=== PATIENT | female | born 1945 | race Caucasian/White ===

== ENCOUNTER 2016-08-29 13:02 | Inpatient (IN) | payer OTHER ==
[~2016-08-29] VITALS: Ht 162.6 cm; Wt 78.9 kg
[~2016-08-29 13:02] MED LIST: ALPRAZOLAM0.5 M3 PO; AMARYL4 MG PO; AMOXIL 875 MG875 MG PO; ASPIRIN CHILDRE81 MG PO; ATORVASTATIN CA10 MG PO; BACTRIM DS 8001 TAB PO; CALCIUM + D 6001 TAB PO; CYCLOBENZAPRINE10 M3 PO; FISH OIL CONC1000 MG PO; LISINOPRIL40 MG PO; METFORMIN1000 MG PO; MULTIVITAMIN1 TA1 PO; OMEPRAZOLE20 MG PO; PERCOCET 325 MG1 TA2 PO; PROAIR HFA0.09 MG/Ac INH; TYLENOL #31 TAB PO; VALIUM2 MG PO
--- NOTE | 2016-08-29 13:07 | ED DYSPNEA/ASTHMA COMPLAINT ---
History of Present Illness General Chief Complaint: Dyspnea (COPD, CHF, Other) Stated Complaint: BIBA SOB Source: patient, old records, EMS Exam Limitations: clinical condition Vital Signs & Intake/Output Vital Signs & Intake/Output Vital Signs Date Time Temp Pulse Resp B/P Pulse O2 O2 Flow FiO2 Ox Delivery Rate 08/29 1359 93 Nasal 3.0L Cannula 08/29 1308 99.9 123 26 157/67 96 Aerosol Mask Allergies Coded Allergies: NO KNOWN ALLERGIES (01/13/14) Reconcile Medications Acetaminophen With Codeine (Acetaminophen-Cod #4 Tablet) 300 MG-60 MG TABLET 1 TAB PO TID PRN PAIN SCALE 7-10 (SEVERE) (Reported) Albuterol Sulfate (Proair Hfa) 0.09 MG/Actuation OUSMANE 2 PUF INH BID PRN ASTHMA (Reported) Amoxicillin/Potassium Clav (Augmentin 875-125 Tablet) 875 MG-125 MG TABLET 1 TAB PO BID Pneumonia Aspirin (Children's Aspirin) 81 MG TAB.CHEW 1 TAB PO DAILY HEART HEALTH ( Reported) Atorvastatin Calcium (Lipitor) 10 MG TABLET 1 TAB PO DAILY CHOLESTEROL ( Reported) Calcium/Vitamin D (Calcium + D) 600 MG/200 IU TAB 1 TAB PO BID SUPPLEMENT ( Reported) CYCLOBENZAPRINE HCL (Cyclobenzaprine Hydrochloride) 10 MG TABLET 1 TAB PO DAILY PRN SPASMS (Reported) Fish Oil (Fish Oil Concentrate) 1,000 MG SGL 1 TAB PO DAILY SUPPLEMENT ( Reported) Glimepiride (Amaryl) 4 MG TAB 1 TAB PO DAILY BLOOD SUGAR (Reported) Hydrochlorothiazide 25 MG TABLET 1 TAB PO DAILY WATER PILL (Reported) Lisinopril 40 MG TABLET 1 TAB PO DAILY BLOOD PRESSURE (Reported) Loperamide HCl (Loperamide) 2 MG TABLET 1 TAB PO Q4 PRN Diarrhea METFORMIN HCL (Metformin) 1,000 MG TABLET 1 TAB PO BID DIABETES (Reported) Multivitamin2 (Multivitamin) 1 EACH TAB 1 TAB PO DAILY SUPPLEMENT (Reported) Prednisone 10 MG TABLET 0 PO SI COPD 09/03/15-09/04/15 take 4 tabs daily 09/05/15-09/07/14 take 3 tabs daily 09/08/15-09/10/15 take 2 tabs daily 09/11/15-09/13/15 take 1 tab daily then stop. Saxagliptin (Onglyza) 5 MG TABLET 1 TAB PO DAILY DIABETES (Reported) Valsartan 160 MG TABLET 1 TAB PO DAILY HEART (Reported) Triage Nurses Notes Reviewed? yes Onset: Gradual Duration: week(s): (1) Timing: recent history Severity: severe Activities at Onset: none Associated Symptoms: cough, DYSPNEA HPI: This is a 71-year-old female presents to the ER from home by EMS for chief complaint of severe shortness of breath this morning. According to the patient she has been having about one week's duration of cough and cold. She admits to some yellow sputum today. She is a former smoker but quit more than 15 years ago. Her daughter smokes in the house. No fever or chills. Today they found her in moderate to severe respiratory distress with a saturation in the low 80s. She had an inhaler at home that she was unable to use. She is not on any chronic 02. Denies any sick contacts or travel. Past History Travel History Traveled to [place] past 21 day No Medical History Any Pertinent Medical History? see below for history Neurological: NONE EENT: NONE Cardiovascular: hypertension, hyperlipidemia Respiratory: pneumonia Gastrointestinal: BOWEL OBSTRUCTION Hepatic: NONE Renal: NONE Musculoskeletal: osteoarthritis Psychiatric: NONE Endocrine: diabetes Blood Disorders: NONE Cancer(s): NONE BRAND MANAGER/Reproductive: NONE History of MRSA: No History of VRE: No History of CDIFF: No Surgical History Surgical History: BLADDER LIFT BOWEL SURGERY Psychosocial History Who do you live with Daughter Services at Home None What is your primary language Armenian Tobacco Use: Quit >30 days ago ETOH Use: denies use Illicit Drug Use: denies illicit drug use Family History Hx Contributory? No Review of Systems Review of Systems Constitutional: Denies: chills, fever. EENTM: Reports: no symptoms. Respiratory: Reports: cough, short of breath, sputum production. Cardiovascular: Denies: chest pain, palpitations. GI: Denies: abdominal pain. Genitourinary: Denies: discharge, dysuria. Musculoskeletal: Reports: no symptoms. Skin: Reports: no symptoms. Neurological/Psychological: Denies: confusion. Hematologic/Endocrine: Denies: bruising, bleeding, polyuria, polydipsia. Immunologic/Allergic: Denies: splenectomy. All Other Systems: Reviewed and Negative Physical Exam Physical Exam General Appearance: well developed/nourished, alert, awake Head: atraumatic, normal appearance Eyes: Bilateral: normal appearance, PERRL, EOMI. Ears, Nose, Throat: normal pharynx, normal ENT inspection, hearing grossly normal Neck: normal inspection, supple, JVD Respiratory: decreased breath sounds, accessory muscle use, rhonchi, wheezing Cardiovascular: regular rate/rhythm Peripheral Pulses: 2+ radial (R), 2+ radial (L) Gastrointestinal: normal bowel sounds, soft, non-tender Extremities: normal inspection, normal capillary refill, normal range of motion, no edema Neurologic/Psych: no motor/sensory deficits, awake, alert, oriented x 3 Skin: intact, normal color, warm/dry Core Measures ACS in differential dx? No Severe Sepsis Present: No Septic Shock Present: No Progress Differential Diagnosis: asthma, bronchitis, CHF, COPD, pulmonary embolism, pneumonia, INFLUENZA Plan of Care: Orders Procedure Date/time Status Heart Healthy Diet 08/29 D Active LACTIC ACID 08/29 1607 Active Admit to inpatient 08/29 1422 Active Vital Signs 08/29 1422 Active Code Status 08/29 1422 Active TROPONIN LEVEL 08/29 1330 Complete RAPID VIRAL INFLUENZA A 08/29 1328 Active BLOOD CULTURE 08/29 1328 Active PARTIAL THROMBOPLASTIN TIME 08/29 1307 Complete PROTHROMBIN TIME 08/29 1307 Complete LACTIC ACID 08/29 1307 Complete RT ED ORDERS 08/29 1306 Active Telemetry/Winch Derrick Operator 08/29 1306 Active LOWER RESPIRATORY CULTURE 08/29 1306 Active BLOOD CULTURE 08/29 1306 Active COMPREHENSIVE METABOLIC PANEL 08/29 1306 Complete CBC WITHOUT DIFFERENTIAL 08/29 1306 Active EKG 08/29 1302 Active Current Medications Sig/Harish Start time Last Medication Dose Stop Time Status Admin Albuterol Sulfate 3 ML ONCE ONE 08/29 1430 UNVr (Proventil) 08/29 1431 Sodium Chloride 1,000 ML BOLUS ONE 08/29 1430 UNVr (Normal Saline 0.9%) 08/29 1529 Acetaminophen 1,000 MG ONCE ONE 08/29 1415 AC (Ofirmev) 08/29 1429 N/A 1 UNIT (No Carrier) Azithromycin 500 MG ONCE ONE 08/29 1345 AC (Zithromax) 08/29 1444 Dextrose/Water 250 ML (D5W) Laboratory Tests 08/29/16 1340: Lactic Acid 3.6 H 08/29/16 1330: Anion Gap 15, Estimated GFR 40 L, BUN/Creatinine Ratio 20.0, Glucose 284 H, Calcium 9.5, Total Bilirubin 0.9, AST 18, ALT 36, Alkaline Phosphatase 136 H, Troponin I < 0.01, Total Protein 7.2, Albumin 4.1, Globulin 3.1, Albumin/ Globulin Ratio 1.3, PT 12.4, INR 1.18, APTT 30, CBC w Diff MAN DIFF ORDERED, RBC 4.13 L, MCV 94.0, MCH 31.3 H, RDW 13.7, MPV 7.8, Gran % 84.8 H, Lymphocytes % 9.1 L, Monocytes % 5.7, Eosinophils % 0.1, Basophils % 0.3, Absolute Granulocytes 14.8 H, Segmented Neutrophils Pending, Absolute Lymphocytes 1.6, Absolute Monocytes 1.0 H, Absolute Eosinophils 0, Absolute Basophils 0.1, PUBS MCHC 33.3 Microbiology 08/29 1348 BLOOD: Blood Culture - RECD 08/29 1330 BLOOD: Blood Culture - RECD 08/29 1306 LOWER RESP: Respiratory Culture - ORD 08/29 1306 LOWER RESP: Gram Stain - ORD Diagnostic Imaging: Viewed by Me: Radiology Read. Discussed w/RAD: Radiology Read. Initial ED EKG: SINUS TACHYCARDIA AT 120, st DEPRESSIONS v4 THROUGH v6 Rhythm Strip: sinus tachycardia Comments: PATIENT: VINCENT CLAYTON PRESENT AGE: 71 PATIENT ACCOUNT NO: [id number] : 44 LOCATION: [facility] ORDERING PHYSICIAN: HERMANN JACOB MD SERVICE DATE: 08/29/161306 EXAM TYPE: RAD - XRY-PORTABLE CHEST XRAY EXAMINATION: XR PORTABLE CHEST CLINICAL INFORMATION: Cough and shortness of breath. COMPARISON: CXR from 01/12/[address] from 12/30/2014. TECHNIQUE: Portable view of the chest was obtained. FINDINGS: There are a few horizontal linear lines of artifact projecting over the lower chest. Lungs are slightly hypoinflated. Compared to 01/12/2014, there is new, hazy opacity in the retrocardiac region of the lower lobe. This could represent atelectasis or pneumonia if in the right clinical context. This area of the lung is suboptimally evaluated on this single view. No evidence of pleural effusion. The cardiac silhouette is normal in size. The hilar contours are normal. The upper lobes are relatively lucent from patient's known emphysematous disease. There is at least moderate osteoarthritis of both glenohumeral joints. IMPRESSION: 1. Pulmonary emphysema. 2. There is hazy opacity in the retrocardiac left lower lobe, possibly pneumonia. DICTATED BY: HILLARY VASQUEZ MD DATE/TIME DICTATED:08/29/161334 MORTGAGE ADVISOR:TOÑO DATE/TIME TRANSCRIBED:08/29/161334 CONFIDENTIAL, DO NOT COPY WITHOUT APPROPRIATE AUTHORIZATION. <Electronically signed in Other Vendor System> SIGNED BY: HILLARY VASQUEZ MD 08/29/16 1344 Departure Departure Time of Disposition: 1421 Disposition: STILL A PATIENT Condition: Stable Clinical Impression Primary Impression: Pneumonia Secondary Impressions: Hypoxia, Lactic acid acidosis, Respiratory distress Referrals: BALJIT GRADY,MILE Newton (PCP/Family) Departure Forms: Customer Survey General Discharge Information Prescriptions: Current Visit Scripts Amoxicillin/Potassium Clav (Augmentin 875-125 Tablet) 1 TAB PO BID #20 TAB Prednisone 0 PO SI #26 09/03/15-09/04/15 take 4 tabs daily 09/05/15-09/07/14 take 3 tabs daily 09/08/15-09/10/15 take 2 tabs daily 09/11/15-09/13/15 take 1 tab daily then stop. Loperamide HCl (Loperamide) 1 TAB PO Q4 PRN Diarrhea #10 TAB Admission Note Spoke With: PALAK BOYD MD Documentation of Exam: Documentation of any treatments & extenuating circumstances including Concerns Regarding Discharge (functional status, medication knowledge or non-compliance, living conditions, etc.) that warrant an admission rather than observation: [IV fluids, IV antibiotics, TRC/nebs, pulmonary consultation, repeat lactic acid after IV hydration and follow-up blood and sputum cultures] ED Sepsis Exam Date of Focused Sepsis Exam: 08/29/16 Time of Focused Sepsis Exam: 1331 Sepsis Cardiac Exam: Tachycardia Sepsis Resp Exam: Ronchi Sepsis Cap Refill Exam: <2 Sec Sepsis Peripheral Pulse Exam: Normal Sepsis Peripheral Pulse Location: Radial Sepsis Skin Color Exam: Normal for Ethnicity Skin Temp/Moisture Exam: Warm/Dry Critical Care Note Critical Care Note Critical Care Time: 30-74 min
--- NOTE | 2016-08-29 13:10 | NUR ---
PT BIBA FROM HOME FOR C/O SOB X 6 DAYS. LAST MONDAY PT HAD A SYNCOPAL EPISODE AND REFUSED TRANSPORTATION TO ER. PT ARRIVES TODAY, SOB. ARRIVES ON DUONEB, SATS 96%. PT TAKEN OFF DUONEB AND PLACED ON 2LNC, SATS 92-95%. DENIES C/P. C/O PRODUCTIVE COUGH.
--- NOTE | 2016-08-29 13:18 | NUR ---
PORT CXR DONE.
--- NOTE | 2016-08-29 13:44 | RADIOLOGY REPORT ---
EXAMINATION: XR PORTABLE CHEST CLINICAL INFORMATION: Cough and shortness of breath. COMPARISON: CXR from 01/12/[address] from 12/30/2014. TECHNIQUE: Portable view of the chest was obtained. FINDINGS: There are a few horizontal linear lines of artifact projecting over the lower chest. Lungs are slightly hypoinflated. Compared to 01/12/2014, there is new, hazy opacity in the retrocardiac region of the lower lobe. This could represent atelectasis or pneumonia if in the right clinical context. This area of the lung is suboptimally evaluated on this single view. No evidence of pleural effusion. The cardiac silhouette is normal in size. The hilar contours are normal. The upper lobes are relatively lucent from patient's known emphysematous disease. There is at least moderate osteoarthritis of both glenohumeral joints. IMPRESSION: 1. Pulmonary emphysema. 2. There is hazy opacity in the retrocardiac left lower lobe, possibly pneumonia.
--- NOTE | 2016-08-29 13:54 | NUR ---
BLD CX X2 AND LABS (SST/LAV/BLUE/JACKSON) AND FLU SWAB SENT, PT HAS SPUTUM CUP TO COLLECT SPUTUM SAMPLE. PT FEELING MORE COMFORTABLE,, 02 SATS 93-94 ON NC.
[2016-08-29 13:59] LABS: ABSOLUTE BASOPHIL COUNT 0.1 /CUMM (0.0-0.2); ABSOLUTE EOSINOPHIL COUNT 0 /CUMM (0.0-0.7); ABSOLUTE GRANULOCYTE CT 14.8 /CUMM (1.4-6.5); ABSOLUTE LYMPH COUNT 1.6 /CUMM (1.2-3.4); BASOPHIL % 0.3 % (0.0-2.0); EOSINOPHIL % 0.1 % (0-5); GRANULOCYTE % 84.8 % (42.2-75.2); HEMATOCRIT 38.8 % (37-47); MEAN CORPUSCULAR HGB 31.3 PG (27.0-31.0); MEAN CORPUSCULAR HGB CONC 33.3 G/DL (33.0-37.0); MEAN PLATELET VOLUME 7.8 FL (7.4-10.4); PLATELET COUNT 315 /CUMM (130-400); RBC DISTRIBUTION WIDTH 13.7 % (11.5-14.5); RED BLOOD CELL CT 4.13 /CUMM (4.20-5.40); WHITE BLOOD CELL COUNT 17.5 /CUMM (4.8-10.8)
[2016-08-29 14:05] LABS: PT 12.4 SEC (9.4-12.5); PTT 30 SEC (25-37)
[2016-08-29] MEDS ORDERED: VALSARTAN160 M1 PO (14:26)
[2016-08-29] MEDS ORDERED: HYDROCHLOROTHIA25 M1 PO (14:27)
[2016-08-29] MEDS ORDERED: ONGLYZA5 M1 PO (14:27)
[2016-08-29 14:30] VITALS: BP 130/70
--- NOTE | 2016-08-29 14:32 | History & Physical ---
REBECCA GRADY,[facility] 08/29/16 1432: General Information and HPI MD Statement: I have seen and personally examined VINCENT CLAYTON and documented this H&P. The patient is a 71 year old F who presented with a patient stated chief complaint of is of breath Source of Information: patient Exam Limitations: no limitations History of Present Illness: This is a 71-year-old female with past medical history of hypertension, hyperlipidemia, diabetes mellitus, osteoarthritis who presents with chief complaint of shortness of breath. As per patient for the past couple of days she has been getting progressively short of breath(not on any home oxygen), she also had had cough productive of light greenish sputum, denied any hemoptysis, she did feel feverish but denies any fever. She has been using her inhaler at home but without any relief. Today her shortness of breath progressed to the point that her daughter called the ambulance and that's when she was brought to the ER for further evaluation. She denies any nausea, vomiting, fever, abdominal pain, urine symptoms, changes in bowel movements, any recent travels. Her daughter with whom she lives with has recently been sick with upper respiratory symptoms recently treated with Zithromax. She has received her flu vaccine but denies receiving pneumonia vaccine. She lives with her daughter, is able to do her daily chores without any difficulty, fully functional , is ex-smoker quit 15 years ago(but is exposed to secondhand smoke), drinks alcohol occasionally, denies any drug abuse. She follows Dr. London Smiley as her primary care physician and Dr. Zackery Butcher as her manugrapher (whom she saw after she had the syncopal episode, an echo was done and stress test which as per patient was normal, will request records if needed.) Allergies/Medications Allergies: Coded Allergies: NO KNOWN ALLERGIES (01/13/14) Home Med list Albuterol Sulfate (Proair Hfa) 0.09 MG/Actuation OUSMANE 2 PUF INH BID PRN ASTHMA (Reported) Aspirin (Children's Aspirin) 81 MG TAB.CHEW 1 TAB PO DAILY HEART HEALTH ( Reported) Atorvastatin Calcium (Lipitor) 10 MG TABLET 1 TAB PO DAILY CHOLESTEROL ( Reported) Calcium/Vitamin D (Calcium + D) 600 MG/200 IU TAB 1 TAB PO BID SUPPLEMENT ( Reported) CYCLOBENZAPRINE HCL (Cyclobenzaprine Hydrochloride) 10 MG TABLET 1 TAB PO DAILY PRN SPASMS (Reported) Fish Oil (Fish Oil Concentrate) 1,000 MG SGL 1 TAB PO DAILY SUPPLEMENT ( Reported) Glimepiride (Amaryl) 4 MG TAB 1 TAB PO DAILY BLOOD SUGAR (Reported) Hydrochlorothiazide 25 MG TABLET 1 TAB PO DAILY WATER PILL (Reported) Lisinopril 40 MG TABLET 1 TAB PO DAILY BLOOD PRESSURE (Reported) METFORMIN HCL (Metformin) 1,000 MG TABLET 1 TAB PO BID DIABETES (Reported) Multivitamin2 (Multivitamin) 1 EACH TAB 1 TAB PO DAILY SUPPLEMENT (Reported) Saxagliptin (Onglyza) 5 MG TABLET 1 TAB PO DAILY DIABETES (Reported) Valsartan 160 MG TABLET 1 TAB PO DAILY HEART (Reported) Compliance With Home Meds: GOOD Past History Travel History Traveled to [place] past 21 day No Medical History Neurological: NONE EENT: NONE Cardiovascular: hypertension, hyperlipidemia Respiratory: pneumonia Gastrointestinal: BOWEL OBSTRUCTION Hepatic: NONE Renal: NONE Musculoskeletal: osteoarthritis Psychiatric: NONE Endocrine: diabetes Blood Disorders: NONE Cancer(s): NONE LICENSED NURSE PRACTITIONER/Reproductive: NONE History of MRSA: No History of VRE: No History of CDIFF: No Surgical History Surgical History: BLADDER LIFT BOWEL SURGERY Past Family/Social History Family History Relations & Conditions if any FATHER FH: cancer FH: heart disease Psychosocial History Where do you live? Home Who Do You Live With? child Services at Home: None Smoking Status: Former Smoker ETOH Use: denies use Illicit Drug Use: denies illicit drug use Functional Ability ADLs Independent: dressing, eating, toileting, bathing. Ambulation: independent IADLs Independent: shopping, housework, finances, food prep, telephone, transportation , medication admin. Review of Systems Review of Systems Constitutional: Reports: see HPI, chills. Denies: fever. Cardiovascular: Denies: chest pain, palpitations. Respiratory: Reports: cough, orthopnea, short of breath, sputum production. Denies: hemoptysis, wheezing. GI: Denies: abdominal pain, nausea, vomiting. Genitourinary: Denies: dysuria, frequency. Musculoskeletal: Reports: no symptoms. Exam & Diagnostic Data Last 24 Hrs of Vital Signs/I&O Vital Signs Date Time Temp Pulse Resp B/P Pulse O2 O2 Flow FiO2 Ox Delivery Rate 08/29 1526 99.6 08/29 1515 99.6 116 20 135/57 92 Room Air Room Air 08/29 1504 93 Nasal 3.0L Cannula 08/29 1359 93 Nasal 3.0L Cannula 08/29 1308 99.9 123 26 157/67 96 Aerosol Mask Intake & Output 08/29 1600 08/29 0800 08/29 0000 Intake Total 60 Output Total Balance 60 Intake, Oral 60 Patient 78.925 kg Weight Physical Exam General Appearance Alert, Oriented X3, Cooperative, No Acute Distress Cardiovascular Regular Rate, Normal S1, Normal S2, No Murmurs Lungs b/l wheeze, ronchi in left lower lobe Abdomen Normal Bowel Sounds, Soft, No Tenderness Extremities No Clubbing, No Cyanosis, No Edema Diagnostic Data EKG Results sinus tachycardia, heart rate 120, no ST changes CXR Results 1. Pulmonary emphysema. 2. There is hazy opacity in the retrocardiac left lower lobe, possibly pneumonia. Assessment/Plan Assessment: This is a 71-year-old female with past medical history of hypertension, hyperlipidemia, diabetes mellitus, osteoarthritis who presents with chief complaint of shortness of breath. Vitals upon presentation temperature 99.9, pulse 123, respiratory rate 26, blood pressure 157/67, satting in the late 80s which improved to 96% on aerosol mask. Followed by 93% on nasal cannula oxygen 3 L. Pertinent labs WBC 17.5, H&H 12.9 and 38.8, sodium 135, protein 1.3 and 26 Chest x-ray showed has a opiate opacity in the retrocardiac left lower lobe suspicious of pneumonia . The patient admitted to [facility] floor and we will monitor for the following conditions. Sepsis secondary to community-acquired pneumonia: As evidence by tachycardia, tachypnea, high white count in setting of pneumonia. Oxygen supplementation as needed to keep saturation above 90%. Patient started on ceftriaxone thousand milligrams IV daily and azithromycin 250 mg IV daily to cover for community-acquired pneumonia. Will await sputum culture and sensitivities, blood cultures. We'll follow-up urine Legionella and pneumococcal antigen. Solu-Medrol IV 40 mg every 8 as patient was wheezing. Pulmonology consult in a.m. History of hypertension: We'll continue home dose of lisinopril 40 mg tablet daily with frequent blood pressure monitoring. History of hyperlipidemia: We'll continue home dose of Lipitor 10 mg daily. History of diabetes mellitus: Insulin sliding scale with fingerstick glucose Diabetic diet DVT prophylaxis: Heparin subcutaneous Patient is full code. As Ranked By This Provider Problem List: 1. Pneumonia 2. Hypertension 3. Dyslipidemia Core Measures/Miscellaneous Acute Coronary Syndrome ACS Diagnosis: No Cerebrovascular Accident CVA/TIA Diagnosis: No Congestive Heart Failure CHF Diagnosis: No Venous Thromboembolism VTE Risk Factors: Acute medical illness, Age > 40 VTE Prophylaxis Ordered Inpt: Pharm- Heparin No Mech VTE prophylaxis d/t: No contraindications No VTE Pharm Prophylaxis d/t: No contraindications VTE Diagnosis: No VTE Type: NONE VTE Confirmed by (Test): NONE Severe Sepsis Severe Sepsis Present: No Septic Shock Septic Shock Present: No Miscellaneous Documentation Attending Case Discussed With: PALAK BOYD MD Primary Care Physician: LONDON SMILEY MD Patient sees these Specialists . Level of Patient Care: General Medicine PIOTR AGUILAR MD 08/29/161811: Resident Review Statement Resident Statement: examined this patient, discussed with senior insight manager international, agreed with senior insight manager international Other Findings: 71-year-old female with a past medical history of type 2 diabetes, not on insulin, undiagnosed COPD, hypertension, hyperlipidemia who presents with one- week duration of worsening shortness of breath associated with productive cough with yellowish sputum. Reports some chills and nausea but denies fever, chest pain, PND, vomiting, or leg swelling. She lives with her daughter and reports a positive history of sick contact [her daughter was recently treated with for upper respiratory tract infection]. She is a former smoker, quit about 15 years ago but her daughter is a current smoker and so she is exposed to 2nd hand smoke. She used her albuterol inhaler without relief. She does not see a information technology audit manager and was not aware she had COPD. No pain complaint at this time. O/E-AAOx3, expiratory wheezing, rhoncii on Left lung base, RRR, non-tender abdomen, + BS, no pedal edema WBC 17.5, 6 bands. lactic acid 3.6, Na 135, K 4.3, Creat 1.3, BUN 26 Vitals 99.9, [place] 123, RR 26, BP 157/67, O2 sat 84% then 96% on 3L aerosol mask CXR-pulmonary emphysema and hazy opacity in the retrocardiac left lower lobe Assessment 1. Sepsis (Tachcypnea, tachyardia, PNA on CXR, elevated WBC + bands) 2. Acute hypoxic resp failure 2/2 Community Acquired pneumonia 3. COPD exacerbation 4. STEFANIE 5. Type 2 DM 6. HTN 7. Hyperlipidemia Plan Admit to general medicine floor Obtain blood cultures 2 Obtain sputum culture Repeat 3hr lactic acid Rapid flu, strep pneumo and Legionella IV ceftriaxone, IV azithromycin IV Solu-Medrol 40 mg every 8-taper as needed Mucinex twice a day IV Zofran for nausea IV fluid normal saline 1 bag Hold ARB, ACEIs, other nephrotoxic drugs for now NovoLog sliding scale Low-dose Levemir twice a day Fingersticks 3 times a day before meals and at bedtime TRC nebs O2 supplementation as needed Pulmonary consult in the a.m.-follow-up as outpatient for PFTs Labs in a.m. Tylenol for pain/fever On the toe vitals closely-watch for fevers Subcutaneous heparin for DVT prophylaxis Diabetic diet Full Code Please confirm medication list from daughter and resume important home medications For attending recommendations PALAK BOYD MD 08/29/16 2228: Attending MD Review Statement Attending Statement Attending MD Statement: examined this patient, discuss w/resident/PA/BUSINESS ADMINISTRATION PROGRAM CHAIR, agreed w/resident/PA/BUSINESS ADMINISTRATION PROGRAM CHAIR, discussed with family, reviewed EMR data (avail), discussed with nursing, reviewed images, amended to note Attending Assessment/Plan: The patient is a 71 yo female with/o HTN, DM2, HL, OA who presented on the day of admission in the [facility] ED with c/o dyspnea (pulse ox 84% on presentation), cough and fever. She was noted to have LLL infiltrate on CXR, diffuse wheeze on exam and fever with elevated WBC 17.5. She was tachycardic and tachypneic. She had progressive symptoms over 1 week period. Physical Exam: VS: T 99.2, P 120, R 20, BP 157/67, PO 84, 92-96% (on oxygen) HEENT: eyes- PERRLA, EOMI carlos enrique- moist mucosa w/o lesions Neck: no JVD or adenopathy/bruits Chest: moderate diffuse expiratory wheeze with scattered rhonchi and diminished BS left base Cor: RRR, borderline tachycardic at time of my exam, nl S1, S2 w/o murm Abd: BS+, soft, NT Ext: no edema, pulses 1+ Neuro: non-focal Labs/Tests- as above Impression/Plan: #Community Acquired Pneumonia- 1 week of symptoms with purulent sputum. Plan: Admit to medical floor. Prieto culture, blood cultures, sputum culture IV Ceftriaxone/Zithromax. Follow clinical course. #Acute Hypoxic Respiratory Failure- as above pulse ox 84% on presentation on RA and increased to 93% on oxygen. Secondary to pneumonia and COPD exacerbation. Plan: Close respiratory monitoring and nasal oxygen support. #Sepsis- secondary to pneumonia. With fever, tachypnea, tachycardia, and leukocytosis. Plan: Will culture and treat with IV antibiotics as above. #COPD Exacerbation- diffuse wheeze noted. Plan: Agree with aerosol and IV Medrol. Will follow. #DM2- on meds as above. Plan: Check glucoscans and sliding scale insulin coverage. #HTN- BP good. Plan: Continue current meds- Valsartan, etc. #Hyperlipidemia- on Atorvastatin. Plan: Continue Atorvastatin.
--- NOTE | 2016-08-29 14:38 | NUR ---
PT HAS BED ASSIGNMENT 219-2, ROOM NOT READY.
--- NOTE | 2016-08-29 14:58 | NUR ---
PT C/O SOME NAUSEA. MEDICATED WITH IV ZOFRAN PER EMAR. PT ASKING FOR CARTER MARILEE, AWARE TO LET NAUSEA SUBSIDE BEFORE ATTEMPTING PO. FAMILY AT BEDSIDE.
--- NOTE | 2016-08-29 15:01 | NUR ---
DINNER TRAY ORDERED.
--- NOTE | 2016-08-29 15:11 | NUR ---
CALL TO FLOOR FOR REPORT, NURSE TO CALL BACK.
--- NOTE | 2016-08-29 15:37 | NUR ---
REPORT CALLED TO [facility] ON 2N, TRANSPORT BOOKED.
[2016-08-29 20:08] VITALS: BP 126/72
--- NOTE | 2016-08-29 21:25 | NUR ---
PT FINGERSTICK 442. SPOKE WITH SWEATBAND PERFORATOR #[id number] WHO ADVISED TO ADMINISTER LEVEMIR AT THIS TIME ORDERED FOR 2199.
--- NOTE | 2016-08-29 22:28 | Admission Certification ---
Admission Certification Certification Statement - As attending physician, I certify that at the time of - admission, based on clinical presentation, severity of - symptoms, need for further diagnostic testing and - therapeutic interventions, and risk of adverse outcomes - without in-hospital treatment, in my clinical assessment, - this patient requires an acute hospital stay for a minimum - of two nights or longer. I have also considered psychsocial - factors such as support system, advanced age, financial - issues, cognitive issues, and failed out-patient treatments, - past re-admission history, safety of patient, and lack of - compliance as applicable. Specific rationale supporting this admission is: The patient presents with community acquired LLL pneumonia with significant dyspnea and tachypne. Needs admission for oxygen support and close monitoring. IV antibiotics- Ceftriaxone/Zitrhomax. Also with significant wheeze c/w bronchospasm and will need aerosol/IV Medrol.
[2016-08-29 23:47] VITALS: BP 130/62
--- NOTE | 2016-08-30 01:41 | NUR ---
FINGERSTICK 417. SENT TEXT PAGE TO FARM CREW MEMBER #[id number] TO ADVISE.
--- NOTE | 2016-08-30 01:43 | NUR ---
SPOKE WITH PENAL OFFICER #[id number] AND ADVISED TO RECHECK FINGERSTICK IN ONE HOUR.
--- NOTE | 2016-08-30 03:21 | NUR ---
LATE ENTRY SHANTELL NOTE: PER DEMURRAGE CLERK RECHECK BP IN TWO HOURS NOT ONE. FINGERSTICK DUE [id number]
--- NOTE | 2016-08-30 03:50 | NUR ---
SHREYA 354, LUBRICATION TECHNICIAN #[id number] ADVISED.
--- NOTE | 2016-08-30 07:04 | PN- Housestaff ---
See Addendum Subjective Follow-up For: CAP with acute hypoxic respiratory failure Sepsis COPD exacerbation DM2 HTN HLD Subjective: Patient seen and examined at bedside this AM. She offers no complaints other than mild dyspnea with cough/sputum production. Patient denies choking sensation , however she does endorse cough whenever she eats rice. Patient also endorses recent sick contact being her daughter who was given antibiotics for respiratory symptoms. Review of Systems Constitutional: Denies: chills, diaphoresis, fever. EENTM: Denies: blurred vision, visual changes. Cardiovascular: Denies: chest pain, palpitations. Respiratory: Reports: cough, orthopnea, short of breath, sputum production. Denies: hemoptysis, wheezing. Gastrointestinal: Denies: abdominal pain, nausea, vomiting. Genitourinary: Denies: dysuria, frequency, hematuria. Musculoskeletal: Denies: back pain. Skin: Denies: change in skin color, change in hair/nails. Neurological/Psychological: Denies: confusion, headache. Hematologic/Endocrine: Denies: bleeding. Objective Last 24 Hrs of Vital Signs/I&O Vital Signs Date Time Temp Pulse Resp B/P Pulse O2 O2 Flow FiO2 Ox Delivery Rate 08/30 0856 105 118/60 08/30 0850 98.2 105 20 118/60 93 Room Air 08/30 0841 97 Nasal 2.0L Cannula 08/30 0800 Nasal 3.0L Cannula 08/30 0000 93 Nasal 3.0L Cannula 08/29 2347 98.4 110 20 130/62 93 08/29 2008 98.0 96 20 126/72 94 Room Air 08/29 1859 Nasal 3.0L Cannula 08/29 1723 Nasal 3.0L Cannula 08/29 1526 99.6 Intake & Output 08/30 1600 08/30 0800 08/30 0000 Intake Total 400 Output Total 500 Balance -100 Intake, Oral 400 Output, Urine 500 Patient 174 lb Weight Physical Exam General Appearance: Alert, Oriented X3, Cooperative, No Acute Distress Skin: No Significant Lesion HEENT: Atraumatic, Mucous Membr. moist/pink Neck: Supple, No LAD Lymphatic: Cervical nl Cardiovascular: Regular Rate, Normal S1, Normal S2, No Murmurs Lungs: Normal Air Movement, Decreased breath sounds left base. Occasional wheeze. Abdomen: Normal Bowel Sounds, Soft, No Tenderness Neurological: Normal Speech, Normal Tone Extremities: No Clubbing, No Cyanosis, No Edema Vascular: Pulses Symmetrical Current Medications: Current Medications Sig/Harish Start time Last Medication Dose Route Stop Time Status Admin Acetaminophen 650 MG Q6P PRN 08/29 1530 AC PO Albuterol Sulfate 3 ML BID 08/29 2200 AC 08/30 INH 0839 Atorvastatin Calcium 10 MG DAILY 08/30 1000 AC 08/30 PO 0854 Azithromycin 500 MG DAILY 08/30 1000 DC 08/30 Dextrose/Water 250 ML IV 0854 Ceftriaxone Sodium 1,000 MG DAILY 08/30 1000 AC 08/30 IV 0854 Guaifenesin 600 MG Q12 08/29 2200 AC 08/30 PO 0854 Heparin Sodium 5,000 UNIT Q8 08/29 2200 (Porcine) SC Insulin Aspart 0 TIDAC 08/30 0800 08/30 SC 1314 Insulin Aspart 8 UNITS ONCE ONE 08/29 2330 DC 08/30 SC 08/29 2331 0009 Insulin Aspart 10 UNITS ONCE ONE 08/29 2014 DC VA 08/29 2016 Insulin Aspart 0 TIDAC 08/29 1700 DC 08/29 SC 2000 Insulin Detemir 15 UNITS BID 08/30 1000 08/30 SC 0854 Insulin Detemir 10 UNITS BID 08/29 2200 WI 08/29 SC 2132 Losartan Potassium 50 MG DAILY 08/30 1000 AC 08/30 PO 0856 Methylprednisolone 40 MG Q8 08/29 2200 08/30 IV 0640 Ondansetron HCl 4 MG Q6P PRN 08/29 1530 AC IV Sodium Chloride 1,000 ML Q10H 08/30 0630 DC 08/30 IV 08/30 1429 0640 Sodium Chloride 1,000 ML Q10H 08/29 1630 DC 08/29 IV 08/30 0229 1800 Sodium Chloride 1,000 ML BOLUS ONE 08/29 1430 DC 08/29 IV 08/29 1529 1526 Vancomycin HCl 1,250 MG DAILY 08/31 1000 AC Dextrose/Water 250 ML IV Vancomycin HCl 1,000 MG Q48 08/30 1415 DC Dextrose/Water 250 ML IV Last 24 Hrs of Lab/Ricci Results Last 24 Hrs of Labs/Mics: Laboratory Tests 08/30/16 1435: Urine Color Pending, Urine Clarity Pending, Urine pH Pending, Ur Specific [place] Pending, Urine Protein Pending, Urine Ketones Pending, Urine Nitrite Pending, Urine Bilirubin Pending, Urine Urobilinogen Pending, Ur Leukocyte Esterase Pending, Ur Microscopic Pending, Urine Hemoglobin Pending, Urine Glucose Pending 08/30/16 0721: Lactic Acid 1.5 08/30/16 0721: Anion Gap 13, Estimated GFR 37 L, BUN/Creatinine Ratio 22.1, Total Bilirubin 0.5, Direct Bilirubin 0.3, AST 15, ALT 34, Alkaline Phosphatase 112, Total Protein 6.4, Albumin 3.5, CBC w Diff NO MAN DIFF REQ, RBC 3.68 L, MCV 93.7, MCH 31.5 H, RDW 13.3, MPV 7.9, Gran % 92.6 H, Lymphocytes % 5.2 L, Monocytes % 2.1, Eosinophils % 0, Basophils % 0.1, Absolute Granulocytes 17.7 H, Absolute Lymphocytes 1.0 L, Absolute Monocytes 0.4, Absolute Eosinophils 0, Absolute Basophils 0, PUBS MCHC 33.6 08/30/16 0600: Hemoglobin A1c Cancelled 08/29/16 1623: Lactic Acid 6.3 H Microbiology 08/29 2244 URINE ROUT: Legionella Antigen - COMP 08/29 2244 URINE ROUT: Streptococcus pneumoniae Antigen (M - COMP Orders EKG Findings: Initial EKG: ST at 120 bpm, ST depressions V4-V6 Radiology Findings: EXAMINATION: XR PORTABLE CHEST CLINICAL INFORMATION: Cough and shortness of breath. COMPARISON: CXR from 01/12/[address] from 12/30/2014. TECHNIQUE: Portable view of the chest was obtained. FINDINGS: There are a few horizontal linear lines of artifact projecting over the lower chest. Lungs are slightly hypoinflated. Compared to 01/12/2014, there is new, hazy opacity in the retrocardiac region of the lower lobe. This could represent atelectasis or pneumonia if in the right clinical context. This area of the lung is suboptimally evaluated on this single view. No evidence of pleural effusion. The cardiac silhouette is normal in size. The hilar contours are normal. The upper lobes are relatively lucent from patient's known emphysematous disease. There is at least moderate osteoarthritis of both glenohumeral joints. IMPRESSION: 1. Pulmonary emphysema. 2. There is hazy opacity in the retrocardiac left lower lobe, possibly pneumonia. Assessment/Plan Assessment: Ms. Holguin is a pleasant 71 year old female with PMH HTN, HLD, COPD, prior smoker, DM2 and OA who presented with chief complaint of shortness of breath. This dypsnea was progressive over the last couple of days and was productive of light green sputum. She endorsed no relief with home inhalers as well as a positive sick contact being her daughter. Patient admits to receiving her annual flu shot but not a pneumovax injection. In the ED: Vital signs showed T 99.9. HR 123, RR 26, BP 157/67 and O2 sat 92% RA. Labs showed WBC 17.5, H&H 12.9/38.8, Plt 315, Na 134, BUN /cre 31/1.4 and lactic acid 3.6. Troponin negative x 1. Coags WNL. CXR shjowed pulmonary emphysema and hazy opacity in retrocariac left lower lobe. Patient was admitted to the general medicine floor and the following was the management: 1. Acute hypoxic respiratory failure with COPD exacerbation * Patient noted to have pulse ox of 84% on RA at presentation that increased to 93% on supplemental O2 * Consult with Dr. Underwood placed and appreciated * IV solumedrol 40 mg IV Q8h * TRC nebs and supplemental O2 as needed * Mucinex 2. Sepsis secondary to CAP * Noted leukocytosis, bandemia, fever, tachycardia and elevated lactic acid, peaking at 6.3 * Lactic acid has since returned to WNL at 1.5 after IV hydration * F/U BC, LRC, UC * Sputum cultures show staph aureus, will switch IV azithromycin to IV vancomycin to cover for MRSA until cultures return. Continue IV ceftriaxone for now. 3. Renal dysfunction * Cre 1.3 on admission with increase to 1.4 today * Continue IV hydration, check BEP tomorrow 4. Diabetes mellitus type 2 * Continue accuchecks * NSS 15 U BID SC levemir, NSS TID AC 5. HTN, HLD * Continue losartan 50 mg PO daily * Monitor vital signs Q shift * Lipitor 10 mg PO daily FULL CODE DVTP: Heparin SC Mild Pain pathways Heart Healthy Diet Problem List: 1. Hypertension 2. Dyslipidemia 3. Lactic acid acidosis 4. Pneumonia 5. COPD (chronic obstructive pulmonary disease) Pain Ratin Pain Location: n/a Pain Goal: Remain pain free Pain Plan: Tylenol for mild pain Tomorrow's Labs & Rationales: BEP (monitor renal function), CBC (monitor WBC in setting of sepsis/CAP)
[2016-08-30 07:55] LABS: ABSOLUTE BASOPHIL COUNT 0 /CUMM (0.0-0.2); ABSOLUTE EOSINOPHIL COUNT 0 /CUMM (0.0-0.7); ABSOLUTE GRANULOCYTE CT 17.7 /CUMM (1.4-6.5); ABSOLUTE MONOCYTE COUNT 0.4 /CUMM (0.10-0.60); BASOPHIL % 0.1 % (0.0-2.0); EOSINOPHIL % 0 % (0-5); GRANULOCYTE % 92.6 % (42.2-75.2); HEMATOCRIT 34.5 % (37-47); MEAN CORPUSCULAR HGB 31.5 PG (27.0-31.0); MEAN CORPUSCULAR HGB CONC 33.6 G/DL (33.0-37.0); MEAN CORPUSCULAR VOLUME 93.7 FL (81.0-99.0); MEAN PLATELET VOLUME 7.9 FL (7.4-10.4); PLATELET COUNT 350 /CUMM (130-400); RBC DISTRIBUTION WIDTH 13.3 % (11.5-14.5); RED BLOOD CELL CT 3.68 /CUMM (4.20-5.40)
[2016-08-30 08:50] VITALS: BP 118/60
--- NOTE | 2016-08-30 09:04 | Cons- Pulmonary ---
General Information and HPI Consulting Request Date of Consult: 08/30/16 Requested By: dora Reason for Consult: Sepsis left lower lobe pneumonia hypoxic respiratory failure History of Present Illness: Patient is 71-year-old with history of distant smoking having quit 15 years ago COPD admitted with hypoxic respiratory failure and sepsis secondary to left lower lobe community acquired pneumonia. Patient had URI symptoms cough productive of yellow sputum and progressive shortness of breath. She presented the emergency room where his saturations were in the 80s she is placed on supplemental oxygen. Chest x-ray suggested left lower lobe infiltrate associated with leukocytosis and left shift. She had lactic acidosis which resolved. There is evidence of acute kidney injury. Sputum cultures are growing moderate staph aureus. Allergies/Medications Allergies: Coded Allergies: NO KNOWN ALLERGIES (01/13/14) Home Med List: Albuterol Sulfate (Proair Hfa) 0.09 MG/Actuation OUSMANE 2 PUF INH BID PRN ASTHMA (Reported) Aspirin (Children's Aspirin) 81 MG TAB.CHEW 1 TAB PO DAILY HEART HEALTH ( Reported) Atorvastatin Calcium (Lipitor) 10 MG TABLET 1 TAB PO DAILY CHOLESTEROL ( Reported) Calcium/Vitamin D (Calcium + D) 600 MG/200 IU TAB 1 TAB PO BID SUPPLEMENT ( Reported) CYCLOBENZAPRINE HCL (Cyclobenzaprine Hydrochloride) 10 MG TABLET 1 TAB PO DAILY PRN SPASMS (Reported) Fish Oil (Fish Oil Concentrate) 1,000 MG SGL 1 TAB PO DAILY SUPPLEMENT ( Reported) Glimepiride (Amaryl) 4 MG TAB 1 TAB PO DAILY BLOOD SUGAR (Reported) Hydrochlorothiazide 25 MG TABLET 1 TAB PO DAILY WATER PILL (Reported) Lisinopril 40 MG TABLET 1 TAB PO DAILY BLOOD PRESSURE (Reported) METFORMIN HCL (Metformin) 1,000 MG TABLET 1 TAB PO BID DIABETES (Reported) Multivitamin2 (Multivitamin) 1 EACH TAB 1 TAB PO DAILY SUPPLEMENT (Reported) Saxagliptin (Onglyza) 5 MG TABLET 1 TAB PO DAILY DIABETES (Reported) Valsartan 160 MG TABLET 1 TAB PO DAILY HEART (Reported) Review of Systems Review of Systems Constitutional: Denies: chills, fever. Cardiovascular: Denies: chest pain, edema. Respiratory: Reports: cough, short of breath, sputum production. Denies: hemoptysis. GI: Denies: abdominal pain, diarrhea, melena. Genitourinary: Denies: dysuria. Past History Travel History Traveled to [place] past 21 day No Medical History Blood Transfusion Hx: No Neurological: NONE EENT: NONE Cardiovascular: hypertension, hyperlipidemia Respiratory: pneumonia Gastrointestinal: BOWEL OBSTRUCTION Hepatic: NONE Renal: NONE Musculoskeletal: osteoarthritis Psychiatric: NONE Endocrine: diabetes Blood Disorders: NONE Cancer(s): NONE NIGHT WORKER/Reproductive: NONE Surgical History Surgical History: BLADDER LIFT BOWEL SURGERY Family History Relations & Conditions If Any: FATHER FH: cancer FH: heart disease Psychosocial History Where Do You Live? Home Who Do You Live With? child Services at Home: None Smoking Status: Former Smoker ETOH Use: denies use Illicit Drug Use: denies illicit drug use Functional Ability ADLs Independent: dressing, eating, toileting, bathing. Ambulation: independent IADLs Independent: shopping, housework, finances, food prep, telephone, transportation , medication admin. Exam & Diagnostic Data Last 24 Hrs of Vital Signs/I&O Vital Signs Date Time Temp Pulse Resp B/P Pulse O2 O2 Flow FiO2 Ox Delivery Rate 08/30 0856 105 118/60 08/30 0850 98.2 105 20 118/60 93 Room Air 08/30 0841 97 Nasal 2.0L Cannula 08/30 0000 93 Nasal 3.0L Cannula 08/29 2347 98.4 110 20 130/62 93 08/29 2008 98.0 96 20 126/72 94 Room Air 08/29 1859 Nasal 3.0L Cannula 08/29 1723 Nasal 3.0L Cannula 08/29 1526 99.6 08/29 1515 99.6 116 20 135/57 92 Room Air Room Air 08/29 1504 93 Nasal 3.0L Cannula 08/29 1430 97.8 90 20 130/70 95 Room Air 08/29 1359 93 Nasal 3.0L Cannula 08/29 1308 99.9 123 26 157/67 96 Aerosol Mask Intake & Output 08/30 1600 08/30 0800 08/30 0000 Intake Total 400 Output Total 500 Balance -100 Intake, Oral 400 Output, Urine 500 Patient 174 lb Weight Patient is low-grade fever room air oxygen saturation is 93% HEENT exam shows no adenopathy exam for chest shows crackles at the left base there are no wheezes cardiac exam shows normal S1 and S2 without murmurs abdominal exam is soft nontender her extremities without edema or clubbing Last 48 Hrs of Labs/Ricci: Laboratory Tests 08/30/16 0721: Lactic Acid 1.5 08/30/16 0721: Anion Gap 13, Estimated GFR 37 L, BUN/Creatinine Ratio 22.1, Total Bilirubin 0.5, Direct Bilirubin 0.3, AST 15, ALT 34, Alkaline Phosphatase 112, Total Protein 6.4, Albumin 3.5, CBC w Diff Pending, WBC Pending, RBC Pending, Hgb Pending, Hct Pending, MCV Pending, MCH Pending, RDW Pending, Plt Count Pending, MPV Pending, Gran % Pending, Lymphocytes % Pending, Monocytes % Pending, Eosinophils % Pending, Basophils % Pending, Absolute Granulocytes Pending, Absolute Lymphocytes Pending, Absolute Monocytes Pending, Absolute Eosinophils Pending, Absolute Basophils Pending, PUBS MCHC Pending 08/29/16 1623: Lactic Acid 6.3 H 08/29/16 1340: Lactic Acid 3.6 H 08/29/16 1330: Anion Gap 15, Estimated GFR 40 L, BUN/Creatinine Ratio 20.0, Glucose 284 H, Calcium 9.5, Total Bilirubin 0.9, AST 18, ALT 36, Alkaline Phosphatase 136 H, Troponin I < 0.01, Total Protein 7.2, Albumin 4.1, Globulin 3.1, Albumin/ Globulin Ratio 1.3, PT 12.4, INR 1.18, APTT 30, CBC w Diff MAN DIFF ORDERED, RBC 4.13 L, MCV 94.0, MCH 31.3 H, RDW 13.7, MPV 7.8, Gran % 84.8 H, Lymphocytes % 9.1 L, Monocytes % 5.7, Eosinophils % 0.1, Basophils % 0.3, Absolute Granulocytes 14.8 H, Segmented Neutrophils 78 H, Band Neutrophils 6 H, Absolute Lymphocytes 1.6, Lymphocytes 12 L, Monocytes 4, Absolute Monocytes 1.0 H, Absolute Eosinophils 0, Absolute Basophils 0.1, Platelet Estimate ADEQUATE, Normocytic RBCs VERIFIED, Normochromic RBCs VERIFIED, PUBS MCHC 33.3 Microbiology 08/29 2244 URINE ROUT: Legionella Antigen - COMP 08/29 2244 URINE ROUT: Streptococcus pneumoniae Antigen (M - COMP Assessment/Plan Impression/Plan: 71-year-old woman presents with community acquired pneumonia associated with acute kidney injury a transient resolved hypoxic respiratory failure low-grade fever leukocytosis and bandemia. She had evidence of sepsis with elevated lactic acid. She appears clinically improved with resolution of her lactic acidosis and hypoxia. Sputum are growing moderate to heavy staph aureus Recommendations: Repeat PA and lateral chest x-ray in the department. Adjust antibiotics accordingly with cultures showing staph aureus until MRSA is excluded. Aggressive pulmonary toilet. Monitor kidney function. IV hydration. DVT prophylaxis Consult Acknowledgment - Thank you for your consult request.
[2016-08-30 09:30] LABS: WHITE BLOOD CELL COUNT 19.1 /CUMM (4.8-10.8)
--- NOTE | 2016-08-30 15:17 | RADIOLOGY REPORT ---
EXAMINATION: XR CHEST CLINICAL INFORMATION: Respiratory symptoms. Suspected pneumonia. COMPARISON: Chest done on 08/29/2016. TECHNIQUE: PA and lateral views of the chest were obtained. FINDINGS: As was suspected on the prior study dated 08/29/2016, there is indeed focal dense airspace opacity identified at left lower lobe of the lung in the retrocardiac region, consistent with left lower lobar pneumonia. The remainder of the lungs appear clear. There is underlying mild hyperinflation present. The cardiomediastinal silhouette is within normal limits. There is no pleural effusion present. Mild multilevel degenerative changes are noted in the spine. No new abnormalities. No other significant change. IMPRESSION: Persistent left lower lobar airspace disease consistent with pneumonia. Follow-up radiograph to document complete resolution is recommended.
[2016-08-30] MEDS ORDERED: ACETAMINOPHEN-1 EAC2 PO (16:09)
[2016-08-30 16:17] VITALS: BP 116/64
--- NOTE | 2016-08-30 20:49 | NUR ---
FINGERSTICK 366. SPOKE WITH MEDICAL DIRECTOR/HEAD TEAM PHYSICIAN PRESS MACHINE FEEDER WHO ADVISED TO GIVE NIGHTTIME LEVEMIR ORDERED AT THIS TIME AND RECHECK FINGERSTICK IN TWO HOURS.
[2016-08-31 00:17] VITALS: BP 120/60
--- NOTE | 2016-08-31 06:51 | PN- Housestaff ---
NEHEMIAS GRADY,CIRA 08/31/16 0651: Subjective Follow-up For: CAP with acute hypoxic respiratory failure Sepsis COPD exacerbation DM2 HTN HLD Subjective: Patient seen and examined at bedside this AM. She reports she is more lethargic today and has also had 4 episodes of diarrhea. She reports the stool is not watery but not solid and this is not associated with abdominal pain or nausea/ vomiting. She denies fever, chills, chest pain. Review of Systems Constitutional: Reports: malaise. Denies: chills, fever. EENTM: Denies: blurred vision, visual changes, hearing changes, nasal congestion. Cardiovascular: Denies: chest pain, peripheral edema. Respiratory: Reports: cough, short of breath, sputum production, wheezing. Gastrointestinal: Reports: diarrhea. Denies: abdominal pain, bloating, constipation. Genitourinary: Denies: dysuria. Musculoskeletal: Denies: back pain. Skin: Denies: change in skin color, change in hair/nails. Neurological/Psychological: Denies: confusion. Hematologic/Endocrine: Denies: bruising, bleeding. Immunologic/Allergic: Denies: splenectomy. Objective Last 24 Hrs of Vital Signs/I&O Vital Signs Date Time Temp Pulse Resp B/P Pulse O2 O2 Flow FiO2 Ox Delivery Rate 08/31 1058 97 Nasal 2.0L Cannula 08/31 0845 98.0 86 20 112/80 93 Nasal 2.0L Cannula 08/31 0836 130/82 08/31 0800 95 Nasal 2.0L Cannula 08/31 0017 98.4 96 20 120/60 94 Nasal 2.0L Cannula 08/31 0000 Nasal 2.0L Cannula 08/30 1947 95 Nasal 2.0L Cannula 08/30 1617 98.2 102 19 116/64 95 Nasal 2.0L Cannula 08/30 1600 Nasal 2.0L Cannula Intake & Output 08/31 1600 08/31 0800 08/31 0000 Intake Total 700 950 Output Total Balance 700 950 Intake, IV 400 550 Intake, Oral 300 400 Physical Exam General Appearance: Alert, Oriented X3, Cooperative, No Acute Distress Skin: No Significant Lesion HEENT: Atraumatic, Mucous Membr. moist/pink Neck: Supple Lymphatic: Cervical nl Cardiovascular: Normal S1, Normal S2 Lungs: Normal Air Movement Abdomen: Normal Bowel Sounds, Soft Neurological: Normal Speech, Normal Tone Extremities: No Clubbing Vascular: Pulses Symmetrical Current Medications: Current Medications Sig/Harish Start time Last Medication Dose Route Stop Time Status Admin Acetaminophen 650 MG Q6P PRN 08/29 1530 AC PO Albuterol Sulfate 3 ML BID 08/29 2200 AC 08/31 INH 1058 Aspirin 81 MG DAILY 08/30 1615 AC 08/31 PO 0835 Atorvastatin Calcium 10 MG DAILY 08/30 1000 AC 08/31 PO 0835 Ceftriaxone Sodium 1,000 MG DAILY 08/30 1000 DC 08/31 IV 0907 Guaifenesin 600 MG Q12 08/29 2200 AC 08/31 PO 0835 Heparin Sodium 5,000 UNIT Q8 08/29 2200 AC 08/30 (Porcine) SC 2052 Insulin Aspart 3 UNITS ONCE ONE 08/30 2315 DC 08/30 SC 08/30 2316 2330 Insulin Aspart 0 TIDAC 08/30 0800 AC 08/31 SC 1335 Insulin Detemir 15 UNITS BID 08/30 1000 AC 08/31 SC 0832 Losartan Potassium 50 MG DAILY 08/30 1000 AC 08/31 PO 0836 Methylprednisolone 40 MG Q12 08/30 2200 AC 08/31 IV 0907 Methylprednisolone 40 MG Q8 08/29 2200 DC 08/30 IV 1527 Ondansetron HCl 4 MG Q6P PRN 08/29 1530 DC IV Oxacillin Sodium 2,000 MG Q4 09/01 0200 UNVr Sodium Chloride 100 ML IV Patient Medication 1 ED .STK-MED ONE 08/31 1402 DC Teaching ED 08/31 1403 Sodium Chloride 1,000 ML Q20H 08/30 1600 DC 08/31 IV 1439 Vancomycin HCl 1,250 MG DAILY 08/31 1000 DC 08/31 Dextrose/Water 250 ML IV 0951 Last 24 Hrs of Lab/Ricci Results Last 24 Hrs of Labs/Mics: Laboratory Tests 08/31/16 0744: Anion Gap 12, Estimated GFR 44 L, BUN/Creatinine Ratio 24.2, CBC w Diff NO MAN DIFF REQ, RBC 3.70 L, MCV 92.4, MCH 31.6 H, RDW 13.4, MPV 7.8, Gran % 90.4 H, Lymphocytes % 6.0 L, Monocytes % 3.5, Eosinophils % 0, Basophils % 0.1, Absolute Granulocytes 18.8 H, Absolute Lymphocytes 1.2, Absolute Monocytes 0.7 H, Absolute Eosinophils 0, Absolute Basophils 0, PUBS MCHC 34.2 Microbiology 08/31 0850 STOOL: Clostridium difficile Toxin A & B - RES 08/31 949 STOOL: Stool Culture - RES Orders Radiology Findings: EXAMINATION: XR CHEST CLINICAL INFORMATION: Respiratory symptoms. Suspected pneumonia. COMPARISON: Chest done on 08/29/2016. TECHNIQUE: PA and lateral views of the chest were obtained. FINDINGS: As was suspected on the prior study dated 08/29/2016, there is indeed focal dense airspace opacity identified at left lower lobe of the lung in the retrocardiac region, consistent with left lower lobar pneumonia. The remainder of the lungs appear clear. There is underlying mild hyperinflation present. The cardiomediastinal silhouette is within normal limits. There is no pleural effusion present. Mild multilevel degenerative changes are noted in the spine. No new abnormalities. No other significant change. IMPRESSION: Persistent left lower lobar airspace disease consistent with pneumonia. Follow-up radiograph to document complete resolution is recommended. Assessment/Plan Assessment: Ms. Hogluin is a pleasant 71 year old female with PMH HTN, HLD, COPD, prior smoker, DM2 and OA who presented with chief complaint of shortness of breath. This dypsnea was progressive over the last couple of days and was productive of light green sputum. She endorsed no relief with home inhalers as well as a positive sick contact being her daughter. Patient admits to receiving her annual flu shot but not a pneumovax injection. In the ED: Vital signs showed T 99.9. HR 123, RR 26, BP 157/67 and O2 sat 92% RA. Labs showed WBC 17.5, H&H 12.9/38.8, Plt 315, Na 134, BUN /cre 31/1.4 and lactic acid 3.6. Troponin negative x 1. Coags WNL. CXR shjowed pulmonary emphysema and hazy opacity in retrocariac left lower lobe. Patient was admitted to the general medicine floor and the following was the management: 1. Acute hypoxic respiratory failure with COPD exacerbation * Patient noted to have pulse ox of 84% on RA at presentation that increased to 93% on supplemental O2 * Consult with Dr. Underwood placed and appreciated * IV solumedrol 40 mg IV Q12h and switch to PO prednisone tomorrow * TRC nebs and supplemental O2 as needed * Mucinex 2. Sepsis secondary to CAP * Noted leukocytosis, bandemia, fever, tachycardia and elevated lactic acid, peaking at 6.3 * Lactic acid has since returned to WNL at 1.5 after IV hydration * LRC show staph aureus sensitive to oxacillin, will start this will ultimate transition to PO abx in the next few days 3. Renal dysfunction * Cre 1.3 on admission, trending down today * Discontinue IV hydration, check BEP tomorrow 4. Diabetes mellitus type 2 * Continue accuchecks * NSS 15 U BID SC levemir, NSS TID AC * Patient will be required to follow up with her PCP upon discharge for further management of her diabetic regimen for tighter glycemic control 5. HTN, HLD * Continue losartan 50 mg PO daily * Monitor vital signs Q shift * Lipitor 10 mg PO daily FULL CODE DVTP: Heparin SC Mild Pain pathways Heart Healthy Diet Problem List: 1. Hypertension 2. Dyslipidemia 3. Lactic acid acidosis 4. Pneumonia 5. Hypoxia 6. Diabetes mellitus Pain Ratin Pain Location: n/a Pain Goal: Remain pain free Pain Plan: Tylenol as needed for mild pain. Tomorrow's Labs & Rationales: CBC to monitor increasing WBC, BEP to monitor renal dysfunction. LISY YIP MD 08/31/16 1436: Attending MD Review Statement Attending Statement Attending MD Statement: examined this patient, discuss w/resident/PA/WEATHER ANCHOR, agreed w/resident/PA/WEATHER ANCHOR, reviewed EMR data (avail), discussed with nursing, discussed with case mgmt, amended to note Attending Assessment/Plan: Patient seen and examined. Resting comfortably not in any acute distress. She remains afebrile and hemodynamically stable. On examination she has adequate entry bilaterally with no significant added sounds. She reports feeling a little better compared to admission. She however has been reporting loose stools today. She denies nausea vomiting. Denies abdominal pain. Denies any bloody stools. Laboratory data reveals persistent leukocytosis however she is on systemic steroid therapy. Sputum cultures currently growing oxacillin sensitive staph aureus. Her blood glucose levels are ranging in the 200-300 range. Problems: 1. Community-acquired pneumonia 2. COPD exacerbation 3. Sepsis 4. Uncontrolled [id number]-sohxicfjh diabetes mellitus 5. Diarrhea Plan: -Discontinue vancomycin and rocephin ad switch patient to oxacillin. -Continue systemic steroid therapy. Transition patient to oral prednisone starting tomorrow. -Follow-up stool for bacteria and C. difficile. -Discontinue IV Zofran. -We anticipate her blood glucose levels and improve with taper off steroid therapy. Her hemoglobin A1c however was 8.1 in June. She will need to follow with her primary care provider for repeat testing and further adjustment of her oral regimen as needed. -Anticipate discharge in the next 48 hours if she continues to improve clinically.
--- NOTE | 2016-08-31 07:40 | PN- Pulmonary ---
Subjective HPI/Critical Care Issues: Patient feels somewhat improved she denies shortness breath or chest pain. Repeat chest x-ray confirms left lower lobe consolidation without pleural effusion. Sputum shows staph aureus sensitivities pending Objective Current Medications: Current Medications Sig/Harish Start time Last Medication Dose Route Stop Time Status Admin Acetaminophen 650 MG Q6P PRN 08/29 1530 AC PO Albuterol Sulfate 3 ML BID 08/29 2200 AC 08/30 INH 1944 Aspirin 81 MG DAILY 08/30 1615 AC 08/30 PO 1837 Atorvastatin Calcium 10 MG DAILY 08/30 1000 AC 08/30 PO 0854 Azithromycin 500 MG DAILY 08/30 1000 DC 08/30 Dextrose/Water 250 ML IV 0854 Ceftriaxone Sodium 1,000 MG DAILY 08/30 1000 AC 08/30 IV 0854 Guaifenesin 600 MG Q12 08/29 2200 AC 08/30 PO 205 Heparin Sodium 5,000 UNIT Q8 08/29 2200 AC 08/30 (Porcine) SC 205 Insulin Aspart 3 UNITS ONCE ONE 08/30 2315 DC 08/30 SC 08/30 2316 2330 Insulin Aspart 0 TIDAC 08/30 0800 08/30 SC 1715 Insulin Detemir 15 UNITS BID 08/30 1000 08/30 SC 205 Insulin Detemir 10 UNITS BID 08/29 2200 AZ 08/29 SC 2132 Losartan Potassium 50 MG DAILY 08/30 1000 AC 08/30 PO 0856 Methylprednisolone 40 MG Q12 08/30 2200 AC 08/30 IV 2052 Methylprednisolone 40 MG Q8 08/29 2200 AZ 08/30 IV 1527 Ondansetron HCl 4 MG Q6P PRN 08/29 1530 AC IV Sodium Chloride 1,000 ML Q20H 08/30 1600 AC 08/30 IV 2015 Sodium Chloride 1,000 ML Q10H 08/30 0630 AZ 08/30 IV 08/30 1429 0640 Vancomycin HCl 1,250 MG DAILY 08/31 1000 AC Dextrose/Water 250 ML IV Vancomycin HCl 1,000 MG Q48 08/30 1415 DC Dextrose/Water 250 ML IV Vital Signs & I&O Last 24 Hrs of Vitals and I&O: Vital Signs Date Time Temp Pulse Resp B/P Pulse O2 O2 Flow FiO2 Ox Delivery Rate 08/31 0017 98.4 96 20 120/60 94 Nasal 2.0L Cannula 08/31 0000 Nasal 2.0L Cannula 08/30 1947 95 Nasal 2.0L Cannula 08/30 1617 98.2 102 19 116/64 95 Nasal 2.0L Cannula 08/30 1600 Nasal 2.0L Cannula 08/30 0856 105 118/60 08/30 0850 98.2 105 20 118/60 93 Room Air 08/30 0841 97 Nasal 2.0L Cannula 08/30 0800 Nasal 3.0L Cannula Intake & Output 08/31 0800 08/31 0000 08/30 1600 Intake Total 599 753 9553 Output Total 650 Balance 625 734 2760 Intake, IV 032 262 5475 Intake, Oral 791 899 3789 Number 0 Bowel Movements Output, Urine 650 Oxygen saturation on 2 L 94% exam for chest shows left basilar crackles there are no wheezes cardiac exam shows regular S1 and S2 without murmurs Impression/Plan Impression/Plan Impression/Plan: 71-year-old woman presents with community acquired pneumonia associated with acute kidney injury a transient resolved hypoxic respiratory failure low-grade fever leukocytosis and bandemia. She had evidence of sepsis with elevated lactic acid. She appears clinically improved with resolution of her lactic acidosis and hypoxia. Sputum are growing moderate to heavy staph aureus. Follow-ups staph sensitivity and adjust antibiotics accordingly. Repeat CBCs and chemistries. Recommendations: Follow-up staph sensitivities just antibiotics accordingly. Aggressive pulmonary toilet. Taper FiO2 his saturations allow. Repeat CBCs and chemistries
[2016-08-31 08:16] LABS: ABSOLUTE BASOPHIL COUNT 0 /CUMM (0.0-0.2); ABSOLUTE EOSINOPHIL COUNT 0 /CUMM (0.0-0.7); ABSOLUTE GRANULOCYTE CT 18.8 /CUMM (1.4-6.5); ABSOLUTE LYMPH COUNT 1.2 /CUMM (1.2-3.4); ABSOLUTE MONOCYTE COUNT 0.7 /CUMM (0.10-0.60); BASOPHIL % 0.1 % (0.0-2.0); EOSINOPHIL % 0 % (0-5); HEMATOCRIT 34.2 % (37-47); MEAN CORPUSCULAR HGB 31.6 PG (27.0-31.0); MEAN CORPUSCULAR HGB CONC 34.2 G/DL (33.0-37.0); MEAN CORPUSCULAR VOLUME 92.4 FL (81.0-99.0); MEAN PLATELET VOLUME 7.8 FL (7.4-10.4); PLATELET COUNT 400 /CUMM (130-400); RBC DISTRIBUTION WIDTH 13.4 % (11.5-14.5); WHITE BLOOD CELL COUNT 20.8 /CUMM (4.8-10.8)
[2016-08-31 08:45] VITALS: BP 112/80
[2016-08-31 09:04] LABS: GRANULOCYTE % 90.4 % (42.2-75.2)
--- NOTE | 2016-08-31 09:07 | NUR ---
PHYSICAL THERAPY: RECEIVED PT AWAKE SITTING UP IN BED. ASKED PT. IF SHE WOULD GO FOR A LITTLE WALK. PT. REFUSED. SHE STATED "I JUST DONT FEEL VERY GOOD TODAY, I DIDNT SLEEP WELL AND DONT WANT TO GO FOR A WALK TODAY." FOLLOW UP TOMORROW AND CONT PER POC.
--- NOTE | 2016-08-31 14:11 | NUR ---
PHYSICAL THERAPY: 2nd Attempt to work w/ patient. Patient con't to refuse stating "not today, I do not feel good." With encouragement and education on the mobility, patient con't to politely refuse. P.T. will f/u tomorrow and trial stairs prior to d/c home.
[2016-08-31 16:14] VITALS: BP 132/76
[2016-08-31 23:40] VITALS: BP 132/84
--- NOTE | 2016-09-01 06:50 | PN- Housestaff ---
NEHEMIAS GRADY,CIRA 09/01/16 0649: Subjective Follow-up For: CAP with acute hypoxic respiratory failure Sepsis COPD exacerbation DM2 HTN HLD Subjective: Patient seen and examined at bedside this AM. She continues to endorse diarrhea, having 2 episodes last night and 2 this morning. She is requesting discharge soon and is amenable to waiting until tomorrow for discharge. Review of Systems Constitutional: Denies: chills, fever. EENTM: Denies: blurred vision, visual changes, nasal congestion, epistaxis. Cardiovascular: Denies: chest pain, palpitations. Respiratory: Reports: cough, short of breath, sputum production. Gastrointestinal: Reports: diarrhea. Denies: abdominal pain, constipation. Genitourinary: Denies: dysuria, frequency. Musculoskeletal: Denies: back pain. Skin: Denies: change in skin color, change in hair/nails. Neurological/Psychological: Denies: anxiety, headache, numbness. Hematologic/Endocrine: Denies: bruising, bleeding. Objective Last 24 Hrs of Vital Signs/I&O Vital Signs Date Time Temp Pulse Resp B/P Pulse O2 O2 Flow FiO2 Ox Delivery Rate 09/01 1139 103 92 Room Air 09/01 0852 93 Nasal 2.0L Cannula 09/01 0819 97.6 100 20 132/70 95 Nasal 2.0L Cannula 09/01 0800 Nasal 2.0L Cannula 09/01 0000 Nasal 2.0L Cannula 08/31 2340 97.8 97 20 132/84 93 Nasal 2.0L Cannula 08/31 1925 96 Nasal 2.0L Cannula 08/31 1614 98.4 96 20 132/76 94 Nasal 3.0L Cannula 08/31 1600 Nasal 2.0L Cannula Intake & Output 09/01 1600 09/01 0800 09/01 0000 Intake Total 800 200 600 Output Total 300 Balance 800 200 300 Intake, IV 200 Intake, Oral 800 600 Number 1 Bowel Movements Output, Urine 300 Patient 174 lb Weight Physical Exam General Appearance: Alert, Oriented X3, Cooperative, No Acute Distress Skin: No Significant Lesion HEENT: Atraumatic, Mucous Membr. moist/pink Neck: Supple Lymphatic: Cervical nl Cardiovascular: Normal S1, Normal S2 Lungs: Normal Air Movement, No wheezing appreciated Abdomen: Normal Bowel Sounds, Soft Neurological: Normal Gait, Normal Speech, Normal Tone Extremities: No Clubbing, No Cyanosis, No Edema Vascular: Pulses Symmetrical Current Medications: Current Medications Sig/Harish Start time Last Medication Dose Route Stop Time Status Admin Acetaminophen 650 MG Q6P PRN 08/29 1530 AC PO Albuterol Sulfate 3 ML BID 08/29 2200 AC 09/01 INH 0850 Amoxicillin/ 875 MG Q12 09/02 1000 AC Clavulanate Potassium PO Aspirin 81 MG DAILY 08/30 1615 AC 09/01 PO 0907 Atorvastatin Calcium 10 MG DAILY 08/30 1000 AC 09/01 PO 0906 Ceftriaxone Sodium 1,000 MG DAILY 08/30 1000 DC 08/31 IV 0907 Guaifenesin 600 MG Q12 08/29 2200 AC 09/01 PO 0907 Heparin Sodium 5,000 UNIT Q8 08/29 2200 AC 08/30 (Porcine) SC 205 Insulin Aspart 0 TIDAC 08/30 0800 AC 09/01 SC 1221 Insulin Detemir 15 UNITS BID 08/30 1000 AC 09/01 SC 0905 Loperamide HCl 2 MG Q6P PRN 09/01 1030 AC 09/01 PO 1221 Losartan Potassium 50 MG DAILY 08/30 1000 AC 09/01 PO 0906 Methylprednisolone 40 MG Q12 08/30 2200 DC 08/31 IV 2207 Ondansetron HCl 4 MG Q6P PRN 08/29 1530 DC IV Oxacillin Sodium 2,000 MG Q4 09/01 0200 AC 09/01 Sodium Chloride 100 ML IV 09/02 0100 1431 Prednisone 40 MG DAILY 09/02 1000 AC PO Prednisone 60 MG ONCE ONE 09/01 0845 DC 09/01 PO 09/01 0846 1221 Sodium Chloride 1,000 ML Q20H 08/30 1600 DC 08/31 IV 1439 Vancomycin HCl 1,250 MG DAILY 08/31 1000 DC 08/31 Dextrose/Water 250 ML IV 0951 Last 24 Hrs of Lab/Ricci Results Last 24 Hrs of Labs/Mics: Laboratory Tests 09/01/16 0805: CBC w Diff MAN DIFF ORDERED, RBC 3.77 L, MCV 93.0, MCH 31.6 H, RDW 13.9, MPV 7.9, Gran % 89.6 H, Lymphocytes % 6.8 L, Monocytes % 3.6, Eosinophils % 0, Basophils % 0 L, Absolute Granulocytes 15.3 H, Segmented Neutrophils 89 H, Band Neutrophils 2, Absolute Lymphocytes 1.2, Lymphocytes 5 L, Monocytes 1 L, Absolute Monocytes 0.6, Absolute Eosinophils 0, Absolute Basophils 0, Metamyelocytes 3 H, Platelet Estimate VERIFIED BY SMEAR, Anisocytosis 1+, PUBS MCHC 34.0 09/01/16 0705: Anion Gap 12, Estimated GFR 44 L, BUN/Creatinine Ratio 21.7 Microbiology 09/01 0800 STOOL: Clostridium difficile Toxin A & B - COMP Orders Radiology Findings: CXR: IMPRESSION: Persistent left lower lobar airspace disease consistent with pneumonia. Follow-up radiograph to document complete resolution is recommended. Assessment/Plan Assessment: Ms. Holguin is a pleasant 71 year old female with PMH HTN, HLD, COPD, prior smoker, DM2 and OA who presented with chief complaint of shortness of breath. This dypsnea was progressive over the last couple of days and was productive of light green sputum. She endorsed no relief with home inhalers as well as a positive sick contact being her daughter. Patient admits to receiving her annual flu shot but not a pneumovax injection. In the ED: Vital signs showed T 99.9. HR 123, RR 26, BP 157/67 and O2 sat 92% RA. Labs showed WBC 17.5, H&H 12.9/38.8, Plt 315, Na 134, BUN /cre 31/1.4 and lactic acid 3.6. Troponin negative x 1. Coags WNL. CXR shjowed pulmonary emphysema and hazy opacity in retrocariac left lower lobe. Patient was admitted to the general medicine floor and the following was the management: 1. Acute hypoxic respiratory failure with COPD exacerbation * Patient noted to have pulse ox of 84% on RA at presentation that increased to 93% on supplemental O2 * Consult with Dr. Underwood placed and appreciated * IV solumedrol has been switched to a 1 x dose of 60 mg PO prednisone today, will continue with 40 mg PO prednisone x 3 days starting tomorrow and taper by 20 mg after that * TRC nebs and supplemental O2 as needed * Mucinex * Patient continues to require supplemental O2 and was noted to drop her O2 saturation to 88% on RA while ambulating today. 2. Sepsis secondary to CAP * Noted leukocytosis, bandemia, fever, tachycardia and elevated lactic acid, peaking at 6.3 * Lactic acid has since returned to WNL at 1.5 after IV hydration * LRC show staph aureus sensitive to oxacillin, this will be continued with ultimate transition to PO augmentin tomorrow for a 10 day course of antibiotic treatment 3. Renal dysfunction * Cre 1.3 on admission, trending down today * Discontinue IV hydration, check BEP tomorrow 4. Diabetes mellitus type 2 * Continue accuchecks * NSS 15 U BID SC levemir, NSS TID AC * Will switch patient to outpatient oral diabetic regimen on discharge * Patient will be required to follow up with her PCP upon discharge for further management of her diabetic regimen for tighter glycemic control 5. HTN, HLD * Continue losartan 50 mg PO daily * Monitor vital signs Q shift * Lipitor 10 mg PO daily 6. Diarrhea * Diarrhea persists, first and second CDiff toxin A negative * Loperamide 2 mg PO Q6P PRN FULL CODE DVTP: Heparin SC Mild Pain pathways Heart Healthy Diet Problem List: 1. Hypertension 2. Dyslipidemia 3. COPD (chronic obstructive pulmonary disease) 4. GERD (gastroesophageal reflux disease) 5. Diabetes mellitus 6. Lactic acid acidosis 7. Pneumonia 8. Respiratory distress Pain Ratin Pain Location: n/a Pain Goal: Remain pain free Pain Plan: Tylenol for mild pain. Tomorrow's Labs & Rationales: CBC to monitor leukocytosis. LISY YIP MD 09/01/16 1256: Attending MD Review Statement Attending Statement Attending MD Statement: examined this patient, discuss w/resident/PA/MORTGAGE PROCESSING CLERK, agreed w/resident/PA/MORTGAGE PROCESSING CLERK, discussed with family, reviewed EMR data (avail), discussed with nursing, discussed with case mgmt, amended to note Attending Assessment/Plan: Patient seen and examined. Resting comfortably a motility acute distress. No issues overnight. She reports feeling much better today. She remains afebrile and hemodynamically stable. She saturating 93 to ensure percent on room air. She however does desaturate into the 80s on room air while ambulating. She also continues report was bowel movements. She denies abdominal pain. Denies nausea vomiting. On examination her lungs are clear to auscultation bilaterally. Her glucose levels remain elevated most likely secondary to her steroid therapy. Recommendations: -Transition patient to Augmentin tomorrow and complete 10 days of antibiotic therapy. -Continue to wean patient off oxygen supplementation as tolerated. Ambulate patient regularly. -Patient has been started on oral steroid therapy. Continue on prednisone 40 mg orally daily starting tomorrow, decrease by 20 mg every third day until discontinued. -Continue insulin coverage during the hospital stay. Resume her oral diabetic regimen upon discharge. -Anticipate discharge tomorrow hopefully off oxygen supplementation. -Her C. difficile testing is currently negative. Begin patient on Imodium.
--- NOTE | 2016-09-01 08:14 | PN- Pulmonary ---
Subjective HPI/Critical Care Issues: She feels well without complaints of chest pain or shortness of breath. Sputum is MSSA and antibiotics have been adjusted accordingly Objective Current Medications: Current Medications Sig/Harish Start time Last Medication Dose Route Stop Time Status Admin Acetaminophen 650 MG Q6P PRN 08/29 1530 AC PO Albuterol Sulfate 3 ML BID 08/29 2200 AC 08/31 INH 1925 Aspirin 81 MG DAILY 08/30 1615 AC 08/31 PO 0835 Atorvastatin Calcium 10 MG DAILY 08/30 1000 AC 08/31 PO 0835 Ceftriaxone Sodium 1,000 MG DAILY 08/30 1000 DC 08/31 IV 0907 Guaifenesin 600 MG Q12 08/29 2200 AC 08/31 PO 2207 Heparin Sodium 5,000 UNIT Q8 08/29 2199 AC 08/30 (Porcine) SC 205 Insulin Aspart 0 TIDAC 08/30 0800 AC 08/31 SC 1813 Insulin Detemir 15 UNITS BID 08/30 1000 AC 08/31 SC 2207 Losartan Potassium 50 MG DAILY 08/30 1000 AC 08/31 PO 0836 Methylprednisolone 40 MG Q12 08/30 2200 AC 08/31 IV 2207 Ondansetron HCl 4 MG Q6P PRN 08/29 1530 DC IV Oxacillin Sodium 2,000 MG Q4 09/01 0200 AC 09/01 Sodium Chloride 100 ML IV 0539 Patient Medication 1 ED .STK-MED ONE 08/31 1402 DC Teaching ED 08/31 1403 Sodium Chloride 1,000 ML Q20H 08/30 1600 DC 08/31 IV 1439 Vancomycin HCl 1,250 MG DAILY 08/31 1000 DC 08/31 Dextrose/Water 250 ML IV 0951 Vital Signs & I&O Last 24 Hrs of Vitals and I&O: Vital Signs Date Time Temp Pulse Resp B/P Pulse O2 O2 Flow FiO2 Ox Delivery Rate 09/01 0000 Nasal 2.0L Cannula 08/31 2340 97.8 97 20 132/84 93 Nasal 2.0L Cannula 08/31 1925 96 Nasal 2.0L Cannula 08/31 1614 98.4 96 20 132/76 94 Nasal 3.0L Cannula 08/31 1600 Nasal 2.0L Cannula 08/31 1058 97 Nasal 2.0L Cannula 08/31 0845 98.0 86 20 112/80 93 Nasal 2.0L Cannula 01/18 0836 130/82 Intake & Output 01/19 1600 09/01 0800 09/01 0000 Intake Total 200 600 Output Total 300 Balance 200 300 Intake, IV 200 Intake, Oral 600 Number 1 Bowel Movements Output, Urine 300 Oxygen saturation on 2 L is 93% exam for chest shows left basilar crackles there are no wheezes cardiac exam shows normal Impression/Plan Impression/Plan Impression/Plan: 71-year-old woman presents with community acquired pneumonia associated with acute kidney injury a transient resolved hypoxic respiratory failure low-grade fever leukocytosis and bandemia. She had evidence of sepsis with elevated lactic acid. She appears clinically improved. Persistent leukocytosis may be related to steroid dosage Recommendations: Complete course of antibiotics Taper FiO2 his saturations allow. DC Solu-Medrol and rapidly taper prednisone.
[2016-09-01 08:19] VITALS: BP 132/70
[2016-09-01 08:55] LABS: ABSOLUTE BASOPHIL COUNT 0 /CUMM (0.0-0.2); ABSOLUTE EOSINOPHIL COUNT 0 /CUMM (0.0-0.7); ABSOLUTE GRANULOCYTE CT 15.3 /CUMM (1.4-6.5); ABSOLUTE LYMPH COUNT 1.2 /CUMM (1.2-3.4); ABSOLUTE MONOCYTE COUNT 0.6 /CUMM (0.10-0.60); BASOPHIL % 0 % (0.0-2.0); EOSINOPHIL % 0 % (0-5); GRANULOCYTE % 89.6 % (42.2-75.2); HEMATOCRIT 35.1 % (37-47); MEAN CORPUSCULAR HGB 31.6 PG (27.0-31.0); MEAN PLATELET VOLUME 7.9 FL (7.4-10.4); PLATELET COUNT 418 /CUMM (130-400); RBC DISTRIBUTION WIDTH 13.9 % (11.5-14.5); RED BLOOD CELL CT 3.77 /CUMM (4.20-5.40)
--- NOTE | 2016-09-01 09:31 | NUR ---
PHYSICAL THERAPY: RECEIVED PT SITTING UP IN BED. PT STATED "I DONT WANT TO WALK RIGHT NOW BECAUSE I'VE BEEN HAVING DIARRHEA AND WANT TO BE CLOSE TO THE BATHROOM". ASKED HER IF SHE JUST WANTED TO TAKE A LITTLE WALK AROUND THE CORNER AND STATED "I REALLY DONT WANT TO LEAVE BED RIGHT NOW". TOLD PT I WOULD FOLLOW UP THIS PM TO SEE IF SHE'S UP FOR THERAPY.
[2016-09-01 16:13] VITALS: BP 138/68
[2016-09-01] MEDS ORDERED: AUGMENTIN 875-1 EACH PO (16:34)
[2016-09-01] MEDS ORDERED: PREDNISONE10 M2 PO (16:34)
[2016-09-01] MEDS ORDERED: LOPERAMIDE2 M1 PO (16:34)
--- NOTE | 2016-09-01 19:00 | NUR ---
PATIENT AT 94% AT REST ON 1L NASAL CANNULA.
--- NOTE | 2016-09-01 19:50 | NUR ---
DURING BEDSIDE REPORT OFF GOING RN ADVISED THIS RN THAT PT IV WAS LEAKING & PT IS REFUSING A NEW IV. PT IS CURRENTLY ON IV ABX AND IS SCHEDULED TO BE DISCHARGED 09/02/16. SENT TEXT PAGE TO ELEMENTARY EDUCATOR CLINICAL RESEARCH SPECIALIST TO ADVISE AND WAITING ON A RESPONSE.
[2016-09-01 23:40] VITALS: BP 153/71
--- NOTE | 2016-09-02 06:58 | PN- Housestaff ---
See Addendum Subjective Follow-up For: CAP COPD exacerbation Subjective: Patient seen and examined at bedside this AM. She reports her diarrhea is improving as well as her respiratory status. Patient also reports that she did an ambulatory pulse oximetry and her oxygen saturation did not drop below 95% on room air. Review of Systems Constitutional: Denies: chills, fever, malaise. EENTM: Denies: blurred vision, visual changes, hearing changes, nasal congestion. Cardiovascular: Denies: chest pain, palpitations. Respiratory: Reports: cough, sputum production. Gastrointestinal: Reports: diarrhea. Denies: abdominal pain, bloating, constipation. Genitourinary: Denies: dysuria, hematuria. Musculoskeletal: Denies: back pain. Skin: Denies: change in skin color, change in hair/nails. Neurological/Psychological: Denies: confusion, headache, numbness. Hematologic/Endocrine: Denies: bruising, bleeding. Immunologic/Allergic: Denies: splenectomy. Objective Last 24 Hrs of Vital Signs/I&O Vital Signs Date Time Temp Pulse Resp B/P Pulse O2 O2 Flow FiO2 Ox Delivery Rate 09/02 0823 98.6 99 20 129/79 95 Room Air 09/02 0257 93 Room Air 09/02 0000 93 Room Air 09/01 2340 98.3 84 20 153/71 92 Room Air 09/01 2041 93 Room Air Room Air 09/01 1613 98.0 86 19 138/68 95 Nasal 1.5L Cannula 09/01 1600 95 Nasal 1.5L Cannula 09/01 1139 103 92 Room Air 09/01 0852 93 Nasal 2.0L Cannula Intake & Output 09/02 1600 09/02 0800 09/02 0000 Intake Total 250 Output Total 500 Balance 250 -500 Intake, Oral 250 Output, Urine 500 Physical Exam General Appearance: Alert, Oriented X3, Cooperative, No Acute Distress Skin: No Significant Lesion HEENT: Atraumatic, Mucous Membr. moist/pink Neck: Supple, No LAD Lymphatic: Cervical nl Cardiovascular: Normal S1, Normal S2 Lungs: Normal Air Movement, Occasional wheeze appreciated, left basilar crackles , cough continues to be productive of sputum Abdomen: Normal Bowel Sounds, Soft Neurological: Normal Gait, Normal Speech, Normal Tone Extremities: No Clubbing, No Cyanosis, No Edema Vascular: Pulses Symmetrical Current Medications: Current Medications Sig/Harish Start time Last Medication Dose Route Stop Time Status Admin Acetaminophen 650 MG Q6P PRN 08/29 1530 AC PO Albuterol Sulfate 3 ML BID 08/29 2200 AC 09/01 INH 2040 Amoxicillin/ 875 MG Q12 09/02 1000 AC Clavulanate Potassium PO Amoxicillin/ 875 MG ONCE ONE 09/01 2100 DC 09/01 Clavulanate Potassium PO 09/01 2101 2110 Aspirin 81 MG DAILY 08/30 1615 AC 09/01 PO 0907 Atorvastatin Calcium 10 MG DAILY 08/30 1000 AC 09/01 PO 0906 Guaifenesin 600 MG Q12 08/29 2200 AC 09/01 PO 2110 Heparin Sodium 5,000 UNIT Q8 08/29 2200 AC 08/30 (Porcine) SC 205 Insulin Aspart 0 TIDAC 08/30 0800 AC 09/01 SC 1745 Insulin Detemir 15 UNITS BID 08/30 1000 AC 09/01 SC 2110 Loperamide HCl 2 MG Q6P PRN 09/01 1030 AC 09/01 PO 1832 Losartan Potassium 50 MG DAILY 08/30 1000 AC 09/01 PO 0906 Methylprednisolone 40 MG Q12 08/30 2200 DC 08/31 IV 2207 Oxacillin Sodium 2,000 MG Q4 09/01 0200 DC 09/01 Sodium Chloride 100 ML IV 09/02 0100 1745 Prednisone 40 MG DAILY 09/02 1000 AC PO Prednisone 60 MG ONCE ONE 09/01 0845 DC 09/01 PO 09/01 0846 1221 Orders Radiology Findings: EXAMINATION: XR CHEST CLINICAL INFORMATION: Respiratory symptoms. Suspected pneumonia. COMPARISON: Chest done on 08/29/2016. TECHNIQUE: PA and lateral views of the chest were obtained. FINDINGS: As was suspected on the prior study dated 08/29/2016, there is indeed focal dense airspace opacity identified at left lower lobe of the lung in the retrocardiac region, consistent with left lower lobar pneumonia. The remainder of the lungs appear clear. There is underlying mild hyperinflation present. The cardiomediastinal silhouette is within normal limits. There is no pleural effusion present. Mild multilevel degenerative changes are noted in the spine. No new abnormalities. No other significant change. IMPRESSION: Persistent left lower lobar airspace disease consistent with pneumonia. Follow-up radiograph to document complete resolution is recommended. Assessment/Plan Assessment: Ms. Holguin is a pleasant 71 year old female with PMH HTN, HLD, COPD, prior smoker, DM2 and OA who presented with chief complaint of shortness of breath. This dypsnea was progressive over the last couple of days and was productive of light green sputum. She endorsed no relief with home inhalers as well as a positive sick contact being her daughter. Patient admits to receiving her annual flu shot but not a pneumovax injection. In the ED: Vital signs showed T 99.9. HR 123, RR 26, BP 157/67 and O2 sat 92% RA. Labs showed WBC 17.5, H&H 12.9/38.8, Plt 315, Na 134, BUN /cre 31/1.4 and lactic acid 3.6. Troponin negative x 1. Coags WNL. CXR shjowed pulmonary emphysema and hazy opacity in retrocariac left lower lobe. Patient was admitted to the general medicine floor and the following was the management: 1. Acute hypoxic respiratory failure with COPD exacerbation * Patient noted to have pulse ox of 84% on RA at presentation that increased to 93% on supplemental O2 * Consult with Dr. Underwood placed and appreciated * Will continue with 40 mg PO prednisone x 3 days starting today and taper by 20 mg after that * TRC nebs and supplemental O2 as needed * Mucinex * Patient ambulated this morning with ambulatory pulse oximetry on room air and O2 saturation did not drop below 95%, will not need home O2 2. Sepsis secondary to CAP * Noted leukocytosis, bandemia, fever, tachycardia and elevated lactic acid, peaking at 6.3 * Lactic acid has since returned to WNL at 1.5 after IV hydration * LRC show staph aureus sensitive to oxacillin, this will be continued with ultimate transition to PO antibiotics today for a 10 day course of antibiotic treatment. Will consider narrowing antibiotics. 3. Renal dysfunction * Cre 1.3 on admission, 1.2 appears to be patient's baseline * No need to trend BEP 4. Diabetes mellitus type 2 * Continue accuchecks * NSS 15 U BID SC levemir, NSS TID AC * Will switch patient to outpatient oral diabetic regimen on discharge * Patient will be required to follow up with her PCP upon discharge for further management of her diabetic regimen for tighter glycemic control 5. HTN, HLD * Continue losartan 50 mg PO daily * Monitor vital signs Q shift * Lipitor 10 mg PO daily 6. Diarrhea * Diarrhea improving, first and second CDiff toxin A negative * Loperamide 2 mg PO Q6P PRN FULL CODE DVTP: Heparin SC Mild Pain pathways Heart Healthy Diet Problem List: 1. Hypertension 2. Dyslipidemia 3. Lactic acid acidosis 4. Pneumonia 5. Respiratory distress 6. History of hysterectomy 7. Hypoxia Pain Ratin Pain Location: n/a Pain Goal: Remain pain free Pain Plan: Mild pain pathway. Tomorrow's Labs & Rationales: Discharge today.
--- NOTE | 2016-09-02 07:57 | PN- Pulmonary ---
Subjective HPI/Critical Care Issues: Patient is comfortable on room air and overall feels improved Objective Current Medications: Current Medications Sig/Harish Start time Last Medication Dose Route Stop Time Status Admin Acetaminophen 650 MG Q6P PRN 08/29 1530 AC PO Albuterol Sulfate 3 ML BID 08/29 2200 AC 09/01 INH 2040 Amoxicillin/ 875 MG Q12 09/02 1000 AC Clavulanate Potassium PO Amoxicillin/ 875 MG ONCE ONE 09/01 2100 DC 09/01 Clavulanate Potassium PO 09/01 2101 2110 Aspirin 81 MG DAILY 08/30 1615 AC 09/01 PO 0907 Atorvastatin Calcium 10 MG DAILY 08/30 1000 AC 09/01 PO 0906 Guaifenesin 600 MG Q12 08/29 2200 AC 09/01 PO 2110 Heparin Sodium 5,000 UNIT Q8 08/29 2200 AC 08/30 (Porcine) SC 205 Insulin Aspart 0 TIDAC 08/30 0800 AC 09/01 SC 1745 Insulin Detemir 15 UNITS BID 08/30 1000 AC 09/01 SC 2110 Loperamide HCl 2 MG Q6P PRN 09/01 1030 AC 09/01 PO 1832 Losartan Potassium 50 MG DAILY 08/30 1000 AC 09/01 PO 0906 Methylprednisolone 40 MG Q12 08/30 2200 DC 08/31 IV 2207 Oxacillin Sodium 2,000 MG Q4 09/01 0200 DC 09/01 Sodium Chloride 100 ML IV 09/02 0100 1745 Prednisone 40 MG DAILY 09/02 1000 AC PO Prednisone 60 MG ONCE ONE 09/01 0845 DC 09/01 PO 09/01 0846 1221 Vital Signs & I&O Last 24 Hrs of Vitals and I&O: Vital Signs Date Time Temp Pulse Resp B/P Pulse O2 O2 Flow FiO2 Ox Delivery Rate 09/02 0257 93 Room Air 09/02 0000 93 Room Air 09/01 2340 98.3 84 20 153/71 92 Room Air 09/01 2041 93 Room Air Room Air 09/01 1613 98.0 86 19 138/68 95 Nasal 1.5L Cannula 09/01 1600 95 Nasal 1.5L Cannula 09/01 1139 103 92 Room Air 09/01 0852 93 Nasal 2.0L Cannula 09/01 08 97.6 100 20 132/70 95 Nasal 2.0L Cannula 09/01 0800 Nasal 2.0L Cannula Intake & Output 09/02 0800 09/02 0000 09/01 1600 Intake Total 250 800 Output Total 500 Balance 250 -500 800 Intake, Oral 250 800 Output, Urine 500 Patient 174 lb Weight Oxygen saturation on room air is 93%. Temperature chest shows minimal left basilar crackles are no wheezes cardiac exam shows regular S1 and S2 without murmur Impression/Plan Impression/Plan Impression/Plan: 31-year-old woman is improved after episode of staph pneumonia now on room air. Recommendations: Complete course of antibiotics. Would consider narrowing oral antibiotics. Rapidly taper steroids she appears stable for discharge
[2016-09-02 08:23] VITALS: BP 129/79
[2016-09-02] MEDS ORDERED: LOPERAMIDE2 M1 PO (09:27)
--- NOTE | 2016-09-02 10:04 | Patient Discharge Instructions ---
Discharge Instructions General Discharge Information You were seen/treated for: COPD exacerbation with pneumonia. Special Instructions: Please follow up with your PCP within 1 week. We have provided you with a referral to Dr. Pop if you do want to switch PCPs. Please take all medications as directed. Please follow up with Dr. Underwood in 1-2 weeks. Diet Recommended Diet: Heart Healthy Activity Activity Self Limited: Yes Acute Coronary Syndrome Inclusion Criteria At DC or during hospital stay patient has or had the following: ACS DIAGNOSIS No Discharge Core Measures Meds if any: Prescribed or Continued at Discharge Meds if any: NOT Prescribed or Continued at Discharge Congestive Heart Failure Inclusion Criteria At DC or during hospital stay patient has or had the following: CHF DIAGNOSIS No Discharge Core Measures Meds if any: Prescribed or Continued at Discharge Meds if any: NOT Prescribed or Continued at Discharge Cerebrovascular accident Inclusion Criteria At DC or during hospital stay patient has or had the following: CVA/TIA Diagnosis No Discharge Core Measures Meds if any: Prescribed or Continued at Discharge Meds if any: NOT Prescribed or Continued at Discharge Venous thromboembolism Inclusion Criteria VTE Diagnosis No VTE Type NONE VTE Confirmed by (Test) NONE Discharge Core Measures - Per Current guidelines, there needs to be overlap - treatment for the first 5 days of Warfarin therapy. - If discharged on Warfarin prior to 5 days of - overlap therapy, the patient will need to be - assessed for post discharge needs including - *Post discharge parental anticoagulation - *Warfarin and/or parental anticoagulation education - *Follow up date to check INR post discharge At least 5 days overlap therapy as Inpatient No Meds if any: Prescribed or Continued at Discharge Note: Overlap Therapy is Warfarin and Anticoagulant Meds if any: NOT Prescribed or Continued at Discharge
--- NOTE | 2016-09-02 10:04 | Discharge Summary ---
Visit Information Visit Dates Admission Date: 08/29/16 Discharge Date: 09/02/16 Hospital Course Course Attending Physician: LISY YIP M.D Primary Care Physician: BALJIT GRADY,MILE Newton Consulting Request: Consulting Specialty: Pulmonary Disease Consulting Physician: Dr. Underwood Reason for Consult: COPD exacerbation Hospital Course: Ms. Holguin is a pleasant 71 year old female with PMH HTN, HLD, COPD, prior smoker, DM2 and OA who presented with chief complaint of shortness of breath. This dypsnea was progressive over the few days leading up to admission and was associated with cough productive of light green sputum. She endorsed no relief with home inhalers as well as a positive sick contact being her daughter. Patient admited to receiving her annual flu shot but not a pneumovax injection. In the ED: Vital signs showed T 99.9. HR 123, RR 26, BP 157/67 and O2 sat 92% RA. Labs showed WBC 17.5, H&H 12.9/38.8, Plt 315, Na 134, BUN /cre 31/1.4 and lactic acid 3.6. Troponin negative x 1. Coags WNL. CXR shjowed pulmonary emphysema and hazy opacity in retrocardiac left lower lobe. Patient was admitted to the general medicine floor and the following was the management: 1. Acute hypoxic respiratory failure with COPD exacerbation: Patient noted to have pulse ox of 84% on RA at presentation that increased to 93% on supplemental O2. She remained hemodynamically stable, however. We placed patient on IV solumedrol 40 mg Q8h along with mucinex and TRC nebs as needed. She was also continued on home COPD medications/inhalers. She was also placed on oxygen which was titrated down during her stay, with goal oxygen saturations greater than 92% . Her COPD exacerbation was managed closely in concert with the academic computing director Dr. Underwood. Solumedrol was slowly tapered down and switched to oral prednisone as her wheezing improved. She was discharged on a prednisone taper starting at 40 mg and the taper decreased by 10 mg every third day. Patient was provided a referral to see the academic computing director Dr. Underwood about 1 week after discharge for continued care. 2. Sepsis secondary to CAP: Patient had noted leukocytosis, bandemia, fever, tachycardia and elevated lactic acid, peaking at 6.3 on admission. She was admitted to the general medicine floor on IV antibiotics (IV vancomycin to cover for possible MRSA and IV ceftriaxone) after blood cultures, lower respiratory cultures, urinary cultures and urine for legionella/strep were collected. She was also given aggressive IV fluids for sepsis. Urine for legionella/strep along with urine cultures were negative. Lower respiratory culture grew staph aureus sensitive for oxacillin so antibiotics were tailored down to this for a few days. She was subsequently discharged on amoxicillin to complete a 10 day course of antiobiotics. 3. Renal dysfunction: Patient presented with a creatinine of 1.3 on admission. Her baseline from prior laboratory studies appears to be cre 1.2. We will have patient follow up with her primary care physician for continued monitoring of her renal function. 4. Diabetes mellitus type 2: Patient had her glucose levels monitored with meals and at bedtime. Her oral hypoglycemic regimen was on hold starting at admission and we placed her on a low dose novolog sliding scale with 15 U SC levemir twice a day. Her glucose levels remained mildly elevated during her stay, which may be secondary to steroid usage. However, we highly suggested patient follow up closely with her PCP for tighter glycemic control. We resumed her outpatient diabetic regimen on discharge. 5. HTN, HLD: We monitored patient's vital signs every shift and she remained hemodynamically stable during her whole stay. We continued patient's losartan 50 mg PO daily and lipitor 10 mg PO daily. She was discharged home on these medications and should follow up with her PCP for continued care of these issues. 6. Diarrhea: Patient did report several non-bloody episodes of loose stool the morning following her admission. She had two stool collections for clostridium dificile and these were both negative for toxin A. We started loperamide 2 mg PO Q6 as needed for diarrhea and she was discharged with a prescription for this. 7. PCP: Patient requested a possible transfer of her care from her current PCP to Dr. Pop. I have provided her with a referral to Dr. Pop's office. Complications: None. Allergies: Coded Allergies: NO KNOWN ALLERGIES (01/13/14) Significant Procedures: EXAMINATION: XR CHEST CLINICAL INFORMATION: Respiratory symptoms. Suspected pneumonia. COMPARISON: Chest done on 08/29/2016. TECHNIQUE: PA and lateral views of the chest were obtained. FINDINGS: As was suspected on the prior study dated 08/29/2016, there is indeed focal dense airspace opacity identified at left lower lobe of the lung in the retrocardiac region, consistent with left lower lobar pneumonia. The remainder of the lungs appear clear. There is underlying mild hyperinflation present. The cardiomediastinal silhouette is within normal limits. There is no pleural effusion present. Mild multilevel degenerative changes are noted in the spine. No new abnormalities. No other significant change. IMPRESSION: Persistent left lower lobar airspace disease consistent with pneumonia. Follow-up radiograph to document complete resolution is recommended. Disposition Summary Disposition Principal Diagnosis: 1. Acute hypoxic respiratory failure with COPD exacerbation 2. Sepsis secondary to community acquired pneumonia Additional Diagnosis: Baseline renal dysfunction Diabetes mellitus type 2 HTN HLD Diarrhea Discharge Disposition: home or self care Discharge Instructions General Discharge Information Code Status: Full Code Patient's Diet: Consistent Carbohydrate 2. Patient's Activity: Self-limited, as tolerated. Follow-Up Instructions/Appts: Please follow up with your PCP within 1 week. We have provided you with a referral to Dr. Pop if you do want to switch PCPs. Please take all medications as directed. Please follow up with Dr. Underwood in 1-2 weeks. Medications at Discharge Discharge Medications: Continue taking these medications: Lisinopril (Lisinopril) 40 MG TABLET 1 Tablet ORAL DAILY Qty = 90 Comments: GIVEN 01/20 10:30AM CYCLOBENZAPRINE HCL (Cyclobenzaprine Hydrochloride) 10 MG TABLET 1 Tablet ORAL DAILY as needed for SPASMS Qty = 30 Comments: NOT GIVEN Atorvastatin Calcium (Lipitor) 10 MG TABLET 1 Tablet ORAL DAILY Comments: GIVEN 01/19 5PM METFORMIN HCL (Metformin) 1,000 MG TABLET 1 Tablet ORAL TWICE DAILY Comments: NOT GIVEN Glimepiride (Amaryl) 4 MG TAB 1 Tablet ORAL DAILY Comments: GIVEN 01/20 5:30AM Albuterol Sulfate (Proair Hfa) 0.09 MG/Actuation OUSMANE 2 Puff Inhale through mouth TWICE DAILY as needed for ASTHMA Comments: GIVEN 01/20 3:00AM Fish Oil (Fish Oil Concentrate) 1,000 MG SGL 1 Tablet ORAL DAILY Comments: NOT GIVEN Calcium/Vitamin D (Calcium + D) 600 MG/200 IU TAB 1 Tablet ORAL TWICE DAILY Comments: NOT GIVEN Multivitamin2 (Multivitamin) 1 EACH TAB 1 Tablet ORAL DAILY Comments: NOT GIVEN Aspirin (Children's Aspirin) 81 MG TAB.CHEW 1 Tablet ORAL DAILY Comments: NOT GIVEN Valsartan (Valsartan) 160 MG TABLET 1 Tablet ORAL DAILY Days = 30 Saxagliptin (Onglyza) 5 MG TABLET 1 Tablet ORAL DAILY Qty = 90 Hydrochlorothiazide (Hydrochlorothiazide) 25 MG TABLET 1 Tablet ORAL DAILY Qty = 90 Acetaminophen With Codeine (Acetaminophen-Cod #4 Tablet) 300 MG-60 MG TABLET 1 Tablet ORAL THREE TIMES DAILY as needed for PAIN SCALE 7-10 (SEVERE) Qty = 30 Comments: NOT GIVEN IN HOSPITAL Start taking the following new medications: Loperamide HCl (Loperamide) 2 MG TABLET 1 Tablet ORAL Every 4 hours as needed for Diarrhea Qty = 10 No Refills Comments: LAST GIVEN 09/01/16 AT 5:30 PM Amoxicillin/Potassium Clav (Augmentin 875-125 Tablet) 875 MG-125 MG TABLET 1 Tablet ORAL TWICE DAILY Qty = 20 No Refills Comments: LAST GIVEN 09/02/16 AT 10:00 AM Prednisone (Prednisone) 10 MG TABLET 0 ORAL See Instructions Qty = 26 No Refills Instructions: 09/03/15-09/04/15 take 4 tabs daily 09/05/15-09/07/14 take 3 tabs daily 09/08/15-09/10/15 take 2 tabs daily 09/11/15-09/13/15 take 1 tab daily then stop. Comments: 40 MG LAST GIVEN 09/02/16 AT 9:00 AM Copies To: BALJIT GRADY,MILE Newton; EMILY GRADY,OLIVER Granda MD Review Statement Documenting Attending: LISY YIP M.D Other Findings: I have reviewed the discharge summary
[2016-09-02 10:40] LABS: ABSOLUTE BASOPHIL COUNT 0 /CUMM (0.0-0.2); ABSOLUTE EOSINOPHIL COUNT 0 /CUMM (0.0-0.7); ABSOLUTE GRANULOCYTE CT 12.8 /CUMM (1.4-6.5); ABSOLUTE LYMPH COUNT 2.3 /CUMM (1.2-3.4); ABSOLUTE MONOCYTE COUNT 0.9 /CUMM (0.10-0.60); BASOPHIL % 0.1 % (0.0-2.0); EOSINOPHIL % 0.2 % (0-5); GRANULOCYTE % 79.5 % (42.2-75.2); HEMATOCRIT 38.1 % (37-47); MEAN CORPUSCULAR HGB 31.3 PG (27.0-31.0); MEAN CORPUSCULAR HGB CONC 33.5 G/DL (33.0-37.0); MEAN CORPUSCULAR VOLUME 93.3 FL (81.0-99.0); MEAN PLATELET VOLUME 7.5 FL (7.4-10.4); PLATELET COUNT 457 /CUMM (130-400); RBC DISTRIBUTION WIDTH 13.7 % (11.5-14.5); RED BLOOD CELL CT 4.08 /CUMM (4.20-5.40); WHITE BLOOD CELL COUNT 16.1 /CUMM (4.8-10.8)
== END 2016-09-02 11:15 | DRG 871 ==
LOC: ENRESERVDT → ENRESERVTM → ERH 13:02 → ERHI 14:22 → 2NB 14:22 → ENPENDDIS 14:22 → DELPENDDIS 14:22 → 2NB 16:15
PROVIDERS: Emergency Medicine; Student in an Organized Health Care Education/Training Program; ADMIT Internal Medicine
DX: A41.9 Sepsis, unspecified organism (principal); J18.9 Pneumonia, unspecified organism; J96.01 Acute respiratory failure with hypoxia; N17.9 Acute kidney failure, unspecified; J44.1 Chronic obstructive pulmonary disease with (acute) exacerbation; R65.20 Severe sepsis without septic shock; Z87.891 Personal history of nicotine dependence; Z77.22 Contact with and (suspected) exposure to environmental tobacco smoke (acute) (chronic); I10 Essential (primary) hypertension; E78.5 Hyperlipidemia, unspecified; E11.9 Type 2 diabetes mellitus without complications; Z79.4 Long term (current) use of insulin
CPT/HCPCS: 2NSBP; 87184; 36415; 81001; 82436; 87040; 87045; 87070; 87147; 87449; 87450; 87804; 87804-59; 93005; 93010; 96374; 96375; 97116-GO; 97161-GP; 97530-GO; J0131; J0456; J0696; J1644; J2405; J2920; J2930; J3370; J3490; J7060

== ENCOUNTER 2017-11-01 01:08 | Inpatient (IN) | payer OTHER ==
[~2017-11-01] VITALS: Ht 162.6 cm; Wt 72.6 kg
[~2017-11-01 01:08] MED LIST changes: +ACETAMINOPHEN-1 EAC2 PO; +ATORVASTATIN CA10 M1 PO; +AUGMENTIN 875-1 EACH PO; +BACLOFEN10 M1 PO; +CYCLOBENZAPRINE10 M1 PO; +HYDROCHLOROTHIA25 M1 PO; +IBUPROFEN600 M1 PO; +LOPERAMIDE2 M1 PO; +METFORMIN HCL1000 M1 PO; +OMEPRAZOLE20 M3 PO; +ONGLYZA5 M1 PO; +PREDNISONE10 M2 PO; +SPIRIVA18 MCG INH; +ST. JOSEPH ASPI81 M1 PO; +ULTRAM50 M1 PO; +VALSARTAN160 M1 PO
--- NOTE | 2017-11-01 11:48 | Operative Report ---
Operative/Inv Procedure Report Surgery Date: 11/01/17 Name of Procedure: Left total knee arthroplasty Pre-Operative Diagnosis: Primary osteoarthritis left knee Post-Operative Diagnosis: Same Estimated Blood Loss: less than 50ml Surgeon/Theatrical Rigger: Sherrill GRADY,Michael MARSHALL Anesthesia: block IV Fluids: See anesthesia record Implants: Striker triathlon knee size 4 femur, size 4 tibia, 27 patella and a 9 mm polyethylene insert Drains: None Specimens: Bone to pathology Tourniquet: 44 minutes Complications: None Condition: Stable Operative Indication: Patient's a 72-year-old female was failed conservative treatment for her severe degenerative arthritis of the left knee. She was indicated for total knee arthroplasty. The risks and benefits of the procedure were discussed with the patient detail in the office and she wished to proceed. A skilled set hands was necessary provided by physician academic assistant Hadley Rodriguez who aided with retraction limb positioning and retraction and component assembly throughout the case. Operative/Procedure Note Note: Once informed consent was obtained and the correct limb was identified patient brought to operative room placed on table supine position. After initiation of spinal anesthesia thigh tourniquet and Coyle catheter was placed and the patient was placed supine on the table. The left lower 70 is prepped and draped usual sterile fashion. To begin the procedure standard midline incision made for total knee arthroscopy. Sharp dissection was carried out through the skin and subcutaneous tissue. A medial parapatellar arthrotomy was performed and the patella was everted. The fat pad is removed from the patellar tendon. Patella thickness measured be 22 mm and 9 mm of bone was resected off the patella. The patella was sized to be size 27 symmetric patella in the jig for the lug holes was placed in the drill holes were made. Patella was placed laterally and protected. The knee was placed in flexion the intramedullary canal femoral canal was entered with a step drill. The distal femoral cutting guide was placed in the intramedullary canal and a distal femoral resection of 10 mm with the 6 valgus cut was made. The femur was then sized the sizing block and found to be a size 4 femur. A size 4 4-in-1 cutting block was placed in the distal femur and anterior, posterior, chamfer cuts were made without complication. The box cut guide was then placed on the distal femur and the box cut was made for posterior stabilized knee. At this point the components removed and the tibia was translated anteriorly and the cruciate ligaments were resected. The lateral and medial meniscus were returned moved as well sharply with a #10 blade. A step drill was used to enter the intramedullary canal the tibia and the tibial cutting guide was placed. 4 mm resection off of the medial side of the knee was planned and performed without complication. At this point the tibia was sized to be a size 4 tibial tray. At reduction was done with a 4 femur for tibial tray and a 9 mm polyethylene insert. The knee had full extension and flexion of 130. He was stable to varus and valgus stress at 0 and 60. There is no mid flexion instability. The patella tracked nicely and there were rotation of the tibial component was marked. The components removed and the tibial component was pinned in place. The Register keel cut was made. All components removed and the knee was pulse lavaged. Cement was mixed on the back table and the total knee components were cemented in place with the tibia cemented first followed by the femur and the patellar button. Excess cement was removed with curettes. The knee was placed in extension while cement hardened. Knee was again taken through range of motion found be stable and a 9 mm polyethylene insert was opened and locked into the tibial tray. The knee was pulse lavaged and the tourniquet was released. Bleeding was stopped with electrocautery. The arthrotomy is closed #1 Vicryl interrupted sutures and subcutaneous tissues closed with 2-0 Vicryl interrupted sutures. The skin was closed gucci and sterile dressing was applied. The patient awakened taken recovery in stable condition.
--- NOTE | 2017-11-01 14:07 | Surgical Discharge Summary ---
Visit Information Visit Dates Admission Date: 11/01/17 Discharge Date: 11/03/17 History of Present Illness Chief Complaint: Left knee pain related to osteoarthritis Medical History Cardiovascular: hypertension, hyperlipidemia Musculoskeletal: chronic back pain, osteoarthritis Endocrine: diabetes History of MRSA: No History of VRE: No History of CDIFF: No Isolation History: Standard Surgical History Pertinent Surgical History: knee replacement Family History Relations & Conditions If Any: FATHER FH: cancer FH: heart disease Psychosocial History Who Do You Live With? Daughter Services at Home: None What is Your Primary Language? Armenian Review of Systems: See H&P Hospital Course Course Attending Physician: Michael Mccartney MD Primary Care Physician: Kevin Kearney MD Hospital Course: Patient was admitted to the hospital for an elective left total knee replacement. Procedure was tolerated well and patient was transferred to a general surgical floor. Patient was found to be unresponsive the evening of surgery, and was transferred to the ICU. Subsequently found to have undergone CVA with multiple infarcts. Please refer to ICU notes and ICU discharge summary for further details. Complications: Acute CVA, postoperatively. Allergies: Coded Allergies: No Known Allergies (10/18/17) Significant Procedures: Surgery Date: 11/01/17 Name of Procedure: Left total knee arthroplasty Pre-Operative Diagnosis: Primary osteoarthritis left knee Disposition Summary Disposition Principal Diagnosis: Primary osteoarthritis left knee Additional Diagnosis: Same, status post left total knee replacement Acute CVA Discharge Disposition: other general hospital Discharge Instructions General Discharge Information Code Status: Full Code Patient's Diet: NPO Patient's Activity: Ambulation: WBAT LLE AT Rest: passive ROM Left knee q1hr Follow-Up Instructions/Appts: Follow up with Dr. Mccartney in 2 weeks for postop visit Medications at Discharge Discharge Medications: Stop taking the following medications: Acetaminophen With Codeine (Acetaminophen-Cod #4 Tablet) 300 MG-60 MG TABLET ORAL THREE TIMES DAILY as needed for PAIN SCALE 7-10 (SEVERE) Qty = 30 Atorvastatin Calcium (Atorvastatin Calcium) 10 MG TABLET ORAL Every night Cyclobenzaprine HCl (Cyclobenzaprine HCl) 10 MG TABLET ORAL THREE TIMES DAILY as needed for BACK SPASM Continue taking these medications: Valsartan (Valsartan) 160 MG TABLET 1 Tablet ORAL DAILY Days = 30 Comments: Last Taken: NOT GIVEN Time: Tiotropium Temple (Spiriva) 18 MCG CAP.W.DEV 1 Capsule Inhale through mouth AFTERNOON Comments: Last Taken: NOT GIVEN Time: Hydrochlorothiazide (Hydrochlorothiazide) 25 MG TABLET 1 Tablet ORAL Every night Comments: Last Taken: NOT GIVEN Time: Metformin HCl (Metformin HCl) 1,000 MG TABLET 1 Tablet ORAL TWICE DAILY Comments: Last Taken: NOT GIVEN Time: Omeprazole (Omeprazole) 20 MG TABLET.DR 1 Tablet ORAL Every night Comments: Last Taken: NOT GIVEN Time: Saxagliptin (Onglyza) 5 MG TABLET 1 Tablet ORAL TWICE DAILY Instructions: LUNCH AND DINNER Comments: Last Taken: NOT GIVEN Time: Aspirin ([place] Aspirin) 81 MG TABLET.DR 1 Tablet ORAL DAILY Comments: Last Taken:11/03 Time: 0848 Start taking the following new medications: Atorvastatin Calcium (Atorvastatin Calcium) 80 MG TABLET 80 Milligram ORAL Every night Qty = 30 No Refills Comments: Last Taken: 11/02/17 Time: 2200 Methylprednisolone Sod Succ/Pf (Solu-Medrol 40 MG Vial) 40 MG/ML VIAL 40 Milligram INTRAVEN Q12H Qty = 6 No Refills Comments: Last Taken: Time: DECADRON GIVEN 11/04 1999 Pantoprazole Sodium (Pantoprazole Sodium) 40 MG VIAL 40 Milligram INTRAVEN DAILY Qty = 4 No Refills Comments: Last Taken: 11/03 Time: 0847 Ampicillin Sodium/Sulbactam Na (Unasyn 3 Gm Vial) 3 GRAM VIAL 3 G INTRAVEN Q6H Qty = 12 No Refills Comments: Last Taken: 11/03 Time: 1900
--- NOTE | 2017-11-01 14:22 | Patient Discharge Instructions ---
Discharge Instructions General Discharge Information You were seen/treated for: -Pain related to Primary osteoarthritis of the left knee -postoperative CVA You had these procedures: Left total knee replacement Watch for these problems: Left knee: Increasing pain despite the use of pain medication Increasing redness, warmth or swelling Drainage of any type from incision Inability to bear weight on operative leg Persistent nausea and vomiting Other wound care: Left knee: -Keep wound clean and dry. -No ointments/lotions of any type on or near incision. -Dressing changed by your nurse on the second day after your surgery. Daily dry dressing changes are recommended each day thereafter. -You may shower 48hr after surgery. Do not soak your wound- no tub baths or swimming. Special Instructions: Postop Acute CVA: Transfer to [facility], neuro ICU Please refer to ICU resident's discharge summary for further details Activity Activity Limited to: Bedrest Other activity limits: When ambulating- WBAT LLE. When in bed- passive ROM of left knee q1hr. Acute Coronary Syndrome Inclusion Criteria At DC or during hospital stay patient has or had the following: ACS DIAGNOSIS No Discharge Core Measures Meds if any: Prescribed or Continued at Discharge Meds if any: NOT Prescribed or Continued at Discharge Congestive Heart Failure Inclusion Criteria At DC or during hospital stay patient has or had the following: CHF DIAGNOSIS No Discharge Core Measures Meds if any: Prescribed or Continued at Discharge Meds if any: NOT Prescribed or Continued at Discharge Cerebrovascular accident Inclusion Criteria At DC or during hospital stay patient has or had the following: CVA/TIA Diagnosis Yes Discharge Core Measures Meds if any: Prescribed or Continued at Discharge Antithrombotic No Statin (required if LDL =>70) Yes Anticoagulant No Meds if any: NOT Prescribed or Continued at Discharge No Antithrombotic d/t Surgical Contraindication No Anticoagulant d/t Medical Contraindication Venous thromboembolism Inclusion Criteria VTE Diagnosis No VTE Type NONE VTE Confirmed by (Test) NONE Discharge Core Measures - Per Current guidelines, there needs to be overlap - treatment for the first 5 days of Warfarin therapy. - If discharged on Warfarin prior to 5 days of - overlap therapy, the patient will need to be - assessed for post discharge needs including - *Post discharge parental anticoagulation - *Warfarin and/or parental anticoagulation education - *Follow up date to check INR post discharge At least 5 days overlap therapy as Inpatient No Meds if any: Prescribed or Continued at Discharge Note: Overlap Therapy is Warfarin and Anticoagulant Meds if any: NOT Prescribed or Continued at Discharge
[2017-11-01] MEDS ORDERED: PERCOCET 5-3251 EACH PO (14:27)
[2017-11-01] MEDS ORDERED: DOCUSATE SODIU100 M3 PO (14:27)
[2017-11-01] MEDS ORDERED: ELIQUIS2.5 M1 PO (14:27)
[2017-11-01 14:30] VITALS: BP 102/70
--- NOTE | 2017-11-01 15:31 | PN- Orthopedic ---
Subjective Subjective: postop check feeling nauseous, some vomiting. getting zofran now. denies pain. no oob yet. +uo via boyd Objective Vital Signs and I&Os Vital Signs Date Time Temp Pulse Resp B/P B/P Pulse O2 O2 Flow FiO2 Mean Ox Delivery Rate 11/01 1430 97.9 102 20 102/70 95 Room Air Intake & Output 11/01 1600 11/01 0800 11/01 0000 10/31 1600 10/31 0800 10/31 0000 Intake Total Output Total Balance Patient 160 lb Weight Weight Reported by Patient Measurement Method Physical Exam: gen- nad card-s1s2 rrr pulm- ctab ext-l knee dressed, ice in place, onq in place, foot warm, gross sensate intact, +dorsi/plantar flexion, calves soft nt Assessment/Plan Assessment/Plan A- POD0 sp L TKR, with postop n/v otherwise stable P- ada diet as tolerated i&os eliquis, alps pt, oob, wbat prn pain meds, prn antiemetics home meds dc planning Core Measures Venous Thromboembolism VTE Risk Factors Surgery No Mechanical VTE Prophylaxis d/t N/A MechProphylax Ordered No VTE Pharm Prophylaxis d/t NA PharmProphylax ordered
[2017-11-01 17:20] VITALS: BP 94/60
[2017-11-01 21:14] VITALS: BP 140/52
--- NOTE | 2017-11-01 21:41 | Event Note ---
Event Note Event Note: S: Rapid response was called at 9:10pm as nursing staff as patient was found unresponsive. B: 72-year-old female past medical history of hypertension, hyperlipidemia, diabetes, chronic back pain and osteoarthritis. He was admitted to hospital for elective left total knee replacement. Procedure was done today and patient was transferred to general medicine floor. A/P: We went to see the patient, she was unresponsive, hemodynamically stable with blood pressure 141/50, pulse 118, temperature 98.8, and her saturation dropped to 50s. Her pupils were nonreactive. Initially patient was given Narcan 0.4 mg but patient remained unresponsive. She was given high flow mask oxygen and her saturation came back to 98%. ABG was checked that was showing PCO2 90. Her blood sugar level was more than 500. Considering patient's respiratory acidosis, her breathing became labored and heart rate was going down. It was decided to intubate the patient and she was intubated on bedside. During intubation patient vomited and suction was done. It was decided to transfer the patient to ICU for further management and close monitoring. Surgical PA infromed the family about patient condition. Stat EKG, head CT scan, stat ICU bundle, troponin level, urine ketones and CTA to rule out PE were ordered. Dr. Gilliam was informed and patient was transferred to ICU.
--- NOTE | 2017-11-01 22:08 | RADIOLOGY REPORT ---
EXAMINATION: XR PORTABLE CHEST CLINICAL INFORMATION: Intubation unresponsive COMPARISON: 10/17/2016 TECHNIQUE: Portable frontal view of the chest was obtained. FINDINGS: ET tube is in good position. 2.4 cm above dominick. Mild basilar atelectasis. Mediastinal contours within normal limits. IMPRESSION: ET tube in good position 2.4 cm above dominick. Mild basilar atelectasis
--- NOTE | 2017-11-01 22:35 | CT SCAN REPORT ---
EXAMINATION: CT HEAD WITHOUT CONTRAST CT ANGIOGRAM OF THE CHEST WITH AND WITHOUT CONTRAST (CT PULMONARY ANGIOGRAM FOR PE) CLINICAL INFORMATION: 72-year-old female patient who is unresponsive. Hypoxia. Presumptive diagnosis: Pulmonary embolism. COMPARISON: CT the chest on 12/30/2014. Emphysema. CT the brain on 10/24/2012. No traumatic injury. TECHNIQUE: Contiguous axial imaging was performed from the skull base to vertex without intravenous administration of contrast. Prior to contrast administration, noncontrast localization images were obtained. Subsequently, multidetector volumetric imaging was performed from the thoracic inlet to below the diaphragms following the administration of 80 mL Omnipaque 350 intravenous contrast. No contrast reaction reported Sagittal, coronal, and MIP oblique sagittal reformatted images were obtained on the CT workstation, uploaded to PACS, and reviewed. Total exam dose-length product 621 mGy-cm for brain. Total exam dose-length product 464 mGy-cm for CTA of Chest. FINDINGS: BRAIN: There is hyperostosis interna frontalis. The patient is intubated. There is no evidence of acute intracranial hemorrhage or territorial infarction. No abnormal mass effect or midline shift is seen. Cardoso to white matter differentiation is well preserved. No extra-axial fluid collections are identified. The ventricles are normal in size. There is a small lacunar infarct in the anterior limb of the left internal capsule. The osseous structures and soft tissues are normal. Mastoid air cells are well aerated. Some fluid is seen in the left maxillary sinus and there is evidence of mild bilateral ethmoid sinusitis. CTA OF THE CHEST: CONSTRUCTION STONEMASON: The tip of the endotracheal tube is just above the dominick tending towards right mainstem bronchus. It would be advantageous to withdraw the tube slightly. Also, there is significant gaseous distention the stomach which may have been introduced during intubation. QUALITY OF STUDY/CONTRAST BOLUS: Satisfactory. PULMONARY ARTERIES: No central or segmental pulmonary emboli. THORACIC AORTA: No aneurysm or dissection. Calcific plaques are seen throughout the thoracic aorta as well as at the origins of the arch vessels LUNG: The patient has centrilobular emphysema. PLEURA: There are trace bilateral pleural effusions. MEDIASTINUM: The heart is prominent in size. No pericardial effusion. Small lymph nodes are seen in the subcarinal region and in both hilar regions. In view of the emphysema, these could be reactive nodes. No evidence of septal bowing or right heart strain. Coronary arteries are calcified. Mediastinal lipomatosis. CHEST WALL/AXILLA: No axillary or internal mammary lymphadenopathy. OSSEOUS STRUCTURES: Multilevel disc disease in the thoracic spine. UPPER ABDOMEN: Unremarkable. No reflux of contrast into the hepatic veins to suggest elevated right heart pressures. IMPRESSION: 1. No evidence of pulmonary embolism. 2. Tip of endotracheal tube just above the dominick. 3. Centrilobular emphysema and bilateral lower lobe dependent atelectasis. Trace effusions. Reactive hilar or mediastinal adenopathy. 4. No acute intracranial pathology. VTE: Negative.
--- NOTE | 2017-11-01 23:17 | Cons- CRCU ---
Too Crum MD 11/01/17 2316: General Information and HPI Consulting Request Date of Consult: 11/01/17 Requested By: Surgical Team History of Present Illness: 72-year-old woman with past medical history of hypertension, hyperlipidemia, osteoarthritis, and chronic back pain admitted for elective left total knee arthroplasty. Patient underwent the procedure this afternoon uneventfully with miminal blood loss and after recovery she was taken back to her room on the general medicine floor. Post operatively she was seen by the surgical team for post op check whom reported that patient was nauseated with some vomiting for which she was given Zofran. Rapid response was call around 8:45 PM after patient was found unresponsive. She reportedly has agonal breathing with pinpoint pupils for which narcan was given without effect. Patient was intubated for respiratory support and airway protection given her profound acidemia/hypercarbia. Subjective complaints and review of systems are unobtainable. Allergies/Medications Allergies: Coded Allergies: No Known Allergies (10/18/17) Home Med List: Acetaminophen With Codeine (Acetaminophen-Cod #4 Tablet) 300 MG-60 MG TABLET 1 TAB PO TID PRN PAIN SCALE 7-10 (SEVERE) (Reported) Apixaban (Eliquis) 2.5 MG TABLET 2.5 MG PO BID anticoagulant Aspirin (Shevlin Aspirin) 81 MG TABLET.DR 1 TAB PO DAILY HEARTHEALTH ( Reported) Atorvastatin Calcium 10 MG TABLET 1 TAB PO QPM CHOLESTEROL (Reported) Cyclobenzaprine HCl 10 MG TABLET 1 TAB PO TID PRN BACK SPASM (Reported) Docusate Sodium 100 MG CAPSULE 100 MG PO BID PRN CONTIPATION Hydrochlorothiazide 25 MG TABLET 1 TAB PO QPM BP (Reported) Metformin HCl 1,000 MG TABLET 1 TAB PO BID DIABETES (Reported) Omeprazole 20 MG TABLET.DR 1 TAB PO QPM REFLUX (Reported) Oxycodone HCl/Acetaminophen (Percocet 5-325 MG Tablet) 5 MG-325 MG TABLET 1-2 TAB PO Q4-6 PRN PRN POSTOP PAIN Saxagliptin (Onglyza) 5 MG TABLET 1 TAB PO BID DIABETES (Reported) LUNCH AND DINNER Tiotropium [place] (Spiriva) 18 MCG CAP.W.DEV 1 CAP INH AFTERNOON COPD ( Reported) Valsartan 160 MG TABLET 1 TAB PO DAILY HEART (Reported) Review of Systems Review of Systems Constitutional: Reports: see HPI. Past History Medical History Blood Transfusion Hx: No Neurological: MOTION SICKNESS EENT: NONE Cardiovascular: hypertension, hyperlipidemia Respiratory: COPD Gastrointestinal: NONE Hepatic: NONE Renal: NONE Musculoskeletal: chronic back pain, osteoarthritis Psychiatric: NONE Endocrine: diabetes Blood Disorders: NONE Cancer(s): NONE ACCOUNTS RECEIVABLE SPECIALIST/Reproductive: 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 Home Who Do You Live With? child Services at Home: None Smoking Status: Former Smoker Functional Ability ADLs Independent: dressing, eating, toileting, bathing. Ambulation: independent IADLs Independent: shopping, housework, finances, food prep, telephone, transportation , medication admin. Exam & Diagnostic Data Last 24 Hrs of Vital Signs/I&O Vital Signs Date Time Temp Pulse Resp B/P B/P Pulse O2 O2 Flow FiO2 Mean Ox Delivery Rate 11/01 2224 60 11/01 2114 110 140/52 11/01 1858 98.0 95 18 96 Room Air 11/01 1720 94/60 11/01 1430 97.9 102 20 102/70 95 Room Air Intake & Output 11/01 1600 11/01 0800 11/01 0000 Intake Total Output Total Balance Patient 72.575 kg Weight Weight Reported by Patient Measurement Method Physical Exam General Appearance: no apparent distress, intubated Head: normal appearance Eyes: Bilateral: other (Pupils 2mm nonreactive). Ears, Nose, Throat: normal pharynx, normal ENT inspection Neck: normal inspection, supple Respiratory: normal breath sounds, chest non-tender, quiet respiration, lungs clear Cardiovascular: regular rate/rhythm Gastrointestinal: normal bowel sounds, soft, non-tender, no organomegaly Extremities: normal inspection, normal capillary refill, normal range of motion, no edema, LEFT KNEE WRAPPED IN STERILE VERNON WRAP WITHOUT ANY OBVIOUS DRAINAGE, EXTREMITY SOFT, PULSES INTACT Neurologic/Psych: Patient unresponsive to verbal/tactile/noxious stimuli, pupils fixed and nonreactive Skin: intact, normal color, warm/dry Last 48 Hrs of Labs/Ricci: Laboratory Tests 11/01/17 2300: Urine Color Pending, Urine Clarity Pending, Urine pH Pending, Ur Specific [place] Pending, Urine Protein Pending, Urine Ketones Pending, Urine Nitrite Pending, Urine Bilirubin Pending, Urine Urobilinogen Pending, Ur Leukocyte Esterase Pending, Ur Microscopic Pending, Urine Hemoglobin Pending, Urine Glucose Pending 11/01/17 2255: Acetone Level Pending 11/01/17 2250: pH 7.50 H, pCO2 22 L, pO2 64 L, HCO3 17 L, ABG O2 Sat (Measured) 95.0 L, P- 50 (Temp Corrected) Y, Carboxyhemoglobin 0.2 L, O2 Concentration % 50%, Temperature 97.0, Respiration Rate 22, O2 Delivery Method VENT, Vent Mode AC/VC, Expiratory Pressure 5, Tidal Volume 500, Phlebotomy Draw Site LEFT BRACHIAL 11/01/17 2240: Sodium Pending, Potassium Pending, Chloride Pending, Carbon Dioxide Pending, Anion Gap Pending, BUN Pending, Creatinine Pending, BUN/Creatinine Ratio Pending , Lactic Acid Pending, Phosphorus Pending, Magnesium Pending, Troponin I Pending 11/01/170: Lactic Acid Pending, Total Bilirubin Pending, Direct Bilirubin Pending, AST Pending, ALT Pending, Alkaline Phosphatase Pending, Total Protein Pending, Albumin Pending, PT Pending, INR Pending, CBC w Diff Pending, WBC Pending, RBC Pending, Hgb Pending, Hct Pending, MCV Pending, MCH Pending, MCHC Pending, RDW Pending, Plt Count Pending, MPV Pending 11/01/170: pH 6.97 *L, pCO2 90 *H, pO2 171 H, HCO3 20 L, ABG O2 Sat (Measured) 98.0, Carboxyhemoglobin 0.3 L, O2 Concentration % 100%, O2 Delivery Method NRB, Phlebotomy Draw Site LEFT RADIAL 11/01/17 1000: Acetone Level Cancelled 11/01/17 0953: Anion Gap 14, Estimated GFR 44 L, BUN/Creatinine Ratio 20.8, Glucose 176 H, Calcium 10.1, Total Bilirubin 0.7, AST 15, ALT 25, Alkaline Phosphatase 91, Total Protein 6.4, Albumin 4.1, Globulin 2.3, Albumin/Globulin Ratio 1.8, Acetone Level NEGATIVE Assessment/Plan CRCU Impression/Plan: 72 year old woman with multiple medical problems admitted for elective left total knee arthoplasty subsequently developed acute hypoxic/hypercarbic respiratory failure. Patient was seen and assessed after rapid response by the night general medicine team. Stat labs were ordered which revelaed profound acidemia/hypoxia. For patients agonal breathing and respiratory failure she was intubated. Clinically patients hyperglycemia and history of COPD may have caused the patient to be somnolent and confused with progressive worsening respiration caused a profound hypercarbia and acidemia. Patient was last seen awake and alert by her daughter around 7:15, implying that patient was down for anywhere up to an hour. Patients appears to have acute hypoxic/hypercarbic respiratory failure with hyperglycemia of unclear etiology. Patient did not receive any opiates, steroids, and only reportedly ate 4 crackers and a can of gingerale. Chest x-ray, CT Head, CTA chest were unremarkable. Labs demonstrated leukocytosis with negative acetone. Urinalysis demonstrated glucosuria. EKG demonstrated 1st degree AVB and QTc prolongation suggestive of underlying conduction system disease but was otherwise unremarkable. Serum chemistry was unremarkable. Sql Report Developer Dr Smith, Sports Analyst Dr. Gilliam, and orthopedist Dr. Mccartney were made aware of these events. Problem List -Acute hypoxic / hypercarbic respiratory failure s/p intubation -Altered mental status with pinpoint pupils -S/P Elective left TKA, POD #0 -Hyperglycemia -Jwi-tofglcb-ykytqnlas diabetes mellitus -Hypertension -Hyperlipidemia -Osteoarthritis -Chronic back pain Plan -Admit to ICU -Telemetry monitoring -Intubated on Vent: -OGT -Coyle catheter -Ins & Outs -Accuchecks Q1H with Novolin SSI Q6H -Upper extremity soft restraints -Zofran PRN for nausea -Avoid opaites, sedatives, anticholinergics -NS @ 75mL/hr -Protonix 40 mg IV Daily -Levemir 9 units SC BID -Ativan PRN for sedation -Unasyn 3g IV Q6H for possible aspiration pneumonia -Solumedrol 125 mg IV ONCE -Restart Eliquis when able per ortho -Continue meds: atorvastatin -Hold meds: losartan, HCTZ for hypotension, restart as needed -Ortho following for post-operative management for left TKA -Neurology consult for altered mental status -Critical care consult with Dr. Gilliam in morning -Consider cardiology consult if elevated troponins -Follow up cultures & sensitivites -Recheck ABG in one hour -Follow up stat labs (CBC,Lactic, mag,phos,BMP,troponin,acetone) -Follow up CXR, CT Head and CTA Chest -Daily CBC, ICU, CXR, ABG -Obtain echocardiogram -Pain control PRN -Bowel regimen: Senna, Colace, Miralax -NPO -DVT PPx with ALPS -FULL CODE Consult Acknowledgment - Thank you for your consult request. Luis GRADY, [facility] 11/02/17 0057: Assessment/Plan CRCU Consult Acknowledgment - Thank you for your consult request. Attending MD Review Statement Attending Statement Attending MD Statement: examined this patient, discuss w/resident/PA/NURSE INFORMATICS EDUCATOR, agreed w/resident/PA/NURSE INFORMATICS EDUCATOR, discussed with family, reviewed images, amended to note Attending Assessment/Plan: 72 yo F with h/o HTN, COPD, T2DM, osteoarthritis, HLD, CKD stage 3, underwent elective left total knee arthroplasty this afternoon by Dr. Mccartney. She was doing well post-operatively but for nausea. She could not tolerate her dinner and vomited once. She received phenergan at 7 pm, daughter was present at bedside. Nurse noted that patient was sleeping, snoring in no distress. Around 9 pm, [facility] went in to get an accucheck was 426 but she was unable to arouse patient. Nurse came in and found patient unresponsive, called rapid response. She was hypoxic to 60's, placed on NRB. Breathing was labored. Pupils were small but not reactive. Narcan was given without any effect. ABG showed severe respiratory acidosis, patient was immediately intubated. She was then transferred to ICU for further care. I met with patient's daughter Regina and discussed plan of care. She is very upset with the whole situation and expressed this to be investigated. She last saw her mother at 7.15 pm, and states she did not feel good. Regina left for home as mother wanted to rest. Regina feels that no one checked on her mother up until 9 pm. Regina also reports that [facility] noted BP of 80's but nothing was done about it. When I spoke with RN, she reportedly rechecked BP was 94/60 and patient was asymptomatic. Patient had not received any opiates post-operatively. Vitals: afebrile, HR 60-90's, BP 140/52 during RR, patient's BP dropped transiently but improved with IV fluids, sats improved after intubation. Exam: unresponsive, intubated, pupils 2-3 mm fixed nonreactive, mucous membranes dry, neck supple, Chest b/l rhonchi+ anteriorly, Chest S1 S2 regular, ?systolic murmur, Abd soft, BS+, Left knee dressing C/D/I, no obvious edema or erythema. Peripheral pulses well felt. Labs: WBC 13.6, H/H 10.1/29.9, Plt 221, INR 1.05, Na 130, bicarb 18, BUN 26, creat 1.3 (baseline 1.1 1.2), lactic acid 3.1, Mag 1.5, trop 0.05. UA glucosuria++. Acetone negative. AB.97/90/171/20 on 100% NRB. Head CT: no acute intracranial hemorrhage or infarction, small lacunar infarct in left internal capsule. CTA chest: no PE, centrilobular emphysema and bilateral lower lobe dependent atelectasis, trace effusions, reactive hilar or mediastinal lymphadenopathy. CXR: ETT in good position, mild basilar atelectasis. EKG: sinus rhythm, first degree AV block, nonspecific T-wave changes, Qtc 503. Assessment and plan: 1. Respiratory arrest now intubated 2. Acute hypercarbic and hypoxemic respiratory failure 3. Unresponsiveness due to CO2 narcosis, cannot rule out stroke 4. Possible aspiration pneumonitis/ pneumonia 5. Possible COPD exacerbation 6. Type 2 diabetes with hyperglycemia, no evidence of DKA 7. Lactic acidosis 8. Hyponatremia and Hypomagnesemia 9. Status post Left total knee arthroplasty 10. Old lacunar infarct 11. CKD stable - Monitor patient in ICU - Continue mechanical ventilation, repeat ABG in 1 hour and adjust settings - Coyle in place, monitor I/O's - Panculture - IV Unasyn empirically for aspiration - IV solumedrol 125 mg once now - IV fluids maintenance to keep MAP > 65 - Trend lactic acid - Check cortisol levels, TSH, free T4 - Check urine lytes, serum and urine osmolality - Serial EKG and troponin - Obtain Echo and Cardio consult - Repeat ABG and CXR in AM - Dr. Gilliam informed - IV ativan as needed for sedation - Maintain on insulin NPO SS and levemir 5 units BID - Check HbA1c. Consider Endo consult in AM - Replete electrolytes - Hold valsartan, HCTZ, metformin and onglyza - Neuro consult in AM GI ppx IV protonix DVT ppx Alps/ heparin subcut, then transition to eliquis when able. Full code. TTS > 55 mins AM troponin elevated to 0.14 likely demand ischemia. Aspirin given, echo, Cardio consult. Patient now following a few commands, but according to resident she is not moving her left side, she may have had a stroke. Neuro consult in AM.
[2017-11-01 23:36] LABS: ABSOLUTE BASOPHIL COUNT 0 /CUMM (0.0-0.2); ABSOLUTE EOSINOPHIL COUNT 0 /CUMM (0.0-0.7); ABSOLUTE GRANULOCYTE CT 12.8 /CUMM (1.4-6.5); ABSOLUTE LYMPH COUNT 0.5 /CUMM (1.2-3.4); ABSOLUTE MONOCYTE COUNT 0.3 /CUMM (0.10-0.60); BASOPHIL % 0 % (0.0-2.0); EOSINOPHIL % 0 % (0-5); GRANULOCYTE % 94.2 % (42.2-75.2); HEMATOCRIT 29.9 % (37-47); MEAN CORPUSCULAR HGB 31.2 PG (27.0-31.0); MEAN CORPUSCULAR HGB CONC 33.7 G/DL (33.0-37.0); MEAN CORPUSCULAR VOLUME 92.6 FL (81.0-99.0); MEAN PLATELET VOLUME 8.2 FL (7.4-10.4); PLATELET COUNT 221 /CUMM (130-400); RBC DISTRIBUTION WIDTH 13.4 % (11.5-14.5); RED BLOOD CELL CT 3.23 /CUMM (4.20-5.40); WHITE BLOOD CELL COUNT 13.6 /CUMM (4.8-10.8)
[2017-11-01 23:38] LABS: PT 11.4 SEC (9.4-12.5)
[2017-11-02] VITALS: BP 88/50
[2017-11-02 04:00] VITALS: BP 105/60
[2017-11-02 05:20] LABS: ABSOLUTE BASOPHIL COUNT 0 /CUMM (0.0-0.2); ABSOLUTE EOSINOPHIL COUNT 0 /CUMM (0.0-0.7); ABSOLUTE GRANULOCYTE CT 9.2 /CUMM (1.4-6.5); ABSOLUTE LYMPH COUNT 0.8 /CUMM (1.2-3.4); ABSOLUTE MONOCYTE COUNT 0.2 /CUMM (0.10-0.60); BASOPHIL % 0.2 % (0.0-2.0); EOSINOPHIL % 0 % (0-5); GRANULOCYTE % 90.1 % (42.2-75.2); HEMATOCRIT 31.6 % (37-47); MEAN CORPUSCULAR HGB 31.5 PG (27.0-31.0); MEAN CORPUSCULAR VOLUME 92.8 FL (81.0-99.0); MEAN PLATELET VOLUME 7.9 FL (7.4-10.4); PLATELET COUNT 233 /CUMM (130-400); RBC DISTRIBUTION WIDTH 13.9 % (11.5-14.5); RED BLOOD CELL CT 3.41 /CUMM (4.20-5.40); WHITE BLOOD CELL COUNT 10.3 /CUMM (4.8-10.8)
--- NOTE | 2017-11-02 06:24 | Event Note ---
Event Note Event Note: S- patient is not moving her left side of the body. Pt is agitated and when i went to examine her, she is moving only right side of her body. No movements noticed on left arm/left leg. On exam she is following commands only on right side like squeezing fingers. B- 72 yo F with h/o HTN, COPD, T2DM, osteoarthritis, HLD, CKD stage 3, underwent elective left total knee arthroplasty this afternoon by Dr. Mccartney. She was doing well post-operatively but for nausea. She could not tolerate her dinner and vomited once. She received phenergan at 7 pm, daughter was present at bedside. Nurse noted that patient was sleeping, snoring in no distress. Around 9 pm, [facility] went in to get an accucheck was 426 but she was unable to arouse patient. Nurse came in and found patient unresponsive, called rapid response. She was hypoxic to 60's, placed on NRB. Breathing was labored. Pupils were small but not reactive. Narcan was given without any effect. ABG showed severe respiratory acidosis, patient was immediately intubated. She was then transferred to ICU for further care. ASSESSMNET/PLAN 72 year old woman with multiple medical problems admitted for elective left total knee arthoplasty subsequently developed acute hypoxic/hypercarbic respiratory failure S/P intubation. CT HEAD - There is a small lacunar infarct in the anterior limb of the left internal capsule.There is possibility of stroke and aspiration leading to acute hypoxic/hypercarbic respiratory failure. * Neuro consulted * MRI head in am to look for stroke. * aspirin 325 once. * troponin trending up 0.14 from 0.05 mostly type2 MT from acute hypoxic/ hypercarbic respiratory failure with No ekg changes. * cardiology consulted * Will trend troponins * Discussed with attending.
--- NOTE | 2017-11-02 06:42 | RADIOLOGY REPORT ---
EXAMINATION: XR PORTABLE CHEST CLINICAL INFORMATION: Hypoxia. Shortness of breath. COMPARISON: Chest x-ray November 01, 2017 TECHNIQUE: Portable frontal view of the chest was obtained. 5:59 AM FINDINGS: Endotracheal tube catheter about 2 cm above dominick. Nasogastric tube in stomach. There is low lung volume. This is causing crowding of the bronchovascular markings. Density in the retrocardiac area probably due to basilar atelectasis and/or infiltrate. IMPRESSION: 1. Endotracheal tube 2 cm above dominick. 2. Nasogastric tube in stomach. 3. Low lung volume with prominence of the central hilar vessels. 4. Left basilar density of atelectasis and/or infiltrate.
--- NOTE | 2017-11-02 07:07 | PN- Orthopedic ---
Subjective Subjective: pod#1 s/p left tka rapid response last evening intubated for unresponsive hypoxic event chst cta negative for pe, head ct without bleed currently responds to name agitated with right sided movement only blood gases have improved from last evninig hypoxic event Objective Vital Signs and I&Os Vital Signs Date Time Temp Pulse Resp B/P B/P Pulse O2 O2 Flow FiO2 Mean Ox Delivery Rate 11/02 0542 50 11/02 0320 50 11/02 0105 50 11/02 0000 100 Ventilator 80% 11/02 0000 97.0 65 22 88/50 100 Ventilator 80% 11/01 2224 60 11/01 2114 110 140/52 11/01 1858 98.0 95 18 96 Room Air 11/01 1720 94/60 11/01 1430 97.9 102 20 102/70 95 Room Air Intake & Output 11/02 0800 11/02 0000 11/01 1600 11/01 0800 11/01 0000 10/31 1600 Intake Total Output Total Balance Patient 160 lb Weight Weight Reported by Patient Measurement Method Physical Exam: cv: rrr lungs; good air movement abd: soft, +bs ext: bilat le cool with doppler pulses left le drsg dry, no evidence hematoma onq in place not moving left leg or arm when asked Assessment/Plan Assessment/Plan s/p left tka hypoxic evnet last evening requiring rr and intubation plan mri pending this am to evaluate for stroke cont per crtical care team dr duong aware ortho protocol held pending w/u Core Measures Venous Thromboembolism VTE Risk Factors Surgery No Mechanical VTE Prophylaxis d/t N/A MechProphylax Ordered No VTE Pharm Prophylaxis d/t NA PharmProphylax ordered
--- NOTE | 2017-11-02 07:34 | PN- Resident CRCU ---
Kiara GRADY,Clarence 11/02/17 0734: Subjective HPI/CRCU Issues: Patient is in the ICU after rapid response last night, with an episode of unresponsiveness. I followed up and examined the patient today. She is intubated, but has a spontaneous activity, was trying to chew on her ET tube while I was in her room, moving her right upper and lower limbs but not her left side. I checked the event notes from last night, and ordered aspirin/statin, and waited for neurologist's recommendation regarding further imaging/management. 24 Hour Events: See event notes. Objective Vital Signs & I&O Last 8 Hrs of Vitals and I&O: Vital Signs Date Time Temp Pulse Resp B/P B/P Pulse O2 O2 Flow FiO2 Mean Ox Delivery Rate 11/02 1058 40 11/02 1037 Ventilator 50% 11/02 0801 50 11/02 0542 50 11/02 0400 95 Ventilator 50% 11/02 0400 96.6 56 16 105/60 95 Ventilator 50% 11/02 0320 50 11/02 0105 50 11/02 0000 100 Ventilator 80% 11/02 0000 97.0 65 22 88/50 100 Ventilator 80% 11/01 2224 60 11/01 2114 110 140/52 11/01 1858 98.0 95 18 96 Room Air 11/01 1720 94/60 11/01 1430 97.9 102 20 102/70 95 Room Air Exam General Appearance: alert, anxious, intubated, overweight Head: atraumatic, normal appearance Ears, Nose, Throat: moist mucus membranes, intubated, thus throat exam limited Neck: normal inspection, supple Respiratory: b/l breath sound equal, no wheeze, or crackles Cardiovascular: regular rate/rhythm, norml femoral pulses equa Gastrointestinal: normal bowel sounds, soft Extremities: rt side moving spontaneously (RUE, RLE), left side not moving spontaneously (LUE, LUE), left knee surgery site, dressed Cranial Nerves: abnormal eye position (facing right side) Skin: intact, normal color Skin Temp/Moisture Exam: Warm/Dry Sepsis Skin Exam (color): Normal for Ethnicity Sepsis Cap Refill Exam: <2 Sec Coyle Site: urethral IV Drips IV Drips: IVF NS@100ml/hr Current Medications: Current Medications Sig/Harish Start time Last Medication Dose Route Stop Time Status Admin Acetaminophen 650 MG ONCE 03/21 0000 DC PO 11/01 2359 Al Hydroxide/Mg 30 ML Q6P PRN 11/01 1415 AC Hydroxide PO Albuterol Sulfate 3 ML Q4H PRN 11/02 1030 AC INH Ampicillin Sodium/ 1,500 MG Q6 11/01 2359 AC 11/02 Sulbactam Sodium IV 1121 Sodium Chloride 100 ML Apixaban 2.5 MG BID 11/02 1000 AC PO Aspirin 81 MG DAILY 11/03 1000 AC PO Aspirin 300 MG DAILY 11/02 1045 DC NC Aspirin 325 MG ONCE ONE 11/02 0615 DC 11/02 PO 11/02 0616 1121 Atorvastatin Calcium 80 MG QPM 11/02 2200 AC PO Atorvastatin Calcium 10 MG QPM 11/01 2200 DC PO Cefazolin Sodium 1,000 MG ONCE 11/01 0000 DC IV 11/01 2359 Celecoxib 400 MG DAILY 11/02 1000 CAN PO Celecoxib 400 MG ONCE 11/01 0000 DC PO 11/01 2359 Dexamethasone 10 MG ONCE 11/01 0000 DC IV 11/01 2359 Docusate Sodium 100 MG DAILY NEEDED PRN 11/01 1415 AC PO Gabapentin 300 MG ONCE 11/01 0000 DC PO 11/01 2359 Heparin Sodium 5,000 UNIT Q8 11/02 0600 AC (Porcine) SC Hydrochlorothiazide 25 MG QPM 11/01 2200 DC PO Insulin Detemir 1 UNITS .STK-MED ONE 11/02 0034 DC SC 11/02 0035 Insulin Detemir 5 UNITS BID 11/01 2357 AC 11/02 SC 1011 Insulin Human Regular 0 Q6 11/01 2359 AC 11/02 SC 0628 Insulin Human Regular 10 UNITS ONCE ONE 11/01 2330 DC 11/01 SC 11/01 2331 2320 Insulin Human Regular 0 TIDAC/HS 11/01 1700 DC SC Ipratropium [place] 2.5 ML BID 11/02 1020 AC 11/02 INH 1036 Lorazepam 2 MG ONE ONE 11/02 0245 CAN IV 11/02 0246 Lorazepam 1 MG Q4P PRN 11/01 2315 AC 11/02 IV 0247 Losartan Potassium 50 MG DAILY 11/02 1000 CAN PO Magnesium Sulfate 1 GM Q2H 11/02 0045 DC 11/02 Dextrose/Water 100 ML IV 11/02 0444 0217 Metformin HCl 1,000 MG BID 11/01 2200 DC PO Methylprednisolone 125 MG ONCE ONE 11/02 0045 DC 11/02 IV 11/02 0046 0122 Morphine Sulfate 2 MG Q3P PRN 11/01 1415 DC IV Morphine Sulfate 4 MG Q3P PRN 11/01 1415 DC IV Naloxone HCl 0.4 MG ONCE ONE 11/01 2115 DC 11/01 IV 11/01 2116 2110 Ondansetron HCl 4 MG Q6P PRN 11/01 1415 AC 11/01 IV 1537 Oxycodone HCl 10 MG ONCE 11/01 0000 DC PO 11/01 2359 Oxycodone/ 1 TAB Q4P PRN 11/01 1415 DC Acetaminophen PO Oxycodone/ 2 TAB Q4P PRN 11/01 1415 DC Acetaminophen PO Pantoprazole Sodium 40 MG DAILY 11/02 1000 AC 11/02 IV 1000 Polyethylene Glycol 17 GM DAILY NEEDED PRN 11/01 1415 AC PO Promethazine HCl 25 MG ONCE ONE 11/01 1900 DC 11/01 IV 11/01 1901 1858 Ropivacaine 500 ML ONCE ONE 11/01 1000 DC ON-Q Ball 1 BAG INJ 11/03 1159 Scopolamine HBr 1 PAT ONCE 11/01 0000 DC TOP 11/01 2359 Senna/Docusate Sodium 2 TAB AT BEDTIME NEED.. 11/01 1415 AC PO Sodium Chloride 1,000 ML Q13H 11/01 2230 AC 11/01 IV 11/03 0829 2336 Sodium Chloride 500 ML BOLUS ONE 11/01 2215 DC 11/01 IV 11/01 2314 2215 Sodium Chloride 1,000 ML .[id number] 11/01 1415 DC 11/01 IV 1443 Tiotropium [place] 1 PUF 1700 11/01 1700 DC 11/01 INH 1722 Vancomycin HCl 1,000 MG ONCE ONE 11/01 2100 DC 11/02 Dextrose/Water 250 ML IV 11/01 2159 0123 Vancomycin HCl 1,000 MG ONCE 11/01 0000 DC Dextrose/Water 250 ML IV 11/[address] Scan Findings: IMPRESSION: 1. No evidence of pulmonary embolism. 2. Tip of endotracheal tube just above the dominick. 3. Centrilobular emphysema and bilateral lower lobe dependent atelectasis. Trace effusions. Reactive hilar or mediastinal adenopathy. 4. No acute intracranial pathology. VTE: Negative. DICTATED BY: Stefan Osuna MD DATE/TIME DICTATED:11/01/172208 DIE SIZER:TOÑO DATE/TIME TRANSCRIBED:11/01/172208 Impression/Plan Impression/Problem List Impression: 72-year-old female with history of hypertension, hyperlipidemia, COPD, prior smoker, type 2 diabetes, GERD, osteoarthritis, left knee surgery yesterday and is currently in the ICU, after an episode of unresponsiveness with acute hypercarbic respiratory failure requiring intubation and mechanical ventilation, and left-sided weakness with initial head CAT scan negative. She is currently being managed in the ICU for the following issues: # Acute hypercarbic respiratory failure, with aspiration pneumonia Patient had an episode of acute hypercarbic respiratory failure yesterday in the general medical floor after the postoperative period, and rapid response was called. ABG done at that time showed pH of 6.97 with CO2 90, requiring intubation immediately after which her ABG has improved to pH 7.45 with PCO2 26, PO2 80, HCO3 18, SPO2 96% while intubated. * Would continue care in the ICU with regular monitoring * Continue intubation and mechanical ventilation * Continue IV Unasyn for aspiration pneumonia, as the patient was noted vomiting during intubation * IV methylprednisolone 40 mg every 12 hours * Continue nebs with albuterol q4h/ipratropium BID * Continue PPI IV as GI prophylaxis * Continue IV fluids at 125 ml/hr as the lactic acid is still high #Left-sided hemiparesis Patient was also noted to have left-sided hemiparesis with right-sided gaze deviation, and although the initial Head CT was negative for acute bleed or any left-sided ischemic zone, she has features of dense right-hemispheric stroke. She had relative contraindication to tPA when this happened, as she had undergone Surgery the same day. Aspirin and statin was given. neurology consulted overnight as well. * Following neurologist's recommendation for further management. Appreciated. * Will continue aspirin via OG tube daily * We will continue statin via OG tube daily * Repeating a CAT scan of the head to better localize the extent of the stroke * Echocardiogram pending * Carotid ultrasound ordered * When the patient is extubated, would go for swallow evaluation * We'll plan for early PT/OT * DVT prophylaxis with subcutaneous heparin, and was discontinued Eliquis for the risk of hemorrhagic transformation of stroke. * Family updated by various attendings #UPDATE: Repeat CT scan shows multiple evolving acute infracts in Right MCA territory and Right PICA territory of right cerebellum. This makes embolic stroke likely, leaving the cause of emboli still unknown. She is getting an echocardiogram to rule out intracardiac thrombus, Doppler ultrasound of carotid and vertebral arteries, and getting a cardiology consultation. All this information was also conveyed to the neurologist, who agreed with the plan and even if she has a thrombus currently, it would not change current course of management, but later would. #Diabetes mellitus Her last HbA1c was 7. Patient is currently NPO. * Continue sliding scale insulin, per NPO protocol. #H/o HTN Will watch her BP closely and manage accordingly. We do will allow permissive HTN given that she recently had a stroke. #Diet: NPO due to intubation #DVT ppx: SQ Heparin #Code status: Full code Update: I had spoken to patient's family member Milagro Holguin ([facility] ) [ [phone]], who is the patient's [id number], and updated her about the situation earlier today. Will be constantly updating the family with time. Problem List: 1. Acute hypercapnic respiratory failure 2. Acute CVA (cerebrovascular accident) 3. Diabetes mellitus 4. History of hypertension 5. GERD (gastroesophageal reflux disease) Pain Ratin (cannot assess) Tomorrow's Labs & Rationales: CBC, ICU bundle Plan DVT/Prophylaxis: pharmacological (SQ Heparin) Code Status: Full Code Sathya Patterson MD 11/02/17 1336: Attending MD Review Statement Attending Sign Off Attending Cosign Statement: I have: examined this patient, reviewed aval EMR data, personally reviewd images, discussd w/resident/PA/REHABILITATION MANAGER, discussed mgmt plan w/henry, discussed mgmt plan w/CM, discussed mgmt plan w/pt, agreed w/resident/PA/REHABILITATION MANAGER, amended to note. Other Findings: ISathya M.D. have examined this patient, reviewed available EMR data, personally reviewed images, discussed with resident/PA/REHABILITATION MANAGER, discussed management plan with housestaff and nursing staff, discussed managment plan all of healthcare providers, discussed management plan with patient and/or family, agreed with resident/PA/REHABILITATION MANAGER. The past history and parts of the chart have been autopopulated. Impression 72 year old woman * acute hypercarbic, hypoxemic respiratory failure * clinically and neurologically likely right hemispheric ischemic infarct Plan Respiratory -cont current vent settings -tv 500/16/50%/5 -trc/nebs -solumedrol 40mg iv q12h ID -unasyn for possible aspiration -cxr in am -will tailor abx if no wbc or fevers -sputum cx CVS -cardiology consulted -ECHO -carotid dopplers Heme -Eliquis discontinued -prophylactic dvt prophylaxis heparin subcutaneous for now Metabolic -ins/outs -monitor creatinine Alimentary -NPO Neuro -f/u imaging -ct head repeated -f/u echo, carotid dopplers -neurology consultation is appreciated and we will follow recommendations Discussed with family, all questions answered adequately. TTS 40 min
[2017-11-02 08:00] VITALS: BP 114/70
--- NOTE | 2017-11-02 09:50 | PN- Orthopedic ---
Surgical Brief Attending Note Brief Attending Note: I was notified of a rapid response for this patient last night around 9:30 PM. I saw the patient last night in the intensive care unit and spoke with the patient's family. The patient was intubated and nonresponsive last night. Her vitals were stable when I was there. A CT scan of the brain was reviewed which showed no acute hemorrhage or infarct on the CT scan. Chest x-ray and CT scan of the chest were also reviewed. Abnormal labs were noted specifically an abnormal blood gas and elevated glucose. As of last night unknown etiology for patient's nonresponsiveness. According to the physician housing assistant who was on- call the patient was found unresponsive by the nursing staff. At this point we' ll continue care with the critical care team. I will follow orthopedically for her left total knee replacement.
[2017-11-02 12:00] VITALS: BP 118/72
--- NOTE | 2017-11-02 13:04 | Cons- Neurology ---
General Information and HPI Consulting Request Date of Consult: 11/02/17 Requested By: Michael Mccartney MD History of Present Illness: 72-year-old female with history of hypertension, dyslipidemia and diabetes underwent an elective total knee replacement yesterday. Later in the day she was found unresponsive with pinpoint pupils. She did not respond to Narcan. She was transferred to the intensive care unit where she is currently intubated. When initially found she was noted to be acidotic and hypercarbic. She has no prior history of stroke. Initial CT scan of the head merely showed a small left lacune of indeterminate age. Allergies/Medications Allergies: Coded Allergies: No Known Allergies (10/18/17) Home Med List: Acetaminophen With Codeine (Acetaminophen-Cod #4 Tablet) 300 MG-60 MG TABLET 1 TAB PO TID PRN PAIN SCALE 7-10 (SEVERE) (Reported) Apixaban (Eliquis) 2.5 MG TABLET 2.5 MG PO BID anticoagulant Aspirin ([place] Aspirin) 81 MG TABLET.DR 1 TAB PO DAILY HEARTHEALTH ( Reported) Atorvastatin Calcium 10 MG TABLET 1 TAB PO QPM CHOLESTEROL (Reported) Cyclobenzaprine HCl 10 MG TABLET 1 TAB PO TID PRN BACK SPASM (Reported) Docusate Sodium 100 MG CAPSULE 100 MG PO BID PRN CONTIPATION Hydrochlorothiazide 25 MG TABLET 1 TAB PO QPM BP (Reported) Metformin HCl 1,000 MG TABLET 1 TAB PO BID DIABETES (Reported) Omeprazole 20 MG TABLET.DR 1 TAB PO QPM REFLUX (Reported) Oxycodone HCl/Acetaminophen (Percocet 5-325 MG Tablet) 5 MG-325 MG TABLET 1-2 TAB PO Q4-6 PRN PRN POSTOP PAIN Saxagliptin (Onglyza) 5 MG TABLET 1 TAB PO BID DIABETES (Reported) LUNCH AND DINNER Tiotropium [place] (Spiriva) 18 MCG CAP.W.DEV 1 CAP INH AFTERNOON COPD ( Reported) Valsartan 160 MG TABLET 1 TAB PO DAILY HEART (Reported) Review of Systems Review of Systems: Unobtainable Past History Medical History Blood Transfusion Hx: No Neurological: MOTION SICKNESS EENT: NONE Cardiovascular: hypertension, hyperlipidemia Respiratory: COPD Gastrointestinal: NONE Hepatic: NONE Renal: NONE Musculoskeletal: chronic back pain, osteoarthritis Psychiatric: NONE Endocrine: diabetes Blood Disorders: NONE Cancer(s): NONE 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 Home Who Do You Live With? child Services at Home: None Smoking Status: Former Smoker Functional Ability ADLs Independent: dressing, eating, toileting, bathing. Ambulation: independent IADLs Independent: shopping, housework, finances, food prep, telephone, transportation , medication admin. Exam & Diagnostic Data Vital Signs and I&O Vital Signs Date Time Temp Pulse Resp B/P B/P Pulse O2 O2 Flow FiO2 Mean Ox Delivery Rate 11/02 1058 40 11/02 1037 Ventilator 50% 11/02 0801 50 11/02 0542 50 11/02 0400 95 Ventilator 50% 11/02 0400 96.6 56 16 105/60 95 Ventilator 50% 11/02 0320 50 11/02 0105 50 11/02 0000 100 Ventilator 80% 11/02 0000 97.0 65 22 88/50 100 Ventilator 80% 11/01 2224 60 11/01 2114 110 140/52 11/01 1858 98.0 95 18 96 Room Air 11/01 1720 94/60 11/01 1430 97.9 102 20 102/70 95 Room Air Intake & Output 11/02 1600 11/02 0800 11/02 0000 Intake Total 1928 Output Total 815 Balance 1113 Intake, IV 1928 Number 0 Bowel Movements Output, 40 Gastric Drainage Output, Urine 775 Middle-aged female, intubated in the intensive care unit. She was somewhat lethargic however responsive to verbal command. She protruded her tongue upon our request. The head was normocephalic. Pupils were equal. Corneal reflexes present There was a right gaze preference. She had a flaccid left hemiparesis. Babinski sign was present on the left. The plantar response was flexor on the right. Assessment/Plan Assessment: On clinical grounds, the patient has suffered a right hemispheric ischemic infarct manifest by right gaze preference and a flaccid left hemiparesis. Unclear as to whether this is of thrombotic or embolic origin. Recommendations: We would recommend the following: #[address] of the head later today. #2 early physical and occupational therapy #3 Venodyne boots for DVT prophylaxis. If deemed necessary by orthopedics, one could use low dose subcutaneous heparin for further DVT prophylaxis. I would not employ Eliquis for fear of hemorrhagic conversion of the stroke #4 carotid ultrasound #5 echocardiogram #6 lipid panel #7 a statin when she is able to swallow #8 aspirin 81 mg by mouth or per rectum #9 formal swallow evaluation prior to oral intake Neurology will follow with the ICU team. I've discussed my preliminary findings with the family. Please feel free to call with any further questions. Consult Acknowledgment - Thank you for your consult request. - Thank you for your consult request.
--- NOTE | 2017-11-02 14:27 | CT SCAN REPORT ---
CT HEAD WITHOUT CONTRAST CLINICAL INFORMATION: Possible right-sided brain ischemia. Dense left-sided hemiparesis. COMPARISON: Head CT 11/01/2017. TECHNIQUE: Contiguous axial imaging was performed from the skull base to vertex without intravenous administration of contrast. FINDINGS: Interval development of acute right MCA territory infarct involving the right uncus, the right temporal operculum and anterior right temporal lobe, the right insular lobe, and the right caudate and putamen as well as portions of the anterior right frontal lobe and the right perirolandic region at the high convexity. Cytotoxic edema within the right caudate results in slight effacement of the right frontal horn. No definite acute hemorrhage intracranially. There is also an acute infarct involving the PICA territory of the right cerebellum. Cerebellar tonsils may be very slightly low-lying. No definite significant fourth ventricular effacement of this time. There is no intracranial hemorrhage, hydrocephalus, extra-axial surface collection, nor midline shift. The basilar cisterns are preserved. No significant soft tissue abnormality. No acute osseous abnormality. There is mild dependent mucosal thickening within the left maxillary sinus. Nasopharynx is opacified. Mastoid air cells are clear. IMPRESSION: Multiple evolving acute infarcts throughout the right MCA territory as described. There is also an evolving acute infarct within the PICA territory of the right cerebellum. There is mild local mass effect in these areas without midline shift. Cerebellar tonsils may be slightly low-lying. No definite hemorrhagic transformation accounting for artifact. The covering provider has been paged with these results at 2:22 PM on 11/02/2017.
--- NOTE | 2017-11-02 15:23 | ECHOCARDIOGRAM REPORT ---
VINCENT CLAYTON Age: 72 : 1945 Gender: F Exam Date: 11/02/2017 11:28 Exam Location: [facility] Ht (in): 64 Wt (lb): 160 BSA: 1.83 BP: 105 / 60 Ordering Physician: Too Crum MD Referring Physician: Too Crum MD Technologist: Lalit Delgado [facility] Room Number: 107-1 Indications: RESPIRATORY FAILURE Rhythm: Sinus Technical Quality: Fair, Technically difficult study FINDINGS Left Ventricle Normal size left ventricle. No obvious regional wall motion abnormalities. Normal left ventricular ejection fraction estimated at 55-60%. Right Ventricle Right ventricle not well visualized, grossly normal. Right Atrium Normal right atrial size. Left Atrium Left atrial size at the upper limits of normal. Mitral Valve Mitral valve thickened. Trace mitral regurgitation. Aortic Valve Trileaflet aortic valve. Diffuse thickening (sclerosis) of the aortic valve cusps without reduced excursion. No aortic stenosis. No aortic regurgitation. Tricuspid Valve Tricuspid valve not well visualized, grossly normal. Mild-to- moderate tricuspid regurgitation. Right ventricular systolic pressure estimated at 32 mmHg. Pulmonic Valve Pulmonic valve not well visualized, grossly normal. Pericardium Small pericardial effusion. Great Vessels Aortic root and proximal ascending aorta not well visualized, grossly normal. CONCLUSIONS 1. This was a technically difficult study due to the patient's body habitus. 2. Aortic sclerosis is present with no valvular stenosis or insufficiency. 3. Mitral leaflet thickening is present with minimal mitral insufficiency. 4. A very small posterior pericardial effusion is present which is hemodynamically insignificant. 5. The left ventricular chamber size and systolic function appear normal. There are no obvious resting wall motion abnormalities. 6. Mild to moderate tricuspid insufficiency is present. There is no evidence of significant pulmonary hypertension. Mike Guzman M.D. (Electronically Signed) Final Date: 02 November 2017 15:22 MEASUREMENTS (Male / Female) Normal Values 2D ECHO LV Diastolic Diameter PLAX 3.6 cm 4.2 - 5.9 / 3.9 - 5.3 cm LV Systolic Diameter PLAX 2.1 cm 2.1 - 4.0 cm LV Fractional Shortening PLAX 41.7 % 25 - 46 % LV Ejection Fraction 2D Teich 73.5 % IVS Diastolic Thickness 1.1 cm LVPW Diastolic Thickness 1.1 cm LV Relative Wall Thickness 0.6 RV Internal Dim ED PLAX 3.2 cm 1.9 - 3.8 cm LVOT Diameter 1.9 cm Aortic Root Diameter 2.3 cm LA Systolic Diameter LX 3.2 cm 3.0 - 4.0 / 2.7 - 3.8 cm LA Volume 29.0 cm 18 - 58 / 22 - 52 cm Ascending Aorta Diameter 2.8 cm DOPPLER AV Peak Velocity 136.0 cm/s AV Peak Gradient 7.4 mmHg AV Mean Velocity 91.1 cm/s AV Mean Gradient 4.0 mmHg AV Velocity Time Integral 32.3 cm LVOT Peak Velocity 72.9 cm/s LVOT Peak Gradient 2.1 mmHg LVOT Mean Velocity 43.8 cm/s LVOT Mean Gradient 1.0 mmHg LVOT Velocity Time Integral 17.5 cm LVOT Stroke Volume 49.6 cm AV Area Cont Eq vti 1.5 cm AV Area Cont Eq pk 1.5 cm MV Peak Velocity 84.1 cm/s MV Peak Gradient 2.8 mmHg MV Mean Velocity 55.2 cm/s MV Mean Gradient 1.0 mmHg Mitral E Point Velocity 77.0 cm/s Mitral A Point Velocity 75.5 cm/s Mitral E to A Ratio 1.0 MV PHT Velocity 93.7 cm/s MV Deceleration Alcorn 365.0 cm/s MV Pressure Half Time 77.0 ms MV Area PHT 2.9 cm MV Deceleration Time 130.0 ms TR Peak Velocity 255.0 cm/s TR Peak Gradient 26.0 mmHg Right Atrial Pressure 10.0 mmHg Pulmonary Artery Systolic Pressu 36.0 mmHg Right Ventricular Systolic Press 36.0 mmHg PV Peak Velocity 96.5 cm/s PV Peak Gradient 3.7 mmHg PV Mean Velocity 64.0 cm/s PV Mean Gradient 2.0 mmHg PV Velocity Time Integral 21.9 cm
--- NOTE | 2017-11-02 15:27 | ULTRASOUND REPORT ---
EXAMINATION: DUPLEX BILATERAL CAROTID ULTRASOUND CLINICAL INFORMATION: Carotid stenosis COMPARISON: None. TECHNIQUE: Duplex bilateral carotid US was performed using real-time ultrasound and Doppler techniques (integrating B-mode 2D vascular images, Doppler spectral analysis and color flow Doppler imaging). These techniques were utilized to interrogate the extracranial carotid and vertebral arteries bilaterally. The degree of stenosis is based off criteria similar to NASCET. FINDINGS: 1. On the right: Plaque is present at the carotid bifurcation extending into the right ICA. However, velocities are normal and do not suggest a stenosis of greater than 50% diameter reduction in the right ICA. The vertebral artery is patent demonstrating antegrade flow. The right external carotid artery shows no significant stenosis. . 2. On the left: There is a hemodynamically significant stenosis correlating to 50-79% diameter reduction of the proximal internal carotid artery. A moderate amount of hyperechoic plaque is noted within the proximal internal and external carotid arteries. The peak systolic and diastolic velocities as measured within the proximal internal carotid artery equals 162 and 27 cm/s respectively. The vertebral artery is patent demonstrating antegrade flow. The left ECA demonstrates a moderate stenosis with peak systolic velocity of 266 cm/s. IMPRESSION: Hemodynamically significant stenoses consistent with a 50-79% diameter reduction of the proximal left internal carotid artery. A hemodynamically significant stenosis of greater than 50% is not present on the right.
[2017-11-02 16:00] VITALS: BP 124/66
[2017-11-02 20:00] VITALS: BP 122/70
--- NOTE | 2017-11-02 20:00 | Cons- Cardiology ---
General Information and HPI Consulting Request Date of Consult: 11/02/17 Requested By: Michael Mccartney MD Reason for Consult: CVA, borderline troponin Source of Information: patient, family, old records Exam Limitations: unable to give history History of Present Illness: 72 year old female with h/o HTN, HLP, DM, COPD underwent left total knee replacement yesterday morning. She received Phenergan for nausea and vomiting in the evening. 1 hour later she was found by nurse to be unresponsive with FBS on 400's, hypoxic and CO2 elevation. She was intubated and transferred to ICU. Head CT showed no acute stroke, CTA showed no PE. Subsequently was noticed to have left hemiparesis. f/u CT scan showed multiple right hemispheric evolving infarcts in the right MCA territory. She is currently awake, intubated. Can follow simple verbal commands. Allergies/Medications Allergies: Coded Allergies: No Known Allergies (10/18/17) Home Med List: Acetaminophen With Codeine (Acetaminophen-Cod #4 Tablet) 300 MG-60 MG TABLET 1 TAB PO TID PRN PAIN SCALE 7-10 (SEVERE) (Reported) Apixaban (Eliquis) 2.5 MG TABLET 2.5 MG PO BID anticoagulant Aspirin ([place] Aspirin) 81 MG TABLET.DR 1 TAB PO DAILY HEARTHEALTH ( Reported) Atorvastatin Calcium 10 MG TABLET 1 TAB PO QPM CHOLESTEROL (Reported) Cyclobenzaprine HCl 10 MG TABLET 1 TAB PO TID PRN BACK SPASM (Reported) Docusate Sodium 100 MG CAPSULE 100 MG PO BID PRN CONTIPATION Hydrochlorothiazide 25 MG TABLET 1 TAB PO QPM BP (Reported) Metformin HCl 1,000 MG TABLET 1 TAB PO BID DIABETES (Reported) Omeprazole 20 MG TABLET.DR 1 TAB PO QPM REFLUX (Reported) Oxycodone HCl/Acetaminophen (Percocet 5-325 MG Tablet) 5 MG-325 MG TABLET 1-2 TAB PO Q4-6 PRN PRN POSTOP PAIN Saxagliptin (Onglyza) 5 MG TABLET 1 TAB PO BID DIABETES (Reported) LUNCH AND DINNER Tiotropium Caroline (Spiriva) 18 MCG CAP.W.DEV 1 CAP INH AFTERNOON COPD ( Reported) Valsartan 160 MG TABLET 1 TAB PO DAILY HEART (Reported) Review of Systems Review of Systems: 12 point ROS not obtainable due to patient being intubated Past History Medical History Blood Transfusion Hx: No Neurological: MOTION SICKNESS EENT: NONE Cardiovascular: hypertension, hyperlipidemia Respiratory: COPD Gastrointestinal: NONE Hepatic: NONE Renal: NONE Musculoskeletal: chronic back pain, osteoarthritis Psychiatric: NONE Endocrine: diabetes Blood Disorders: NONE Cancer(s): NONE 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 Home Who Do You Live With? child Services at Home: None Smoking Status: Former Smoker Functional Ability ADLs Independent: dressing, eating, toileting, bathing. Ambulation: independent IADLs Independent: shopping, housework, finances, food prep, telephone, transportation , medication admin. Exam & Diagnostic Data Vital Signs and I&O Vital Signs Date Time Temp Pulse Resp B/P B/P Pulse O2 O2 Flow FiO2 Mean Ox Delivery Rate 11/02 1931 40 11/02 1639 40 11/02 1600 98.6 78 24 124/66 96 Ventilator 40% 11/02 1600 96 Ventilator 40% 11/02 1424 40 11/02 1200 96 Ventilator 40% 11/02 1200 98.5 74 16 118/72 96 Ventilator 40% 11/02 1200 96 Ventilator 40% 11/02 1058 40 11/02 1037 Ventilator 50% 11/02 0801 50 11/02 0800 94 Ventilator 50% 11/02 0800 96.7 64 16 114/70 94 Ventilator 50% 11/02 0542 50 11/02 0400 95 Ventilator 50% 11/02 0400 96.6 56 16 105/60 95 Ventilator 50% 11/02 0320 50 11/02 0105 50 11/02 0000 100 Ventilator 80% 11/02 0000 97.0 65 22 88/50 100 Ventilator 80% 11/01 2224 60 11/01 2114 110 140/52 Intake & Output 11/02 1600 11/02 0800 11/02 0000 11/01 1600 11/01 0800 11/01 0000 Intake Total 942 1928 Output Total 400 815 Balance 542 1113 Intake, IV 802 1928 Intake, Tube 140 Irrigant Number 0 0 Bowel Movements Output, 100 40 Gastric Drainage Output, Urine 300 775 Patient 160 lb Weight Weight Reported by Patient Measurement Method Physical Exam: Intubated, right gaze preference HEENT-PERRLA Neck-JVP normal, no carotid bruit Lungs-clear bilaterally Heart-S1S2 regular, no murmur, rub or gallop Abdomen-soft, not tender, BS+, no organomegaly, no masses Extr-no edema, 2+ pulses Skin-no rash VAscular-no carotid bruits Neuro-left hemiparesis, able to move left fool a little. Labs/Ricci Results: Laboratory Tests 11/02 11/02 11/02 11/02 11/02 1820 1455 1228 1127 0830 Chemistry Lactic Acid (0.7 - 2.1 mmol/L) 1.2 2.7 H Cancelled 3.1 H 2.7 H Troponin I (< 0.11 ng/ml) 0.11 *H Triglycerides (<150 mg/dL) 113 Cholesterol (<200 MG/DL) 111 LDL Cholesterol, Calc (65 - 129 mg/dL) 37 L HDL Cholesterol (40 - 60 mg/dL) 52 Cholesterol/HDL Ratio (0.00 - 4.23 %) 2 11/02 11/02 0550 0450 Blood Gas pH (7.35 - 7.45 PH) 7.45 pCO2 (35 - 45 TORR) 26 L pO2 (80 - 100 TORR) 80 HCO3 (21 - 28 MEQ/L) 18 L ABG O2 Sat (Measured) (>96.0 %) 96.0 P-50 (Temp Corrected) N Carboxyhemoglobin (1.5 - 5.0 %) 0.3 L O2 Concentration % .50 Respiration Rate (BPM) 16 O2 Delivery Method VENT Vent Mode A/C Expiratory Pressure (CMH2O/P) 5 Tidal Volume (CC) 500 Miscellaneous Phlebotomy Draw Site LEFT BRACHIAL Urines Urine Osmolality (300 - 1000 MOSM/KG) 601 Ur Random Creatinine (mg/dL) 53.1 Ur Random Sodium (30 - 90 mmol/L) 88 Ur Random Potassium (mmol/L) 52.3 Fraction Sodium Excret (<1% %) 1.7 H 11/02 11/02 11/02 0445 0155 0050 Chemistry Sodium (137 - 145 mmol/L) 134 L Potassium (3.5 - 5.1 mmol/L) 3.6 Chloride (98 - 107 mmol/L) 102 Carbon Dioxide (22 - 30 mmol/L) 20 L Anion Gap (5 - 16) 12 BUN (7 - 17 mg/dL) 23 H Creatinine (0.5 - 1.0 mg/dL) 1.1 H Estimated GFR (>60 ml/min) 49 L Glucose (65 - 99 mg/dL) 231 H Lactic Acid (0.7 - 2.1 mmol/L) 2.8 H 3.2 H Cancelled Calcium (8.4 - 10.2 mg/dL) 8.6 Phosphorus (2.5 - 4.5 mg/dL) 2.9 Magnesium (1.6 - 2.3 mg/dL) 2.4 H Total Bilirubin (0.2 - 1.3 mg/dL) 0.5 AST (14 - 36 U/L) 21 ALT (9 - 52 U/L) 33 Troponin I (< 0.11 ng/ml) 0.14 *H Albumin (3.5 - 5.0 g/dL) 2.9 L Hematology CBC w Diff MAN DIFF ORDERED WBC (4.8 - 10.8 /CUMM) 10.3 RBC (4.20 - 5.40 /CUMM) 3.41 L Hgb (12.0 - 16.0 G/DL) 10.8 L Hct (37 - 47 %) 31.6 L MCV (81.0 - 99.0 FL) 92.8 MCH (27.0 - 31.0 PG) 31.5 H MCHC (33.0 - 37.0 G/DL) 34.0 RDW (11.5 - 14.5 %) 13.9 Plt Count (130 - 400 /CUMM) 233 MPV (7.4 - 10.4 FL) 7.9 Gran % (42.2 - 75.2 %) 90.1 H Lymphocytes % (20.5 - 51.1 %) 7.7 L Monocytes % (1.7 - 9.3 %) 2.0 Eosinophils % (0 - 5 %) 0 Basophils % (0.0 - 2.0 %) 0.2 Absolute Granulocytes (1.4 - 6.5 /CUMM) 9.2 H Segmented Neutrophils (42.2 - 75.2 %) 89 H Absolute Lymphocytes (1.2 - 3.4 /CUMM) 0.8 L Lymphocytes (20.5 - 51.1 %) 8 L Monocytes (1.7 - 9.3 %) 2 Absolute Monocytes (0.10 - 0.60 /CUMM) 0.2 Absolute Eosinophils (0.0 - 0.7 /CUMM) 0 Basophils (0.0 - 2.0 %) 1 Absolute Basophils (0.0 - 0.2 /CUMM) 0 Platelet Estimate (ADEQUATE) ADEQUATE Polychromasia 1+ Poikilocytosis 2+ Ovalocytes 1+ [place] Cells 1+ Other Body Source [place] Total RBCs Counted (%) 100 11/01 11/01 2300 2255 Toxicology Acetone Level (NEGATIVE) NEGATIVE Urines Urine Color (YEL,AMB,STR) YEL Urine Clarity (CLEAR) CLEAR Urine pH (5.0 - 8.0) 6.5 Ur Specific [place] (1.001 - 1.035) 1.010 Urine Protein (NEG,<30 MG/DL) 30 H Urine Ketones (NEG) NEG Urine Nitrite (NEG) NEG Urine Bilirubin (NEG) NEG Urine Urobilinogen (0.1 - 1.0 EU/dl) 0.2 Ur Leukocyte Esterase (NEG) NEG Ur Microscopic SEDIMENT EXAMINED Urine RBC (0 - 5 /HPF) FEW H Urine WBC (0 - 2 /HPF) RARE Ur Epithelial Cells (NONE,FEW) RARE Urine Bacteria (NEG/NONE) RARE H Urine Mucus (FEW,NONE) RARE Urine Hemoglobin (NEG) TRACE-INTACT Urine Glucose (N MG/DL) >=1000 H 11/01 11/01 2250 2240 Blood Gas pH (7.35 - 7.45 PH) 7.50 H pCO2 (35 - 45 TORR) 22 L pO2 (80 - 100 TORR) 64 L HCO3 (21 - 28 MEQ/L) 17 L ABG O2 Sat (Measured) (>96.0 %) 95.0 L P-50 (Temp Corrected) Y Carboxyhemoglobin (1.5 - 5.0 %) 0.2 L O2 Concentration % 50% Temperature (97.0 - 100.0 FARH) 97.0 Respiration Rate (BPM) 22 O2 Delivery Method VENT Vent Mode AC/VC Expiratory Pressure (CMH2O/P) 5 Tidal Volume (CC) 500 Chemistry Sodium (137 - 145 mmol/L) 130 L Potassium (3.5 - 5.1 mmol/L) 4.7 Chloride (98 - 107 mmol/L) 99 Carbon Dioxide (22 - 30 mmol/L) 18 L Anion Gap (5 - 16) 12 BUN (7 - 17 mg/dL) 26 H Creatinine (0.5 - 1.0 mg/dL) 1.3 H Estimated GFR (>60 ml/min) 40 L BUN/Creatinine Ratio (7 - 25 %) 20.0 Hemoglobin A1c (4.2 - 5.8 %) 7.0 H Serum Osmolality (285 - 295 MOSM/KG) 301 H Lactic Acid (0.7 - 2.1 mmol/L) 3.1 H Phosphorus (2.5 - 4.5 mg/dL) 5.0 H Magnesium (1.6 - 2.3 mg/dL) 1.5 L Troponin I (< 0.11 ng/ml) 0.05 TSH (0.270 - 4.200 uIU/mL) 1.060 Free T4 (0.78 - 2.44 ng/dL) 1.31 Cortisol PM Sample (1.7 - 14.1) 41.0 H Miscellaneous Phlebotomy Draw Site LEFT BRACHIAL 11/01 11/01 2240 2110 Blood Gas pH (7.35 - 7.45 PH) 6.97 *L pCO2 (35 - 45 TORR) 90 *H pO2 (80 - 100 TORR) 171 H HCO3 (21 - 28 MEQ/L) 20 L ABG O2 Sat (Measured) (>96.0 %) 98.0 Carboxyhemoglobin (1.5 - 5.0 %) 0.3 L O2 Concentration % 100% O2 Delivery Method NRB Chemistry Total Bilirubin (0.2 - 1.3 mg/dL) 0.5 Direct Bilirubin (< 0.4 mg/dL) 0.5 H AST (14 - 36 U/L) 20 ALT (9 - 52 U/L) 35 Alkaline Phosphatase (<127 U/L) 59 Total Protein (6.3 - 8.2 g/dL) 4.8 L Albumin (3.5 - 5.0 g/dL) 2.8 L Coagulation PT (9.4 - 12.5 SEC) 11.4 INR (0.90 - 1.19) 1.05 Hematology CBC w Diff MAN DIFF ORDERED WBC (4.8 - 10.8 /CUMM) 13.6 H RBC (4.20 - 5.40 /CUMM) 3.23 L Hgb (12.0 - 16.0 G/DL) 10.1 L Hct (37 - 47 %) 29.9 L MCV (81.0 - 99.0 FL) 92.6 MCH (27.0 - 31.0 PG) 31.2 H MCHC (33.0 - 37.0 G/DL) 33.7 RDW (11.5 - 14.5 %) 13.4 Plt Count (130 - 400 /CUMM) 221 MPV (7.4 - 10.4 FL) 8.2 Gran % (42.2 - 75.2 %) 94.2 H Lymphocytes % (20.5 - 51.1 %) 3.7 L Monocytes % (1.7 - 9.3 %) 2.1 Eosinophils % (0 - 5 %) 0 Basophils % (0.0 - 2.0 %) 0 Absolute Granulocytes (1.4 - 6.5 /CUMM) 12.8 H Segmented Neutrophils (42.2 - 75.2 %) 94 H Absolute Lymphocytes (1.2 - 3.4 /CUMM) 0.5 L Lymphocytes (20.5 - 51.1 %) 4 L Monocytes (1.7 - 9.3 %) 2 Absolute Monocytes (0.10 - 0.60 /CUMM) 0.3 Absolute Eosinophils (0.0 - 0.7 /CUMM) 0 Absolute Basophils (0.0 - 0.2 /CUMM) 0 Platelet Estimate (ADEQUATE) ADEQUATE Polychromasia 1+ Ovalocytes FEW [place] Cells FEW Miscellaneous Phlebotomy Draw Site LEFT RADIAL Other Body Source Fld Total RBCs Counted (%) 100 11/01 11/01 UNK 0953 Chemistry Sodium (137 - 145 mmol/L) 138 Potassium (3.5 - 5.1 mmol/L) 4.6 Chloride (98 - 107 mmol/L) 99 Carbon Dioxide (22 - 30 mmol/L) 25 Anion Gap (5 - 16) 14 BUN (7 - 17 mg/dL) 25 H Creatinine (0.5 - 1.0 mg/dL) 1.2 H Estimated GFR (>60 ml/min) 44 L BUN/Creatinine Ratio (7 - 25 %) 20.8 Glucose (65 - 99 mg/dL) 176 H Calcium (8.4 - 10.2 mg/dL) 10.1 Total Bilirubin (0.2 - 1.3 mg/dL) 0.7 AST (14 - 36 U/L) 15 ALT (9 - 52 U/L) 25 Alkaline Phosphatase (<127 U/L) 91 Total Protein (6.3 - 8.2 g/dL) 6.4 Albumin (3.5 - 5.0 g/dL) 4.1 Globulin (1.9 - 4.2 gm/dL) 2.3 Albumin/Globulin Ratio (1.1 - 2.2 %) 1.8 Toxicology Acetone Level (NEGATIVE) Cancelled NEGATIVE Diagnostic Data EKG Results SR, 1st dg AVB, PRWP CXR Results CXR-NAD CT scans results noted carotid US-50-70 left ICA stenosis less than 50% right ICA stenosis Assessment/Plan Assessment/Plan 72 year old female with h/o mild COPD, HTN, HLP, DM developed right MCA stroke after left knee replacement. Troponin mildly elevated secondary to demand ischemia. The etiology of hypoxic/hypercarbic respiratory failure is unclear. ?Phenergan side effects, ?aspiration leading to subsequent events. Etiology of stroke unclear as well. CT scan showed multiple evolving strokes in the right MCA territory suspicious for "shower embolization". She has not history of atrial fibrillation and her LVEF on current echo is normal. Carotid US showed moderate left internal carotid stenosis but no significant right ICA stenosis. She is not hypertensive. Plan: supportive care iv fluids consider atb for ?aspiration ASA 81 mg qd high intensity statin no anticoagulation for now-risk of hemorrhagic transformation repeat head CT tomorrow BUZZ, possibly when still intubated to evaluate RIOS, PFO, atherosclerotic aortic disease Discussed in lenght with family, housestaff and nurse. Consult Acknowledgment - Thank you for your consult request.
[2017-11-03] VITALS: BP 130/60
[2017-11-03 04:00] VITALS: BP 150/62
[2017-11-03 04:44] LABS: ABSOLUTE BASOPHIL COUNT 0 /CUMM (0.0-0.2); ABSOLUTE EOSINOPHIL COUNT 0 /CUMM (0.0-0.7); ABSOLUTE GRANULOCYTE CT 12.6 /CUMM (1.4-6.5); ABSOLUTE LYMPH COUNT 1.2 /CUMM (1.2-3.4); ABSOLUTE MONOCYTE COUNT 0.6 /CUMM (0.10-0.60); BASOPHIL % 0 % (0.0-2.0); EOSINOPHIL % 0 % (0-5); HEMATOCRIT 30.9 % (37-47); MEAN CORPUSCULAR HGB 31.4 PG (27.0-31.0); MEAN CORPUSCULAR HGB CONC 33.8 G/DL (33.0-37.0); MEAN CORPUSCULAR VOLUME 92.8 FL (81.0-99.0); MEAN PLATELET VOLUME 8.4 FL (7.4-10.4); RBC DISTRIBUTION WIDTH 14.1 % (11.5-14.5); RED BLOOD CELL CT 3.33 /CUMM (4.20-5.40); WHITE BLOOD CELL COUNT 14.5 /CUMM (4.8-10.8)
[2017-11-03 05:25] LABS: GRANULOCYTE % 87.4 % (42.2-75.2); PLATELET COUNT 240 /CUMM (130-400)
--- NOTE | 2017-11-03 06:36 | PN- Orthopedic ---
Subjective Subjective: Intubated and sedated in ICU, unresponsive to verbal stimuli. Per nursing, patient was agitated ovenight and recieved Ativan. Nursing reports movement in her left toes yesterday. Objective Vital Signs and I&Os Vital Signs Date Time Temp Pulse Resp B/P B/P Pulse O2 O2 Flow FiO2 Mean Ox Delivery Rate 11/03 0542 40 11/03 0401 40 11/03 0400 96 Ventilator 40% 11/03 0400 98.1 90 16 150/62 96 Ventilator 40% 11/03 0045 40 11/03 0000 95 Ventilator 40% 11/03 0000 98.5 76 17 130/60 95 Ventilator 40% 11/02 2230 40 11/02 2000 95 Ventilator 40% 11/02 2000 98.5 80 16 122/70 95 Ventilator 40% 11/02 1931 40 11/02 1639 40 11/02 1600 98.6 78 24 124/66 96 Ventilator 40% 11/02 1600 96 Ventilator 40% 11/02 1424 40 11/02 1200 96 Ventilator 40% 11/02 1200 98.5 74 16 118/72 96 Ventilator 40% 11/02 1200 96 Ventilator 40% 11/02 1058 40 11/02 1037 Ventilator 50% 11/02 0801 50 11/02 0800 94 Ventilator 50% 11/02 0800 96.7 64 16 114/70 94 Ventilator 50% Intake & Output 11/03 0800 11/03 0000 11/02 1600 11/02 0800 11/02 0000 11/01 1600 Intake Total 1103 0690 653 8552 Output Total 300 350 400 815 Balance 803 685 020 5370 Intake, IV 1103 987 944 5151 Intake, Oral 0 Intake, Other 200 Intake, Tube 140 Irrigant Number 0 0 0 0 Bowel Movements Output, 100 40 Gastric Drainage Output, Urine 300 350 300 775 Patient 160 lb Weight Weight Reported by Patient Measurement Method Physical Exam: Gen - intubated and unresponive to verbal stimuli Cardiac - S1S2 noted Lungs - anterior bs CTAB Abd - soft, obese, grimaces to palpation on right upper/lower quadrants, no rebound or guarding noted - boyd in place with yellow urine Ext - OnQ in place, LLE jorge/dressing c/d/i, moves right-sided UE/LE, unable to move left-sided LE/UE, knee incision closed with gucci healing well with mild swelling, no signs of infection, redressed with gauze/tape, alps in place, no edema or calf tenderness Current Medications: Current Medications Sig/Harish Start time Last Medication Dose Route Stop Time Status Admin Al Hydroxide/Mg 30 ML Q6P PRN 11/01 1415 AC Hydroxide PO Albuterol Sulfate 3 ML Q4H PRN 11/02 1030 AC INH Ampicillin Sodium/ 1,500 MG Q6 11/01 2359 AC 11/03 Sulbactam Sodium IV 0539 Sodium Chloride 100 ML Apixaban 2.5 MG BID 11/02 1000 DC PO Aspirin 81 MG DAILY 11/03 1000 AC PO Aspirin 300 MG DAILY 11/02 1045 DC [place] Atorvastatin Calcium 80 MG QPM 11/02 2200 AC 11/02 PO 2158 Atorvastatin Calcium 10 MG QPM 11/01 2200 DC PO Dextrose/Sodium 1,000 ML Q8H 11/02 1845 AC 11/03 Chloride IV 11/03 1044 0303 Docusate Sodium 100 MG DAILY NEEDED PRN 11/01 141 AC PO Heparin Sodium 5,000 UNIT Q8 11/02 0600 AC 11/03 (Porcine) SC 0540 Insulin Detemir 5 UNITS BID 11/01 2357 AC 11/02 SC 2158 Insulin Human Regular 2 UNITS .STK-MED ONE 11/02 1805 DC IV 11/02 1806 Insulin Human Regular 6 UNITS .STK-MED ONE 11/02 1308 DC IV 11/02 1309 Insulin Human Regular 0 Q6 11/01 2359 AC 11/03 SC 0548 Ipratropium [place] 2.5 ML BID 11/02 1020 AC 11/02 INH 2050 Lorazepam 1 MG Q4P PRN 11/01 2315 AC 11/03 IV 0321 Methylprednisolone 40 MG Q12H 11/02 1400 AC 11/03 IV 0303 Ondansetron HCl 4 MG Q6P PRN 11/01 1415 AC 11/01 IV 1537 Pantoprazole Sodium 40 MG DAILY 11/02 1000 AC 11/02 IV 1000 Polyethylene Glycol 17 GM DAILY NEEDED PRN 11/01 1415 AC PO Potassium Chloride 40 MEQ ONCE ONE 11/02 1845 DC 11/02 PO 11/02 1846 1907 Senna/Docusate Sodium 2 TAB AT BEDTIME NEED.. 11/01 1415 AC PO Sodium Chloride 1,000 ML Q13H 11/01 2230 DC 11/02 IV 11/03 0829 1344 Tiotropium [place] 1 PUF 1700 11/01 1700 DC 11/01 INH 1722 Results Last 48 Hours of Labs: Laboratory Tests 11/03 11/02 11/02 0340 2100 1820 Chemistry Sodium (137 - 145 mmol/L) 141 Potassium (3.5 - 5.1 mmol/L) 4.1 Chloride (98 - 107 mmol/L) 109 H Carbon Dioxide (22 - 30 mmol/L) 18 L Anion Gap (5 - 16) 13 BUN (7 - 17 mg/dL) 19 H Creatinine (0.5 - 1.0 mg/dL) 1.0 Estimated GFR (>60 ml/min) 54 L Glucose (65 - 99 mg/dL) 154 H Lactic Acid (0.7 - 2.1 mmol/L) Cancelled 1.2 Calcium (8.4 - 10.2 mg/dL) 8.0 L Phosphorus (2.5 - 4.5 mg/dL) 3.3 Magnesium (1.6 - 2.3 mg/dL) 1.9 Total Bilirubin (0.2 - 1.3 mg/dL) 0.4 AST (14 - 36 U/L) 26 ALT (9 - 52 U/L) 31 Albumin (3.5 - 5.0 g/dL) 2.8 L Hematology CBC w Diff NO MAN DIFF REQ WBC (4.8 - 10.8 /CUMM) 14.5 H RBC (4.20 - 5.40 /CUMM) 3.33 L Hgb (12.0 - 16.0 G/DL) 10.4 L Hct (37 - 47 %) 30.9 L MCV (81.0 - 99.0 FL) 92.8 MCH (27.0 - 31.0 PG) 31.4 H MCHC (33.0 - 37.0 G/DL) 33.8 RDW (11.5 - 14.5 %) 14.1 Plt Count (130 - 400 /CUMM) 240 MPV (7.4 - 10.4 FL) 8.4 Gran % (42.2 - 75.2 %) 87.4 H Lymphocytes % (20.5 - 51.1 %) 8.3 L Monocytes % (1.7 - 9.3 %) 4.3 Eosinophils % (0 - 5 %) 0 Basophils % (0.0 - 2.0 %) 0 Absolute Granulocytes (1.4 - 6.5 /CUMM) 12.6 H Absolute Lymphocytes (1.2 - 3.4 /CUMM) 1.2 Absolute Monocytes (0.10 - 0.60 /CUMM) 0.6 Absolute Eosinophils (0.0 - 0.7 /CUMM) 0 Absolute Basophils (0.0 - 0.2 /CUMM) 0 11/02 11/02 11/02 11/02 1455 1228 1127 0830 Chemistry Lactic Acid (0.7 - 2.1 mmol/L) 2.7 H Cancelled 3.1 H 2.7 H Troponin I (< 0.11 ng/ml) 0.11 *H Triglycerides (<150 mg/dL) 113 Cholesterol (<200 MG/DL) 111 LDL Cholesterol, Calc (65 - 129 mg/dL) 37 L HDL Cholesterol (40 - 60 mg/dL) 52 Cholesterol/HDL Ratio (0.00 - 4.23 %) 2 11/02 11/02 0550 0450 Blood Gas pH (7.35 - 7.45 PH) 7.45 pCO2 (35 - 45 TORR) 26 L pO2 (80 - 100 TORR) 80 HCO3 (21 - 28 MEQ/L) 18 L ABG O2 Sat (Measured) (>96.0 %) 96.0 P-50 (Temp Corrected) N Carboxyhemoglobin (1.5 - 5.0 %) 0.3 L O2 Concentration % .50 Respiration Rate (BPM) 16 O2 Delivery Method VENT Vent Mode A/C Expiratory Pressure (CMH2O/P) 5 Tidal Volume (CC) 500 Miscellaneous Phlebotomy Draw Site LEFT BRACHIAL Urines Urine Osmolality (300 - 1000 MOSM/KG) 601 Ur Random Creatinine (mg/dL) 53.1 Ur Random Sodium (30 - 90 mmol/L) 88 Ur Random Potassium (mmol/L) 52.3 Fraction Sodium Excret (<1% %) 1.7 H 11/02 11/02 11/02 0445 0155 0050 Chemistry Sodium (137 - 145 mmol/L) 134 L Potassium (3.5 - 5.1 mmol/L) 3.6 Chloride (98 - 107 mmol/L) 102 Carbon Dioxide (22 - 30 mmol/L) 20 L Anion Gap (5 - 16) 12 BUN (7 - 17 mg/dL) 23 H Creatinine (0.5 - 1.0 mg/dL) 1.1 H Estimated GFR (>60 ml/min) 49 L Glucose (65 - 99 mg/dL) 231 H Lactic Acid (0.7 - 2.1 mmol/L) 2.8 H 3.2 H Cancelled Calcium (8.4 - 10.2 mg/dL) 8.6 Phosphorus (2.5 - 4.5 mg/dL) 2.9 Magnesium (1.6 - 2.3 mg/dL) 2.4 H Total Bilirubin (0.2 - 1.3 mg/dL) 0.5 AST (14 - 36 U/L) 21 ALT (9 - 52 U/L) 33 Troponin I (< 0.11 ng/ml) 0.14 *H Albumin (3.5 - 5.0 g/dL) 2.9 L Hematology CBC w Diff MAN DIFF ORDERED WBC (4.8 - 10.8 /CUMM) 10.3 RBC (4.20 - 5.40 /CUMM) 3.41 L Hgb (12.0 - 16.0 G/DL) 10.8 L Hct (37 - 47 %) 31.6 L MCV (81.0 - 99.0 FL) 92.8 MCH (27.0 - 31.0 PG) 31.5 H MCHC (33.0 - 37.0 G/DL) 34.0 RDW (11.5 - 14.5 %) 13.9 Plt Count (130 - 400 /CUMM) 233 MPV (7.4 - 10.4 FL) 7.9 Gran % (42.2 - 75.2 %) 90.1 H Lymphocytes % (20.5 - 51.1 %) 7.7 L Monocytes % (1.7 - 9.3 %) 2.0 Eosinophils % (0 - 5 %) 0 Basophils % (0.0 - 2.0 %) 0.2 Absolute Granulocytes (1.4 - 6.5 /CUMM) 9.2 H Segmented Neutrophils (42.2 - 75.2 %) 89 H Absolute Lymphocytes (1.2 - 3.4 /CUMM) 0.8 L Lymphocytes (20.5 - 51.1 %) 8 L Monocytes (1.7 - 9.3 %) 2 Absolute Monocytes (0.10 - 0.60 /CUMM) 0.2 Absolute Eosinophils (0.0 - 0.7 /CUMM) 0 Basophils (0.0 - 2.0 %) 1 Absolute Basophils (0.0 - 0.2 /CUMM) 0 Platelet Estimate (ADEQUATE) ADEQUATE Polychromasia 1+ Poikilocytosis 2+ Ovalocytes 1+ [place] Cells 1+ Other Body Source F[place] Total RBCs Counted (%) 100 11/01 11/01 2300 2255 Toxicology Acetone Level (NEGATIVE) NEGATIVE Urines Urine Color (YEL,AMB,STR) YEL Urine Clarity (CLEAR) CLEAR Urine pH (5.0 - 8.0) 6.5 Ur Specific [place] (1.001 - 1.035) 1.010 Urine Protein (NEG,<30 MG/DL) 30 H Urine Ketones (NEG) NEG Urine Nitrite (NEG) NEG Urine Bilirubin (NEG) NEG Urine Urobilinogen (0.1 - 1.0 EU/dl) 0.2 Ur Leukocyte Esterase (NEG) NEG Ur Microscopic SEDIMENT EXAMINED Urine RBC (0 - 5 /HPF) FEW H Urine WBC (0 - 2 /HPF) RARE Ur Epithelial Cells (NONE,FEW) RARE Urine Bacteria (NEG/NONE) RARE H Urine Mucus (FEW,NONE) RARE Urine Hemoglobin (NEG) TRACE-INTACT Urine Glucose (N MG/DL) >=1000 H 11/01 11/01 2250 2240 Blood Gas pH (7.35 - 7.45 PH) 7.50 H pCO2 (35 - 45 TORR) 22 L pO2 (80 - 100 TORR) 64 L HCO3 (21 - 28 MEQ/L) 17 L ABG O2 Sat (Measured) (>96.0 %) 95.0 L P-50 (Temp Corrected) Y Carboxyhemoglobin (1.5 - 5.0 %) 0.2 L O2 Concentration % 50% Temperature (97.0 - 100.0 FARH) 97.0 Respiration Rate (BPM) 22 O2 Delivery Method VENT Vent Mode AC/VC Expiratory Pressure (CMH2O/P) 5 Tidal Volume (CC) 500 Chemistry Sodium (137 - 145 mmol/L) 130 L Potassium (3.5 - 5.1 mmol/L) 4.7 Chloride (98 - 107 mmol/L) 99 Carbon Dioxide (22 - 30 mmol/L) 18 L Anion Gap (5 - 16) 12 BUN (7 - 17 mg/dL) 26 H Creatinine (0.5 - 1.0 mg/dL) 1.3 H Estimated GFR (>60 ml/min) 40 L BUN/Creatinine Ratio (7 - 25 %) 20.0 Hemoglobin A1c (4.2 - 5.8 %) 7.0 H Serum Osmolality (285 - 295 MOSM/KG) 301 H Lactic Acid (0.7 - 2.1 mmol/L) 3.1 H Phosphorus (2.5 - 4.5 mg/dL) 5.0 H Magnesium (1.6 - 2.3 mg/dL) 1.5 L Troponin I (< 0.11 ng/ml) 0.05 TSH (0.270 - 4.200 uIU/mL) 1.060 Free T4 (0.78 - 2.44 ng/dL) 1.31 Cortisol PM Sample (1.7 - 14.1) 41.0 H Miscellaneous Phlebotomy Draw Site LEFT BRACHIAL 11/01 11/01 2240 2110 Blood Gas pH (7.35 - 7.45 PH) 6.97 *L pCO2 (35 - 45 TORR) 90 *H pO2 (80 - 100 TORR) 171 H HCO3 (21 - 28 MEQ/L) 20 L ABG O2 Sat (Measured) (>96.0 %) 98.0 Carboxyhemoglobin (1.5 - 5.0 %) 0.3 L O2 Concentration % 100% O2 Delivery Method NRB Chemistry Total Bilirubin (0.2 - 1.3 mg/dL) 0.5 Direct Bilirubin (< 0.4 mg/dL) 0.5 H AST (14 - 36 U/L) 20 ALT (9 - 52 U/L) 35 Alkaline Phosphatase (<127 U/L) 59 Total Protein (6.3 - 8.2 g/dL) 4.8 L Albumin (3.5 - 5.0 g/dL) 2.8 L Coagulation PT (9.4 - 12.5 SEC) 11.4 INR (0.90 - 1.19) 1.05 Hematology CBC w Diff MAN DIFF ORDERED WBC (4.8 - 10.8 /CUMM) 13.6 H RBC (4.20 - 5.40 /CUMM) 3.23 L Hgb (12.0 - 16.0 G/DL) 10.1 L Hct (37 - 47 %) 29.9 L MCV (81.0 - 99.0 FL) 92.6 MCH (27.0 - 31.0 PG) 31.2 H MCHC (33.0 - 37.0 G/DL) 33.7 RDW (11.5 - 14.5 %) 13.4 Plt Count (130 - 400 /CUMM) 221 MPV (7.4 - 10.4 FL) 8.2 Gran % (42.2 - 75.2 %) 94.2 H Lymphocytes % (20.5 - 51.1 %) 3.7 L Monocytes % (1.7 - 9.3 %) 2.1 Eosinophils % (0 - 5 %) 0 Basophils % (0.0 - 2.0 %) 0 Absolute Granulocytes (1.4 - 6.5 /CUMM) 12.8 H Segmented Neutrophils (42.2 - 75.2 %) 94 H Absolute Lymphocytes (1.2 - 3.4 /CUMM) 0.5 L Lymphocytes (20.5 - 51.1 %) 4 L Monocytes (1.7 - 9.3 %) 2 Absolute Monocytes (0.10 - 0.60 /CUMM) 0.3 Absolute Eosinophils (0.0 - 0.7 /CUMM) 0 Absolute Basophils (0.0 - 0.2 /CUMM) 0 Platelet Estimate (ADEQUATE) ADEQUATE Polychromasia 1+ Ovalocytes FEW [place] Cells FEW Miscellaneous Phlebotomy Draw Site LEFT RADIAL Other Body Source [place] Total RBCs Counted (%) 100 11/01 11/01 UNK [id number] Chemistry Sodium (137 - 145 mmol/L) 138 Potassium (3.5 - 5.1 mmol/L) 4.6 Chloride (98 - 107 mmol/L) 99 Carbon Dioxide (22 - 30 mmol/L) 25 Anion Gap (5 - 16) 14 BUN (7 - 17 mg/dL) 25 H Creatinine (0.5 - 1.0 mg/dL) 1.2 H Estimated GFR (>60 ml/min) 44 L BUN/Creatinine Ratio (7 - 25 %) 20.8 Glucose (65 - 99 mg/dL) 176 H Calcium (8.4 - 10.2 mg/dL) 10.1 Total Bilirubin (0.2 - 1.3 mg/dL) 0.7 AST (14 - 36 U/L) 15 ALT (9 - 52 U/L) 25 Alkaline Phosphatase (<127 U/L) 91 Total Protein (6.3 - 8.2 g/dL) 6.4 Albumin (3.5 - 5.0 g/dL) 4.1 Globulin (1.9 - 4.2 gm/dL) 2.3 Albumin/Globulin Ratio (1.1 - 2.2 %) 1.8 Toxicology Acetone Level (NEGATIVE) Cancelled NEGATIVE Assessment/Plan Assessment/Plan 72 F POD 2 s/p L TKR, hospital course complicated by right CVA and possible aspiration pneumonia who remains intubated Cont critical care managment NPO, IVF Pain regimen prn, d/c onQ IV unasyn - aspiration pna Cont dry daily dressing changes Repeat head CT per cardio BUZZ to evaluate RIOS, PFO, atherosclerotic aortic disease per cardio Anticoagulation per critical care/neuro Will d/w Dr. Mccartney Core Measures Venous Thromboembolism VTE Risk Factors Surgery No Mechanical VTE Prophylaxis d/t N/A MechProphylax Ordered No VTE Pharm Prophylaxis d/t NA PharmProphylax ordered
--- NOTE | 2017-11-03 07:29 | PN- Resident CRCU ---
Kiara GRADY,Clarence 11/03/17 0728: Subjective HPI/CRCU Issues: Patient is in the ICU due to episode of unresponsiveness due to acute hypercarbic respiratory failure requiring intubation, and stroke. I followed up and examined the patient today. She is intubated, but has a spontaneous activity on the right side. She is moving her right upper and lower limbs but not her left side. Objective Vital Signs & I&O Last 8 Hrs of Vitals and I&O: Vital Signs Date Time Temp Pulse Resp B/P B/P Pulse O2 O2 Flow FiO2 Mean Ox Delivery Rate 11/03 1425 30 11/03 0854 30 11/03 0800 97.6 86 18 140/80 97 Ventilator 30% 11/03 0542 40 11/03 0401 40 11/03 0400 96 Ventilator 40% 11/03 0400 98.1 90 16 150/62 96 Ventilator 40% 11/03 0045 40 11/03 0000 95 Ventilator 40% 11/03 0000 98.5 76 17 130/60 95 Ventilator 40% 11/02 2230 40 11/02 2000 95 Ventilator 40% 11/02 2000 98.5 80 16 122/70 95 Ventilator 40% 11/02 1931 40 11/02 1639 40 11/02 1600 98.6 78 24 124/66 96 Ventilator 40% 11/02 1600 96 Ventilator 40% Exam General Appearance: alert, anxious, intubated Other Physical Findings: Head: atraumatic, normal appearance Ears, Nose, Throat: moist mucus membranes, intubated, thus throat exam limited Neck: normal inspection, supple Respiratory: b/l breath sound equal, no wheeze, or crackles Cardiovascular: regular rate/rhythm, norml femoral pulses equal Gastrointestinal: normal bowel sounds, soft Extremities: rt side moving spontaneously (RUE, RLE), left side not moving spontaneously (LUE, LUE), left knee surgery site, dressed Cranial Nerves: abnormal eye position (facing right side) Skin: intact, normal color Skin Temp/Moisture Exam: Warm/Dry Sepsis Skin Exam (color): Normal for Ethnicity Sepsis Cap Refill Exam: <2 Sec Coyle Site: urethral Weaning Parameters NIF: 17 Minute Volume: 10.2 Resp rate: 16 Vt: 485 Heart Rate: 69 Weaning Schedule Start Time: 1314 Minute Volume: 6.6 Resp Rate: 17 Vt: 400 Heart Rate: 73 End Time: 1345 Minute Volume: 6.6 Resp Rate: 18 Vt: 420 Heart Rate: 75 Current Medications: Current Medications Sig/Harish Start time Last Medication Dose Route Stop Time Status Admin Al Hydroxide/Mg 30 ML Q6P PRN 11/01 1415 AC Hydroxide PO Albuterol Sulfate 3 ML Q4H PRN 11/02 1030 AC INH Ampicillin Sodium/ 1,500 MG Q6 11/01 2359 AC 11/03 Sulbactam Sodium IV 1156 Sodium Chloride 100 ML Aspirin 81 MG DAILY 11/03 1000 AC 11/03 PO 0848 Atorvastatin Calcium 80 MG QPM 11/02 2200 AC 11/02 PO 2158 Dextrose/Sodium 1,000 ML Q8H 11/02 1845 DC 11/03 Chloride IV 11/03 1044 0303 Docusate Sodium 100 MG DAILY NEEDED PRN 11/01 1415 AC PO Heparin Sodium 5,000 UNIT Q8 11/02 0600 AC 11/03 (Porcine) SC 1440 Insulin Detemir 5 UNITS BID 11/01 2357 AC 11/03 SC 0848 Insulin Human Regular 4 UNITS .STK-MED ONE 11/03 0548 DC IV 11/03 0549 Insulin Human Regular 4 UNITS .STK-MED ONE 11/03 0021 DC IV 11/03 0022 Insulin Human Regular 2 UNITS .STK-MED ONE 11/02 1805 DC IV 11/02 1806 Insulin Human Regular 0 Q6 11/01 2359 AC 11/03 SC 1156 Ipratropium [place] 2.5 ML BID 11/02 1020 AC 11/03 INH 0814 Lorazepam 1 MG Q4P PRN 11/01 2315 AC 11/03 IV 1440 Methylprednisolone 40 MG Q12H 11/02 1400 AC 11/03 IV 1439 Ondansetron HCl 4 MG Q6P PRN 11/01 1415 AC 11/01 IV 1537 Pantoprazole Sodium 40 MG DAILY 11/02 1000 AC 11/03 IV 0847 Polyethylene Glycol 17 GM DAILY NEEDED PRN 11/01 1415 AC PO Potassium Chloride 40 MEQ ONCE ONE 11/02 1845 DC 11/02 PO 11/02 1846 1907 Senna/Docusate Sodium 2 TAB AT BEDTIME NEED.. 11/01 1415 AC PO Sodium Chloride 1,000 ML Q13H 11/01 2230 DC 11/02 IV 11/03 0829 1344 Impression/Plan Impression/Problem List Impression: 72-year-old female with history of hypertension, hyperlipidemia, COPD, prior smoker, type 2 diabetes, GERD, osteoarthritis, left knee surgery yesterday and is currently in the ICU, after an episode of unresponsiveness with acute hypercarbic respiratory failure requiring intubation and mechanical ventilation, and right-sided cerebral and cerebellar stroke. She is currently being managed in the ICU for the following issues: # Acute hypercarbic respiratory failure, with aspiration pneumonia Patient had an episode of acute hypercarbic respiratory failure on 11/01/17 evening (see event note) in the general medical floor after the postoperative period, and rapid response was called. ABG done at that time showed pH of 6.97 with CO2 90, requiring intubation immediately after which her ABG has improved to pH 7.45 with PCO2 26, PO2 80, HCO3 18, SPO2 96% while intubated. * Would continue care in the ICU with regular monitoring * Continue intubation and mechanical ventilation * Continue IV Unasyn for aspiration pneumonia, as the patient was noted vomiting during intubation * IV methylprednisolone 40 mg every 12 hours * Continue nebs with albuterol q4h/ipratropium BID * Continue PPI IV as GI prophylaxis * Decrease IV fluids to 75 ml/hr as the lactic acid is better now, and that her blood sugar #Left-sided hemiparesis Patient was also noted to have left-sided hemiparesis with right-sided gaze deviation, and although the initial Head CT was negative for acute bleed or any left-sided ischemic zone, she had features of dense right-hemispheric stroke. She had relative contraindication to tPA when this happened, as she had undergone Surgery the same day. Aspirin and statin was given. Neurology on board. * Following neurologist's recommendation for further management. Appreciated. * Will continue aspirin via OG tube daily * We will continue statin via OG tube daily * Repeating a CAT scan of the head to better localize the extent of the stroke * Echocardiogram showed no clots or grossly concerning issues, but was limited in study so a BUZZ is being planned for today. Awaiting results. * Carotid ultrasound Doppler showed Lt ICA has 50-79% stenosis and non- significant stenosis on the Right. * When the patient is extubated, would go for swallow evaluation * We'll plan for early PT/OT, getting PT for knee as well * DVT prophylaxis with subcutaneous heparin, and was discontinued Eliquis for the risk of hemorrhagic transformation of stroke. * Family updated by various attendings #Diabetes mellitus Her last HbA1c was 7. Patient is currently NPO. * Continue sliding scale insulin, per NPO protocol. #H/o HTN Will watch her BP closely and manage accordingly. We do will allow permissive HTN given that she recently had a stroke. #Diet: NPO due to intubation #DVT ppx: SQ Heparin #Code status: Full code Update: I spoke to patient's family member (daughter) Regina, and gave her the update earlier today, and also obtained consent for the BUZZ today. All queries answered. Agrees with the plan. Problem List: 1. Acute hypercapnic respiratory failure 2. Acute CVA (cerebrovascular accident) Pain Ratin Tomorrow's Labs & Rationales: - Plan DVT/Prophylaxis: pharmacological (SQ Heparin) Code Status: Full Code Sathya Patterson MD 11/03/17 1118: Attending MD Review Statement Attending Sign Off Attending Cosign Statement: I have: examined this patient, reviewed avalbl EMR data, personally reviewd images, discussd w/resident/PA/E LEARNING DEVELOPER, discussed mgmt plan w/henry, discussed mgmt plan w/CM, discussed mgmt plan w/pt, agreed w/resident/PA/E LEARNING DEVELOPER, amended to note. Other Findings: ISathya M.D. have examined this patient, reviewed available EMR data, personally reviewed images, discussed with resident/PA/E LEARNING DEVELOPER, discussed management plan with housestaff and nursing staff, discussed managment plan all of healthcare providers, discussed management plan with patient and/or family, agreed with resident/PA/E LEARNING DEVELOPER. The past history and parts of the chart have been autopopulated. Impression 72 year old woman * acute hypercarbic, hypoxemic respiratory failure * clinically and neurologically likely right hemispheric ischemic infarct Plan Respiratory -cont current vent settings -tv 500/16/50%/5 -trc/nebs -solumedrol 40mg iv q12h ID -unasyn for possible aspiration -cxr in am -will tailor abx if no wbc or fevers -sputum cx CVS -cardiology consulted -ECHO -carotid dopplers -For BUZZ Heme -Eliquis discontinued -prophylactic dvt prophylaxis heparin subcutaneous for now Metabolic -ins/outs -monitor creatinine Alimentary -NPO for BUZZ Neuro -neurology consultation is appreciated and we will follow recommendations Discussed with family, all questions answered adequately. TTS 35 min TTS 35 min
[2017-11-03 08:00] VITALS: BP 140/80
--- NOTE | 2017-11-03 09:15 | PN- Cardiology ---
Subjective Subjective: Patient remains intubated, was agitated at night, received Ativan Review of Systems: 12 point ROS non obtainable due to intubation Objective Vital Signs and I&Os Vital Signs Date Time Temp Pulse Resp B/P B/P Pulse O2 O2 Flow FiO2 Mean Ox Delivery Rate 11/03 0854 30 11/03 0542 40 11/03 0401 40 11/03 0400 96 Ventilator 40% 11/03 0400 98.1 90 16 150/62 96 Ventilator 40% 11/03 0045 40 11/03 0000 95 Ventilator 40% 11/03 0000 98.5 76 17 130/60 95 Ventilator 40% 11/02 2230 40 11/02 2000 95 Ventilator 40% 11/02 2000 98.5 80 16 122/70 95 Ventilator 40% 11/02 1931 40 11/02 1639 40 11/02 1600 98.6 78 24 124/66 96 Ventilator 40% 11/02 1600 96 Ventilator 40% 11/02 1424 40 11/02 1200 96 Ventilator 40% 11/02 1200 98.5 74 16 118/72 96 Ventilator 40% 11/02 1200 96 Ventilator 40% 11/02 1058 40 11/02 1037 Ventilator 50% Intake & Output 11/03 1600 11/03 0800 11/03 0000 11/02 1600 11/02 0800 11/02 0000 Intake Total 1103 7973 023 2089 Output Total 300 350 400 815 Balance 803 126 462 5741 Intake, IV 1103 432 109 3933 Intake, Oral 0 Intake, Other 200 Intake, Tube 140 Irrigant Number 0 0 0 0 Bowel Movements Output, 100 40 Gastric Drainage Output, Urine 300 350 300 775 Physical Exam: Remains intubated responds to verbal stimuli HEENT-PERRLA Neck-JVP normal, no bruits Lungs-clear bilaterally Heart-S1S2 regular, no murmur Abdomen-soft, not tender, BS+, no organomegaly EXt-no edema LE, mild upper extremities edema no cyanosis Vascular-2+ distal pulses Neuro-left hemiparesis unchanged, she can move left foot a little Current Medications: Current Medications Sig/Harish Start time Last Medication Dose Route Stop Time Status Admin Al Hydroxide/Mg 30 ML Q6P PRN 11/01 1415 AC Hydroxide PO Albuterol Sulfate 3 ML Q4H PRN 11/02 1030 AC INH Ampicillin Sodium/ 1,500 MG Q6 11/01 2359 AC 11/03 Sulbactam Sodium IV 0539 Sodium Chloride 100 ML Apixaban 2.5 MG BID 11/02 1000 DC PO Aspirin 81 MG DAILY 11/03 1000 AC 11/03 PO 0848 Aspirin 300 MG DAILY 11/02 1045 DC [place] Atorvastatin Calcium 80 MG QPM 11/02 2200 AC 11/02 PO 2158 Atorvastatin Calcium 10 MG QPM 11/01 2200 DC PO Dextrose/Sodium 1,000 ML Q8H 11/02 1845 AC 11/03 Chloride IV 11/03 1044 0303 Docusate Sodium 100 MG DAILY NEEDED PRN 11/01 1415 AC PO Heparin Sodium 5,000 UNIT Q8 11/02 0600 AC 11/03 (Porcine) SC 0540 Insulin Detemir 5 UNITS BID 11/01 2357 AC 11/03 SC 0848 Insulin Human Regular 4 UNITS .STK-MED ONE 11/03 0021 DC IV 11/03 0022 Insulin Human Regular 2 UNITS .STK-MED ONE 11/02 1805 DC IV 11/02 1806 Insulin Human Regular 6 UNITS .STK-MED ONE 11/02 1308 DC IV 11/02 1309 Insulin Human Regular 0 Q6 11/01 2359 AC 11/03 SC 0548 Ipratropium [place] 2.5 ML BID 11/02 1020 AC 11/03 INH 0814 Lorazepam 1 MG Q4P PRN 11/01 2315 AC 11/03 IV 0321 Methylprednisolone 40 MG Q12H 11/02 1400 AC 11/03 IV 0303 Ondansetron HCl 4 MG Q6P PRN 11/01 1415 AC 11/01 IV 1537 Pantoprazole Sodium 40 MG DAILY 11/02 1000 AC 11/03 IV 0847 Polyethylene Glycol 17 GM DAILY NEEDED PRN 11/01 1415 AC PO Potassium Chloride 40 MEQ ONCE ONE 11/02 1845 DC 11/02 PO 11/02 1846 1907 Senna/Docusate Sodium 2 TAB AT BEDTIME NEED.. 11/01 1415 AC PO Sodium Chloride 1,000 ML Q13H 11/01 2230 DC 11/02 IV 11/03 0829 1344 Tiotropium [place] 1 PUF 1700 11/01 1700 DC 11/01 INH 1722 Results Last 48 Hrs of Labs/Mics: Laboratory Tests 11/03/17 0340: Anion Gap 13, Estimated GFR 54 L, Glucose 154 H, Calcium 8.0 L, Phosphorus 3.3, Magnesium 1.9, Total Bilirubin 0.4, AST 26, ALT 31, Albumin 2.8 L, CBC w Diff NO MAN DIFF REQ, RBC 3.33 L, MCV 92.8, MCH 31.4 H, MCHC 33.8, RDW 14.1, MPV 8.4, Gran % 87.4 H, Lymphocytes % 8.3 L, Monocytes % 4.3, Eosinophils % 0, Basophils % 0, Absolute Granulocytes 12.6 H, Absolute Lymphocytes 1.2, Absolute Monocytes 0.6, Absolute Eosinophils 0, Absolute Basophils 0 11/02/17 2100: Lactic Acid Cancelled 11/02/17 1820: Lactic Acid 1.2 11/02/17 1455: Lactic Acid 2.7 H 11/02/17 1228: Lactic Acid Cancelled 11/02/17 1127: Lactic Acid 3.1 H, Troponin I 0.11 *H, Triglycerides 113, Cholesterol 111, LDL Cholesterol, Calc 37 L, HDL Cholesterol 52, Cholesterol/HDL Ratio 2 11/02/17 0830: Lactic Acid 2.7 H 11/02/17 0550: pH 7.45, pCO2 26 L, pO2 80, HCO3 18 L, ABG O2 Sat (Measured) 96.0, P-50 (Temp Corrected) N, Carboxyhemoglobin 0.3 L, O2 Concentration % .50, Respiration Rate 16, O2 Delivery Method VENT, Vent Mode A/C, Expiratory Pressure 5, Tidal Volume 500, Phlebotomy Draw Site LEFT BRACHIAL 11/02/17 0450: Urine Osmolality 601, Ur Random Creatinine 53.1, Ur Random Sodium 88, Ur Random Potassium 52.3, Fraction Sodium Excret 1.7 H 11/02/17 0445: Anion Gap 12, Estimated GFR 49 L, Glucose 231 H, Lactic Acid 2.8 H, Calcium 8.6, Phosphorus 2.9, Magnesium 2.4 H, Total Bilirubin 0.5, AST 21, ALT 33, Troponin I 0.14 *H, Albumin 2.9 L, CBC w Diff MAN DIFF ORDERED, RBC 3.41 L, MCV 92.8, MCH 31.5 H, MCHC 34.0, RDW 13.9, MPV 7.9, Gran % 90.1 H, Lymphocytes % 7.7 L, Monocytes % 2.0, Eosinophils % 0, Basophils % 0.2, Absolute Granulocytes 9.2 H, Segmented Neutrophils 89 H, Absolute Lymphocytes 0.8 L, Lymphocytes 8 L, Monocytes 2, Absolute Monocytes 0.2, Absolute Eosinophils 0, Basophils 1, Absolute Basophils 0, Platelet Estimate ADEQUATE, Polychromasia 1+, Poikilocytosis 2+, Ovalocytes 1+, [place] Cells 1+, Fld Total RBCs Counted 100 11/02/17 0155: Lactic Acid 3.2 H 11/02/17 0050: Lactic Acid Cancelled 11/01/17 2300: Urine Color YEL, Urine Clarity CLEAR, Urine pH 6.5, Ur Specific [place] 1.010, Urine Protein 30 H, Urine Ketones NEG, Urine Nitrite NEG, Urine Bilirubin NEG, Urine Urobilinogen 0.2, Ur Leukocyte Esterase NEG, Ur Microscopic SEDIMENT EXAMINED, Urine RBC FEW H, Urine WBC RARE, Ur Epithelial Cells RARE, Urine Bacteria RARE H, Urine Mucus RARE, Urine Hemoglobin TRACE-INTACT, Urine Glucose >=1000 H 11/01/172254: Acetone Level NEGATIVE 11/01/172249: pH 7.50 H, pCO2 22 L, pO2 64 L, HCO3 17 L, ABG O2 Sat (Measured) 95.0 L, P- 50 (Temp Corrected) Y, Carboxyhemoglobin 0.2 L, O2 Concentration % 50%, Temperature 97.0, Respiration Rate 22, O2 Delivery Method VENT, Vent Mode AC/VC, Expiratory Pressure 5, Tidal Volume 500, Phlebotomy Draw Site LEFT BRACHIAL 11/01/172239: Anion Gap 12, Estimated GFR 40 L, BUN/Creatinine Ratio 20.0, Hemoglobin A1c 7.0 H, Serum Osmolality 301 H, Lactic Acid 3.1 H, Phosphorus 5.0 H, Magnesium 1.5 L, Troponin I 0.05, TSH 1.060, Free T4 1.31, Cortisol PM Sample 41.0 H 11/01/172239: Total Bilirubin 0.5, Direct Bilirubin 0.5 H, AST 20, ALT 35, Alkaline Phosphatase 59, Total Protein 4.8 L, Albumin 2.8 L, PT 11.4, INR 1.05, CBC w Diff MAN DIFF ORDERED, RBC 3.23 L, MCV 92.6, MCH 31.2 H, MCHC 33.7, RDW 13.4, MPV 8.2, Gran % 94.2 H, Lymphocytes % 3.7 L, Monocytes % 2.1, Eosinophils % 0, Basophils % 0, Absolute Granulocytes 12.8 H, Segmented Neutrophils 94 H, Absolute Lymphocytes 0.5 L, Lymphocytes 4 L, Monocytes 2, Absolute Monocytes 0.3, Absolute Eosinophils 0, Absolute Basophils 0, Platelet Estimate ADEQUATE, Polychromasia 1+, Ovalocytes FEW, [place] Cells FEW, Fld Total RBCs Counted 100 11/01/17 2110: pH 6.97 *L, pCO2 90 *H, pO2 171 H, HCO3 20 L, ABG O2 Sat (Measured) 98.0, Carboxyhemoglobin 0.3 L, O2 Concentration % 100%, O2 Delivery Method NRB, Phlebotomy Draw Site LEFT RADIAL 11/01/17 1000: Acetone Level Cancelled 11/01/17 0953: Anion Gap 14, Estimated GFR 44 L, BUN/Creatinine Ratio 20.8, Glucose 176 H, Calcium 10.1, Total Bilirubin 0.7, AST 15, ALT 25, Alkaline Phosphatase 91, Total Protein 6.4, Albumin 4.1, Globulin 2.3, Albumin/Globulin Ratio 1.8, Acetone Level NEGATIVE Microbiology 11/01 2229 UPPER RESP: Surveillance Culture - COMP 11/01 2229 GI: Surveillance Culture - COMP Assessment/Plan Assessment/Plan 72 year old female with h/o mild COPD, HTN, HLP, DM developed right MCA stroke after left knee replacement. Troponin mildly elevated secondary to demand ischemia. The etiology of hypoxic/hypercarbic respiratory failure is unclear. ?Phenergan side effects, ?aspiration leading to subsequent events. Etiology of stroke unclear as well. CT scan showed multiple evolving strokes in the right MCA territory suspicious for "shower embolization". She has not history of atrial fibrillation and her LVEF on current echo is normal. No significant arrhytmia on telemetry overnight. Carotid US showed moderate left internal carotid stenosis but no significant right ICA stenosis. Neuro status unchanged Plan: continue supportive care iv fluids contionue Unasyn ASA 81 mg qd high intensity statin no anticoagulation for now-risk of hemorrhagic transformation repeat CXR today repeat head CT today BUZZ today weaning trials Discussed in [facility] housestaff and nurse. Continue telemetry? Yes
[2017-11-03 12:00] VITALS: BP 104/56
--- NOTE | 2017-11-03 13:01 | PN- Orthopedic ---
See Addendum Surgical Brief Attending Note Brief Attending Note: And seen this afternoon postop day #2 status post left total knee arthroplasty complicated by a right sided cerebrovascular accident. The patient is intubated and sedated on examination. Not responding to verbal commands. CT scan of the brain that was done yesterday was reviewed. Orthopedically the patient will need passive range of motion to her left knee with physical therapy. The therapist can also work with passive range of motion of the left upper extremity. We'll need to monitor for the possibility of placement of a ankle- foot orthosis to prevent ankle contracture the patient does not begin active range of motion of her ankle. Continue heparin subcutaneous for now. No other anticoagulation in this instance. His point continue care per the critical care unit. Appreciate neurology, cardiology and senior account director input.
[2017-11-03 16:00] VITALS: BP 180/80
--- NOTE | 2017-11-03 16:47 | ECHOCARDIOGRAM REPORT ---
VINCENT CLAYTON Age: 72 : Gender: F Exam Date: 11/03/2017 11:08 Exam Location: [facility] Ht (in): 64 Wt (lb): 160 BSA: 1.83 BP: 150 / 62 Ordering Physician: Too rCum MD Referring Physician: Too Crum MD Technologist: Lalit Delgado KAT Room Number: 107 Indications: SOURCE OF EMBOLUS Rhythm: Sinus Technical Quality: Good Medications Propofol administered by Anesthesiology. Ease of Transducer Insertion No Difficulty Complications None. Technical Difficulty FINDINGS Left Ventricle Normal size left ventricle. No obvious regional wall motion abnormalities. Left ventricular wall thickness increased. Normal left ventricular ejection fraction estimated at 60-65%. Right Ventricle Right ventricle at upper limits of normal. Right Atrium Normal right atrial size. Left Atrium Mild left atrial dilatation. LA Appendage Normal left atrial appendage. IA Septum Patent foramen ovale. Mitral Valve Mitral valve thickened. Mild mitral regurgitation. Aortic Valve Trileaflet aortic valve. Diffuse thickening (sclerosis) of the aortic valve cusps without reduced excursion. No aortic stenosis. No aortic regurgitation. Tricuspid Valve Tricuspid valve not well visualized, grossly normal. Mild tricuspid regurgitation. Pulmonic Valve Structurally normal pulmonic valve. Trace pulmonic regurgitation. Pericardium No pericardial effusion. Great Vessels Normal size aortic root and proximal ascending aorta. Grade III plaque seen in the aortic arch. Grade II plaque seen in the descending aorta. Mobile plaque seen in the aorta. CONCLUSIONS 1. Aortic sclerosis is present with no valvular stenosis or insufficiency. 2. Mitral leaflet thickening is present with mild mitral insufficiency and mild left atrial enlargement. 3. THe left atial appendage is normal with normal contractility and no evidence of thrombus. 4. The pulmonary venous anatomy is normal bilaterally with normal doppler profiles. 5. The left ventricular chamber size and systolic function are normal. 6. The right heart chambers are grossly normal. Mild tricuspid insufficiency is present with minimal pulmonic insufficiency and no significant pulmonary hypertension. 7. The mid atrial septum is mildly redundant with a left atrial septal "pouch" noted. A PFO is present with a small resting right to left shunt by contrast saline injection which increases to moderate in severity after manual valsalva maneuvre. 8. The ascending aorta appears normal. Grade II atheromatous plaque is noted in the descending thoracic aorta. Grade III plaque is present in the distal arch extending into the proximal left common carotid artery. A small focal area of plaque ulceration is noted in the distal arch with a tiny area of mobile plaque noted at that level. Mike Guzman M.D. (Electronically Signed) Final Date: 03 November 2017 16:46 MEASUREMENTS (Male / Female) Normal Values
--- NOTE | 2017-11-03 18:41 | RADIOLOGY REPORT ---
EXAMINATION: XR KNEE, LEFT CLINICAL INFORMATION: Total left knee arthroplasty. COMPARISON: None TECHNIQUE: Two views of the left knee. FINDINGS: Postsurgical changes of total left knee arthroplasty is noted showing intact hardware and satisfactory alignment. Immediate postsurgical changes of multiple surgical gucci are noted along the anterior part of the left knee. IMPRESSION: Appropriate alignment of the left total knee arthroplasty.
--- NOTE | 2017-11-03 18:41 | RADIOLOGY REPORT ---
EXAMINATION: XR PORTABLE CHEST CLINICAL INFORMATION: Status post intubation. COMPARISON: Chest done on 11/02/2017. TECHNIQUE: Portable frontal view of the chest was obtained. FINDINGS: There is improved aeration noted bilaterally. Interval development of nonspecific airspace disease noted at right lung base. The left lung base airspace disease appears improved. The cardiomediastinal silhouette is within normal limits. The tip of the endotracheal tube is located approximately 3 cm above the level of the dominick. The tip of the enteric tube is not included within the [id number] however appears infradiaphragmatic. There is no pleural effusion present. IMPRESSION: 1. Improved aeration bilaterally since prior study dated 11/02/2017. 2. New focal airspace disease at right lung base, may represent infiltrate, atelectasis or combination thereof. Improved aeration at left lung base. 3. The tip of the endotracheal tube is located approximately 3 cm above the level of the dominick.
--- NOTE | 2017-11-03 18:54 | CT SCAN REPORT ---
CT HEAD WITHOUT IV CONTRAST CLINICAL INFORMATION: Follow-up ischemic stroke. COMPARISON: Head CT 11/02/2017. TECHNIQUE: Contiguous axial imaging was performed from the skull base to vertex without intravenous administration of contrast. FINDINGS: There is an evolving large acute right MCA territory infarct involving portions of the right temporal lobe, the right insular lobe, the right basal ganglia, and the right frontal and parietal lobes. New in comparison to the previous study is woo to white matter differentiation loss within the right occipital lobe and the right CLINICAL CODER territory. There is increased mass effect throughout the right MCA territory infarct with increased regional sulcal effacement without midline shift. Slight effacement of the right lateral ventricle. Within the posterior fossa there is slight ridge cerebellar tonsillar herniation and partial effacement of the fourth ventricle which remains patent. No hemorrhagic transformation. There is no hydrocephalus, extra-axial surface collection, nor midline shift. The basilar cisterns are preserved. Fluid opacification of the nasopharynx. Partially imaged endotracheal and enteric tubes. Small fluid level within the left maxillary sinus. Rightward deviation of the nasal septum. IMPRESSION: - Expectedly evolving acute large right MCA territory infarct and right PICA territory cerebellar infarct with slightly increased mass effect in these areas including partial effacement of the right lateral ventricle, slight right cerebellar tonsillar herniation, and partial effacement of the fourth ventricle without hydrocephalus. - There is a new acute right CLINICAL CODER territory infarct within the right occipital lobe.
--- NOTE | 2017-11-03 19:35 | Event Note ---
Event Note Event Note: I spoke to on-call neurologist Dr. Radha Forman about the new finding in the CAT scan of the head showing evolving stroke in the same territory but increased mass effect in these areas including partial effacement of the right lateral ventricle, slight right cerebellar tonsillar herniation, and partial effacement of the fourth ventricle without hydrocephalus. 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 Clinically, she does not have fixed dilated pupil or signs of brainstem herniation. After discussing this findings with the neurologist, she suggested speaking to the in flight refueling system repairer regarding mannitol and increasing her ventilation. I spoke with the in flight refueling system repairer Sathya Patterson MD about the new finding on the CAT scan including the expected leg evolving stroke with slight right cerebellar tonsillar herniation, and the new RESIDENTIAL SUBSTANCE ABUSE COUNSELOR territory. This along with the clinical finding was discussed. He suggested to get neurosurgical consultation immediately to guide further management whether over here or to transfer the patient. My co-resident Too Crum is already calling neurosurgery service and is expecting an urgent call back. 1946 hrs Stat neurosurgical consult was placed. Case was discussed with neurosurgeon Dr. Nascimento who recommended urgent transfer to a higher level of care given her increased intracranial pressure. Patient is being transfered to [facility] under the care of Dr. Johns in the neurosurgical ICU for possible neurosurgical intervention. She is being given intravenous decadron prior to transfer. Patients daughter Yoanna is aware of the situation and told of the benefits / risks of transfer. She accepted the risks and authorized transfer of the patient. [employer] Laborer Dr. Smith , in flight refueling system repairer Dr. Patterson, and surgical team made aware.
--- NOTE | 2017-11-03 20:04 | Discharge Summary ---
Visit Information Visit Dates Admission Date: 11/01/17 Discharge Date: 11/03/17 Hospital Course Course Attending Physician: Michael Mccartney MD Primary Care Physician: Kevin Kearney MD Hospital Course: 72-year-old female with history of hypertension, hyperlipidemia, COPD, prior smoker, type 2 diabetes, GERD, osteoarthritis, left knee surgery replacement on 11/01/17 and is currently being transfered from the ICU, after an episode of unresponsiveness with acute hypercarbic respiratory failure requiring intubation and mechanical ventilation, and right-sided cerebral and cerebellar stroke. She was managed in the ICU for the following issues: # Acute hypercarbic respiratory failure, with aspiration pneumonia Patient had an episode of acute hypercarbic respiratory failure on 11/01/17 evening in the general medical floor after the postoperative period, a rapid response was called, pt was unresponsive and no focal neurological deficit noted then, and a CT was negative for acute bleed or ischemic zone. Improtantly, ABG done at that time showed pH of 6.97 with CO2 90, requiring intubation immediately after which her ABG has improved to pH 7.45 with PCO2 26, PO2 80, HCO3 18, SPO2 96% while intubated. She did vomit during intubation thus making aspiration pneumonitis/pneumonia likely. She was transferred to the ICU for further management of acute hypercarbic respiratory failure, with aspiration pneumonia, and was maintained on mechanical ventilation along with IV Unasyn for aspiration pneumonia. She also received IV methylprednisolone 40 mg every 12 hours, nebs and respiratory care, GI prophylaxis. She was noted to have lactic acidosis and was adequately fluid resuscitated and went back to trended normal IV fluids decreased to rate of 75 mL per hour. She remains well ventilated and oxygenated on mechanical volume support. #Left-sided hemiparesis Patient was also noted to have left-sided hemiparesis with right-sided gaze deviation, and although the initial Head CT was negative for acute bleed or any left-sided ischemic zone, she had features of dense right-hemispheric stroke. She had relative contraindication to tPA when this happened, as she had undergone (knee) surgery the same day. Aspirin and statin was given. Neurology on board. According to neurologist recommendation, she was continued on aspirin and statin, and for anticoagulation only subcutaneous heparin 5000 units every 8 hours was provided, given her risk of hemorrhagic transformation of large ischemic stroke. CAT scan of the head reported on 11/02/2017 at 1415 hrs showed multiple evolving acute infarcts throughout the right MCA territory, evolving acute infarct within the PICA territory of the right cerebellum, mild local mass effect in these areas without midline shift, cerebellar tonsils may be slightly low-lying, no definite hemorrhagic transformation accounting for artifact. These multiple infarcts following vascular territories of multiple vessels was suggestive of embolic phenomena. Of note, the patient has always been normal sinus rhythm and does not have any history of atrial fibrillation or any intracardiac thrombus. Her recent stress test before the surgery within a month was within normal limit according to her general machinist. To further identify the source of the infarct, carotid artery Doppler ultrasound was done which showed hemodynamically significant stenosis consistent with a 50-79% diameter reduction of the proximal left internal carotid artery, and NO stenosis of greater than 50 % on the right. Echocardiogram transthoracic, did not reveal any clots, full report as mentioned below, but was technically difficult study thus a repeat transesophageal echocardiogram was done today which revealed a grade 2 atheromatous plaque in the descending thoracic aorta, grade 3 plaque in the distal arch extending into the proximal left common carotid artery, a small focal area of plaque ulceration in the distal arch with a tiny area of mobile plaque noted at that level, and a patent jimenez ovale with a small resting [id number] shunt along other findings noted below. Importantly, a repeat CAT scan of the head was done today after finding the patient was less responsive than yesterday, without anysigns of brainstem injury clinically. The is a new finding in the CAT scan of the head showing evolving stroke in the same territory but increased mass effect in these areas including partial effacement of the right lateral ventricle, slight right cerebellar tonsillar herniation, and partial effacement of the fourth ventricle without hydrocephalus. And there is a new acute right HEALTH CONSULTANT territory infarct within the right occipital lobe as well. This critical finding was discussed with adoption social worker neurologist Dr. Radha Forman, incinerator operator Sathya Patterson MD, and hospitalist Dr.Sitalakshmi Smith, and neurosurgeon Dr Nascimento, along with the patient's daughter Regina and the decision to transfer the patient to higher facility for possible neurosurgical intervention was made. Accordingly, [facility] has been called and transfer paperwork initiated. # Left knee replacement on 11/01/17 Surgical discharge summary is attached with this medical discharge summary report. #Diabetes mellitus Her last HbA1c was 7. Patient is currently NPO as she is intubated. Continued sliding scale insulin, per NPO protocol. #H/o HTN Her BP was monitored and we allowed permissive HTN due to stroke. #Diet: NPO due to intubation #DVT ppx: SQ Heparin 5000 U q8h #Code status: Full code Patient's PCP is Dr. Kevin Kearney, his general machinist is Dr. Zackery Butcher, his surgery was done by Dr. Michael Mccartney, and neurologist who initially evaluated him was Dr Jamison Isbell. In the ICU, he was under the care of Dr. Sathya Patterson. Allergies: Coded Allergies: No Known Allergies (10/18/17) Significant Procedures: Operative/Inv Procedure Report Surgery Date: 11/01/17 Name of Procedure: Left total knee arthroplasty by Michael De La Rosa Pertinent Lab Results: CAT scan of the head done on 11/03/2017: - Expectedly evolving acute large right MCA territory infarct and right PICA territory cerebellar infarct with slightly increased mass effect in these areas including partial effacement of the right lateral ventricle, slight right cerebellar tonsillar herniation, and partial effacement of the fourth ventricle without hydrocephalus. - There is a new acute right HEALTH CONSULTANT territory infarct within the right occipital lobe. CAT scan of the head done on 11/02/2017: Multiple evolving acute infarcts throughout the right MCA territory as described. There is also an evolving acute infarct within the PICA territory of the right cerebellum. There is mild local mass effect in these areas without midline shift. Cerebellar tonsils may be slightly low-lying. No definite hemorrhagic transformation accounting for artifact. CTA Chest: 1. No evidence of pulmonary embolism. 2. Tip of endotracheal tube just above the dominick. 3. Centrilobular emphysema and bilateral lower lobe dependent atelectasis. Trace effusions. Reactive hilar or mediastinal adenopathy. 4. No acute intracranial pathology. Transesophageal echocardiogram done on 11/03/2017: 1. Aortic sclerosis is present with no valvular stenosis or insufficiency. 2. Mitral leaflet thickening is present with mild mitral insufficiency and mild left atrial enlargement. 3. THe left atial appendage is normal with normal contractility and no evidence of thrombus. 4. The pulmonary venous anatomy is normal bilaterally with normal doppler profiles. 5. The left ventricular chamber size and systolic function are normal. 6. The right heart chambers are grossly normal. Mild tricuspid insufficiency is present with minimal pulmonic insufficiency and no significant pulmonary hypertension. 7. The mid atrial septum is mildly redundant with a left atrial septal "pouch" noted. A PFO is present with a small resting right to left shunt by contrast saline injection which increases to moderate in severity after manual valsalva maneuvre. 8. The ascending aorta appears normal. Grade II atheromatous plaque is noted in the descending thoracic aorta. Grade III plaque is present in the distal arch extending into the proximal left common carotid artery. A small focal area of plaque ulceration is noted in the distal arch with a tiny area of mobile plaque noted at that level. Transthoracic echocardiogram done on 11/02/2017: 1. This was a technically difficult study due to the patient's body habitus. 2. Aortic sclerosis is present with no valvular stenosis or insufficiency. 3. Mitral leaflet thickening is present with minimal mitral insufficiency. 4. A very small posterior pericardial effusion is present which is hemodynamically insignificant. 5. The left ventricular chamber size and systolic function appear normal. There are no obvious resting wall motion abnormalities. 6. Mild to moderate tricuspid insufficiency is present. There is no evidence of significant pulmonary hypertension. Disposition Summary Disposition Principal Diagnosis: #Acute hypercarbic respiratory failure, status post intubation and mechanical ventilation #Large right cerebellar and cerebellar infarction, with slight cerebellar tonsillar herniation #Status post left knee replacement on 11/01/2017 Additional Diagnosis: Hypertension, Hyperlipidemia, COPD, prior smoker, Type 2 diabetes, GERD, Osteoarthritis Discharge Disposition: [facility] ([facility]) Discharge Instructions General Discharge Information Code Status: Full Code Patient's Diet: NPO Patient's Activity: - Left knee passive ROM exercises, s/p surgery - Early PT in the ICU Follow-Up Instructions/Appts: Patient is being transferred to higher facility, is supposed to follow up with instructions when discharged from there. Medications at Discharge Discharge Medications: Stop taking the following medications: Acetaminophen With Codeine (Acetaminophen-Cod #4 Tablet) 300 MG-60 MG TABLET ORAL THREE TIMES DAILY as needed for PAIN SCALE 7-10 (SEVERE) Qty = 30 Atorvastatin Calcium (Atorvastatin Calcium) 10 MG TABLET ORAL Every night Cyclobenzaprine HCl (Cyclobenzaprine HCl) 10 MG TABLET ORAL THREE TIMES DAILY as needed for BACK SPASM Continue taking these medications: Valsartan (Valsartan) 160 MG TABLET 1 Tablet ORAL DAILY Days = 30 Comments: Last Taken: NOT GIVEN Time: Tiotropium Waterman (Spiriva) 18 MCG CAP.W.DEV 1 Capsule Inhale through mouth AFTERNOON Comments: Last Taken: NOT GIVEN Time: Hydrochlorothiazide (Hydrochlorothiazide) 25 MG TABLET 1 Tablet ORAL Every night Comments: Last Taken: NOT GIVEN Time: Metformin HCl (Metformin HCl) 1,000 MG TABLET 1 Tablet ORAL TWICE DAILY Comments: Last Taken: NOT GIVEN Time: Omeprazole (Omeprazole) 20 MG TABLET.DR 1 Tablet ORAL Every night Comments: Last Taken: NOT GIVEN Time: Saxagliptin (Onglyza) 5 MG TABLET 1 Tablet ORAL TWICE DAILY Instructions: LUNCH AND DINNER Comments: Last Taken: NOT GIVEN Time: Aspirin (Capulin Aspirin) 81 MG TABLET.DR 1 Tablet ORAL DAILY Comments: Last Taken:11/03 Time: 0848 Start taking the following new medications: Atorvastatin Calcium (Atorvastatin Calcium) 80 MG TABLET 80 Milligram ORAL Every night Qty = 30 No Refills Comments: Last Taken: 11/02/17 Time: 2200 Methylprednisolone Sod Succ/Pf (Solu-Medrol 40 MG Vial) 40 MG/ML VIAL 40 Milligram INTRAVEN Q12H Qty = 6 No Refills Comments: Last Taken: Time: DECADRON GIVEN 11/04 1999 Pantoprazole Sodium (Pantoprazole Sodium) 40 MG VIAL 40 Milligram INTRAVEN DAILY Qty = 4 No Refills Comments: Last Taken: 11/03 Time: 0847 Ampicillin Sodium/Sulbactam Na (Unasyn 3 Gm Vial) 3 GRAM VIAL 3 G INTRAVEN Q6H Qty = 12 No Refills Comments: Last Taken: 11/03 Time: 1900 Copies To: Sukhi GRADY,Jamison Rodriguez; Guadalupe GRADY,Viktor Mccartney MD,Michael Macedo; Yesenia GRADY,Sathya Attending MD Review Statement Documenting Attending: Luis GRADY,Laverne Other Findings: I have personally reviewed above discharge summary and agree with above. Based on most recent CT head, findings were discussed with Neurosurgeon Dr. Nascimento and it was deemed that patient should be transferred to higher level of care for Neurosurgical ICU monitoring. I called [facility], spoke with Stroke Attending Dr. Krystle Parks who then discussed case with Neurosurgical Action Finisher Dr. Johns who has accepted patient for transfer. Spoke with case management. Daughter Regina was informed about the plan and agrees. I spoke with her and updated her about above. Disposition Summary Disposition Principal Diagnosis: #Acute hypercarbic respiratory failure, status post intubation and mechanical ventilation #Large right cerebellar and cerebellar infarction, with slight cerebellar tonsillar herniation #Status post left knee replacement on 11/01/2017 Additional Diagnosis: hypertension, hyperlipidemia, COPD, prior smoker, type 2 diabetes, GERD, osteoarthritis Discharge Disposition: other general hospital Discharge Instructions General Discharge Information Code Status: Full Code Patient's Diet: NPO Patient's Activity: - Left knee passive ROM exercises, s/p surgery - Early PT in the ICU Follow-Up Instructions/Appts: Patient is being transferred to higher facility, is supposed to follow up with instructions when discharged from there. Medications at Discharge Discharge Medications: Stop taking the following medications: Acetaminophen With Codeine (Acetaminophen-Cod #4 Tablet) 300 MG-60 MG TABLET ORAL THREE TIMES DAILY as needed for PAIN SCALE 7-10 (SEVERE) Qty = 30 Atorvastatin Calcium (Atorvastatin Calcium) 10 MG TABLET ORAL Every night Cyclobenzaprine HCl (Cyclobenzaprine HCl) 10 MG TABLET ORAL THREE TIMES DAILY as needed for BACK SPASM Continue taking these medications: Valsartan (Valsartan) 160 MG TABLET 1 Tablet ORAL DAILY Days = 30 Comments: Last Taken: NOT GIVEN Time: Tiotropium Waterman (Spiriva) 18 MCG CAP.W.DEV 1 Capsule Inhale through mouth AFTERNOON Comments: Last Taken: NOT GIVEN Time: Hydrochlorothiazide (Hydrochlorothiazide) 25 MG TABLET 1 Tablet ORAL Every night Comments: Last Taken: NOT GIVEN Time: Metformin HCl (Metformin HCl) 1,000 MG TABLET 1 Tablet ORAL TWICE DAILY Comments: Last Taken: NOT GIVEN Time: Omeprazole (Omeprazole) 20 MG TABLET.DR 1 Tablet ORAL Every night Comments: Last Taken: NOT GIVEN Time: Saxagliptin (Onglyza) 5 MG TABLET 1 Tablet ORAL TWICE DAILY Instructions: LUNCH AND DINNER Comments: Last Taken: NOT GIVEN Time: Aspirin (Capulin Aspirin) 81 MG TABLET.DR 1 Tablet ORAL DAILY Comments: Last Taken:11/03 Time: 0848 Start taking the following new medications: Atorvastatin Calcium (Atorvastatin Calcium) 80 MG TABLET 80 Milligram ORAL Every night Qty = 30 No Refills Comments: Last Taken: 11/02/17 Time: 2200 Methylprednisolone Sod Succ/Pf (Solu-Medrol 40 MG Vial) 40 MG/ML VIAL 40 Milligram INTRAVEN Q12H Qty = 6 No Refills Pantoprazole Sodium (Pantoprazole Sodium) 40 MG VIAL 40 Milligram INTRAVEN DAILY Qty = 4 No Refills Ampicillin Sodium/Sulbactam Na (Unasyn 3 Gm Vial) 3 GRAM VIAL 3 G INTRAVEN Q6H Qty = 12 No Refills Comments: Last Taken: 11/03 Time: 1900 Copies To: Sukhi GRADY,Jamison Rodriguez; Guadalupe GRADY,Zackery; Sherrill GRADY,Michael Macedo; Yesenia GRADY,Sathya Great Vessels Aortic root and proximal ascending aorta not well visualized, grossly normal. CONCLUSIONS 1. This was a technically difficult study due to the patient's body habitus. 2. Aortic sclerosis is present with no valvular stenosis or insufficiency. 3. Mitral leaflet thickening is present with minimal mitral insufficiency. 4. A very small posterior pericardial effusion is present which is hemodynamically insignificant. 5. The left ventricular chamber size and systolic function appear normal. There are no obvious resting wall motion abnormalities. 6. Mild to moderate tricuspid insufficiency is present. There is no evidence of significant pulmonary hypertension. Mike Guzman M.D. (Electronically Signed) Final Date: 02 November 2017 15:22 MEASUREMENTS (Male / Female) Normal Values 2D ECHO LV Diastolic Diameter PLAX 3.6 cm 4.2 - 5.9 / 3.9 - 5.3 cm LV Systolic Diameter PLAX 2.1 cm 2.1 - 4.0 cm LV Fractional Shortening PLAX 41.7 % 25 - 46 % LV Ejection Fraction 2D Teich 73.5 % IVS Diastolic Thickness 1.1 cm LVPW Diastolic Thickness 1.1 cm LV Relative Wall Thickness 0.6 RV Internal Dim ED PLAX 3.2 cm 1.9 - 3.8 cm LVOT Diameter 1.9 cm Aortic Root Diameter 2.3 cm LA Systolic Diameter LX 3.2 cm 3.0 - 4.0 / 2.7 - 3.8 cm LA Volume 29.0 cm 18 - 58 / 22 - 52 cm Ascending Aorta Diameter 2.8 cm DOPPLER AV Peak Velocity 136.0 cm/s AV Peak Gradient 7.4 mmHg AV Mean Velocity 91.1 cm/s AV Mean Gradient 4.0 mmHg AV Velocity Time Integral 32.3 cm LVOT Peak Velocity 72.9 cm/s LVOT Peak Gradient 2.1 mmHg LVOT Mean Velocity 43.8 cm/s LVOT Mean Gradient 1.0 mmHg LVOT Velocity Time Integral 17.5 cm LVOT Stroke Volume 49.6 cm AV Area Cont Eq vti 1.5 cm AV Area Cont Eq pk 1.5 cm MV Peak Velocity 84.1 cm/s MV Peak Gradient 2.8 mmHg MV Mean Velocity 55.2 cm/s MV Mean Gradient 1.0 mmHg Mitral E Point Velocity 77.0 cm/s Mitral A Point Velocity 75.5 cm/s Mitral E to A Ratio 1.0 MV PHT Velocity 93.7 cm/s MV Deceleration [place] 365.0 cm/s MV Pressure Half Time 77.0 ms MV Area PHT 2.9 cm MV Deceleration Time 130.0 ms TR Peak Velocity 255.0 cm/s TR Peak Gradient 26.0 mmHg Right Atrial Pressure 10.0 mmHg Pulmonary Artery Systolic Pressu 36.0 mmHg Right Ventricular Systolic Press 36.0 mmHg PV Peak Velocity 96.5 cm/s PV Peak Gradient 3.7 mmHg PV Mean Velocity 64.0 cm/s PV Mean Gradient 2.0 mmHg PV Velocity Time Integral 21.9 cm DICTATED BY: Rome Guzman MD DATE/TIME DICTATED:11/02/171521 SNOWBLOWER MECHANIC:TOÑO DATE/TIME TRANSCRIBED:11/02/171521 CT angiogram of the chest done on 11/01/2017 after rapid response: FINDINGS: BRAIN: There is hyperostosis interna frontalis. The patient is intubated. There is no evidence of acute intracranial hemorrhage or territorial infarction. No abnormal mass effect or midline shift is seen. Cardoso to white matter differentiation is well preserved. No extra-axial fluid collections are identified. The ventricles are normal in size. There is a small lacunar infarct in the anterior limb of the left internal capsule. The osseous structures and soft tissues are normal. Mastoid air cells are well aerated. Some fluid is seen in the left maxillary sinus and there is evidence of mild bilateral ethmoid sinusitis. CTA OF THE CHEST: SAIL FINISHER MACHINE: The tip of the endotracheal tube is just above the dominick tending towards right mainstem bronchus. It would be advantageous to withdraw the tube slightly. Also, there is significant gaseous distention the stomach which may have been introduced during intubation. QUALITY OF STUDY/CONTRAST BOLUS: Satisfactory. PULMONARY ARTERIES: No central or segmental pulmonary emboli. THORACIC AORTA: No aneurysm or dissection. Calcific plaques are seen throughout the thoracic aorta as well as at the origins of the arch vessels LUNG: The patient has centrilobular emphysema. PLEURA: There are trace bilateral pleural effusions. MEDIASTINUM: The heart is prominent in size. No pericardial effusion. Small lymph nodes are seen in the subcarinal region and in both hilar regions. In view of the emphysema, these could be reactive nodes. No evidence of septal bowing or right heart strain. Coronary arteries are calcified. Mediastinal lipomatosis. CHEST WALL/AXILLA: No axillary or internal mammary lymphadenopathy. OSSEOUS STRUCTURES: Multilevel disc disease in the thoracic spine. UPPER ABDOMEN: Unremarkable. No reflux of contrast into the hepatic veins to suggest elevated right heart pressures. IMPRESSION: 1. No evidence of pulmonary embolism. 2. Tip of endotracheal tube just above the dominick. 3. Centrilobular emphysema and bilateral lower lobe dependent atelectasis. Trace effusions. Reactive hilar or mediastinal adenopathy. 4. No acute intracranial pathology. VTE: Negative. DICTATED BY: Stefan Osuna MD DATE/TIME DICTATED:11/01/172208 SNOWBLOWER MECHANIC:TOÑO DATE/TIME TRANSCRIBED:11/01/172208 Disposition Summary Disposition Principal Diagnosis: #Acute hypercarbic respiratory failure, status post intubation and mechanical ventilation #Large right cerebellar and cerebellar infarction, with slight cerebellar tonsillar herniation #Status post left knee replacement on 11/01/2017 Additional Diagnosis: hypertension, hyperlipidemia, COPD, prior smoker, type 2 diabetes, GERD, osteoarthritis Discharge Disposition: other general hospital Discharge Instructions General Discharge Information Code Status: Full Code Patient's Diet: NPO Patient's Activity: - Left knee passive ROM exercises, s/p surgery - Early PT in the ICU Follow-Up Instructions/Appts: Patient is being transferred to higher facility, is supposed to follow up with instructions when discharged from there. Medications at Discharge Discharge Medications: Stop taking the following medications: Acetaminophen With Codeine (Acetaminophen-Cod #4 Tablet) 300 MG-60 MG TABLET ORAL THREE TIMES DAILY as needed for PAIN SCALE 7-10 (SEVERE) Qty = 30 Atorvastatin Calcium (Atorvastatin Calcium) 10 MG TABLET ORAL Every night Cyclobenzaprine HCl (Cyclobenzaprine HCl) 10 MG TABLET ORAL THREE TIMES DAILY as needed for BACK SPASM Continue taking these medications: Valsartan (Valsartan) 160 MG TABLET 1 Tablet ORAL DAILY Days = 30 Tiotropium Waterman (Spiriva) 18 MCG CAP.W.DEV 1 Capsule Inhale through mouth AFTERNOON Comments: Last Taken: NOT GIVEN Time: Hydrochlorothiazide (Hydrochlorothiazide) 25 MG TABLET 1 Tablet ORAL Every night Comments: Last Taken: NOT GIVEN Time: Metformin HCl (Metformin HCl) 1,000 MG TABLET 1 Tablet ORAL TWICE DAILY Comments: Last Taken: NOT GIVEN Time: Omeprazole (Omeprazole) 20 MG TABLET.DR 1 Tablet ORAL Every night Comments: Last Taken: NOT GIVEN Time: Saxagliptin (Onglyza) 5 MG TABLET 1 Tablet ORAL TWICE DAILY Instructions: LUNCH AND DINNER Comments: Last Taken: NOT GIVEN Time: Aspirin (Capulin Aspirin) 81 MG TABLET.DR 1 Tablet ORAL DAILY Comments: Last Taken:11/03 Time: 0848 Start taking the following new medications: Atorvastatin Calcium (Atorvastatin Calcium) 80 MG TABLET 80 Milligram ORAL Every night Qty = 30 No Refills Methylprednisolone Sod Succ/Pf (Solu-Medrol 40 MG Vial) 40 MG/ML VIAL 40 Milligram INTRAVEN Q12H Qty = 6 No Refills Pantoprazole Sodium (Pantoprazole Sodium) 40 MG VIAL 40 Milligram INTRAVEN DAILY Qty = 4 No Refills Ampicillin Sodium/Sulbactam Na (Unasyn 3 Gm Vial) 3 GRAM VIAL 3 G INTRAVEN Q6H Qty = 12 No Refills Copies To: Sukhi GRADY,Jamison Rodriguez; Zackery Butcher MD; Sherrill GRADY,Michael Macedo; Sathya Patterson MD
[2017-11-03] MEDS ORDERED: ATORVASTATIN CA80 M1 PO (20:10)
[2017-11-03] MEDS ORDERED: SOLU-MEDRO40 MG/1 ML IV (20:10)
[2017-11-03] MEDS ORDERED: UNASYN 3 GM VIAL3 GM IV (20:20)
[2017-11-03] MEDS ORDERED: PANTOPRAZOLE SO40 M2 IV (20:20)
[2017-11-03 21:08] VITALS: BP 180/80
== END 2017-11-03 22:00 | disposition short-term general hospital (02) | DRG 469 ==
LOC: SDA 01:08 → CRI 01:08 → ENRESERV 12:11 → ENTRNSPT 13:43 → EDTRNSPT 13:58 → EDTRNSPTSTS 13:58 → 2NB 14:12 → CMPTRNSPT 14:29 → CRI 21:43
PROVIDERS: Internal Medicine; Internal Medicine Interventional Cardiology; Student in an Organized Health Care Education/Training Program
PROC: 0SRD0J9 Replacement of Left Knee Joint with Synthetic Substitute, Cemented, Open Approach (ICD-10-PCS; principal; 2017-11-01)
PROC: 3E0T3BZ Introduction of Anesthetic Agent into Peripheral Nerves and Plexi, Percutaneous Approach (ICD-10-PCS; 2017-11-01)
PROC: 0BH17EZ Insertion of Endotracheal Airway into Trachea, Via Natural or Artificial Opening (ICD-10-PCS; 2017-11-01)
PROC: 5A1945Z Respiratory Ventilation, 24-96 Consecutive Hours (ICD-10-PCS; 2017-11-01)
DX: M17.12 Unilateral primary osteoarthritis, left knee (principal); J96.01 Acute respiratory failure with hypoxia; I63.9 Cerebral infarction, unspecified; J69.0 Pneumonitis due to inhalation of food and vomit; J96.02 Acute respiratory failure with hypercapnia; E83.42 Hypomagnesemia; I24.8 Other forms of acute ischemic heart disease; E11.22 Type 2 diabetes mellitus with diabetic chronic kidney disease; E87.2 Acidosis; E87.1 Hypo-osmolality and hyponatremia; N18.3 Chronic kidney disease, stage 3 (moderate); I12.9 Hypertensive chronic kidney disease with stage 1 through stage 4 chronic kidney disease, or unspecified chronic kidney disease; G81.94 Hemiplegia, unspecified affecting left nondominant side; J44.9 Chronic obstructive pulmonary disease, unspecified; E11.65 Type 2 diabetes mellitus with hyperglycemia; K21.9 Gastro-esophageal reflux disease without esophagitis; E78.00 Pure hypercholesterolemia, unspecified; Z90.710 Acquired absence of both cervix and uterus; E78.5 Hyperlipidemia, unspecified; G89.29 Other chronic pain; M54.9 Dorsalgia, unspecified; R11.2 Nausea with vomiting, unspecified; Z87.891 Personal history of nicotine dependence; Z79.84 Long term (current) use of oral hypoglycemic drugs
CPT/HCPCS: 84133; 84300; CCU; 36415; 71045; 73560-LT; 81001; 82436; 82570; 87040; 87070; 87086; 93005; 93010; 93306; 93325; 94799; 97110-GO; 97112-GO; 97161-GP; 97165-GO; C1713; C9290; J0131; J0690; J1100; J1644; J1815; J2310; J2405; J2795; J2920; J2930; J3370; J3490; J7040; J7042; J7060

== ENCOUNTER 2018-03-25 12:18 | Inpatient (IN) | payer OTHER ==
[~2018-03-25] VITALS: Ht 162.6 cm; Wt 63.6 kg
[~2018-03-25 12:18] MED LIST changes: +ATORVASTATIN CA80 M1 PO; +DOCUSATE SODIU100 M3 PO; +ELIQUIS2.5 M1 PO; +PANTOPRAZOLE SO40 M2 IV; +PERCOCET 5-3251 EACH PO; +SOLU-MEDRO40 MG/1 ML IV; +UNASYN 3 GM VIAL3 GM IV
--- NOTE | 2018-03-25 12:32 | ED NEURO DEFICIT/STROKE ---
History of Present Illness General Chief Complaint: Altered Mental Status Stated Complaint: BIBA ALTERED MENTAL STATUS Source: patient, family, old records, EMS Exam Limitations: no limitations Vital Signs & Intake/Output Vital Signs & Intake/Output Vital Signs Date Time Temp Pulse Resp B/P B/P Pulse O2 O2 Flow FiO2 Mean Ox Delivery Rate 03/25 1250 90 18 141/86 92 Room Air Allergies Coded Allergies: No Known Allergies (10/18/17) Reconcile Medications Acetaminophen With Codeine (Acetaminophen-Cod #3 Tablet) 300 MG-30 MG TABLET 1 TAB PO DAILY PRN PAIN (Reported) Albuterol Sulfate 2.5 MG/3 ML (0.083 %) VIAL.NEB 1 Vial INH/SHANKAR AD PRN RESP. (Reported) Apixaban (Eliquis) 2.5 MG TABLET 1 TAB PO BID BLOOD THINNER (Reported) Atorvastatin Calcium 40 MG TABLET 1 TAB PO DAILY CHOLESTEROL (Reported) Cyclobenzaprine HCl 5 MG TABLET 1 TAB PO AD PRN MUSCLE SPASMS (Reported) Dextran 70/Hypromellose (Artificial Tears) 1 EACH DROPERETTE 1 DROP OU AD PRN BOTH EYES (Reported) Ipratropium [place] (Atrovent Hfa) 17 MCG/ACTUATION HFA.AER.AD 1 PUFF INH BID RESP. (Reported) Metformin HCl 1,000 MG TABLET 1 TAB PO BID DIABETES (Reported) Nitroglycerin 0.4 MG TAB.SUBL 1 TAB SL AD PRN CHEST PAIN (Reported) 1st sign of attack; may repeat every 5 minutes until relief; if pain persists after 3 tablets in 15 minutes, prompt medical att Pantoprazole Sodium 40 MG TABLET.DR 1 TAB PO DAILY GI (Reported) Tramadol HCl 50 MG TABLET 1 TAB PO BID PRN PAIN (Reported) Triage Nurses Notes Reviewed? yes HPI: Patient had a sudden onset of aphasia. Patient has a history of a prior stroke. EMS was contacted. Patient was a phasic and not really following commands upon their arrival. En route to the hospital the symptoms resolved and the patient began to speak normally. Patient denies any headache. There is no chest pain. There is no shortness of breath. Patient was taken straight to CAT scan upon arrival to the emergency department. I walked over with her and then performed a neurological evaluation. Patient has residual left facial droop and left arm weakness after her prior stroke. Past History Travel History Traveled to [place] past 21 day No Medical History Any Pertinent Medical History? 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 No Review of Systems Review of Systems Constitutional: Reports: no symptoms. EENTM: Reports: no symptoms. Respiratory: Reports: no symptoms. Cardiovascular: Reports: no symptoms. GI: Reports: no symptoms. Genitourinary: Reports: no symptoms. Musculoskeletal: Reports: no symptoms. Skin: Reports: no symptoms. Neurological/Psychological: Reports: see HPI. Hematologic/Endocrine: Reports: no symptoms. Immunologic/Allergic: Reports: no symptoms. All Other Systems: Reviewed and Negative Physical Exam Physical Exam General Appearance: well developed/nourished, alert, awake Head: atraumatic, normal appearance Eyes: Bilateral: PERRL, EOMI. Ears, Nose, Throat: moist mucous membrane, hearing grossly normal, LEFT FACIAL DROOP Neck: normal inspection, supple, full range of motion Respiratory: normal breath sounds, chest non-tender, no respiratory distress, lungs clear Cardiovascular: regular rate/rhythm, normal peripheral pulses Gastrointestinal: normal bowel sounds, soft, non-tender, no organomegaly Back: normal inspection, normal range of motion Extremities: normal range of motion Psychiatric: awake, alert, oriented x 3 Cranial Nerves: normal hearing, normal speech, PERRL Motor/Sensory: weak motor strength LUE Core Measures CVA/TIA Diagnosis: Yes NIH Stroke Scale NIH Stroke Scale Response Value Level of Consciousness alert 0 LOC Questions answers both correctly 0 LOC Commands obeys both correctly 0 Best Gaze normal 0 Visual Aaron no visual loss 0 Facial Paresis minor 1 Motor Arm - Left drift 1 Motor Arm - Right no drift 0 Motor Leg - Left no drift 0 Motor Leg - Right no drift 0 Limb Ataxia no ataxia 0 Sensory normal 0 Best Language no aphasia 0 Dysarthria normal articulation 0 Extinction and Inattention no neglect 0 Total 2 Date Last Known Well: 03/25/18 Time Last Known Well: 1200 Symptom Start Date: 03/25/18 Symptom Start Time: 1220 tPA Risk/Benefit discussion I have discussed the risks, benefits, and alternatives of Alteplase treatment including: - If given promptly, can resolve or have major improvement in stroke symptoms. - Bleeding (hemorrhage) is the most common risk that can occur. - Bleeding may occur into the brain and cause~terminal worker serious disability~ including - this is rare, affecting about 1% of patients. - Alternative treatments with proven benefit for patients with stroke include aspirin and care in a specialized unit where staff members pay careful attention to a variety of basic aspects of care. tPA given? No Reason tPA not given Medical Contraindication Sepsis Present: No Sepsis Focused Exam Completed? No Progress Differential Diagnosis: electrolyte imbalance, intracranial Hem., intracranial mass/tumor, migraine SKELTON, seizure disorder, stroke, subarachnoid Hem., vertebrobasilar insuff. Plan of Care: Orders Procedure Date/time Status Heart Healthy Diet 03/[address] in observation 03/25 1548 Active ED Holding Orders 03/25 1548 Active Vital Signs 03/25 1548 Active Code Status 03/25 1548 Active Telemetry/Mixing Technician 03/25 1230 Active TROPONIN LEVEL 03/25 1230 Complete PARTIAL THROMBOPLASTIN TIME 03/25 1230 Complete PROTHROMBIN TIME 03/25 1230 Complete COMPREHENSIVE METABOLIC PANEL 03/25 1230 Complete CBC WITHOUT DIFFERENTIAL 03/25 1230 Complete EKG 03/25 1230 Active Laboratory Tests 03/25/18 1408: Anion Gap 9, Estimated GFR > 60, BUN/Creatinine Ratio 12.2, Glucose 124 H, Calcium 9.2, Total Bilirubin 0.4, AST 17, ALT 27, Alkaline Phosphatase 94, Troponin I < 0.01, Total Protein 6.3, Albumin 3.9, Globulin 2.4, Albumin/ Globulin Ratio 1.6, PT 12.7 H, INR 1.16, APTT 36, CBC w Diff NO MAN DIFF REQ, RBC 4.36, MCV 88.4, MCH 29.3, MCHC 33.1, RDW 15.0 H, MPV 7.7, Gran % 83.1 H, Lymphocytes % 12.4 L, Monocytes % 3.2, Eosinophils % 1.1, Basophils % 0.2, Absolute Granulocytes 8.6 H, Absolute Lymphocytes 1.3, Absolute Monocytes 0.3, Absolute Eosinophils 0.1, Absolute Basophils 0 Diagnostic Imaging: Viewed by Me: Radiology Read, CT Scan. Discussed w/RAD: Radiology Read, CT Scan. Radiology Impression: PATIENT: VINCENT CLAYTON PRESENT AGE: 73 PATIENT ACCOUNT NO: [id number] : 44 LOCATION: [facility] ORDERING PHYSICIAN: Eric Hernandez MD SERVICE DATE: 03/25/18 EXAM TYPE: CAT - CT HEAD WO IV CONTRAST EXAMINATION: CT HEAD WITHOUT CONTRAST CLINICAL INFORMATION: Altered mental status. Prior history stroke. COMPARISON: None TECHNIQUE: Contiguous axial imaging was performed from the skull base to vertex without intravenous administration of contrast. DLP: 757 mGy-cm FINDINGS: There is no intracranial hemorrhage, hematoma, or extra-axial fluid collection. There is no hydrocephalus. Some compensatory enlargement of the right lateral ventricle is seen since prior study related to the extensive right-sided infarct previously. 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 There is evidence of old infarct right parietal region. Suspect interval new infarct involving woo and white matter right temporal parietal region. Left brain unremarkable. No midline shift. Correlation with MRI would be helpful in differentiating prior old gliosis from new acute stroke. The calvarium appears intact. There is no pneumocephalus or orbital emphysema. The visualized sinuses and middle ears and mastoid air cells show no significant mucosal thickening. There are no air-fluid levels. Results called to Dr. Hernandez in the Emergency Department at 1241 hours. IMPRESSION: 1. No acute intracranial hemorrhage or hematoma. 2. Old extensive infarct right brain. Suspect interval new infarct right temporal parietal region. Correlation with MRI would be helpful in differentiating prior old gliosis from new acute stroke. DICTATED BY: Ilan Kauffman MD DATE/TIME DICTATED:03/25/181232 DIESEL PLANT OPERATOR:TOÑO DATE/TIME TRANSCRIBED:03/25/181232 CONFIDENTIAL, DO NOT COPY WITHOUT APPROPRIATE AUTHORIZATION. <Electronically signed in Other Vendor System> SIGNED BY: Ilan Kauffman MD 03/25/18 1251 Pre-Hospital EKG: NSR, LVH, nonspecific ST T wave chg Initial ED EKG: NSR, LVH, nonspecific ST T wave chg Prior EKG: unchanged Comments: Family states that her recreation counselor does not want her to receive any aspirin given the fact that he had to lower her dose of her anticoagulation secondary to bleeding. Departure Departure Disposition: STILL A PATIENT Condition: Stable Clinical Impression Primary Impression: TIA (transient ischemic attack) Referrals: Eric Kearney MD (PCP/Family) Departure Forms: Customer Survey General Discharge Information Observation Note Spoke With: Tye GRADY,Amir Physician Advisor Notified: LACHO GRADY,ERIC Dickens. Place Patient In: Non-ED OBS Care Area Rationale for Observation: My rational for observation is as follows [telemetry observation, serial enzymes , neurology consultation, serial neuro checks].
[2018-03-25] MEDS ORDERED: ACETAMINOPHEN-1 EAC3 PO (12:47)
[2018-03-25] MEDS ORDERED: ELIQUIS2.5 M1 PO (12:47)
[2018-03-25] MEDS ORDERED: TRAMADOL HCL50 M1 PO (12:48)
[2018-03-25] MEDS ORDERED: PANTOPRAZOLE SO40 M1 PO (12:49)
[2018-03-25] MEDS ORDERED: ATROVENT HFA12.9 GM INH (12:50)
[2018-03-25] MEDS ORDERED: ALBUTEROL2.5 MG/3 M INH/SOL (12:51)
[2018-03-25] MEDS ORDERED: NITROGLYCERIN0.4 M1 SL (12:51)
--- NOTE | 2018-03-25 12:51 | CT SCAN REPORT ---
EXAMINATION: CT HEAD WITHOUT CONTRAST CLINICAL INFORMATION: Altered mental status. Prior history stroke. COMPARISON: None TECHNIQUE: Contiguous axial imaging was performed from the skull base to vertex without intravenous administration of contrast. DLP: 757 mGy-cm FINDINGS: There is no intracranial hemorrhage, hematoma, or extra-axial fluid collection. There is no hydrocephalus. Some compensatory enlargement of the right lateral ventricle is seen since prior study related to the extensive right-sided infarct previously. 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 There is evidence of old infarct right parietal region. Suspect interval new infarct involving woo and white matter right temporal parietal region. Left brain unremarkable. No midline shift. Correlation with MRI would be helpful in differentiating prior old gliosis from new acute stroke. The calvarium appears intact. There is no pneumocephalus or orbital emphysema. The visualized sinuses and middle ears and mastoid air cells show no significant mucosal thickening. There are no air-fluid levels. Results called to Dr. Hernandez in the Emergency Department at 1241 hours. IMPRESSION: 1. No acute intracranial hemorrhage or hematoma. 2. Old extensive infarct right brain. Suspect interval new infarct right temporal parietal region. Correlation with MRI would be helpful in differentiating prior old gliosis from new acute stroke.
[2018-03-25] MEDS ORDERED: ARTIFICIAL TEA1 EACH OU (12:52)
[2018-03-25] MEDS ORDERED: CYCLOBENZAPRINE5 M2 PO (12:53)
[2018-03-25 14:16] LABS: ABSOLUTE BASOPHIL COUNT 0 /CUMM (0.0-0.2); ABSOLUTE EOSINOPHIL COUNT 0.1 /CUMM (0.0-0.7); ABSOLUTE GRANULOCYTE CT 8.6 /CUMM (1.4-6.5); ABSOLUTE LYMPH COUNT 1.3 /CUMM (1.2-3.4); ABSOLUTE MONOCYTE COUNT 0.3 /CUMM (0.10-0.60); BASOPHIL % 0.2 % (0.0-2.0); EOSINOPHIL % 1.1 % (0-5); GRANULOCYTE % 83.1 % (42.2-75.2); HEMATOCRIT 38.5 % (37-47); MEAN CORPUSCULAR HGB 29.3 PG (27.0-31.0); MEAN CORPUSCULAR HGB CONC 33.1 G/DL (33.0-37.0); MEAN CORPUSCULAR VOLUME 88.4 FL (81.0-99.0); MEAN PLATELET VOLUME 7.7 FL (7.4-10.4); PLATELET COUNT 316 /CUMM (130-400); RED BLOOD CELL CT 4.36 /CUMM (4.20-5.40); WHITE BLOOD CELL COUNT 10.4 /CUMM (4.8-10.8)
[2018-03-25 14:44] LABS: PT 12.7 SEC (9.4-12.5); PTT 36 SEC (25-37)
--- NOTE | 2018-03-25 16:13 | History & Physical ---
Shahana GRADY,[facility] 03/25/18 1612: General Information and HPI MD Statement: I have seen and personally examined VINCENT CLAYTON and documented this H&P. The patient is a 73 year old F who presented with a patient stated chief complaint of [Aphasia]. Source of Information: patient, family Exam Limitations: no limitations History of Present Illness: Ms. Clayton is a 73 year-old female with history of hypertension, hyperlipidemia, COPD, prior smoker, type 2 diabetes, GERD, osteoarthritis, who was admitted to [facility] in October for left knee surgery replacement and was transferred to [facility] after she had multiple ischemic strokes after the surgery with residual left-sided facial droop and left upper extremity weakness, currently on Eliquis for PFO, is brought in by her daughter today for Aphasia. Most of the history was provided by the daughter who stated that patient was in her usual state of health until the morning when after the breakfast patient mentioned that she did not feel right. Then she started complaining of sudden chest discomfort and shortness of breath, daughter gave her sublingual nitroglycerin and albuterol neb without any improvement. Soon afterwards she had slurring of her speech followed by complete inability to talk. Daughter called EMS and she was brought to the [place] ER. But upon arrival to the ER her symptoms have completely resolved and patient was able to talk. Daughter also noticed that when she asked her mother to smile her right side was not as perked up as usual. Also reports an episode of vomiting at the time of arrival of EMS. Per the daughter, she saw her dough mixer(Dr. Kay) on Monday, and everything was normal at that time. Her Eliquis was reduced to 2.5 mg twice daily last week because of nasal bleeding and temporal headaches. She has been undergoing physical therapy and occupational therapy with improvement in her left lower extremity strength. Allergies/Medications Allergies: Coded Allergies: No Known Allergies (10/18/17) Home Med list Acetaminophen With Codeine (Acetaminophen-Cod #3 Tablet) 300 MG-30 MG TABLET 1 TAB PO DAILY PRN PAIN (Reported) Albuterol Sulfate 2.5 MG/3 ML (0.083 %) VIAL.NEB 1 Vial INH/SHANKAR AD PRN RESP. (Reported) Apixaban (Eliquis) 2.5 MG TABLET 1 TAB PO BID BLOOD THINNER (Reported) Atorvastatin Calcium (Lipitor) 80 MG TABLET 1 TAB PO DAILY CVA (Reported) Cyclobenzaprine HCl 5 MG TABLET 0.5 TAB PO AD PRN MUSCLE SPASMS (Reported) Dextran 70/Hypromellose (Artificial Tears) 1 EACH DROPERETTE 1 DROP OU AD PRN BOTH EYES (Reported) Ipratropium [place] (Atrovent Hfa) 17 MCG/ACTUATION HFA.AER.AD 1 PUFF INH BID RESP. (Reported) Metformin HCl 1,000 MG TABLET 1 TAB PO BID DIABETES (Reported) Nitroglycerin 0.4 MG TAB.SUBL 1 TAB SL AD PRN CHEST PAIN (Reported) 1st sign of attack; may repeat every 5 minutes until relief; if pain persists after 3 tablets in 15 minutes, prompt medical att Pantoprazole Sodium 40 MG TABLET.DR 1 TAB PO DAILY GI (Reported) Tiotropium [place] (Spiriva) 18 MCG CAP.W.DEV 1 CAP INH DAILY COPD (Reported) Tramadol HCl 50 MG TABLET 1 TAB PO BID PRN PAIN (Reported) Past History Travel History Traveled to [place] past 21 day No Medical History Neurological: CVA, MOTION SICKNESS EENT: NONE Cardiovascular: hypertension, hyperlipidemia Respiratory: COPD Gastrointestinal: NONE Hepatic: NONE Renal: NONE Musculoskeletal: chronic back pain, osteoarthritis Psychiatric: NONE Endocrine: diabetes Blood Disorders: NONE Cancer(s): NONE 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 Home Who Do You Live With? child Services at Home: None Smoking Status: Former Smoker ETOH Use: denies use Illicit Drug Use: denies illicit drug use Review of Systems Review of Systems Constitutional: Reports: no symptoms. EENTM: Reports: no symptoms. Cardiovascular: Reports: no symptoms. Respiratory: Reports: no symptoms. GI: Reports: no symptoms. Genitourinary: Reports: no symptoms. Musculoskeletal: Reports: no symptoms. Skin: Reports: no symptoms. Neurological/Psychological: Reports: no symptoms. Hematologic/Endocrine: Reports: no symptoms. Immunologic/Allergic: Reports: no symptoms. All Other Systems: Reviewed and Negative Exam & Diagnostic Data Last 24 Hrs of Vital Signs/I&O Vital Signs Date Time Temp Pulse Resp B/P B/P Pulse O2 O2 Flow FiO2 Mean Ox Delivery Rate 08/12 1936 99 Nasal 2.5L Cannula 03/25 1932 Nasal 2.5L Cannula 03/25 1851 98.8 88 20 110/80 97 Nasal Cannula 03/25 1755 98.9 95 16 136/75 89 Room Air 03/25 1743 Room Air 03/25 1609 97.6 95 16 134/82 93 Room Air 03/25 1250 90 18 141/86 92 Room Air Physical Exam General Appearance Alert, Oriented X3, Cooperative, No Acute Distress Skin No Rashes, No Breakdown HEENT Atraumatic, PERRLA, EOMI, Mucous Membr. moist/pink Cardiovascular Regular Rate, Normal S1, Normal S2 Lungs Clear to Auscultation, Normal Air Movement Abdomen Normal Bowel Sounds, Soft, No Tenderness Neurological Normal Speech, Normal Tone, Sensation Intact, Cranial Nerves 3-12 NL, strenght 4/5 in LLE, 2/5 in RUE, Normal right sided strenght Extremities No Clubbing, No Cyanosis, No Edema Last 24 Hrs of Labs/Ricci: Laboratory Tests 03/25/18 1830: Troponin I Pending 03/25/18 1408: Anion Gap 9, Estimated GFR > 60, BUN/Creatinine Ratio 12.2, Glucose 124 H, Calcium 9.2, Total Bilirubin 0.4, AST 17, ALT 27, Alkaline Phosphatase 94, Troponin I < 0.01, Total Protein 6.3, Albumin 3.9, Globulin 2.4, Albumin/ Globulin Ratio 1.6, PT 12.7 H, INR 1.16, APTT 36, CBC w Diff NO MAN DIFF REQ, RBC 4.36, MCV 88.4, MCH 29.3, MCHC 33.1, RDW 15.0 H, MPV 7.7, Gran % 83.1 H, Lymphocytes % 12.4 L, Monocytes % 3.2, Eosinophils % 1.1, Basophils % 0.2, Absolute Granulocytes 8.6 H, Absolute Lymphocytes 1.3, Absolute Monocytes 0.3, Absolute Eosinophils 0.1, Absolute Basophils 0 Diagnostic Data EKG Results NSR HR [address]Tc [address] HEAD WO IV CONTRAST IMPRESSION: 1. No acute intracranial hemorrhage or hematoma. 2. Old extensive infarct right brain. Suspect interval new infarct right temporal parietal region. Correlation with MRI would be helpful in differentiating prior old gliosis from new acute stroke. Assessment/Plan Assessment: Ms. Clayton is a 73 year-old female with history of hypertension, hyperlipidemia, COPD, prior smoker, type 2 diabetes, GERD, osteoarthritis, with recent CVA after the left knee surgery with residual left-sided facial droop and left upper extremity weakness, currently on Eliquis for PFO, is brought in by her daughter today for Aphasia. Problem List; 1. TIA with history of recent stroke; could be secondary to the recent reduction in her dose of Eliquis 2. History of PFO on Eliquis 3. Other chronic medical conditions - We will observe the patient on telemetry floor for 24-48 hours - Obtain MRI of the head as recent CAT scan suggestive of a questionable new temporal parietal region infarct.\ -Obtain records from [facility] for CT scan done in November to compare with recent CAT scan. - Give Eliquis 5 mg 1, resume full dose Eliquis in the a.m. if okay with cardiology. - Atorvastatin 80 mg daily. - Neurology consult -Cardiology consult - PT/OT Consult - Passed bedside swallow eval; start on heart healthy diet. -Echocardiogram and carotid ultrasound were done recently in October, we will need to order for now unless recommended by neurology or cardiology. -Hold metformin and start the patient on NovoLog sliding scale. - Continue the rest of her home medications. DVT prophylaxis; ALPS and Eliquis She is full code As Ranked By This Provider Problem List: 1. TIA (transient ischemic attack) Core Measures/Misc (04/30) Acute Coronary Syndrome ACS Diagnosis: No Congestive Heart Failure Congestive Heart Failure Diagnosis No Cerebrovascular Accident CVA/TIA Diagnosis: Yes Date Last Known Well: 03/25/18 Time Last Known Well: 1200 Symptom Start Date: 03/25/18 Symptom Start Time: 1220 tPA Risk/Benefit discussion I have discussed the risks, benefits, and alternatives of Alteplase treatment including: - If given promptly, can resolve or have major improvement in stroke symptoms. - Bleeding (hemorrhage) is the most common risk that can occur. - Bleeding may occur into the brain and cause~halfway serious disability~ including - this is rare, affecting about 1% of patients. - Alternative treatments with proven benefit for patients with stroke include aspirin and care in a specialized unit where staff members pay careful attention to a variety of basic aspects of care. tPA given? No Reason tPA not ordered Medical Contraindication Swallow Evaluation Pass Current/Past Hx AFib/AFlutter No VTE (View Protocol) VTE Risk Factors Age>40 No Mechanical VTE Prophylaxis d/t N/A MechProphylax Ordered No VTE Pharm Prophylaxis d/t NA PharmProphylax ordered Sepsis (View protocol) Sepsis Present: No If YES complete Sepsis Event Note If YES complete Sepsis Event Note Tye GRADY,Amir 03/25/182003: Core Measures/Misc (04/30) Sepsis (View protocol) If YES complete Sepsis Event Note If YES complete Sepsis Event Note Attending MD Review Statement Attending Statement Attending MD Statement: examined this patient, discuss w/resident/PA/SVP, agreed w/resident/PA/SVP, discussed with family, reviewed EMR data (avail) Attending Assessment/Plan: Ms. Clayton was seen and evaluted. Chart reviewed. Briefly, she is a 73 yo F with h/o stroke was brought to ER due to aphasia. Pt symptomps improved however, CT scan c/w interval new infarct Rt temporal parietal region --cont full dose eloquis --neuro consult
[2018-03-25] MEDS ORDERED: LIPITOR80 M1 PO (17:19)
[2018-03-25] MEDS ORDERED: SPIRIVA18 MCG INH (17:25)
[2018-03-25 18:51] VITALS: BP 110/80
--- NOTE | 2018-03-25 18:56 | Admission Certification ---
Admission Certification Certification Statement - As attending physician, I certify that at the time of - admission, based on clinical presentation, severity of - symptoms, need for further diagnostic testing and - therapeutic interventions, and risk of adverse outcomes - without in-hospital treatment, in my clinical assessment, - this patient requires an acute hospital stay for a minimum - of two nights or longer. I have also considered psychsocial - factors such as support system, advanced age, financial - issues, cognitive issues, and failed out-patient treatments, - past re-admission history, safety of patient, and lack of - compliance as applicable. Specific rationale supporting this admission is: h/o stroke p/w new stroke
[2018-03-25 23:28] VITALS: BP 112/78
--- NOTE | 2018-03-26 06:39 | PN- Housestaff ---
Gilmer Lindo 03/26/18 0638: Subjective Follow-up For: New/Acute R MCA stroke History of prior R MCA stroke History of PFO Tele-Events Since Last Visit: Normal sinus rhythm overnight, with sinus tachycardia up to 107 Subjective: Patient seen resting comfortably in the bed. She reports L sided weakness that is not new, and is feeling tired and lethargic. She denies headache, dizziness, or loss of vision. Review of Systems Constitutional: Denies: chills, diaphoresis, fever. Objective Last 24 Hrs of Vital Signs/I&O Vital Signs Date Time Temp Pulse Resp B/P B/P Pulse O2 O2 Flow FiO2 Mean Ox Delivery Rate 03/26 0703 98.4 84 20 98/70 91 Nasal 2.0L Cannula 03/26 0000 93 Nasal 1.5L Cannula 03/25 2328 98.2 87 20 112/78 92 Room Air 03/25 1936 99 Nasal 2.5L Cannula 03/25 1932 Nasal 2.5L Cannula 03/25 1851 98.8 88 20 110/80 97 Nasal Cannula 03/25 1755 98.9 95 16 136/75 89 Room Air 03/25 1743 Room Air 03/25 1609 97.6 95 16 134/82 93 Room Air 03/25 1250 90 18 141/86 92 Room Air Intake & Output 03/26 0800 03/26 0000 03/25 1600 Intake Total 50 Output Total 380 Balance -330 Intake, Oral 50 Output, Urine 380 Patient 72.575 kg Weight Physical Exam General Appearance: Alert, Oriented X3, Cooperative, No Acute Distress Current Medications: Current Medications Sig/Harish Start time Last Medication Dose Route Stop Time Status Admin Acetaminophen 650 MG Q6P PRN 03/25 1630 AC PO Albuterol Sulfate 3 ML Q4P PRN 03/25 1945 AC INH Albuterol Sulfate 3 ML DAILY PRN 03/25 1715 DC INH Apixaban 5 MG ONCE ONE 03/25 1730 DC 03/25 PO 03/25 1731 2206 Atorvastatin Calcium 80 MG DAILY@1700 03/25 1720 AC 03/25 PO 2207 Cyclobenzaprine HCl 2.5 MG DAILY PRN 03/25 1730 AC PO Cyclobenzaprine HCl 5 MG ONCE ONE 03/25 1600 DC 03/25 PO 03/25 1601 1600 Cyclobenzaprine HCl 0 .STK-MED ONE 03/25 1553 DC PO Insulin Aspart 0 TIDAC 03/26 0800 AC SC Lidocaine 1 PAT ONCE ONE 03/25 1445 DC 03/25 TOP 03/25 1446 1513 Nitroglycerin 0.4 MG DAILY PRN 03/25 1730 AC SL Omeprazole 40 MG DAILY AC 03/26 0700 AC 03/26 PO 0614 Omeprazole 40 MG DAILY AC 03/25 1718 DC PO Tramadol HCl 50 MG BID PRN 03/25 1730 AC PO Last 24 Hrs of Lab/Ricci Results Last 24 Hrs of Labs/Mics: Laboratory Tests 03/26/18 0630: Sodium Pending, Potassium Pending, Chloride Pending, Carbon Dioxide Pending, Anion Gap Pending, BUN Pending, Creatinine Pending, BUN/Creatinine Ratio Pending 03/26/18 0050: Troponin I < 0.01 03/25/18 1830: Troponin I < 0.01 03/25/18 1408: Anion Gap 9, Estimated GFR > 60, BUN/Creatinine Ratio 12.2, Glucose 124 H, Calcium 9.2, Total Bilirubin 0.4, AST 17, ALT 27, Alkaline Phosphatase 94, Troponin I < 0.01, Total Protein 6.3, Albumin 3.9, Globulin 2.4, Albumin/ Globulin Ratio 1.6, PT 12.7 H, INR 1.16, APTT 36, CBC w Diff NO MAN DIFF REQ, RBC 4.36, MCV 88.4, MCH 29.3, MCHC 33.1, RDW 15.0 H, MPV 7.7, Gran % 83.1 H, Lymphocytes % 12.4 L, Monocytes % 3.2, Eosinophils % 1.1, Basophils % 0.2, Absolute Granulocytes 8.6 H, Absolute Lymphocytes 1.3, Absolute Monocytes 0.3, Absolute Eosinophils 0.1, Absolute Basophils 0 Assessment/Plan Assessment: 73 year-old female with history of hypertension, hyperlipidemia, COPD, prior smoker, type 2 diabetes, GERD, osteoarthritis, with recent CVA after the left knee surgery with residual left-sided facial droop and left upper extremity weakness, currently on Eliquis for PFO and presenting with aphasia. MRI brain today showed small focus of acute ischemia within the right frontal lobe superimposed on large old right MCA territory infarction. Additional old infarct noted in the right cerebellum with cortical laminar necrosis. Problems: 1. Acute stroke, R MCA territory 2. L sided weakness (s/p prior R MCA stroke) 3. Aphasia (resolved) Plan: * MRA head and neck * Patient passed bedside swallow eval in ED * Recommended repeat ST swallow eval in light of MRI findings * Patient refusing to remain NPO, "has been eating pizza all day" * Eliquis 2.5mg BID * Aspirin & statin Problem List: 1. History of hypertension 2. Acute CVA (cerebrovascular accident) Pain Ratin Pain Location: none Pain Goal: Pain 4 or less Pain Plan: per pathway Tomorrow's Labs & Rationales: CAMILO Combs MD,Lucille 03/26/18 1029: Attending MD Review Statement Attending Statement Attending MD Statement: examined this patient, discuss w/resident/PA/GANDY DANCER, agreed w/resident/PA/GANDY DANCER, reviewed EMR data (avail), discussed with nursing, discussed with case mgmt, reviewed images Attending Assessment/Plan: 73-year-old female past medical history of hypertension, hyperlipidemia and PFO with previous old right-sided infarct. She was brought in with a suspicion of a TIA by her daughter for a phase here. The CT is suggestive of a new right temporoparietal infarct in the MRI is pending. Cardiology was consulted and we have her on her low-dose Eliquis and aspirin. She cannot take high-dose Eliquis because of epistaxis. PT has cleared her for home with PT and will plan discharge based on MRI results.
[2018-03-26 07:03] VITALS: BP 98/70
--- NOTE | 2018-03-26 07:46 | Cons- Cardiology ---
General Information and HPI Consulting Request Date of Consult: 03/26/18 Requested By: Lucille Combs MD Reason for Consult: Chest pain, slurred speech Source of Information: patient, family Exam Limitations: no limitations History of Present Illness: I was asked by Dr. Combs to evaluated patient for chest pain and slurred speech. 73 year-old female with history of hypertension, hyperlipidemia, COPD, prior smoker, type 2 diabetes, s/p extensive right cerebral, cerebellar stroke after total knee replacement, PFO. Patient had lunch yesterday around 11 am. She suddenly developed retrosternal chest tightness associated with slurred speech. Her daughter gave her nitroglycerin and albuterol. She continued to have slurred speech up the the point that she could not speak. Daughter called ambulance. She also vomited mucous at home. She was brought to [place] ER and symptoms resolved in ER. She now feels good except still not feeling "completely myself". She undergoes PT/OT at [place] and her right arm hemiparesis has improved significantly. I saw her in the office on Monday and she was doing great. Allergies/Medications Allergies: Coded Allergies: No Known Allergies (10/18/17) Home Med List: Acetaminophen With Codeine (Acetaminophen-Cod #3 Tablet) 300 MG-30 MG TABLET 1 TAB PO DAILY PRN PAIN (Reported) Albuterol Sulfate 2.5 MG/3 ML (0.083 %) VIAL.NEB 1 Vial INH/SHANKAR AD PRN RESP. (Reported) Apixaban (Eliquis) 2.5 MG TABLET 1 TAB PO BID BLOOD THINNER (Reported) Atorvastatin Calcium (Lipitor) 80 MG TABLET 1 TAB PO DAILY CVA (Reported) Cyclobenzaprine HCl 5 MG TABLET 0.5 TAB PO AD PRN MUSCLE SPASMS (Reported) Dextran 70/Hypromellose (Artificial Tears) 1 EACH DROPERETTE 1 DROP OU AD PRN BOTH EYES (Reported) Ipratropium [place] (Atrovent Hfa) 17 MCG/ACTUATION HFA.AER.AD 1 PUFF INH BID RESP. (Reported) Metformin HCl 1,000 MG TABLET 1 TAB PO BID DIABETES (Reported) Nitroglycerin 0.4 MG TAB.SUBL 1 TAB SL AD PRN CHEST PAIN (Reported) 1st sign of attack; may repeat every 5 minutes until relief; if pain persists after 3 tablets in 15 minutes, prompt medical att Pantoprazole Sodium 40 MG TABLET.DR 1 TAB PO DAILY GI (Reported) Tiotropium [place] (Spiriva) 18 MCG CAP.W.DEV 1 CAP INH DAILY COPD (Reported) Tramadol HCl 50 MG TABLET 1 TAB PO BID PRN PAIN (Reported) Current Medications: Current Medications Sig/Harish Start time Last Medication Dose Route Stop Time Status Admin Acetaminophen 650 MG Q6P PRN 03/25 1630 AC PO Albuterol Sulfate 3 ML Q4P PRN 03/25 1945 AC INH Albuterol Sulfate 3 ML DAILY PRN 03/25 1715 DC INH Apixaban 5 MG ONCE ONE 03/25 1730 DC 08 PO 03/25 1731 2206 Atorvastatin Calcium 80 MG DAILY@1700 03/25 1720 AC 03/25 PO 2207 Cyclobenzaprine HCl 2.5 MG DAILY PRN 03/25 1730 AC PO Cyclobenzaprine HCl 5 MG ONCE ONE 03/25 1600 DC 03/25 PO 03/25 1601 1600 Cyclobenzaprine HCl 0 .STK-MED ONE 03/25 1553 DC PO Insulin Aspart 0 TIDAC 03/26 0800 AC SC Lidocaine 1 PAT ONCE ONE 03/25 1445 DC 08 TOP 03/25 1446 1513 Nitroglycerin 0.4 MG DAILY PRN 03/25 1730 AC SL Omeprazole 40 MG DAILY AC 03/26 0700 AC 03/26 PO 0614 Omeprazole 40 MG DAILY AC 03/25 1718 DC PO Tramadol HCl 50 MG BID PRN 03/25 1730 AC PO Review of Systems Review of Systems Constitutional: Reports: unexplained weight loss. Cardiovascular: Reports: chest pain. Denies: no symptoms, see HPI, edema, orthopena, palpitations, peripheral edema, syncope. Respiratory: Denies: no symptoms, see HPI, cough, hemoptysis, orthopnea, short of breath, sputum production, stridor, wheezing. GI: Denies: no symptoms, see HPI, abdominal pain, bloating, constipation, diarrhea, distention, bowel incontinence, melena, nausea, bloody stool, changes in stool, vomiting, steatorrhea. Genitourinary: Denies: no symptoms, see HPI, discharge, dysuria, frequency, hematuria, hesitation, nocturia, pain, urgency. Musculoskeletal: Denies: no symptoms, see HPI, back pain, gout, joint pain, joint swelling, muscle pain, muscle stiffness, neck pain. Skin: Denies: no symptoms, see HPI, cysts, change in skin color, change in hair/nails, dryness, erythema, jaundice, lesions, lymphangitis, lumps, moles, rash. Neurological/Psychological: Denies: no symptoms (Speech difficulty), see HPI, anxiety, ataxia, cognitive dysfunction, confusion, depressed, dementia, emotional problems, headache, numbness, paresthesia, pre-existing deficit, petit mal seizures, tingling, tremors, tonic-clonic seizures, unable to move lower ext, unable to move upper ext, weakness, other. Hematologic/Endocrine: Denies: no symptoms, see HPI, bruising, bleeding, polyuria, polydipsia, other. Immunologic/Allergic: Denies: no symptoms, see HPI, splenectomy, HIV/AIDS, lymphadenopathy, other. 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 Home Who Do You Live With? child Services at Home: None Smoking Status: Former Smoker ETOH Use: denies use Illicit Drug Use: denies illicit drug use Exam & Diagnostic Data Vital Signs and I&O Vital Signs Date Time Temp Pulse Resp B/P B/P Pulse O2 O2 Flow FiO2 Mean Ox Delivery Rate 03/26 0703 98.4 84 20 98/70 91 Nasal 2.0L Cannula 03/26 0000 93 Nasal 1.5L Cannula 03/25 2328 98.2 87 20 112/78 92 Room Air 03/25 1936 99 Nasal 2.5L Cannula 03/25 193 Nasal 2.5L Cannula 03/25 1851 98.8 88 20 110/80 97 Nasal Cannula 03/25 1755 98.9 95 16 136/75 89 Room Air 03/25 1743 Room Air 03/25 1609 97.6 95 16 134/82 93 Room Air 03/25 1250 90 18 141/86 92 Room Air Intake & Output 03/26 0803/26 0000 03/25 1600 03/25 0803/25 0000 03/24 1600 Intake Total 50 Output Total 380 Balance -330 Intake, Oral 50 Output, Urine 380 Patient 160 lb Weight Physical Exam: No acute distress\\ HEENT-PERRLA Neck-JVP normal, no carotid bruit, supple Lungs-clear bilaterally Heart-S1S2 regular, no gallop, no murmur Abdomen-soft, not tender, BS+, no organomegaly\\ Extremities-no edema, 2+ pulses, no cyanosis Skin-no rash Neuro-left sided weakness with left facial droop unchanged Labs/Ricci Results: Laboratory Tests 03/26 03/26 03/25 0630 0050 1830 Chemistry Sodium Pending Potassium Pending Chloride Pending Carbon Dioxide Pending Anion Gap Pending BUN Pending Creatinine Pending BUN/Creatinine Ratio Pending Troponin I (< 0.11 ng/ml) < 0.01 < 0.01 03/25 1408 Chemistry Sodium (137 - 145 mmol/L) 136 L Potassium (3.5 - 5.1 mmol/L) 4.2 Chloride (98 - 107 mmol/L) 102 Carbon Dioxide (22 - 30 mmol/L) 25 Anion Gap (5 - 16) 9 BUN (7 - 17 mg/dL) 11 Creatinine (0.5 - 1.0 mg/dL) 0.9 Estimated GFR (>60 ml/min) > 60 BUN/Creatinine Ratio (7 - 25 %) 12.2 Glucose (65 - 99 mg/dL) 124 H Calcium (8.4 - 10.2 mg/dL) 9.2 Total Bilirubin (0.2 - 1.3 mg/dL) 0.4 AST (14 - 36 U/L) 17 ALT (9 - 52 U/L) 27 Alkaline Phosphatase (<127 U/L) 94 Troponin I (< 0.11 ng/ml) < 0.01 Total Protein (6.3 - 8.2 g/dL) 6.3 Albumin (3.5 - 5.0 g/dL) 3.9 Globulin (1.9 - 4.2 gm/dL) 2.4 Albumin/Globulin Ratio (1.1 - 2.2 %) 1.6 Coagulation PT (9.4 - 12.5 SEC) 12.7 H INR (0.90 - 1.19) 1.16 APTT (25 - 37 SEC) 36 Hematology CBC w Diff NO MAN DIFF REQ WBC (4.8 - 10.8 /CUMM) 10.4 RBC (4.20 - 5.40 /CUMM) 4.36 Hgb (12.0 - 16.0 G/DL) 12.8 Hct (37 - 47 %) 38.5 MCV (81.0 - 99.0 FL) 88.4 MCH (27.0 - 31.0 PG) 29.3 MCHC (33.0 - 37.0 G/DL) 33.1 RDW (11.5 - 14.5 %) 15.0 H Plt Count (130 - 400 /CUMM) 316 MPV (7.4 - 10.4 FL) 7.7 Gran % (42.2 - 75.2 %) 83.1 H Lymphocytes % (20.5 - 51.1 %) 12.4 L Monocytes % (1.7 - 9.3 %) 3.2 Eosinophils % (0 - 5 %) 1.1 Basophils % (0.0 - 2.0 %) 0.2 Absolute Granulocytes (1.4 - 6.5 /CUMM) 8.6 H Absolute Lymphocytes (1.2 - 3.4 /CUMM) 1.3 Absolute Monocytes (0.10 - 0.60 /CUMM) 0.3 Absolute Eosinophils (0.0 - 0.7 /CUMM) 0.1 Absolute Basophils (0.0 - 0.2 /CUMM) 0 Diagnostic Data EKG Results SR, PRWP, non specific ST abnormalities, unchanged Other Results Head CT-old extensive right infarcts, ?new temporoparietal infarct Assessment/Plan Assessment/Plan 73 year old female with h/o extensive right CVA, likely embolic, PFO, HTN, HLP, DM, COPD presents with symptoms of chest pain, slurred speech. Symptoms suggestive of TIA (now resolved), head CT showed ? new temporal pariatal infarct. Chest pain unclear if angina-ekg negative, troponinsx3 normal. She previously developed epistaxis on Eliquis 5 mg bid. If she has underlying coronary artery disease she would also benefit from antiplatelet treatment and I would prefer to try first combination of ASA 81 mg qd and Eliquis 2.5 mg bid. \\ Plan: head MRI to assess for new stroke ASA 81 mg qd for possible CAD continue Eliquis 2.5 mg bid continue other medications including statin, LDL was 57 and we should continue atorvastatin 40 mg qd PT Possible D/C home later today after MRI Discussed in detail with patient and daughter Consult Acknowledgment - Thank you for your consult request.
--- NOTE | 2018-03-26 08:21 | PN- Student ---
Subjective Subjective: HPI: 73 y/o female with a PMH of HTN, HDL, COPD, Type 2 DM, GERD, OA, PFO on Eliquis, and left total knee replacement surgery to which after, the patient suffered multiple ischemic strokes, leaving her with left sided facial droop and LUE weakness. Patient presented to the ER yesterday with her daughter after complaining of chest discomfort and SOB followed by slurred speech which progressed to the complete inability to speak. The patient's daughter stated that the patient was recently seen by her Compliance Coordinator, Dr. Kay, and he decreased the dose of Eliquis from 5mg PO QD to 2.5mg PO QD. By the time the patient arrived to the ER with EMS, her symptoms resolved completely and she was able to speak fully. The patient was admitted to [facility] for 24-48 hours and given a one-time, 5mg dose of Eliquis with anticipation of input from Cardiology on how to continue this medication. Hospital Day 1: Patient was interviewed and examined at bedside in the presence of her daughter. The patient was in no acute distress and appropriately responsive. There were no acute events noted overnight and the patient offered no complaints. Telemonitor reported that the patient was in Sinus Tachycardia around 12am and then NSR from 2am-6am. The patient currently remains in NSR. Patient denies chills, nightsweats, chest pain, palpitations, shortness of breath, abdominal pain, and urinary symptoms. Current Medications Sig/Harish Start time Last Medication Dose Route Stop Time Status Admin Acetaminophen 650 MG Q6P PRN 03/25 1630 AC PO Albuterol Sulfate 3 ML Q4P PRN 03/25 1945 AC INH Albuterol Sulfate 3 ML DAILY PRN 03/25 1715 DC INH Alprazolam 0.25 MG ONCE PRN 03/26 1000 DC 03/26 PO 0936 Apixaban 2.5 MG BID 03/26 09 AC PO Apixaban 5 MG ONCE ONE 03/25 1730 DC 03/25 PO 03/25 173 2206 Aspirin 81 MG DAILY 03/26 0900 AC 03/26 PO 0936 Atorvastatin Calcium 40 MG DAILY@1700 03/26 1700 AC PO Atorvastatin Calcium 80 MG DAILY@1700 03/25 1720 DC 03/25 PO 2207 Cyclobenzaprine HCl 2.5 MG DAILY PRN 03/25 1730 AC PO Cyclobenzaprine HCl 5 MG ONCE ONE 03/25 1600 DC 03/25 PO 03/25 1601 1600 Cyclobenzaprine HCl 0 .STK-MED ONE 03/25 1553 DC PO Insulin Aspart 0 TIDAC 03/26 0800 AC SC Lidocaine 1 PAT ONCE ONE 03/25 1445 DC 03/25 TOP 03/25 1446 1513 Nitroglycerin 0.4 MG DAILY PRN 03/25 1730 AC SL Omeprazole 40 MG DAILY AC 03/26 0700 AC 03/26 PO 0614 Omeprazole 40 MG DAILY AC 03/25 1718 DC PO Tiotropium [place] 1 PUF DAILY 03/26 0900 AC 03/26 INH 0936 Tramadol HCl 50 MG BID PRN 03/25 1730 AC PO Allergies: NKA Objective Objective: Vital Signs Date Time Temp Pulse Resp B/P B/P Pulse O2 O2 Flow FiO2 Mean Ox Delivery Rate 03/26 0703 98.4 84 20 98/70 91 Nasal 2.0L Cannula 03/26 0000 93 Nasal 1.5L Cannula 03/25 2328 98.2 87 20 112/78 92 Room Air 03/25 1936 99 Nasal 2.5L Cannula 03/25 1932 Nasal 2.5L Cannula 03/25 1851 98.8 88 20 110/80 97 Nasal Cannula 03/25 1755 98.9 95 16 136/75 89 Room Air 03/25 1743 Room Air 03/25 1609 97.6 95 16 134/82 93 Room Air 03/25 1250 90 18 141/86 92 Room Air Intake & Output 03/26 1600 03/26 0800 03/26 0000 Intake Total 50 Output Total 380 Balance -330 Intake, Oral 50 Output, Urine 380 Patient 160 lb Weight Physical Exam General: NAD; Alert and Oriented x3; Appropriately responsive Skin: Warm; Dry; No rashes noted HEENT: Normocephalic; Atraumatic; No tracheal deviation noted Lungs: Clear to auscultation bilaterally with posterior approach Heart: Normal S1 and S2; No murmurs, gallops, or rubs noted upon ausculatation Abdomen: No visible distention; Normoactive bowel sounds in all four quadrants; Non-tender to palpation in all four quadrants; No masses noted with light and deep palpation Extremities: Normal pulses; No edema noted; No clubbing MSK: 4/5 strength in RUE, and both lower extremities; 3/5 in LUE with Extension Neuro: CN II-XII in tact Results Results: Laboratory Tests 03/26/18 0630: Anion Gap 8, Estimated GFR 54 L, BUN/Creatinine Ratio 12.0 03/26/18 0050: Troponin I < 0.01 03/25/18 1830: Troponin I < 0.01 03/25/18 1408: Anion Gap 9, Estimated GFR > 60, BUN/Creatinine Ratio 12.2, Glucose 124 H, Calcium 9.2, Total Bilirubin 0.4, AST 17, ALT 27, Alkaline Phosphatase 94, Troponin I < 0.01, Total Protein 6.3, Albumin 3.9, Globulin 2.4, Albumin/ Globulin Ratio 1.6, PT 12.7 H, INR 1.16, APTT 36, CBC w Diff NO MAN DIFF REQ, RBC 4.36, MCV 88.4, MCH 29.3, MCHC 33.1, RDW 15.0 H, MPV 7.7, Gran % 83.1 H, Lymphocytes % 12.4 L, Monocytes % 3.2, Eosinophils % 1.1, Basophils % 0.2, Absolute Granulocytes 8.6 H, Absolute Lymphocytes 1.3, Absolute Monocytes 0.3, Absolute Eosinophils 0.1, Absolute Basophils 0 CXR 03/26/18 IMPRESSION: 1. Resolution of previously seen bilateral lower lobe dense opacities with only a small amount of residual linear opacities seen in the lung bases, left greater than right. Findings are likely related to residual atelectasis. 2. No new focal pneumonia. Head CT 03/25/18 IMPRESSION: 1. No acute intracranial hemorrhage or hematoma. 2. Old extensive infarct right brain. Suspect interval new infarct right temporal parietal region. Correlation with MRI would be helpful in differentiating prior old gliosis from new acute stroke. Assessment/Plan Assessment: 73 y/o female with a PMH of HTN, HDL, COPD, Type 2 DM, GERD, OA, PFO on Eliquis, and left total knee replacement surgery to which after, the patient suffered multiple ischemic strokes, leaving her with left sided facial droop and LUE weakness. Patient presented to the ER yesterday with her daughter after complaining of chest discomfort and SOB followed by slurred speech which progressed to the complete inability to speak and was admitted to telemetry for 24-48 hour observation for suspicion of a TIA. Plan: Suspected TIA w/ History of Stroke: MRI Pending for differentiation of new stroke vs old gliosis with Head CT Will give Xanax 0.25mg PO one time dose Neurology consult pending PT Evaluation Awaiting fax from [place] with last progress note and old imaging studies for comparison History of PFO: Continue Eliquis 2.5mg PO BID per Cardiology Chronic Medical Conditions: Continue Home medications ASA 81mg for suspected CAD per Cardiology
--- NOTE | 2018-03-26 10:20 | RADIOLOGY REPORT ---
EXAMINATION: XR PORTABLE CHEST CLINICAL INFORMATION: Cough. Status post TIA. Suspect aspiration/pneumonia. COMPARISON: Several prior chest x-rays, most recent of which is dated 11/03/2017. TECHNIQUE: Portable AP semierect view of the chest was obtained. FINDINGS: EKG leads overlie the chest. The cardiomediastinal silhouette is within normal limits in size. Tortuosity of the descending aorta is seen. Lungs bilaterally are symmetrically hypoexpanded with only minimal residual opacity remaining in the left more than right lung base, perhaps related to crowding of bronchovascular lung markings and mild subsegmental atelectasis. No focal consolidation, effusion or pneumothorax is seen. There is diffuse osteopenia with advanced degenerative changes in both shoulder joints. IMPRESSION: 1. Resolution of previously seen bilateral lower lobe dense opacities with only a small amount of residual linear opacities seen in the lung bases, left greater than right. Findings are likely related to residual atelectasis. 2. No new focal pneumonia.
--- NOTE | 2018-03-26 11:41 | MRI REPORT ---
EXAMINATION: MR BRAIN WITHOUT CONTRAST CLINICAL INFORMATION: Rule out stroke. Aphasia. COMPARISON: Head CTA 08/02/2018. TECHNIQUE: Multiplanar, multisequence imaging of the brain was performed without intravenous contrast. \H\ \N\FINDINGS: There is a large area of encephalomalacia and gliosis within the right frontal, parietal, and temporal lobes in addition to the insula and basal ganglia in keeping with remote right MCA territory infarction. Superimposed on this chronic infarct is a small area of acute ischemia in the right perirolandic region best seen on series 4 image 41. There is large amount of confluent diffusion signal abnormality in the right hemisphere without corresponding ADC signal deficit reflecting T2 shine through. No lobar hemorrhage is seen. There is mineralization within the bilateral basal ganglia more prominent in the right putamen. An additional old infarct is noted in the right inferior cerebellum (with associated cortical laminar necrosis). There are mild to moderate foci of T2 prolongation in the bilateral cerebral white matter and central carley reflecting small vessel ischemic changes. The ventricles are normal in size without evidence of hydrocephalus. No mass or extra-axial collection is seen. The right petrous and siphon carotid flow void is diminutive which may reflect upstream stenosis. The right carotid terminus flow void is patent. The orbits appear normal. The extracranial structures otherwise appear normal. IMPRESSION: - Small focus of acute ischemia within the right frontal lobe superimposed on large old right MCA territory infarction. Additional old infarct noted in the right cerebellum with cortical laminar necrosis. - Right petrous and carotid siphon flow voids are diminutive which may reflect upstream stenosis. Consider further evaluation with neck MRA with contrast and head MRA without contrast. - Mild to moderate small vessel ischemic changes in the cerebral white matter and central carley.
[2018-03-26] MEDS ORDERED: ASPIRIN81 M4 PO (11:42)
--- NOTE | 2018-03-26 11:47 | Patient Discharge Instructions ---
Discharge Instructions General Discharge Information You were seen/treated for: CVA Watch for these problems: Please return to the ER in case of any chest pain, palpitations, shortness of breath, new weakness/numbness any part of the body, facial droop or sudden vision loss. Special Instructions: Please follow up with your PCP, Cardilogist and Neurologist within a week after discharge. Diet Continue normal diet: Yes Recommended Diet: Heart Healthy Activity Full Activity/No Limits: Yes Activity Self Limited: Yes Acute Coronary Syndrome Inclusion Criteria At DC or during hospital stay patient has or had the following: ACS DIAGNOSIS No Discharge Core Measures Meds if any: Prescribed or Continued at Discharge Meds if any: NOT Prescribed or Continued at Discharge Congestive Heart Failure Inclusion Criteria At DC or during hospital stay patient has or had the following: CHF DIAGNOSIS No Discharge Core Measures Meds if any: Prescribed or Continued at Discharge Meds if any: NOT Prescribed or Continued at Discharge Cerebrovascular accident Inclusion Criteria At DC or during hospital stay patient has or had the following: CVA/TIA Diagnosis Yes Discharge Core Measures Meds if any: Prescribed or Continued at Discharge Antithrombotic Yes Statin (required if LDL =>70) Yes Anticoagulant Yes Meds if any: NOT Prescribed or Continued at Discharge Venous thromboembolism Inclusion Criteria VTE Diagnosis No VTE Type NONE VTE Confirmed by (Test) NONE Discharge Core Measures - Per Current guidelines, there needs to be overlap - treatment for the first 5 days of Warfarin therapy. - If discharged on Warfarin prior to 5 days of - overlap therapy, the patient will need to be - assessed for post discharge needs including - *Post discharge parental anticoagulation - *Warfarin and/or parental anticoagulation education - *Follow up date to check INR post discharge At least 5 days overlap therapy as Inpatient No Meds if any: Prescribed or Continued at Discharge Note: Overlap Therapy is Warfarin and Anticoagulant Meds if any: NOT Prescribed or Continued at Discharge
[2018-03-26 14:58] VITALS: BP 85/55
--- NOTE | 2018-03-26 15:13 | PN- Att Addend ---
Attending Addendum Attending Brief Note MRI results noted. Patient has an area of acute ischemia in the right side superimposed on her chronic infarct, there is also question of stenosis and they are recommending an MRA. We will need to keep patient and get a formal neurological evaluation to see whether we need to change her antiplatelet therapy any, and get this MRA.
--- NOTE | 2018-03-26 15:25 | Cons- Neurology ---
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 Recently her Eliquis was cut back to 2.5mg bid due to epitaxis according to patient. She has baseline left hemiparesis as a residual of her first stroke and dysphagia (though continues to eat a regular diet and coughs up). She was now found to have a new post-central gyrus infarction on the right within the same territory of her previous stroke. Allergies/Medications Allergies: Coded Allergies: No Known Allergies (10/18/17) Home Med List: Acetaminophen With Codeine (Acetaminophen-Cod #3 Tablet) 300 MG-30 MG TABLET 1 TAB PO DAILY PRN PAIN (Reported) Albuterol Sulfate 2.5 MG/3 ML (0.083 %) VIAL.NEB 1 Vial INH/SHANKAR AD PRN RESP. (Reported) Apixaban (Eliquis) 2.5 MG TABLET 1 TAB PO BID BLOOD THINNER (Reported) Aspirin (Aspirin*) 81 MG TAB.CHEW 1 TAB PO DAILY PFO/CVA Atorvastatin Calcium (Lipitor) 80 MG TABLET 1 TAB PO DAILY CVA (Reported) Cyclobenzaprine HCl 5 MG TABLET 0.5 TAB PO AD PRN MUSCLE SPASMS (Reported) Dextran 70/Hypromellose (Artificial Tears) 1 EACH DROPERETTE 1 DROP OU AD PRN BOTH EYES (Reported) Ipratropium [place] (Atrovent Hfa) 17 MCG/ACTUATION HFA.AER.AD 1 PUFF INH BID RESP. (Reported) Metformin HCl 1,000 MG TABLET 1 TAB PO BID DIABETES (Reported) Nitroglycerin 0.4 MG TAB.SUBL 1 TAB SL AD PRN CHEST PAIN (Reported) 1st sign of attack; may repeat every 5 minutes until relief; if pain persists after 3 tablets in 15 minutes, prompt medical att Pantoprazole Sodium 40 MG TABLET.DR 1 TAB PO DAILY GI (Reported) Tiotropium [place] (Spiriva) 18 MCG CAP.W.DEV 1 CAP INH DAILY COPD (Reported) Tramadol HCl 50 MG TABLET 1 TAB PO BID PRN PAIN (Reported) Current Medications: Current Medications Sig/Harish Start time Last Medication Dose Route Stop Time Status Admin Acetaminophen 650 MG Q6P PRN 03/25 1630 AC PO Albuterol Sulfate 3 ML Q4P PRN 03/25 1945 AC INH Albuterol Sulfate 3 ML DAILY PRN 03/25 1715 DC INH Alprazolam 0.25 MG ONCE PRN 03/26 1000 DC 03/26 PO 0936 Apixaban 2.5 MG BID 03/26 0900 AC 03/26 PO 1314 Apixaban 5 MG ONCE ONE 03/25 1730 DC 03/25 PO 03/25 1731 2206 Aspirin 81 MG DAILY 03/26 0900 AC 03/26 PO 0936 Atorvastatin Calcium 40 MG DAILY@1700 03/26 1700 AC PO Atorvastatin Calcium 80 MG DAILY@1700 03/25 1720 DC 03/25 PO 2207 Cyclobenzaprine HCl 2.5 MG DAILY PRN 03/25 1730 AC PO Cyclobenzaprine HCl 5 MG ONCE ONE 03/25 1600 DC 03/25 PO 03/25 1601 1600 Cyclobenzaprine HCl 0 .STK-MED ONE 03/25 1553 DC PO Insulin Aspart 0 TIDAC 03/26 0800 AC 03/26 SC 1315 Nitroglycerin 0.4 MG DAILY PRN 03/25 1730 AC SL Omeprazole 40 MG DAILY AC 03/26 0700 AC 03/26 PO 0614 Omeprazole 40 MG DAILY AC 03/25 1718 DC PO Tiotropium [place] 1 PUF DAILY 03/26 0900 AC 03/26 INH 0936 Tramadol HCl 50 MG BID PRN 03/25 1730 AC PO Review of Systems Review of Systems: Dysphagia and low volume speech. Otherwise as per HPI. Past History Travel History Traveled to [place] past 21 day No Medical History Neurological: CVA, MOTION SICKNESS EENT: NONE Cardiovascular: hypertension, hyperlipidemia Respiratory: COPD Gastrointestinal: NONE Hepatic: NONE Renal: NONE Musculoskeletal: chronic back pain, osteoarthritis Psychiatric: NONE Endocrine: diabetes Blood Disorders: NONE Cancer(s): NONE TOWEL WEAVER/Reproductive: NONE Surgical History Surgical History: knee replacement Family History Relations & Conditions If Any: FATHER FH: cancer FH: heart disease Psychosocial History Where Do You Live? Home Who Do You Live With? child Services at Home: None Smoking Status: Former Smoker ETOH Use: denies use Illicit Drug Use: denies illicit drug use Exam & Diagnostic Data Vital Signs and I&O Vital Signs Date Time Temp Pulse Resp B/P B/P Pulse O2 O2 Flow FiO2 Mean Ox Delivery Rate 03/26 1458 98.1 86 20 85/55 92 Room Air 03/26 0703 98.4 84 20 98/70 91 Nasal 2.0L Cannula 03/26 0000 93 Nasal 1.5L Cannula 03/25 2328 98.2 87 20 112/78 92 Room Air 03/25 1936 99 Nasal 2.5L Cannula 03/25 1932 Nasal 2.5L Cannula 03/25 1851 98.8 88 20 110/80 97 Nasal Cannula 03/25 1755 98.9 95 16 136/75 89 Room Air 03/25 1743 Room Air 03/25 1609 97.6 95 16 134/82 93 Room Air Intake & Output 03/26 1600 03/26 0800 03/26 0000 Intake Total 50 Output Total 380 Balance -330 Intake, Oral 50 Output, Urine 380 Patient 160 lb Weight Physical Exam: Alert and oriented x 3. Hypophonic and mildy dysarthric. S1 and S2, IRR IRR. Fluent and comprehends though laconic. EOMI, ANTHONY, left lower facial droop. VF intact (though some neglect on left side), tongue midline, hypophonic. TPZ and SCM strong. V1-V3 sensation decreased on left. Left arm 0/5 and left leg weak 3/5 proximally and 4/5 in rest. Right side is mostly strong. Loss of sensation on left side compared to right. Upgoing toe on left. Gait deferred. Last 48 Hours of Lab Results: Laboratory Tests 03/26 03/26 03/25 03/25 0630 0050 1830 1408 Chemistry Sodium (137 - 145 mmol/L) 136 L 136 L Potassium (3.5 - 5.1 mmol/L) 3.9 4.2 Chloride (98 - 107 mmol/L) 102 102 Carbon Dioxide (22 - 30 mmol/L) 27 25 Anion Gap (5 - 16) 8 9 BUN (7 - 17 mg/dL) 12 11 Creatinine (0.5 - 1.0 mg/dL) 1.0 0.9 Estimated GFR (>60 ml/min) 54 L > 60 BUN/Creatinine Ratio (7 - 25 %) 12.0 12.2 Glucose (65 - 99 mg/dL) 124 H Calcium (8.4 - 10.2 mg/dL) 9.2 Total Bilirubin (0.2 - 1.3 mg/dL) 0.4 AST (14 - 36 U/L) 17 ALT (9 - 52 U/L) 27 Alkaline Phosphatase (<127 U/L) 94 Troponin I (< 0.11 ng/ml) < 0.01 < 0.01 < 0.01 Total Protein (6.3 - 8.2 g/dL) 6.3 Albumin (3.5 - 5.0 g/dL) 3.9 Globulin (1.9 - 4.2 gm/dL) 2.4 Albumin/Globulin Ratio (1.1 - 2.2 %) 1.6 Coagulation PT (9.4 - 12.5 SEC) 12.7 H INR (0.90 - 1.19) 1.16 APTT (25 - 37 SEC) 36 Hematology CBC w Diff NO MAN DIFF REQ WBC (4.8 - 10.8 /CUMM) 10.4 RBC (4.20 - 5.40 /CUMM) 4.36 Hgb (12.0 - 16.0 G/DL) 12.8 Hct (37 - 47 %) 38.5 MCV (81.0 - 99.0 FL) 88.4 MCH (27.0 - 31.0 PG) 29.3 MCHC (33.0 - 37.0 G/DL) 33.1 RDW (11.5 - 14.5 %) 15.0 H Plt Count (130 - 400 /CUMM) 316 MPV (7.4 - 10.4 FL) 7.7 Gran % (42.2 - 75.2 %) 83.1 H Lymphocytes % (20.5 - 51.1 %) 12.4 L Monocytes % (1.7 - 9.3 %) 3.2 Eosinophils % (0 - 5 %) 1.1 Basophils % (0.0 - 2.0 %) 0.2 Absolute Granulocytes (1.4 - 6.5 /CUMM) 8.6 H Absolute Lymphocytes (1.2 - 3.4 /CUMM) 1.3 Absolute Monocytes (0.10 - 0.60 /CUMM) 0.3 Absolute Eosinophils (0.0 - 0.7 /CUMM) 0.1 Absolute Basophils (0.0 - 0.2 /CUMM) 0 Imaging/Other Studies: IMPRESSION: - Small focus of acute ischemia within the right frontal lobe superimposed on large old right MCA territory infarction. Additional old infarct noted in the right cerebellum with cortical laminar necrosis. - Right petrous and carotid siphon flow voids are diminutive which may reflect upstream stenosis. Consider further evaluation with neck MRA with contrast and head MRA without contrast. - Mild to moderate small vessel ischemic changes in the cerebral white matter and central carley. Assessment/Plan Assessment: 73 year old with recurrent right MCA strokes, now a new one after reduction in anti-coagulant dosage due ot Epistaxis. Recommendations: 1. Consider finding other solutions to improve anti-coagulation, should be discussed with Dr. Lomas. 2. MRA neck and brain to assess ICAs on both sides. 3. C/w Eliquis and aspirin. 4. C/w BP meds and statin. 5. SWALLOW EVALUATION - NPO till then 6. speech and swallow evaluations. 7. STOP PANTOPRAZOLE AND ANY PPIS THAT INCREASE THE RISK OF STROKES IN THIS AGE GROUP. Consult Acknowledgment - Thank you for your consult request.
[2018-03-26 23:24] VITALS: BP 92/00
[2018-03-27 06:40] VITALS: BP 102/60
--- NOTE | 2018-03-27 06:52 | PN- Housestaff ---
Albert Herrera 03/27/18 0651: Subjective Follow-up For: Aphasia Subjective: No acute telemetry events overnight, afebrile. Patient states she has been getting out of bed to use the commode, denies lower extremity weakness. Patient is complaining of cough with productive clear phlegm. Patient states her speech has improved compared to before hospitalization, patient states at that time she was not making sense when she spoke. Denies fever, dizziness, weakness, blurry or double vision Review of Systems Constitutional: Reports: see HPI. Objective Last 24 Hrs of Vital Signs/I&O Vital Signs Date Time Temp Pulse Resp B/P B/P Pulse O2 O2 Flow FiO2 Mean Ox Delivery Rate 03/27 0640 98.2 92 18 102/60 92 Nasal Cannula 03/26 2324 98.5 84 18 92/00 90 Nasal Cannula 03/26 2231 Room Air 03/26 1946 89 Room Air 03/26 1840 97 Room Air 03/26 1458 98.1 86 20 85/55 92 Room Air Intake & Output 03/27 0800 03/27 0000 03/26 1600 Intake Total 410 Output Total 200 200 Balance -200 -200 410 Intake, IV 10 Intake, Oral 400 Output, Urine 200 200 Patient 140 lb Weight Weight Bed scale Measurement Method Physical Exam General Appearance: Alert, Oriented X3, Cooperative Skin: No Rashes Neck: Supple, +2 Carotid Pulse wo Bruit Cardiovascular: Regular Rate, Normal S1, Normal S2 Lungs: Clear to Auscultation, Normal Air Movement Neurological: Normal Speech, Strength 2/5 in LUE. Normal strength in bilat. LE, and RUE 5/5 Assessment/Plan Assessment: 73 year-old female with history of hypertension, hyperlipidemia, COPD, prior smoker, type 2 diabetes, GERD, osteoarthritis, with recent CVA after the left knee surgery with residual left-sided facial droop and left upper extremity weakness, currently on Eliquis for PFO and presenting with aphasia. MRI brain today showed small focus of acute ischemia within the right frontal lobe superimposed on large old right MCA territory infarction. Additional old infarct noted in the right cerebellum with cortical laminar necrosis. Problems: 1. TIA, R MCA territory 2. L sided weakness (s/p prior R MCA stroke) 3. Aphasia (resolved) #Transient ischemic attack: History of PFO with new ischemic stroke within the R. frontal lobe, seen on MRI on 03/26/18. Patient has history of multiple prior infarcts affecting the right cerebellum with cortical laminar necrosis. Speech has returned to baseline as per patient, patient continues to have residual left upper extremity weakness which was present on admission. neurology. -Continue atorvastatin 40 mg daily as recommended by cardiology. #Left-sided weakness: Residual weakness resulting from right MCA stroke sustained while at [facility] after left knee surgery in October. therapy. Patient will be discharged home today, will continue Eliquis for PFO, atorvastatin 40 mg, aspirin 81 mg, and patient will have home physical therapy. Problem List: 1. TIA (transient ischemic attack) Pain Ratin Pain Location: N/A Pain Goal: Remain pain free Pain Plan: TYLENOL Tomorrow's Labs & Rationales: N/A Lucille Combs MD 03/27/18 1034: Attending MD Review Statement Attending Statement Attending MD Statement: examined this patient, discuss w/resident/PA/GENERATOR WORKER, agreed w/resident/PA/GENERATOR WORKER, reviewed EMR data (avail), discussed with nursing, discussed with case mgmt, reviewed images Attending Assessment/Plan: Appreciate cardiology follow-up. I also spoke to the patient and patient's daughter at length. Patient definitely has an area of a new acute infarct. However recently had a CTA so we will hold off on the MRA for now. She will leave on low-dose Eliquis and aspirin as when she goes on high-dose Eliquis she has very significant epistaxis and is refusing to go on full dose Eliquis. She will go with outpatient PT, swallow saw her and she actually follows with outpatient speech and swallow therapy and she will also follow-up with her PCP.
--- NOTE | 2018-03-27 07:29 | PN- Cardiology ---
Subjective Subjective: Patient feels good, back to her baseline. Review of Systems: ROS: 12 point ROS negative except mild fatigue Objective Vital Signs and I&Os Vital Signs Date Time Temp Pulse Resp B/P B/P Pulse O2 O2 Flow FiO2 Mean Ox Delivery Rate 03/27 0640 98.2 92 18 102/60 92 Nasal Cannula 03/26 2324 98.5 84 18 92/00 90 Nasal Cannula 03/26 2231 Room Air 03/26 1946 89 Room Air 03/26 1840 97 Room Air 03/26 1458 98.1 86 20 85/55 92 Room Air Intake & Output 03/27 0000 03/26 1600 03/26 0000 03/25 1600 Intake Total 410 50 Output Total 200 200 380 Balance -200 -200 410 -330 Intake, IV 10 Intake, Oral 400 50 Output, Urine 200 200 380 Patient 140 lb 160 lb Weight Weight Bed scale Measurement Method Physical Exam: HEENT-PERRLA Neck-JVP normal, supple Lungs-clear bilaterally Heart-S1S1 regular, no murmur Abdomen-soft, not tender, BS+, no organomegaly Extr-no edema, no cyanosis, 2+ pulses Vascular-no carotid bruit, good distal pulses Neuro-left UE and LE weakness unchanged Current Medications: Current Medications Sig/Harish Start time Last Medication Dose Route Stop Time Status Admin Acetaminophen 650 MG Q6P PRN 03/25 1630 AC PO Albuterol Sulfate 3 ML Q4P PRN 03/25 1945 AC INH Alprazolam 0.25 MG ONCE PRN 03/26 1000 DC 03/26 PO 0936 Apixaban 2.5 MG BID 03/26 09 AC 03/26 PO 1957 Aspirin 81 MG DAILY 03/26 0900 AC 03/26 PO 0936 Atorvastatin Calcium 40 MG DAILY@1700 03/26 1700 AC 03/26 PO 1813 Atorvastatin Calcium 80 MG DAILY@1700 03/25 1720 DC 03/25 PO 2207 Cyclobenzaprine HCl 2.5 MG DAILY PRN 03/25 1730 AC PO Insulin Aspart 0 TIDAC 03/26 0800 AC 03/26 SC 1813 Nitroglycerin 0.4 MG DAILY PRN 03/25 1730 AC SL Omeprazole 40 MG DAILY AC 03/26 07 DC 03/26 PO 0614 Tiotropium [place] 1 PUF DAILY 03/26 0900 AC 03/26 INH 0936 Tramadol HCl 50 MG BID PRN 03/25 1730 AC PO Results Last 48 Hrs of Labs/Mics: Laboratory Tests 03/26/18 0630: Anion Gap 8, Estimated GFR 54 L, BUN/Creatinine Ratio 12.0 03/26/18 0050: Troponin I < 0.01 03/25/18 1830: Troponin I < 0.01 03/25/18 1408: Anion Gap 9, Estimated GFR > 60, BUN/Creatinine Ratio 12.2, Glucose 124 H, Calcium 9.2, Total Bilirubin 0.4, AST 17, ALT 27, Alkaline Phosphatase 94, Troponin I < 0.01, Total Protein 6.3, Albumin 3.9, Globulin 2.4, Albumin/ Globulin Ratio 1.6, PT 12.7 H, INR 1.16, APTT 36, CBC w Diff NO MAN DIFF REQ, RBC 4.36, MCV 88.4, MCH 29.3, MCHC 33.1, RDW 15.0 H, MPV 7.7, Gran % 83.1 H, Lymphocytes % 12.4 L, Monocytes % 3.2, Eosinophils % 1.1, Basophils % 0.2, Absolute Granulocytes 8.6 H, Absolute Lymphocytes 1.3, Absolute Monocytes 0.3, Absolute Eosinophils 0.1, Absolute Basophils 0 Recent Imaging Studies: MRI results noted Tely-NSR, no AF Assessment/Plan Assessment/Plan 73 year old female with h/o extensive right CVA, likely embolic, PFO, HTN, HLP, DM, COPD presents with symptoms of chest pain, slurred speech. Symptoms suggestive of TIA (now resolved), head CT showed ? new temporal pariatal infarct , MRI showed new small frontal lobe infarct. Chest pain unclear if angina-ekg negative, troponinsx3 normal. Patient reports no recurrent chest pain. Patient underwent CTA of the neck, brain at [facility] on 11/04/17-atherosclerotic changes but no significant stenosis. Not sure if MRA needs to be repeated, patient is claustrophobic and prefers not to have another MRA. Lynda check with neurology Plan: continue Eliquis 2.5 mg bid and low dose aspirin and statin encourage oral fluid intake continue other medications including statin, LDL was 57 and we should continue atorvastatin 40 mg qd Hopefully she can be discharged home today I will discuss with daughter. Continue telemetry? Yes
--- NOTE | 2018-03-27 07:58 | PN- Student ---
Subjective Subjective: HPI: 73 y/o female with a PMH of HTN, HDL, COPD, Type 2 DM, GERD, OA, PFO on Eliquis, and left total knee replacement surgery to which after, the patient suffered multiple ischemic strokes, leaving her with left sided facial droop and LUE weakness. Patient presented to the ER yesterday with her daughter after complaining of chest discomfort and SOB followed by slurred speech which progressed to the complete inability to speak. The patient's daughter stated that the patient was recently seen by her Radiology Services Manager, Dr. Kay, and he decreased the dose of Eliquis from 5mg PO QD to 2.5mg PO QD. By the time the patient arrived to the ER with EMS, her symptoms resolved completely and she was able to speak fully. The patient was admitted to [facility] for 24-48 hours and given a one-time, 5mg dose of Eliquis with anticipation of input from Cardiology on how to continue this medication. Hospital Day 2: Patient was interviewed and examined at bedside. The patient was in no acute distress and appropriately responsive. There were no acute events noted overnight. Telemonitor reported that the patient was in NSR from 12am-6am and currently remains in NSR. The patient stated that she was short of breath this morning and "needed time to get it back". She states that she has been feeling short of breath "for quite a while lately and I just relax when I feel it". The patient denies chills, nightsweats, chest pain, palpitations, abdominal pain, and urinary symptoms. Current Medications Sig/Harish Start time Last Medication Dose Route Stop Time Status Admin Acetaminophen 650 MG Q6P PRN 03/25 1630 AC PO Albuterol Sulfate 3 ML Q4P PRN 03/25 1945 AC INH Alprazolam 0.25 MG ONCE PRN 03/26 1000 DC 03/26 PO 935 Apixaban 2.5 MG BID 03/26 900 AC 03/26 PO 1956 Aspirin 81 MG DAILY 03/26 900 AC 03/26 PO 935 Atorvastatin Calcium 40 MG DAILY@03/26 1700 AC 03/26 PO 181 Atorvastatin Calcium 80 MG DAILY@03/25 1720 DC 03/25 PO 220 Cyclobenzaprine HCl 2.5 MG DAILY PRN 03/25 1730 AC PO Insulin Aspart 0 TIDAC 03/26 0800 AC 03/26 SC 1813 Nitroglycerin 0.4 MG DAILY PRN 03/25 1730 AC SL Omeprazole 40 MG DAILY AC 03/26 0700 DC 03/26 PO 0614 Tiotropium [place] 1 PUF DAILY 03/26 0900 AC 03/26 INH 0936 Tramadol HCl 50 MG BID PRN 03/25 1730 AC PO Allergies: NKA Objective Objective: Vital Signs Date Time Temp Pulse Resp B/P B/P Pulse O2 O2 Flow FiO2 Mean Ox Delivery Rate 03/27 0640 98.2 92 18 102/60 92 Nasal Cannula 03/26 2324 98.5 84 18 92/00 90 Nasal Cannula 03/26 2231 Room Air 03/26 1946 89 Room Air 03/26 1840 97 Room Air 03/26 1458 98.1 86 20 85/55 92 Room Air Intake & Output 03/27 0800 03/27 0000 03/26 1600 Intake Total 410 Output Total 200 200 Balance -200 -200 410 Intake, IV 10 Intake, Oral 400 Output, Urine 200 200 Patient 140 lb Weight Weight Bed scale Measurement Method Physical Exam General: NAD; Alert and Oriented x3; Appropriately responsive Skin: Warm; Dry; No rashes noted HEENT: Normocephalic; Atraumatic; No tracheal deviation noted; No carotid bruits noted with flores Lungs: Clear to auscultation bilaterally with posterior approach Heart: Normal S1 and S2; No murmurs, gallops, or rubs noted upon ausculatation Abdomen: No visible distention; Normoactive bowel sounds in all four quadrants; Non-tender to palpation in all four quadrants; No masses noted with light and deep palpation Extremities: Normal pulses; No edema noted; No clubbing MSK: 4/5 strength in RUE, and both lower extremities; 3/5 in LUE with Extension Neuro: CN II-XII in tact Results Results: Laboratory Tests 03/26/18 0630: Anion Gap 8, Estimated GFR 54 L, BUN/Creatinine Ratio 12.0 03/26/18 0050: Troponin I < 0.01 03/25/18 1830: Troponin I < 0.01 03/25/18 1408: Anion Gap 9, Estimated GFR > 60, BUN/Creatinine Ratio 12.2, Glucose 124 H, Calcium 9.2, Total Bilirubin 0.4, AST 17, ALT 27, Alkaline Phosphatase 94, Troponin I < 0.01, Total Protein 6.3, Albumin 3.9, Globulin 2.4, Albumin/ Globulin Ratio 1.6, PT 12.7 H, INR 1.16, APTT 36, CBC w Diff NO MAN DIFF REQ, RBC 4.36, MCV 88.4, MCH 29.3, MCHC 33.1, RDW 15.0 H, MPV 7.7, Gran % 83.1 H, Lymphocytes % 12.4 L, Monocytes % 3.2, Eosinophils % 1.1, Basophils % 0.2, Absolute Granulocytes 8.6 H, Absolute Lymphocytes 1.3, Absolute Monocytes 0.3, Absolute Eosinophils 0.1, Absolute Basophils [address] 03/25/18 IMPRESSION: 1. No acute intracranial hemorrhage or hematoma. 2. Old extensive infarct right brain. Suspect interval new infarct right temporal parietal region. Correlation with MRI would be helpful in differentiating prior old gliosis from new acute stroke. CXR 03/26/18 IMPRESSION: 1. Resolution of previously seen bilateral lower lobe dense opacities with only a small amount of residual linear opacities seen in the lung bases, left greater than right. Findings are likely related to residual atelectasis. 2. No new focal pneumonia. Head MRI 03/26/18 IMPRESSION: - Small focus of acute ischemia within the right frontal lobe superimposed on large old right MCA territory infarction. Additional old infarct noted in the right cerebellum with cortical laminar necrosis. - Right petrous and carotid siphon flow voids are diminutive which may reflect upstream stenosis. Consider further evaluation with neck MRA with contrast and head MRA without contrast. - Mild to moderate small vessel ischemic changes in the cerebral white matter and central carley. Assessment/Plan Assessment: 73 y/o female with a PMH of HTN, HDL, COPD, Type 2 DM, GERD, OA, PFO on Eliquis, and left total knee replacement surgery to which after, the patient suffered multiple ischemic strokes, leaving her with left sided facial droop and LUE weakness. Patient presented to the ER yesterday with her daughter after complaining of chest discomfort and SOB followed by slurred speech which progressed to the complete inability to speak and was admitted to telemetry for 24-48 hour observation for suspicion of a TIA vs new stroke. Plan: Suspected TIA w/ History of Stroke: MRA of Head and Neck planned for today following findings of MRI yesterday. Neurology consult note appreciated Swallow Eval with Speech Pathilogy planned this morning History of PFO: Continue Eliquis 2.5mg PO BID per Cardiology Chronic Medical Conditions: Continue Home medications ASA 81mg for suspected CAD per Cardiology
[2018-03-27] MEDS ORDERED: ATORVASTATIN CA40 M1 PO (11:21)
[2018-03-27] MEDS ORDERED: ASPIRIN81 M4 PO (15:36)
--- NOTE | 2018-03-27 17:54 | Discharge Summary ---
Visit Information Visit Dates Admission Date: 03/26/18 Discharge Date: 03/27/18 Hospital Course Course Attending Physician: Lauryn GRADY,Lucille Justice Primary Care Physician: Christel GRADY,Kevin Ngo [facility] Course: Ms. Brown is a 73-year-old female with past medical history of PFO, multiple ischemic strokes, hypertension, hyperlipidemia, COPD not on home oxygen, type II diabetes, GERD, osteoarthritis, past smoker. Patient was brought to the emergency department by ambulance after her daughter had noticed her mother complaining of sudden onset chest discomfort and shortness of breath, which is followed by slurring of her speech and a complete inability to talk. Upon arrival to the emergency department patient symptoms had resolved and patient was able to talk, daughter continued to notice defects in mother's ability to smile on the right side of the face. Patient had recently suffered a stroke in October after [facility] with resultant left-sided facial droop and left upper extremity weakness. ED vitals: Temperature 97.6, heart rate 90, respiratory rate 18, blood pressure 141/86, O2 saturation 90% on room air ED labs: Sodium 136, glucose 124, Imaging 1. Head CT: IMPRESSION: No acute intracranial hemorrhage or hematoma. Old extensive infarct right brain. Suspect interval new infarct right temporal parietal region. Correlation with MRI would be helpful in differentiating prior old gliosis from new acute stroke. 2 chest x-ray:IMPRESSION: Resolution of previously seen bilateral lower lobe dense opacities with only a small amount of residual linear opacities seen in the lung bases, left greater than right. Findings are likely related to residual atelectasis. No new focal pneumonia 3. Head MRI:IMPRESSION: - Small focus of acute ischemia within the right frontal lobe superimposed on large old right MCA territory infarction. Additional old infarct noted in the right cerebellum with cortical laminar necrosis. - Right petrous and carotid siphon flow voids are diminutive which may reflect upstream stenosis. Consider further evaluation with neck MRA with contrast and head MRA without contrast. - Mild to moderate small vessel ischemic changes in the cerebral white matter and central carley. Patient was admitted to telemetry floor for observation, started on atorvastatin 80 mg, neurology and cardiology consults were placed, PT OT consult placed. Patient passed bedside swallow eval was started on heart healthy diet patient started on home meds 1. Transient ischemic attack Patient was started on Eliquis 2.5 mg twice daily, aspirin and statin. Pantoprazole was stopped. MRA was recommended but was not ordered due to extensive previous workup. Patient was seen by cardiology, atorvastatin was changed to 40 mg and his LDL was 57. Patient was seen by physical therapy, who recommended home physical therapy. Patient was discharged home due to resolution of symptoms, low risk of aspiration as determined by speech therapy. Patient follows outpatient physical therapy and will continue to work with them, will follow with PCP. Allergies: Coded Allergies: No Known Allergies (10/18/17) Disposition Summary Disposition Principal Diagnosis: Transient ischemic attack Additional Diagnosis: Left upper extremity weakness Discharge Disposition: home health services Discharge Instructions General Discharge Information Code Status: Full Code Patient's Diet: Heart healthy Patient's Activity: As tolerated Follow-Up Instructions/Appts: Follow with PCP Medications at Discharge Discharge Medications: Stop taking the following medications: Ipratropium [place] (Atrovent Hfa) 17 MCG/ACTUATION HFA.AER.AD Inhale through mouth TWICE DAILY Days = 25 Atorvastatin Calcium (Lipitor) 80 MG TABLET ORAL DAILY Continue taking these medications: Metformin HCl (Metformin HCl) 1,000 MG TABLET 1 Tablet ORAL TWICE DAILY Comments: NOT GIVEN Atorvastatin Calcium (Atorvastatin Calcium) 40 MG TABLET 1 Tablet ORAL DAILY Days = 90 Comments: Last Taken: 03/26/18 Time: 6:00 PM Apixaban (Eliquis) 2.5 MG TABLET 1 Tablet ORAL TWICE DAILY Qty = 180 Comments: Last Taken: 03/27/18 Time: 9:00 AM Acetaminophen With Codeine (Acetaminophen-Cod #3 Tablet) 300 MG-30 MG TABLET 1 Tablet ORAL DAILY as needed for PAIN Qty = 30 Comments: NOT GIVEN Tramadol HCl (Tramadol HCl) 50 MG TABLET 1 Tablet ORAL TWICE DAILY as needed for PAIN Qty = 30 Comments: NOT GIVEN Pantoprazole Sodium (Pantoprazole Sodium) 40 MG TABLET.DR 1 Tablet ORAL DAILY Comments: OMEPRAZOLE GIVEN DURING THIS STAY INSTEAD Last Taken: 03/26/18 Time: 6:00 AM Albuterol Sulfate (Albuterol Sulfate) 2.5 MG/3 ML (0.083 %) VIAL.NEB 1 Vial Inhale Solution As Directed as needed for RESP. Days = 15 Comments: NOT GIVEN Nitroglycerin (Nitroglycerin) 0.4 MG TAB.SUBL 1 Tablet SUBLINGUAL As Directed as needed for CHEST PAIN Days = 10 Instructions: 1st sign of attack; may repeat every 5 minutes until relief; if pain persists after 3 tablets in 15 minutes, prompt medical att Comments: NOT GIVEN Dextran 70/Hypromellose (Artificial Tears) 1 EACH DROPERETTE 1 DROP Both Eyes As Directed as needed for BOTH EYES Comments: NOT GIVEN Cyclobenzaprine HCl (Cyclobenzaprine HCl) 5 MG TABLET 0.5 Tablet ORAL As Directed as needed for MUSCLE SPASMS Comments: Last Taken: 03/25/14 Time: 4:00 PM Tiotropium [place] (Spiriva) 18 MCG CAP.W.DEV 1 Capsule Inhale through mouth DAILY Days = 30 Comments: Last Taken: 03/27/18 Time: 9:OO AM Start taking the following new medications: Aspirin (Aspirin*) 81 MG TAB.CHEW 1 Tablet ORAL DAILY Qty = 30 No Refills Instructions: . Comments: Last Taken: 03/27/18 Time: 9:00 AM Copies To: Christel GRADY,Kevin Ngo
== END 2018-03-27 11:50 | DRG 65 ==
LOC: ERH 12:18 → ERHI 15:48 → ENRESERV 16:29 → ENTRNSPT 17:50 → 1NO 18:19 → CMPTRNSPT 18:35 → 1NO 03-26 07:21 → ENPENDDIS 03-27 10:50 → ENTRNSPT 03-27 11:44 → EDTRNSPT 03-27 11:47 → EDTRNSPTSTS 03-27 11:47 → 1NO 03-27 11:50 → CMPTRNSPT 03-27 12:25
PROVIDERS: Emergency Medicine
DX: I63.40 Cerebral infarction due to embolism of unspecified cerebral artery (principal); I69.354 Hemiplegia and hemiparesis following cerebral infarction affecting left non-dominant side; Q21.1 Atrial septal defect; R47.01 Aphasia; I10 Essential (primary) hypertension; E11.9 Type 2 diabetes mellitus without complications; Z79.84 Long term (current) use of oral hypoglycemic drugs; K21.9 Gastro-esophageal reflux disease without esophagitis; E78.5 Hyperlipidemia, unspecified; Z87.891 Personal history of nicotine dependence; Z96.652 Presence of left artificial knee joint; Z79.01 Long term (current) use of anticoagulants; Z79.51 Long term (current) use of inhaled steroids; M54.9 Dorsalgia, unspecified
CPT/HCPCS: 1NSP; 70551; 36592; 71045; 82436; 92523-GN; 93005; 93010; 97116-GO; 97161-GP; 97165-GO; 97530-GO; G8987-GO; G8988-GO; G8999-GN; G9186-GN; J3490

== ENCOUNTER 2018-04-02 16:40 | Observation (INO) | payer OTHER ==
[~2018-04-02] VITALS: Ht 162.6 cm; Wt 68.0 kg
[~2018-04-02 16:40] MED LIST changes: +ACETAMINOPHEN-1 EAC3 PO; +ALBUTEROL2.5 MG/3 M INH/SOL; +ARTIFICIAL TEA1 EACH OU; +ASPIRIN81 M4 PO; +ATORVASTATIN CA40 M1 PO; +ATROVENT HFA12.9 GM INH; +CYCLOBENZAPRINE5 M2 PO; +LIPITOR80 M1 PO; +NITROGLYCERIN0.4 M1 SL; +PANTOPRAZOLE SO40 M1 PO; +TRAMADOL HCL50 M1 PO
--- NOTE | 2018-04-02 16:54 | ED NEURO DEFICIT/STROKE ---
See Addendum History of Present Illness General Chief Complaint: Neuro Symptoms/ Deficit Stated Complaint: BIBA FOR POSSIBLE CVA Source: patient Exam Limitations: no limitations Vital Signs & Intake/Output Vital Signs & Intake/Output Vital Signs Date Time Temp Pulse Resp B/P B/P Pulse O2 O2 Flow FiO2 Mean Ox Delivery Rate 04/02 1921 Room Air 04/02 1830 98.0 107 20 135/71 95 Nasal 2.0L Cannula Allergies Coded Allergies: No Known Allergies (10/18/17) Reconcile Medications Acetaminophen With Codeine (Acetaminophen-Cod #3 Tablet) 300 MG-30 MG TABLET 1 TAB PO DAILY PRN PAIN (Reported) Albuterol Sulfate 2.5 MG/3 ML (0.083 %) VIAL.NEB 1 Vial INH/SHANKAR AD PRN RESP. (Reported) Apixaban (Eliquis) 2.5 MG TABLET 1 TAB PO BID BLOOD THINNER (Reported) Aspirin (Aspirin*) 81 MG TAB.CHEW 1 TAB PO DAILY PFO/CVA . Atorvastatin Calcium 40 MG TABLET 1 TAB PO DAILY CHOLESTEROL (Reported) Cyclobenzaprine HCl 5 MG TABLET 0.5 TAB PO AD PRN MUSCLE SPASMS (Reported) Dextran 70/Hypromellose (Artificial Tears) 1 EACH DROPERETTE 1 DROP OU AD PRN BOTH EYES (Reported) Metformin HCl 1,000 MG TABLET 1 TAB PO BID DIABETES (Reported) Nitroglycerin 0.4 MG TAB.SUBL 1 TAB SL AD PRN CHEST PAIN (Reported) 1st sign of attack; may repeat every 5 minutes until relief; if pain persists after 3 tablets in 15 minutes, prompt medical att Pantoprazole Sodium 40 MG TABLET.DR 1 TAB PO DAILY GI (Reported) Tiotropium [place] (Spiriva) 18 MCG CAP.W.DEV 1 CAP INH DAILY COPD (Reported) Tramadol HCl 50 MG TABLET 1 TAB PO BID PRN PAIN (Reported) Triage Note: PT HAS A HISTORY OF TIA AND CVA. ONSET OF SLURRED SPEECH THAT HAD PROGRESSED TO INABILITY SPEAK OCCURED APPROX 30 MINUTES AGO. LEFT SIDED FACIAL DROOP AND LEFT SIDED WEAKNESS FROM PREVIOUS CVA'S. PT CURRENTLY NON-VERBAL WHICH IS NOT HER BASELINE. Triage Nurses Notes Reviewed? yes HPI: Patient presents for evaluation of difficulty speaking that began about 30 minutes prior to arrival as witnessed by her son. The patient herself is unable to provide substantial history as she seems nearly mute. According to EMS the patient has a history of a prior CVA with residual left facial droop and left- sided weakness. Past History Travel History Traveled to [place] past 21 day No Medical History Any Pertinent Medical History? see below for history Neurological: CVA, MOTION SICKNESS EENT: NONE Cardiovascular: hypertension, hyperlipidemia Respiratory: COPD Gastrointestinal: NONE Hepatic: NONE Renal: NONE Musculoskeletal: chronic back pain, osteoarthritis Psychiatric: NONE Endocrine: diabetes Blood Disorders: NONE Cancer(s): NONE HEAD BONE GRINDER/Reproductive: NONE History of MRSA: No History of VRE: No History of CDIFF: No Surgical History Surgical History: knee replacement Psychosocial History Who do you live with Daughter Services at Home None What is your primary language Mexican Family History Family History, If Any: FATHER FH: cancer FH: heart disease Hx Contributory? No Review of Systems Review of Systems Constitutional: Reports: no symptoms. EENTM: Reports: no symptoms. Respiratory: Reports: no symptoms. Cardiovascular: Reports: no symptoms. GI: Reports: no symptoms. Genitourinary: Reports: no symptoms. Musculoskeletal: Reports: no symptoms. Skin: Reports: no symptoms. Neurological/Psychological: Reports: see HPI. Hematologic/Endocrine: Reports: no symptoms. Immunologic/Allergic: Reports: no symptoms. All Other Systems: Reviewed and Negative Physical Exam Physical Exam General Appearance: see below Cranial Nerves: see below Comments: Gen.: Well-nourished, well-developed, no acute respiratory distress. Head: Normocephalic, atraumatic. Eyes: Normal inspection bilaterally, PERRLA, EOMI Ears: Normal inspection bilaterally Nose: Normal inspection Throat/mouth : Moist mucosa Neck: Supple, full range of motion, no goiter, no carotid bruits, equal carotid pulses Heart: Regular rate and rhythm, no murmurs rubs or gallops Lungs: Clear to auscultation bilaterally with normal air entry Chest: Nontender Back: Normal range of motion Abdomen: Nondistended, normal bowel sounds Extremities: Normal range of motion grossly, equal radial pulses, no cyanosis clubbing or edema, equal hand grasp, no pronator drift, no dysmetria Neurologic: Left facial droop (chronic per EMS) left arm and leg weakness ( chronic per EMS). Unable to assess speech. Skin: warm and dry Psychiatric: Calm, cooperative, no apparent delusions or hallucinations Core Measures CVA/TIA Diagnosis: Yes Swallow Evaluation Pass Swallow eval date 04/02/18 Swallow eval time 1800 Sepsis Present: No Sepsis Focused Exam Completed? No Progress Differential Diagnosis: stroke, tia, HYPOGLYCEMIA, ELECTROLYTE ABNORMALITY Plan of Care: Orders Procedure Date/time Status Place in observation 04/02 1848 Active Misc Message 04/02 1848 Active ED Holding Orders 04/02 1848 Active Vital Signs 04/02 1848 Active Code Status 04/02 1848 Active Telemetry/Data Communications Software Consultant 04/02 1653 Active PARTIAL THROMBOPLASTIN TIME 04/02 1653 Complete PROTHROMBIN TIME 04/02 1653 Complete COMPREHENSIVE METABOLIC PANEL 04/02 1653 Complete CBC WITHOUT DIFFERENTIAL 04/02 1653 Complete EKG 04/02 1653 Active Laboratory Tests 04/02/18 1720: Anion Gap 11, Estimated GFR > 60, BUN/Creatinine Ratio 18.9, Glucose 124 H, Calcium 9.6, Total Bilirubin 0.4, AST 17, ALT 25, Alkaline Phosphatase 89, Total Protein 6.5, Albumin 3.9, Globulin 2.6, Albumin/Globulin Ratio 1.5, PT 11.8, INR 1.08, APTT 33, CBC w Diff NO MAN DIFF REQ, RBC 4.32, MCV 88.1, MCH 29.4, MCHC 33.3, RDW 15.4 H, MPV 8.0, Gran % 58.6, Lymphocytes % 30.4, Monocytes % 7.2, Eosinophils % 3.0, Basophils % 0.8, Absolute Granulocytes 3.8, Absolute Lymphocytes 2.0, Absolute Monocytes 0.5, Absolute Eosinophils 0.2, Absolute Basophils 0.1 Initial ED EKG: NSR, rate (89) Prior EKG: unchanged Comments: 04/02/2018 5:18:[address] scan reveals no acute changes although patient has extensive changes associated with a prior right sided infarct. Patient is being evaluated by Dr. Lira. Departure Departure Disposition: STILL A PATIENT Condition: Stable Clinical Impression Primary Impression: TIA (transient ischemic attack) Referrals: Kevin Kearney MD (PCP/Family) Departure Forms: Customer Survey General Discharge Information Observation Note Spoke With: Too Alvarez MD Patient In: Non-ED OBS Care Area Rationale for Observation: My rational for observation is as follows patient presents with an expressive aphasia unfortunately has now resolved. She requires an expedited evaluation for potentially reversible causes of CVA/TIA including cardioembolic phenomenon. I do not feel this patient is a good candidate for outpatient management given the significant potential debility if the patient has a completed stroke. While in the hospital I feel the patient should be placed on her full Eliquis dose ( this was decreased by 50% given an epistaxis episode recently), have a neurology consultation and consideration for follow-up MRI scan. Cardiology consultation to be considered for the possibility of echocardiogram to rule out cardioembolic disease. Patient's medications should be otherwise optimized. Critical Care Note Critical Care Note Critical Care Time: 30-74 min
--- NOTE | 2018-04-02 17:17 | CT SCAN REPORT ---
EXAMINATION: CT HEAD WITHOUT CONTRAST CLINICAL INFORMATION: Aphasic. COMPARISON: Recent brain MRI from 03/26/2018. TECHNIQUE: Contiguous axial imaging was performed from the skull base to vertex without intravenous administration of contrast. DLP: 717.91 mGy-cm FINDINGS: Extensive encephalomalacia is again visible in portions of the right cerebral hemisphere corresponding to a prior right sided MCA territorial infarct. Ex vacuo dilatation of the right lateral ventricle from volume loss. There is no evidence of acute intracranial hemorrhage. Mild chronic white matter microangiopathic changes again noted. No abnormal mass effect or midline shift is seen. No extra-axial fluid collections are identified. No evidence of hydrocephalus. The osseous structures and soft tissues are normal. The mastoid air cells and visualized portions of the paranasal sinuses are fairly well aerated. IMPRESSION: Chronic right MCA territorial infarction with volume loss. A focal superimposed acute ischemic process cannot be ruled out on the basis of this study. This critical result was discussed with Dr. Cavazos at 5:16 PM on 04/02/2018 and it was ascertained that the content and urgency of the report was understood at the time of direct communication.
[2018-04-02 17:30] LABS: ABSOLUTE BASOPHIL COUNT 0.1 /CUMM (0.0-0.2); ABSOLUTE EOSINOPHIL COUNT 0.2 /CUMM (0.0-0.7); ABSOLUTE GRANULOCYTE CT 3.8 /CUMM (1.4-6.5); ABSOLUTE MONOCYTE COUNT 0.5 /CUMM (0.10-0.60); BASOPHIL % 0.8 % (0.0-2.0); GRANULOCYTE % 58.6 % (42.2-75.2); HEMATOCRIT 38.1 % (37-47); MEAN CORPUSCULAR HGB 29.4 PG (27.0-31.0); MEAN CORPUSCULAR HGB CONC 33.3 G/DL (33.0-37.0); MEAN CORPUSCULAR VOLUME 88.1 FL (81.0-99.0); PLATELET COUNT 329 /CUMM (130-400); RBC DISTRIBUTION WIDTH 15.4 % (11.5-14.5); RED BLOOD CELL CT 4.32 /CUMM (4.20-5.40); WHITE BLOOD CELL COUNT 6.5 /CUMM (4.8-10.8)
[2018-04-02 17:40] LABS: PT 11.8 SEC (9.4-12.5); PTT 33 SEC (25-37)
--- NOTE | 2018-04-02 17:48 | Cons- Neurology ---
"General Information and HPI Consulting Request Date of Consult: 04/02/18 Requested By: Darius Cavazos MD Reason for Consult: stroke alert, sudden dysphasia Source of Information: patient, family Exam Limitations: no limitations History of Present Illness: 73/F with left hemiparesis from old CVA had been well on Eliquis except for recurring epistaxis. About 3 weeks ago doses reduced from 5 to 2.5 mg. 8 days ago developped dysphasia which cleared rapidly, but not 100%, further clearing to normal over a few days. ASA was added and atorvastatin increased 40 to 80mg per day. Today with son present she suddenly couldn't speak clearly, couldn't find words, came via EMT as stroke alert. family reports that language cleared to normal within 5 minutes. No other associated symptoms. Allergies/Medications Allergies: Coded Allergies: No Known Allergies (10/18/17) Home Med List: Acetaminophen With Codeine (Acetaminophen-Cod #3 Tablet) 300 MG-30 MG TABLET 1 TAB PO DAILY PRN PAIN (Reported) Albuterol Sulfate 2.5 MG/3 ML (0.083 %) VIAL.NEB 1 Vial INH/SHANKAR AD PRN RESP. (Reported) Apixaban (Eliquis) 2.5 MG TABLET 1 TAB PO BID BLOOD THINNER (Reported) Aspirin (Aspirin*) 81 MG TAB.CHEW 1 TAB PO DAILY PFO/CVA . Atorvastatin Calcium 40 MG TABLET 1 TAB PO DAILY CHOLESTEROL (Reported) Cyclobenzaprine HCl 5 MG TABLET 0.5 TAB PO AD PRN MUSCLE SPASMS (Reported) Dextran 70/Hypromellose (Artificial Tears) 1 EACH DROPERETTE 1 DROP OU AD PRN BOTH EYES (Reported) Metformin HCl 1,000 MG TABLET 1 TAB PO BID DIABETES (Reported) Nitroglycerin 0.4 MG TAB.SUBL 1 TAB SL AD PRN CHEST PAIN (Reported) 1st sign of attack; may repeat every 5 minutes until relief; if pain persists after 3 tablets in 15 minutes, prompt medical att Pantoprazole Sodium 40 MG TABLET.DR 1 TAB PO DAILY GI (Reported) Tiotropium [place] (Spiriva) 18 MCG CAP.W.DEV 1 CAP INH DAILY COPD (Reported) Tramadol HCl 50 MG TABLET 1 TAB PO BID PRN PAIN (Reported) Review of Systems Review of Systems: At this time no complaint on the complete medical ROS. Pertinent negatives: no chest pain, palpitation, dizziness, headache, no further nosebleeds or other bleeding Past History Travel History Traveled to [place] past 21 day No Medical History Neurological: CVA, MOTION SICKNESS EENT: NONE Cardiovascular: hypertension, hyperlipidemia Respiratory: COPD Gastrointestinal: NONE Hepatic: NONE Renal: NONE Musculoskeletal: chronic back pain, osteoarthritis Psychiatric: NONE Endocrine: diabetes Blood Disorders: NONE Cancer(s): NONE LIBRARIAN SPECIALIST/Reproductive: NONE Surgical History Surgical History: knee replacement Family History Relations & Conditions If Any: FATHER FH: cancer FH: heart disease Psychosocial History Who Do You Live With? child Services at Home: None Exam & Diagnostic Data Vital Signs and I&O Physical Exam: Looks well, NAD\\ no bruits, no murmur periph pulses OK alert, no dysnomia, no difficulty in casual conversation follows commands minimal dysarthria, family says normal voice VF: extinction LVF |EOMI, P4ERRL mild left lower facial weakness (old) spastic left UE paresis good movement 4/5 LLE sensation reduced left coord OK on right gait testing deferred DTRs increased LUE normal on right no babinski signs Last 48 Hours of Lab Results: Laboratory Tests 04/02 1720 Chemistry Sodium Pending Potassium Pending Chloride Pending Carbon Dioxide Pending Anion Gap Pending BUN Pending Creatinine Pending BUN/Creatinine Ratio Pending Glucose Pending Calcium Pending Total Bilirubin Pending AST Pending ALT Pending Alkaline Phosphatase Pending Total Protein Pending Albumin Pending Globulin Pending Albumin/Globulin Ratio Pending Coagulation PT Pending INR Pending APTT Pending Hematology CBC w Diff NO MAN DIFF REQ WBC (4.8 - 10.8 /CUMM) 6.5 RBC (4.20 - 5.40 /CUMM) 4.32 Hgb (12.0 - 16.0 G/DL) 12.7 Hct (37 - 47 %) 38.1 MCV (81.0 - 99.0 FL) 88.1 MCH (27.0 - 31.0 PG) 29.4 MCHC (33.0 - 37.0 G/DL) 33.3 RDW (11.5 - 14.5 %) 15.4 H Plt Count (130 - 400 /CUMM) 329 MPV (7.4 - 10.4 FL) 8.0 Gran % (42.2 - 75.2 %) 58.6 Lymphocytes % (20.5 - 51.1 %) 30.4 Monocytes % (1.7 - 9.3 %) 7.2 Eosinophils % (0 - 5 %) 3.0 Basophils % (0.0 - 2.0 %) 0.8 Absolute Granulocytes (1.4 - 6.5 /CUMM) 3.8 Absolute Lymphocytes (1.2 - 3.4 /CUMM) 2.0 Absolute Monocytes (0.10 - 0.60 /CUMM) 0.5 Absolute Eosinophils (0.0 - 0.7 /CUMM) 0.2 Absolute Basophils (0.0 - 0.2 /CUMM) 0.1 Imaging/Other Studies: CT Chronic right MCA territorial infarction with volume loss. A focal superimposed acute ischemic process cannot be ruled out on the basis of this study. images reviewed with Dr. Cavazos, no evidence of acute left hemisphere ischemia Assessment/Plan Assessment: TIA, language affected, L MCA event, second in 9 days on reduced eliquis despite addition of ASA old right hemisphere infarcts with stable left hemiparesis Recommendations: resume full dose eliquis notify Dr. Ortez observe 23 h if no recurrence could be discharged home Consult Acknowledgment - Thank you for your consult request."
--- NOTE | 2018-04-02 19:09 | CT SCAN REPORT ---
EXAMINATION: CTA OF THE HEAD AND NECK CLINICAL INFORMATION: Expressive aphasia. COMPARISON: Brain MRI from 03/26/2018. TECHNIQUE: Test bolus sequences followed by intravenous administration 100 mL of Ultravist. Helical imaging was performed in the axial plane from the mediastinum to the skull vertex. Delayed postcontrast imaging of the head was also performed. The data was processed at the sterile processing technologist's workstation for generation of MIP sequences. Three-dimensional volume rendered reformatted images were also generated at an offline 3-D workstation. DLP: 1745.3 mGy-cm. FINDINGS: CT head: There is no evidence of acute intracranial hemorrhage or territorial infarction. No abnormal mass effect or midline shift is seen. No extra-axial fluid collections are identified. Encephalomalacia noted in the right cerebellar hemisphere due to chronic infarction, better evaluated on the patient's prior MRI. There is no abnormal enhancement. Encephalomalacia again visible from a chronic right MCA territorial infarction. There is ex vacuo dilatation of the right lateral ventricle. The osseous structures and soft tissues are normal. The orbits are normal. The mastoid air cells are well aerated. Minimal mucosal thickening in the left maxillary sinus. CTA neck: Moderate calcific disease noted at the origin of the innominate artery with stenotic narrowing. There is mild atherosclerotic wall calcification at the aortic arch and remaining origins of the great vessels. The common carotid arteries are widely patent with mild atherosclerotic wall calcifications. There is mild to moderate wall calcification at the carotid bifurcation on the left side without significant stenotic narrowing at the origin of the left ICA. The remainder of the cervical left ICA is normal. At the right carotid bifurcation, there is moderate atherosclerotic wall calcification which extends into the carotid bulb resulting in mild stenotic narrowing. Distally along the mid to upper cervical right ICA, the caliber of the vessel is significantly reduced. The right vertebral artery is developmentally nondominant patent. The left vertebral artery is normal in caliber, though there is focal atheromatous plaque resulting in mild narrowing at the origin of the vessel. The soft tissues of the neck are unremarkable. Multilevel left-sided cervical facet arthropathy. Mild anterior subluxation at C3-C4. The imaged portions of the lungs are clear with extensive emphysematous changes. CTA head: The right vertebral artery is hypoplastic but opacifies with contrast. The left vertebral artery is normal. 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 The posterior cerebral arteries are otherwise widely patent. Intracranial right internal carotid artery petrous segment demonstrates decreased flow related contrast opacification. There is a suspected chronic occlusion versus subtotal occlusion in the distal laceral segment of the right ICA. Diminished contrast throughout a majority of the cavernous segment evident. Distally, there is normal contrast opacification with a relatively normal caliber of the anterior genu of the cavernous segment and clinoid right ICA which may be due to collateral flow. The left internal carotid artery is of normal caliber. The MINDY and MCA vascular complexes bilaterally are normal. The venous sinuses opacify normally. IMPRESSION: Reduced anterograde flow in the cervical right internal carotid artery with a diminished caliber, otherwise patent. Occlusion versus subtotal occlusion in the intracranial distal laceral segment of the vessel near the posterior genu of the cavernous portion. Normal contrast at the anterior genu and supraclinoid right ICA, presumably due to reconstitution from collateral flow. Chronic right MCA territorial infarction. Remote infarct in the right cerebellar hemisphere. A focal acute ischemic process cannot be ruled out. 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 Moderate calcific disease and stenosis at the origin of the innominate artery, not well assessed with motion artifacts. Significant emphysema visualized lungs. Imaging findings discussed with Dr. Cavazos at 7:08 PM on 04/02/2018.
--- NOTE | 2018-04-02 19:49 | History & Physical ---
Delmar Tate [birth year]: General Information and HPI MD Statement: I have seen and personally examined VINCENT CLAYTON and documented this H&P. The patient is a 73 year old F who presented with a patient stated chief complaint of SPEECH DIFFICULTY. Source of Information: patient, family, EMS Exam Limitations: no limitations History of Present Illness: 73-year-old female past medical history of CVA, hypertension, hyperlipidemia, COPD, diabetes who is brought in by ambulance with speech difficulty symptoms concerning for CVA. Of note, the patient was admitted at 9 days ago for a similar set of symptoms, with the addition of chest pain. Today, the patient was in her normal state of health until some time after 1430, when she was noticed by her son to be having difficulty speaking. Her daughter reports that she was slurring her words and repeating her words. The patient's daughter called an ambulance to come for her mother. By the time the ambulance arrived, the patient was back to her baseline. In the ED, the patient was found to be somnolent and with left sided facial droop and UE weakness from prior CVA. EKG showed normal sinus rhythm of 89bpm. CT scan of head shows no acute changes but extensive chronic changes related to prior R sided infarct. The patient was placed on observation on the telemetry floor. Allergies/Medications Allergies: Coded Allergies: No Known Allergies (10/18/17) Home Med list Acetaminophen With Codeine (Acetaminophen-Cod #3 Tablet) 300 MG-30 MG TABLET 1 TAB PO DAILY PRN PAIN (Reported) Albuterol Sulfate 2.5 MG/3 ML (0.083 %) VIAL.NEB 1 Vial INH/SHANKAR AD PRN RESP. (Reported) Apixaban (Eliquis) 2.5 MG TABLET 1 TAB PO BID BLOOD THINNER (Reported) Aspirin (Aspirin*) 81 MG TAB.CHEW 1 TAB PO DAILY PFO/CVA . Atorvastatin Calcium 40 MG TABLET 1 TAB PO DAILY CHOLESTEROL (Reported) Cyclobenzaprine HCl 5 MG TABLET 0.5 TAB PO AD PRN MUSCLE SPASMS (Reported) Dextran 70/Hypromellose (Artificial Tears) 1 EACH DROPERETTE 1 DROP OU AD PRN BOTH EYES (Reported) Metformin HCl 1,000 MG TABLET 1 TAB PO BID DIABETES (Reported) Nitroglycerin 0.4 MG TAB.SUBL 1 TAB SL AD PRN CHEST PAIN (Reported) 1st sign of attack; may repeat every 5 minutes until relief; if pain persists after 3 tablets in 15 minutes, prompt medical att Pantoprazole Sodium 40 MG TABLET.DR 1 TAB PO DAILY GI (Reported) Tiotropium [place] (Spiriva) 18 MCG CAP.W.DEV 1 CAP INH DAILY COPD (Reported) Tramadol HCl 50 MG TABLET 1 TAB PO BID PRN PAIN (Reported) Compliance With Home Meds: GOOD Past History Travel History Traveled to [place] past 21 day No Medical History Neurological: CVA, MOTION SICKNESS EENT: NONE Cardiovascular: hypertension, hyperlipidemia Respiratory: COPD Gastrointestinal: NONE Hepatic: NONE Renal: NONE Musculoskeletal: chronic back pain, osteoarthritis Psychiatric: NONE Endocrine: diabetes Blood Disorders: NONE Cancer(s): NONE 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 child Services at Home: None ETOH Use: denies use Illicit Drug Use: denies illicit drug use Review of Systems Review of Systems Constitutional: Reports: weakness. Denies: chills, diaphoresis. EENTM: Reports: no symptoms. Cardiovascular: Denies: chest pain, orthopena, palpitations, peripheral edema, syncope. Respiratory: Reports: cough. Denies: hemoptysis, orthopnea, short of breath. GI: Reports: no symptoms. Genitourinary: Reports: no symptoms. Musculoskeletal: Reports: see HPI. Skin: Reports: no symptoms. Neurological/Psychological: Reports: unable to move upper ext (left), weakness (left UE). Hematologic/Endocrine: Reports: no symptoms. Immunologic/Allergic: Reports: no symptoms. Exam & Diagnostic Data Last 24 Hrs of Vital Signs/I&O Vital Signs Date Time Temp Pulse Resp B/P B/P Pulse O2 O2 Flow FiO2 Mean Ox Delivery Rate 04/03 0019 109 17 109/70 94 Nasal 2.0L Cannula 04/021 98.2 88 18 135/77 98 04/02 1930 98.2 84 18 136/74 98 04/02 1921 Room Air 04/02 1830 98.0 107 20 135/71 95 Nasal 2.0L Cannula Intake & Output 04/03 0800 04/03 0000 04/02 1600 Intake Total 0 Output Total Balance 0 Intake, Oral 0 Patient 150 lb Weight Weight Estimated Measurement Method Physical Exam General Appearance Oriented X3, Cooperative, No Acute Distress, somnolent, aroused to voice Skin No Rashes, No Breakdown, No Significant Lesion Skin Temp/Moisture Exam: Warm/Dry HEENT Atraumatic, PERRLA, EOMI, Mucous Membr. moist/pink Neck Supple, No JVD, No thryomegaly Cardiovascular Regular Rate, Normal S1, Normal S2, No Murmurs, Gallops, Rubs Lungs Clear to Auscultation, Normal Air Movement Abdomen Normal Bowel Sounds, Soft, No Tenderness, No Hepatospenomegaly, No Masses Neurological Normal Speech, significant loss of function, RUE; minimal to negligible loss of function RLE Extremities No Clubbing, No Cyanosis, No Edema Last 24 Hrs of Labs/Ricci: Laboratory Tests 04/02/18 1720: Anion Gap 11, Estimated GFR > 60, BUN/Creatinine Ratio 18.9, Glucose 124 H, Calcium 9.6, Total Bilirubin 0.4, AST 17, ALT 25, Alkaline Phosphatase 89, Total Protein 6.5, Albumin 3.9, Globulin 2.6, Albumin/Globulin Ratio 1.5, PT 11.8, INR 1.08, APTT 33, CBC w Diff NO MAN DIFF REQ, RBC 4.32, MCV 88.1, MCH 29.4, MCHC 33.3, RDW 15.4 H, MPV 8.0, Gran % 58.6, Lymphocytes % 30.4, Monocytes % 7.2, Eosinophils % 3.0, Basophils % 0.8, Absolute Granulocytes 3.8, Absolute Lymphocytes 2.0, Absolute Monocytes 0.5, Absolute Eosinophils 0.2, Absolute Basophils 0.1 Diagnostic Data EKG Results Normal sinus rhythm Other Results Head CT - Chronic right MCA territorial infarction with volume loss. Head/Neck CTA - Reduced anterograde flow int eh cervical right internal carotid argery with a diminished caliber. Chronic R MCA territorial infarction. Assessment/Plan Assessment: 73-year-old female past medical history of CVA, hypertension, hyperlipidemia, COPD, diabetes who is brought in by ambulance with speech difficulty symptoms concerning for CVA. Problem list/plan: TIA -Transient speech changes, concerning for TIA vs CVA -Observe in telemetry -I's and O's, vitals per protocol -Anticoagulation with Eliquis, full dose of 5mg bid -Echocardiogram in the AM -PT/OT eval for LUE loss of function DM -Hold home hypoglycemics -Start insulin SS HLD -maintain home dose, 40 mg daily COPD -continue home dose of Spiriva 1 puff daily GERD -continue home omeprazole DVT prophylaxis: pt on eliquis, ALPS Heart healthy diet Patient is full code As Ranked By This Provider Problem List: 1. TIA (transient ischemic attack) 2. Diabetes mellitus 3. GERD (gastroesophageal reflux disease) 4. COPD (chronic obstructive pulmonary disease) 5. Dyslipidemia Core Measures/Misc (04/30) Acute Coronary Syndrome ACS Diagnosis: No Congestive Heart Failure Congestive Heart Failure Diagnosis No Cerebrovascular Accident CVA/TIA Diagnosis: Yes NIH Stroke Scale: Total 4 Date Last Known Well: 04/02/18 Time Last Known Well: 0130 Symptom Start Time: 1430 Reason tPA not ordered Medical Contraindication Swallow Evaluation Pass Current/Past Hx AFib/AFlutter No VTE (View Protocol) VTE Risk Factors Age>40 No Mechanical VTE Prophylaxis d/t N/A MechProphylax Ordered No VTE Pharm Prophylaxis d/t NA PharmProphylax ordered Sepsis (View protocol) Sepsis Present: No If YES complete Sepsis Event Note If YES complete Sepsis Event Note Jarrod Wells MD 04/03/18 0333: General Information and HPI MD Statement: I have seen and personally examined VINCENT CLAYTON and documented this H&P. The patient is a 73 year old F who presented with a patient stated chief complaint of trouble speaking. Source of Information: patient, family, old records, EMS Exam Limitations: no limitations History of Present Illness: 73 year old female with PMH of HTN, HLD, COPD, DM, prior CVA perioperatively ( PFO) with residual left primarily LUE hemiparesis presents with acute onset dysphasia. She had been on Eliquis 5mg po bid but developed recurring epistaxis. Her dose was reduced from 5 to 2.5 mg and aspirin was added several weeks ago by her tarper. One week ago she was evaluated in the ED for chest pain and dysphasia which cleared rapidly and she was sent home with diagnosis of TIA with resolution of her symptoms. Her atorvastatin was increased from 40 to 80mg per day. Today, her son noticed difficulty speaking this afternoon around 1430. The daughter arrived home shortly thereafter and states her mother was slurring her speech and repeating phrases over and over but by the time of evaluation in the ED all her symptoms had resolved. Her neurological exam showed residual deficits from prior CVA but no acute findings. NCHCT and CTA of the head and neck were also unremarkable for acute findings. She had no other associated symptoms, no visual loss, seizures, headache, fevers , chills, confusion, facial droop, or new motor or sensory deficits. The patient was placed in telemetry under observation status for TIA. Allergies/Medications Compliance With Home Meds: GOOD Past History Travel History Traveled to [place] past 21 day No Medical History Neurological: CVA, TIA EENT: epistaxis Cardiovascular: AFIB Respiratory: COPD Gastrointestinal: GERD Hepatic: NONE Renal: NONE Musculoskeletal: chronic back pain Psychiatric: NONE Endocrine: diabetes Blood Disorders: NONE Cancer(s): NONE Surgical History Surgical History: non-contributory Past Family/Social History Psychosocial History Who Do You Live With? child Services at Home: Home Health Aide, Occupational Therapy, Physical Therapy Primary Language: Mongolian Smoking Status: Former Smoker Functional Ability Ambulation: cane Review of Systems Review of Systems Constitutional: Reports: weakness. Denies: chills, fever. EENTM: Reports: no symptoms. Cardiovascular: Denies: chest pain, palpitations, syncope. Respiratory: Reports: cough. GI: Denies: abdominal pain, nausea, vomiting. Genitourinary: Denies: dysuria, frequency. Skin: Reports: no symptoms. Neurological/Psychological: Reports: pre-existing deficit (left hemiplegia). Hematologic/Endocrine: Reports: no symptoms. Immunologic/Allergic: Reports: no symptoms. All Other Systems: Reviewed and Negative Exam & Diagnostic Data Last 24 Hrs of Vital Signs/I&O Vital Signs Date Time Temp Pulse Resp B/P B/P Pulse O2 O2 Flow FiO2 Mean Ox Delivery Rate 04/03 0019 109 17 109/70 94 Nasal 2.0L Cannula 04/02 2131 98.2 88 18 135/77 98 04/02 1930 98.2 84 18 136/74 98 04/02 1921 Room Air 04/02 1830 98.0 107 20 135/71 95 Nasal 2.0L Cannula Intake & Output 04/03 0800 04/03 0000 04/02 1600 Intake Total 0 Output Total Balance 0 Intake, Oral 0 Patient 68.039 kg 68.039 kg Weight Weight Estimated Measurement Method Physical Exam General Appearance Alert, Oriented X3, Cooperative, No Acute Distress Cardiovascular Regular Rate, Normal S1, Normal S2, No Murmurs Lungs Clear to Auscultation, Normal Air Movement Abdomen Normal Bowel Sounds, Soft, No Tenderness, No Masses Neurological Normal Gait, Normal Speech, Sensation Intact, Cranial Nerves 3-12 NL, left hemiplegia chronic deficit, no dysarthria or dysphasia Extremities No Clubbing, No Cyanosis, No Edema Last 24 Hrs of Labs/Ricci: Laboratory Tests 04/02/18 1720: Anion Gap 11, Estimated GFR > 60, BUN/Creatinine Ratio 18.9, Glucose 124 H, Calcium 9.6, Total Bilirubin 0.4, AST 17, ALT 25, Alkaline Phosphatase 89, Total Protein 6.5, Albumin 3.9, Globulin 2.6, Albumin/Globulin Ratio 1.5, PT 11.8, INR 1.08, APTT 33, CBC w Diff NO MAN DIFF REQ, RBC 4.32, MCV 88.1, MCH 29.4, MCHC 33.3, RDW 15.4 H, MPV 8.0, Gran % 58.6, Lymphocytes % 30.4, Monocytes % 7.2, Eosinophils % 3.0, Basophils % 0.8, Absolute Granulocytes 3.8, Absolute Lymphocytes 2.0, Absolute Monocytes 0.5, Absolute Eosinophils 0.2, Absolute Basophils 0.1 Diagnostic Data EKG Results sinus rhythm, minimal ST depressions in v3-v4 Other Results Head CT noncontrast IMPRESSION: Chronic right MCA territorial infarction with volume loss. A focal superimposed acute ischemic process cannot be ruled out on the basis of this study. This critical result was discussed with Dr. Cavazos at 5:16 PM on 04/02/2018 and it was ascertained that the content and urgency of the report was understood at the time of direct communication. Head/Neck CTA Reduced anterograde flow in the cervical right internal carotid artery with a diminished caliber, otherwise patent. Occlusion versus subtotal occlusion in the intracranial distal laceral segment of the vessel near the posterior genu of the cavernous portion. Normal contrast at the anterior genu and supraclinoid right ICA, presumably due to reconstitution from collateral flow. Chronic right MCA territorial infarction. Remote infarct in the right cerebellar hemisphere. A focal acute ischemic process cannot be ruled out. 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 Moderate calcific disease and stenosis at the origin of the innominate artery, not well assessed with motion artifacts. Significant emphysema visualized lungs. Assessment/Plan Assessment: 73 year old female with PMH significant for prior R MCA CVA, HTN, HLD, DM, and COPD BIBA with dysphasia for stroke alert and subsequent resolution of symptoms and negative CT imaging consistent with and being observed on telemetry for TIA. TIA Transient expressive aphasia Symptoms resolved, with NIHSS positive only for residual deficits from prior CVA Passed bedside swallow evaluation Observe in telemetry for arrythmias Check echocardiogram Increased frequency of neurological symptoms since reduction of antiocoagulation for afib Increase eliquis from 2.5 to 5mg po bid Continue aspirin 81mg daily Cardiology and neurology consultations Speech evaluation PT/OT evaluation left hemiplegia from prior CVA Consider MRI DM: Hold metformin Accuchecks TIDAC/HS Novolog sliding scale insulin HLD Continue atorvastatin 40mg po daily Check lipid panel COPD: Continue Spiriva GERD: Continue PO PPI Heart healthy diet DVT ppx-eliquis Full code As Ranked By This Provider Problem List: 1. TIA (transient ischemic attack) 2. Diabetes mellitus 3. GERD (gastroesophageal reflux disease) 4. COPD (chronic obstructive pulmonary disease) 5. Dyslipidemia Core Measures/Misc (04/30) Acute Coronary Syndrome ACS Diagnosis: No Congestive Heart Failure Congestive Heart Failure Diagnosis No Cerebrovascular Accident CVA/TIA Diagnosis: Yes NIH Stroke Scale: Total 4 Date Last Known Well: 04/02/18 Time Last Known Well: 1300 Symptom Start Date: 04/02/18 Symptom Start Time: 1430 tPA Risk/Benefit discussion I have discussed the risks, benefits, and alternatives of Alteplase treatment including: - If given promptly, can resolve or have major improvement in stroke symptoms. - Bleeding (hemorrhage) is the most common risk that can occur. - Bleeding may occur into the brain and cause~custodial serious disability~ including - this is rare, affecting about 1% of patients. - Alternative treatments with proven benefit for patients with stroke include aspirin and care in a specialized unit where staff members pay careful attention to a variety of basic aspects of care. tPA given? No Reason tPA not ordered Medical Contraindication Swallow Evaluation Pass Current/Past Hx AFib/AFlutter No VTE (View Protocol) VTE Risk Factors Age>40 No Mechanical VTE Prophylaxis d/t N/A MechProphylax Ordered No VTE Pharm Prophylaxis d/t NA PharmProphylax ordered Sepsis (View protocol) Sepsis Present: No If YES complete Sepsis Event Note If YES complete Sepsis Event Note Too Alvarez MD 04/03/18 0503: Core Measures/Misc (04/30) Sepsis (View protocol) If YES complete Sepsis Event Note If YES complete Sepsis Event Note Attending MD Review Statement Attending Statement Attending MD Statement: examined this patient, discuss w/resident/PA/HOOP FLARING MACHINE OPERATOR HELPER, agreed w/resident/PA/HOOP FLARING MACHINE OPERATOR HELPER Attending Assessment/Plan: Patient is seen and examined independently by me. Care plan discussed with medical laboratory technical officer and resident. I agree with the physical exam findings and plan of care as outlined above with the following changes and additions. 73 yo F with history of CVA with residual left sided weakness, HTN, HLD, DM, COPD, PAF on Eliquis, presented with slurred speech and difficulty finding words. Family member reported he speech is back to normal in 5 minutes. She has no new weakness or numbness. She had nose bleed 10 days ago and her Eliquis is reduced by half. CT head and CTA head and neck shows reduced flow in the cervical right ICA. Occlusion vs subtotal occlusion in the intracranial distal lateral segment of the vessel near the posterior genu of the cavernous portion. Chronic right MCA infarction. Remote right CB infarct. No acute intracranial ischemia or bleed. EKG shows NSR at [address]-T changes. Patient is placed on observation in Tele for TIA. Cardiac monitoring. Add ASA 81 mg and resume Eliquis 5 mg BID. On statin. Echocardiogram. Speech therapy, PT/OT. Neuro consult. Too Alvarez MD FACP
[2018-04-03 06:30] LABS: ABSOLUTE BASOPHIL COUNT 0 /CUMM (0.0-0.2); ABSOLUTE LYMPH COUNT 0.9 /CUMM (1.2-3.4); ABSOLUTE MONOCYTE COUNT 0.4 /CUMM (0.10-0.60)
[2018-04-03 06:38] LABS: ABSOLUTE EOSINOPHIL COUNT 0.1 /CUMM (0.0-0.7); ABSOLUTE GRANULOCYTE CT 6.6 /CUMM (1.4-6.5); BASOPHIL % 0.2 % (0.0-2.0); EOSINOPHIL % 1.7 % (0-5); GRANULOCYTE % 82.3 % (42.2-75.2); MEAN CORPUSCULAR HGB 29.8 PG (27.0-31.0); MEAN CORPUSCULAR HGB CONC 33.3 G/DL (33.0-37.0); MEAN CORPUSCULAR VOLUME 89.4 FL (81.0-99.0); MEAN PLATELET VOLUME 8.1 FL (7.4-10.4); PLATELET COUNT 238 /CUMM (130-400); RBC DISTRIBUTION WIDTH 15.2 % (11.5-14.5); RED BLOOD CELL CT 3.65 /CUMM (4.20-5.40); WHITE BLOOD CELL COUNT 8.1 /CUMM (4.8-10.8)
[2018-04-03 06:43] LABS: HEMATOCRIT 32.6 % (37-47)
--- NOTE | 2018-04-03 07:54 | PN- Cardiology ---
Subjective Subjective: 73-year-old female past medical history of CVA, hypertension, hyperlipidemia, COPD, diabetes who is brought in by ambulance with speech difficulty symptoms concerning for CVA. According to her daughter patient got up with the help of her son to go to the bathroom when she developed dizziness associated with slurred speech which lasted for about 5 min and resolved spontaneously. She was brought to ER where she was observed overnight. She developed similar episoded today around 6 am when her daughter got her up to urinate. She became dizzy, warm, pale and had slurred speech for 1-2 minutes. Her SBP was in 70's, she received iv fluids and felt better. Similar episode occured last week, she was hospitalized for a few days and aspirin was added to her regimen. CT scan at that time showed new small temporo parietal stroke. Review of Systems Constitutional: Reports: weakness. Denies: no symptoms, see HPI, chills, diaphoresis, fever, malaise, unexplained weight loss. EENTM: Denies: no symptoms, see HPI, blurred vision, double vision, visual changes, eye pain, eye drainage, eye tearing, icterus, ear discharge, ear pain, ear redness, hearing changes, nasal congestion, epistaxis, nasal pain, throat pain, throat swelling, mouth pain, tooth pain. Cardiovascular: Denies: no symptoms, see HPI, chest pain, edema, orthopena, palpitations, peripheral edema, syncope. Respiratory: Denies: no symptoms, see HPI, cough, hemoptysis, orthopnea, short of breath, sputum production, stridor, wheezing. Gastrointestinal: Denies: no symptoms, see HPI, abdominal pain, bloating, constipation, diarrhea, distention, bowel incontinence, melena, nausea, bloody stool, changes in stool, vomiting, steatorrhea. Genitourinary: Denies: no symptoms, see HPI, discharge, dysuria, frequency, hematuria, hesitation, nocturia, pain, urgency. Musculoskeletal: Denies: no symptoms, see HPI, back pain, gout, joint pain, joint swelling, muscle pain, muscle stiffness, neck pain. Skin: Denies: no symptoms, see HPI, cysts, change in skin color, change in hair/nails, dryness, erythema, jaundice, lesions, lymphangitis, lumps, moles, rash. Hematologic/Endocrine: Denies: no symptoms, see HPI, bruising, bleeding, polyuria, polydipsia, other. Immunologic/Allergic: Denies: no symptoms, see HPI, splenectomy, HIV/AIDS, lymphadenopathy, other. Objective Vital Signs and I&Os Vital Signs Date Time Temp Pulse Resp B/P B/P Pulse O2 O2 Flow FiO2 Mean Ox Delivery Rate 04/03 0734 98.4 98 20 99/70 95 Room Air 04/03 0654 99 20 104/60 97 Nasal 2.0L Cannula 04/03 0622 92 22 98/54 96 Nasal 2.0L Cannula 04/03 0551 98.6 70 22 81/42 95 Nasal 2.0L Cannula 04/03 0019 109 17 109/70 94 Nasal 2.0L Cannula 04/02 2131 98.2 88 18 135/77 98 04/02 1930 98.2 84 18 136/74 98 04/02 1921 Room Air 04/02 1830 98.0 107 20 135/71 95 Nasal 2.0L Cannula Intake & Output 04/03 0800 04/03 0000 04/02 1600 04/02 0804/02 0000 04/01 1600 Intake Total 0 Output Total Balance 0 Intake, Oral 0 Patient 150 lb 150 lb Weight Weight Estimated Measurement Method Physical Exam: HEENT-PERRLA Neck-JVP normal, no bruits Lungs-clear bilaterally Heart-S1S2 regular,no murmur ABdomen-soft, not tender, BS+, no organomegaly Extremities-no edema, 2+ pulses, no cyanosis Neuro-significant left arm and leg weakness with some movement, left hand contracture Vascular-no carotid bruit, 2+ distal pulses Current Medications: Current Medications Sig/Harish Start time Last Medication Dose Route Stop Time Status Admin Acetaminophen 650 MG Q6P PRN 04/02 2145 AC PO Apixaban 5 MG BID 04/02 2200 AC 04/02 PO 2255 Aspirin 81 MG DAILY 04/03 900 AC PO Atorvastatin Calcium 40 MG DAILY 04/03 900 DC PO Atorvastatin Calcium 80 MG DAILY 04/03 900 AC PO Insulin Aspart 0 TIDAC 04/03 08 AC 04/03 SC 0730 Omeprazole 0 .STK-MED ONE 04/03 07 DC PO Omeprazole 40 MG DAILY AC 04/03 07 AC 04/03 PO 0724 Ondansetron HCl 4 MG ONCE ONE 04/03 0600 DC 04/03 IV 04/03 0601 0609 Ondansetron HCl 0 .STK-MED ONE 04/03 0553 DC .ROUTE Ondansetron HCl 4 MG ONCE ONE 04/03 0030 DC 04/03 IV 04/03 31 0040 Ondansetron HCl 4 MG ONCE ONE 04/03 0030 DC IV 04/03 0031 Ondansetron HCl 0 .STK-MED ONE 04/03 0029 DC .ROUTE Tiotropium [place] 1 PUF DAILY 04/03 0900 AC INH Tramadol HCl 50 MG BID PRN 04/02 2200 AC PO Results Last 48 Hrs of Labs/Mics: Laboratory Tests 04/03/18 0609: Anion Gap 6, Estimated GFR > 60, BUN/Creatinine Ratio 17.8, Magnesium 1.2 L, Troponin I < 0.01, Triglycerides 121, Cholesterol 111, LDL Cholesterol, Calc 43 L, HDL Cholesterol 44, Cholesterol/HDL Ratio 3, Prolactin 86.4 H, CBC w Diff NO MAN DIFF REQ, RBC 3.65 L, MCV 89.4, MCH 29.8, MCHC 33.3, RDW 15.2 H, MPV 8.1, Gran % 82.3 H, Lymphocytes % 10.9 L, Monocytes % 4.9, Eosinophils % 1.7, Basophils % 0.2, Absolute Granulocytes 6.6 H, Absolute Lymphocytes 0.9 L, Absolute Monocytes 0.4, Absolute Eosinophils 0.1, Absolute Basophils 0 04/02/18 1720: Anion Gap 11, Estimated GFR > 60, BUN/Creatinine Ratio 18.9, Glucose 124 H, Calcium 9.6, Total Bilirubin 0.4, AST 17, ALT 25, Alkaline Phosphatase 89, Total Protein 6.5, Albumin 3.9, Globulin 2.6, Albumin/Globulin Ratio 1.5, PT 11.8, INR 1.08, APTT 33, CBC w Diff NO MAN DIFF REQ, RBC 4.32, MCV 88.1, MCH 29.4, MCHC 33.3, RDW 15.4 H, MPV 8.0, Gran % 58.6, Lymphocytes % 30.4, Monocytes % 7.2, Eosinophils % 3.0, Basophils % 0.8, Absolute Granulocytes 3.8, Absolute Lymphocytes 2.0, Absolute Monocytes 0.5, Absolute Eosinophils 0.2, Absolute Basophils 0.1 Recent Imaging Studies: CT, CTA head results noted Assessment/Plan Assessment/Plan 73-year-old female past medical history of CVA, PFO, hypertension, hyperlipidemia, COPD, diabetes, presents with another episode of slurred speech. Symptoms recurred in ER upon standing when her blood pressure dropped. These symptoms could be hemodynamic due to decreased brain perfusion due to low blood pressure. Abnormal CTA results with ?subtotal occlusion of distal intracranial right carotid artery noted. Plan: stop ASA Agree to increase Eliquis to 5 mg bid increase fluids and salt intake patient reports chronic anxiety. I recommend to try SSRI. neurology follow up to comment regarding abnormal CTA and right intracranial carotid occlusion vs subtotal occlusion continue statin check orthostasis Continue telemetry? Yes
[2018-04-03 09:52] VITALS: BP 99/70
--- NOTE | 2018-04-03 13:17 | PN- Housestaff ---
Subjective Follow-up For: TIA Subjective: Patient seen and examined in ER. Son at bedside. No acute distress. Son mentions her voice is quieter than normal. Denies any new symptoms. Review of Systems Constitutional: Reports: see HPI. Objective Last 24 Hrs of Vital Signs/I&O Vital Signs Date Time Temp Pulse Resp B/P B/P Pulse O2 O2 Flow FiO2 Mean Ox Delivery Rate 04/03 2317 98.9 91 20 152/88 95 Room Air 04/03 2309 Nasal 2.0L Cannula 04/03 2128 92 Nasal 2.0L Cannula 04/03 2125 Nasal 2.0L Cannula 04/03 1505 98.5 95 20 92 Room Air 04/03 1019 98.5 96 20 111/62 95 Room Air 04/03 0958 95 Room Air 04/03 0952 98.4 98 20 99/70 95 Room Air 04/03 0734 98.4 98 20 99/70 95 Room Air 04/03 0654 99 20 104/60 97 Nasal 2.0L Cannula 04/03 0622 92 22 98/54 96 Nasal 2.0L Cannula 04/03 0551 98.6 70 22 81/42 95 Nasal 2.0L Cannula Intake & Output 04/04 0800 04/04 0000 04/03 1600 Intake Total 220 560 Output Total 240 Balance 220 320 Intake, Oral 220 560 Output, Urine 240 Physical Exam General Appearance: Alert, Cooperative, No Acute Distress HEENT: Atraumatic, EOMI Neck: Supple Cardiovascular: Normal S1, Normal S2 Lungs: Clear to Auscultation, Normal Air Movement Abdomen: Normal Bowel Sounds, Soft, No Tenderness Neurological: Speech intact. , Left sided weakness U/E Current Medications: Current Medications Sig/Harish Start time Last Medication Dose Route Stop Time Status Admin Acetaminophen 650 MG Q6P PRN 04/02 2145 AC PO Albuterol Sulfate 3 ML Q4P PRN 04/03 2130 AC INH Apixaban 5 MG BID 04/02 2200 AC 04/03 PO 204 Aspirin 81 MG DAILY 04/03 0900 CAN PO Atorvastatin Calcium 80 MG DAILY 04/03 0900 AC 04/03 PO 0911 Insulin Aspart 0 TIDAC 04/03 0800 AC 04/03 SC 1653 Magnesium Oxide 400 MG BID 04/03 2100 AC 04/03 PO 204 Omeprazole 0 .STK-MED ONE 04/03 0717 DC PO Omeprazole 40 MG DAILY AC 04/03 0700 AC 04/03 PO 0724 Ondansetron HCl 4 MG ONCE ONE 04/03 0600 DC 04/03 IV 04/03 0601 0609 Ondansetron HCl 0 .STK-MED ONE 04/03 0553 DC .ROUTE Sodium Chloride 500 ML BOLUS ONE 04/03 1430 DC 04/03 IV 04/03 1529 1429 Tiotropium [place] 1 PUF DAILY 04/03 0900 AC 04/03 INH 0911 Tramadol HCl 50 MG BID PRN 04/02 2200 AC PO Last 24 Hrs of Lab/Ricci Results Last 24 Hrs of Labs/Mics: Laboratory Tests 04/03/18 0609: Anion Gap 6, Estimated GFR > 60, BUN/Creatinine Ratio 17.8, Magnesium 1.2 L, Troponin I < 0.01, Triglycerides 121, Cholesterol 111, LDL Cholesterol, Calc 43 L, HDL Cholesterol 44, Cholesterol/HDL Ratio 3, Prolactin 86.4 H, CBC w Diff NO MAN DIFF REQ, RBC 3.65 L, MCV 89.4, MCH 29.8, MCHC 33.3, RDW 15.2 H, MPV 8.1, Gran % 82.3 H, Lymphocytes % 10.9 L, Monocytes % 4.9, Eosinophils % 1.7, Basophils % 0.2, Absolute Granulocytes 6.6 H, Absolute Lymphocytes 0.9 L, Absolute Monocytes 0.4, Absolute Eosinophils 0.1, Absolute Basophils 0 Assessment/Plan Assessment: 73/F with PMH of left hemiparesis from CVA, PFO on eliquis, HTN, HLD, COPD, DM. She had been well on Eliquis except for recurring epistaxis. About 3 weeks ago doses reduced from 5 to 2.5 mg. ASA was added and atorvastatin increased 40 to 80mg per day. Came to ED with inability to speak/find words, discovered by son. Family reports that language cleared to normal within 5 minutes. No other associated symptoms. CTA Head/Neck 04/02/18 IMPRESSION: - Reduced anterograde flow in the cervical right internal carotid artery with a diminished caliber, otherwise patent. Occlusion versus subtotal occlusion in the intracranial distal laceral segment of the vessel near the posterior genu of the cavernous portion. Normal contrast at the anterior genu and supraclinoid right ICA, presumably due to reconstitution from collateral flow. - Chronic right MCA territorial infarction. Remote infarct in the right cerebellar hemisphere. A focal acute ischemic process cannot be ruled out. 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 - Moderate calcific disease and stenosis at the origin of the innominate artery, not well assessed with motion artifacts. - Significant emphysema visualized lungs. CT Head 04/02/18 IMPRESSION: Chronic right MCA territorial infarction with volume loss. A focal superimposed acute ischemic process cannot be ruled out on the basis of this study. Most likely a TIA in the setting of a recent MCA event. We have consulted neurosurgery. Plan: #TIA #Previous R MCA event #Hypomagnesemia - Observe on Telemetry - Appreciate Neuro and Cardio Recs - Resume full dose eliquis as per neurology - Statin stopped - Blood pressures are more consistent in L arm - Neurosurgery consult Problem List: 1. TIA (transient ischemic attack) Pain Ratin Pain Location: n/a Pain Goal: Remain pain free Pain Plan: pathway Tomorrow's Labs & Rationales: BEP Mg
--- NOTE | 2018-04-03 13:23 | PN- Att Addend ---
Attending Addendum Attending Brief Note Patient seen and examined. Family present at bedside. Alert and oriented 3. Not in any acute distress. Denies any pain at present. Reports malaise. Vital Signs Date Time Temp Pulse Resp B/P B/P Pulse O2 O2 Flow FiO2 Mean Ox Delivery Rate 04/03 1019 98.5 96 20 111/62 95 Room Air 04/03 0958 95 Room Air 04/03 0952 98.4 98 20 99/70 95 Room Air 04/03 0734 98.4 98 20 99/70 95 Room Air 04/03 0654 99 20 104/60 97 Nasal 2.0L Cannula 04/03 0622 92 22 98/54 96 Nasal 2.0L Cannula 04/03 0551 98.6 70 22 81/42 95 Nasal 2.0L Cannula 04/03 0019 109 17 109/70 94 Nasal 2.0L Cannula 04/02 2131 98.2 88 18 135/77 98 04/02 1930 98.2 84 18 136/74 98 04/02 1921 Room Air 04/02 1830 98.0 107 20 135/71 95 Nasal 2.0L Cannula General appearance: Well-developed and not in any acute distress. HEENT: Anicteric, no pallor, pupils equal and reactive. Neck: Supple with no jugular venous distention. Heart: S1-S2 regular with no audible murmur. Lungs: Adequate and symmetric air entry bilaterally with no added sounds. Abdomen: Nondistended with normal bowel sounds. Soft, nontender with no palpable masses. Extremities: Power is 5/5 bilateral lower extremities. Full 5 right upper extremity. 2/5 right upper extremity. Neurologic: Speech is intact. No facial asymmetry. Skin: Intact Laboratory Tests 04/03/18 0609: Anion Gap 6, Estimated GFR > 60, BUN/Creatinine Ratio 17.8, Magnesium 1.2 L, Troponin I < 0.01, Triglycerides 121, Cholesterol 111, LDL Cholesterol, Calc 43 L, HDL Cholesterol 44, Cholesterol/HDL Ratio 3, Prolactin 86.4 H, CBC w Diff NO MAN DIFF REQ, RBC 3.65 L, MCV 89.4, MCH 29.8, MCHC 33.3, RDW 15.2 H, MPV 8.1, Gran % 82.3 H, Lymphocytes % 10.9 L, Monocytes % 4.9, Eosinophils % 1.7, Basophils % 0.2, Absolute Granulocytes 6.6 H, Absolute Lymphocytes 0.9 L, Absolute Monocytes 0.4, Absolute Eosinophils 0.1, Absolute Basophils 0 04/02/18 1720: Anion Gap 11, Estimated GFR > 60, BUN/Creatinine Ratio 18.9, Glucose 124 H, Calcium 9.6, Total Bilirubin 0.4, AST 17, ALT 25, Alkaline Phosphatase 89, Total Protein 6.5, Albumin 3.9, Globulin 2.6, Albumin/Globulin Ratio 1.5, PT 11.8, INR 1.08, APTT 33, CBC w Diff NO MAN DIFF REQ, RBC 4.32, MCV 88.1, MCH 29.4, MCHC 33.3, RDW 15.4 H, MPV 8.0, Gran % 58.6, Lymphocytes % 30.4, Monocytes % 7.2, Eosinophils % 3.0, Basophils % 0.8, Absolute Granulocytes 3.8, Absolute Lymphocytes 2.0, Absolute Monocytes 0.5, Absolute Eosinophils 0.2, Absolute Basophils 0.1 Problems: 1. Stroke with a baseline left upper extremity weakness. Presented with slurred speech that has resolved. 2. Occlusion versus subtotal occlusion of the intracranial distal segments of the right internal carotid artery. 3. 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 4. Hypotension while in the emergency room Plan: -Patient was also therapeutic dose of Eliquis when he is neurologic events occurred. He has been increased to full dose of Eliquis. Patient is noted to have occlusionwas a subtotal occlusion of the intracranial aspect of the right internal carotid artery. Recommend evaluation by the vascular surgery service. Also recommend comment from the vascular surgery service regarding the intracranial aneurysm noted. Patient is not on any hypotensive medications. Denies any diarrhea-all vomiting. She was briefly hypotensive this morning. Will monitor closely overnight. -
[2018-04-03 23:17] VITALS: BP 152/88
--- NOTE | 2018-04-04 07:22 | PN- Housestaff ---
Dominick Weston 04/04/18 0722: Subjective Follow-up For: TIA Subjective: Patient seen and examined today with daughter at bedside. No acute distress. No issues overnight. No recurrence of symptoms. Patient would like to go home. Review of Systems Constitutional: Reports: see HPI. Objective Last 24 Hrs of Vital Signs/I&O Vital Signs Date Time Temp Pulse Resp B/P B/P Pulse O2 O2 Flow FiO2 Mean Ox Delivery Rate 04/04 1239 93 Nasal 2.0L Cannula 04/04 0735 98.4 96 20 150/80 91 Room Air Intake & Output 04/05 0800 04/05 0000 04/04 1600 Intake Total 525 Output Total Balance 525 Intake, Oral 525 Physical Exam General Appearance: Alert, Cooperative, No Acute Distress HEENT: Atraumatic, EOMI Cardiovascular: Normal S1, Normal S2 Lungs: Clear to Auscultation, Normal Air Movement Abdomen: Normal Bowel Sounds, Soft, No Tenderness Neurological: Speech intact, Focal defictis on L side from previous CVA Current Medications: Current Medications Sig/Harish Start time Last Medication Dose Route Stop Time Status Admin Acetaminophen 650 MG Q6P PRN 04/02 2145 DCD PO Albuterol Sulfate 3 ML Q4P PRN 04/03 2130 DCD INH Apixaban 5 MG BID 04/020 DCD 04/04 PO 0751 Atorvastatin Calcium 80 MG DAILY 04/03 0900 DCD 04/04 PO 0751 Insulin Aspart 0 TIDAC 04/03 0800 DCD 04/04 SC 0751 Magnesium Oxide 400 MG BID 04/03 2100 DCD 04/04 PO 0751 Omeprazole 40 MG DAILY AC 04/03 07 DCD 04/04 PO 0520 Tiotropium [employer] 1 PUF DAILY 04/03 0900 DCD 04/04 INH 0751 Tramadol HCl 50 MG BID PRN 04/02 2200 DCD PO Last 24 Hrs of Lab/Ricci Results Last 24 Hrs of Labs/Mics: Laboratory Tests 04/04/18 1058: CBC w Diff NO MAN DIFF REQ, RBC 3.95 L, MCV 88.8, MCH 29.8, MCHC 33.6, RDW 15.4 H, MPV 8.6, Gran % 66.8, Lymphocytes % 22.1, Monocytes % 6.6, Eosinophils % 4.1 , Basophils % 0.4, Absolute Granulocytes 4.0, Absolute Lymphocytes 1.3, Absolute Monocytes 0.4, Absolute Eosinophils 0.2, Absolute Basophils 0 04/04/18 0618: Anion Gap 6, Estimated GFR > 60, BUN/Creatinine Ratio 13.3, Magnesium 1.4 L Assessment/Plan Assessment: 73/F with PMH of left hemiparesis from CVA, PFO on eliquis, HTN, HLD, COPD, DM. She had been well on Eliquis except for recurring epistaxis. About 3 weeks ago doses reduced from 5 to 2.5 mg. ASA was added and atorvastatin increased 40 to 80mg per day. Came to ED with inability to speak/find words, discovered by son. Family reports that language cleared to normal within 5 minutes. No other associated symptoms. CTA Head/Neck 04/02/18 IMPRESSION: - Reduced anterograde flow in the cervical right internal carotid artery with a diminished caliber, otherwise patent. Occlusion versus subtotal occlusion in the intracranial distal laceral segment of the vessel near the posterior genu of the cavernous portion. Normal contrast at the anterior genu and supraclinoid right ICA, presumably due to reconstitution from collateral flow. - Chronic right MCA territorial infarction. Remote infarct in the right cerebellar hemisphere. A focal acute ischemic process cannot be ruled out. 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 - Moderate calcific disease and stenosis at the origin of the innominate artery, not well assessed with motion artifacts. - Significant emphysema visualized lungs. CT Head 04/02/18 IMPRESSION: Chronic right MCA territorial infarction with volume loss. A focal superimposed acute ischemic process cannot be ruled out on the basis of this study. Most likely a TIA in the setting of a recent MCA event. Neurosurgery recommended follow up which can be done outpatient. Plan: #TIA #Previous R MCA event #Hypomagnesemia - Resolving - Observe on Telemetry - Appreciate Neuro, Cardio, and Neurosurgery Recs - We resumed full dose eliquis as per neurology - Blood pressures are more consistent in L arm - EEG can be done outpatient (possible seizure event considering previous CVA and elevated prolactin) - Mag oxide 400 mg bid, if magnesium level above 1.6, decrease Mag oxide to 400 mg qd for home - Discharge planning Problem List: 1. TIA (transient ischemic attack) Pain Ratin Pain Location: n/a Pain Goal: Remain pain free Pain Plan: Per pathway Tomorrow's Labs & Rationales: None Dominique GRADY,Baldo 04/04/18 1410: Attending MD Review Statement Attending Statement Attending MD Statement: examined this patient, discuss w/resident/PA/REGISTERED APPRAISER, agreed w/resident/PA/REGISTERED APPRAISER, discussed with family, reviewed EMR data (avail), discussed with nursing, discussed with case mgmt, amended to note Attending Assessment/Plan: Patient seen and examined. Resting comfortably not in any acute distress. No issues overnight. No events on telemetry monitoring. This morning she is alert and oriented 3. Speech is intact. She has no neurologic deficits other than chronic left upper extremity weakness following her stroke earlier on this year. Case was discussed with the neurosurgery service here at [facility]. Their recommendation is that patient should be evaluated by a neurovascular neurosurgeon. I did reach out to [facility]. Specialist Dr. Dwight Reid is currently on vacation I will be available to see the patient on Monday the at 10:45 AM at the [facility] on [address], [place] this has been discussed with the patient's family and the patient. They are in agreement. She is medically stable to be discharged today.
[2018-04-04 07:35] VITALS: BP 150/80
--- NOTE | 2018-04-04 07:59 | PN- Cardiology ---
Subjective Subjective: Patient feels good, more awake, back to baseline. Objective Vital Signs and I&Os Vital Signs Date Time Temp Pulse Resp B/P B/P Pulse O2 O2 Flow FiO2 Mean Ox Delivery Rate 04/04 0735 98.4 96 20 150/80 91 Room Air 04/03 2317 98.9 91 20 152/88 95 Room Air 04/03 2309 Nasal 2.0L Cannula 04/038 92 Nasal 2.0L Cannula 04/03 212 Nasal 2.0L Cannula 04/03 1505 98.5 95 20 92 Room Air 04/03 1019 98.5 96 20 111/62 95 Room Air 04/03 0958 95 Room Air 04/03 0952 98.4 98 20 99/70 95 Room Air Intake & Output 04/04 0804/04 0000 04/03 1600 04/03 0804/03 0000 04/02 1600 Intake Total 220 220 560 0 Output Total 950 240 Balance -730 220 320 0 Intake, Oral 220 220 560 0 Output, Urine 950 240 Patient 150 lb 150 lb Weight Weight Estimated Measurement Method Physical Exam: HEENT-PERRLA Neck-JVP normal,no carotid bruit Lungs-clear bilaterally Heart-S1S1 regular Abdomen-soft, not tender, BS+, no organomegaly Extr-no edema, 2+ pulses Neuro-alert and oriented, left sided weakness with left hand contractures Current Medications: Current Medications Sig/Harish Start time Last Medication Dose Route Stop Time Status Admin Acetaminophen 650 MG Q6P PRN 04/02 2145 AC PO Albuterol Sulfate 3 ML Q4P PRN 04/03 213 AC INH Apixaban 5 MG BID 04/02 2200 AC 04/03 PO 2040 Aspirin 81 MG DAILY 04/03 0900 CAN PO Atorvastatin Calcium 80 MG DAILY 04/03 09 AC 04/03 PO 0911 Insulin Aspart 0 TIDAC 04/03 08 AC 04/03 SC 1653 Magnesium Oxide 400 MG BID 04/03 2100 AC 04/03 PO 2040 Omeprazole 40 MG DAILY AC 04/03 07 AC 04/04 PO 0520 Sodium Chloride 500 ML BOLUS ONE 04/03 1430 DC 04/03 IV 04/03 1529 1429 Tiotropium [place] 1 PUF DAILY 04/03 09 AC 04/03 INH 0911 Tramadol HCl 50 MG BID PRN 04/02 2200 AC PO Results Last 48 Hrs of Labs/Mics: Laboratory Tests 04/04/18 0618: Sodium Pending, Potassium Pending, Chloride Pending, Carbon Dioxide Pending, Anion Gap Pending, BUN Pending, Creatinine Pending, BUN/Creatinine Ratio Pending , Magnesium Pending 04/03/18 0609: Anion Gap 6, Estimated GFR > 60, BUN/Creatinine Ratio 17.8, Magnesium 1.2 L, Troponin I < 0.01, Triglycerides 121, Cholesterol 111, LDL Cholesterol, Calc 43 L, HDL Cholesterol 44, Cholesterol/HDL Ratio 3, Prolactin 86.4 H, CBC w Diff NO MAN DIFF REQ, RBC 3.65 L, MCV 89.4, MCH 29.8, MCHC 33.3, RDW 15.2 H, MPV 8.1, Gran % 82.3 H, Lymphocytes % 10.9 L, Monocytes % 4.9, Eosinophils % 1.7, Basophils % 0.2, Absolute Granulocytes 6.6 H, Absolute Lymphocytes 0.9 L, Absolute Monocytes 0.4, Absolute Eosinophils 0.1, Absolute Basophils 0 04/02/18 1720: Anion Gap 11, Estimated GFR > 60, BUN/Creatinine Ratio 18.9, Glucose 124 H, Calcium 9.6, Total Bilirubin 0.4, AST 17, ALT 25, Alkaline Phosphatase 89, Total Protein 6.5, Albumin 3.9, Globulin 2.6, Albumin/Globulin Ratio 1.5, PT 11.8, INR 1.08, APTT 33, CBC w Diff NO MAN DIFF REQ, RBC 4.32, MCV 88.1, MCH 29.4, MCHC 33.3, RDW 15.4 H, MPV 8.0, Gran % 58.6, Lymphocytes % 30.4, Monocytes % 7.2, Eosinophils % 3.0, Basophils % 0.8, Absolute Granulocytes 3.8, Absolute Lymphocytes 2.0, Absolute Monocytes 0.5, Absolute Eosinophils 0.2, Absolute Basophils 0.1 Recent Imaging Studies: Tely-SR, intermittent aberrant conduction Assessment/Plan Assessment/Plan 73-year-old female past medical history of CVA, PFO, hypertension, hyperlipidemia, COPD, diabetes, presents with another episode of slurred speech. Symptoms recurred in ER upon standing when her blood pressure dropped. There was a concern of possible seizure in ER, prolactin level elevated. Labs showed significant drop of magnesium level (1.2). TEly showing sinus rhythm with intermittent aberrant conduction (LBBB). BP today am improved. Patient is more awake. Abnormal CTA results with ?subtotal occlusion of distal intracranial right carotid artery noted. Plan: continue Eliquis to 5 mg bid increase fluids and salt intake continue Mag oxide 400 mg bid, if magnesium level above 1.6, decrease Mag oxide to 400 mg qd for home EEG today, neurology follow up vascular surgery to comment on abnormal findings of CTA continue statin ?discharge home later today if stable Continue telemetry? Yes
[2018-04-04] MEDS ORDERED: ELIQUIS5 M1 PO (10:41)
--- NOTE | 2018-04-04 10:44 | Patient Discharge Instructions ---
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 You will need an outpatient EEG which can be arranged by her neurologist. You have an appointement with Dr. Dwight Reid on Monday at 10:45 AM at the [facility] on [address] [place] [address], please follow up. Diet Continue normal diet: Yes Activity Full Activity/No Limits: Yes Activity Self Limited: Yes Acute Coronary Syndrome Inclusion Criteria At DC or during hospital stay patient has or had the following: ACS DIAGNOSIS No Discharge Core Measures Meds if any: Prescribed or Continued at Discharge Meds if any: NOT Prescribed or Continued at Discharge Congestive Heart Failure Inclusion Criteria At DC or during hospital stay patient has or had the following: CHF DIAGNOSIS No Discharge Core Measures Meds if any: Prescribed or Continued at Discharge Meds if any: NOT Prescribed or Continued at Discharge Cerebrovascular accident Inclusion Criteria At DC or during hospital stay patient has or had the following: CVA/TIA Diagnosis Yes Discharge Core Measures Meds if any: Prescribed or Continued at Discharge Antithrombotic No Meds if any: NOT Prescribed or Continued at Discharge Venous thromboembolism Inclusion Criteria VTE Diagnosis No VTE Type NONE VTE Confirmed by (Test) NONE Discharge Core Measures - Per Current guidelines, there needs to be overlap - treatment for the first 5 days of Warfarin therapy. - If discharged on Warfarin prior to 5 days of - overlap therapy, the patient will need to be - assessed for post discharge needs including - *Post discharge parental anticoagulation - *Warfarin and/or parental anticoagulation education - *Follow up date to check INR post discharge At least 5 days overlap therapy as Inpatient No Meds if any: Prescribed or Continued at Discharge Note: Overlap Therapy is Warfarin and Anticoagulant Meds if any: NOT Prescribed or Continued at Discharge
[2018-04-04 12:31] LABS: ABSOLUTE BASOPHIL COUNT 0 /CUMM (0.0-0.2); ABSOLUTE EOSINOPHIL COUNT 0.2 /CUMM (0.0-0.7); ABSOLUTE LYMPH COUNT 1.3 /CUMM (1.2-3.4); ABSOLUTE MONOCYTE COUNT 0.4 /CUMM (0.10-0.60); BASOPHIL % 0.4 % (0.0-2.0); EOSINOPHIL % 4.1 % (0-5); GRANULOCYTE % 66.8 % (42.2-75.2); HEMATOCRIT 35.1 % (37-47); MEAN CORPUSCULAR HGB 29.8 PG (27.0-31.0); MEAN CORPUSCULAR HGB CONC 33.6 G/DL (33.0-37.0); MEAN CORPUSCULAR VOLUME 88.8 FL (81.0-99.0); MEAN PLATELET VOLUME 8.6 FL (7.4-10.4); PLATELET COUNT 285 /CUMM (130-400); RBC DISTRIBUTION WIDTH 15.4 % (11.5-14.5); RED BLOOD CELL CT 3.95 /CUMM (4.20-5.40)
--- NOTE | 2018-04-04 14:22 | Discharge Summary ---
Visit Information Visit Dates Admission Date: 04/02/18 Discharge Date: 04/04/18 Hospital Course Course Attending Physician: Baldo Fox MD Primary Care Physician: Kevin Kearney MD Hospital Course: 73/F with PMH of left hemiparesis from CVA, PFO on eliquis, HTN, HLD, COPD, DM. She had been well on Eliquis except for recurring epistaxis. About 3 weeks ago doses reduced from 5 to 2.5 mg. ASA was added and atorvastatin increased 40 to 80mg per day. Came to ED with inability to speak/find words, discovered by son. Family reports that language cleared to normal within 5 minutes. No other associated symptoms. Patient was observed on telemetry floor. Neurology and Cardiology were on board. Her Eliquis was changed back to full dose (5 mg) and her statin was held. Her magnesium levels were repleted up to 1.4. She had no reoccurence of symptoms and was stable for discharge. EEG can be done outpatient (possible seizure event considering previous CVA and elevated prolactin). Most likely a TIA or seizure in the setting of a recent MCA event. Allergies: Coded Allergies: No Known Allergies (10/18/17) Significant Procedures: CTA Head/Neck 04/02/18 IMPRESSION: - Reduced anterograde flow in the cervical right internal carotid artery with a diminished caliber, otherwise patent. Occlusion versus subtotal occlusion in the intracranial distal laceral segment of the vessel near the posterior genu of the cavernous portion. Normal contrast at the anterior genu and supraclinoid right ICA, presumably due to reconstitution from collateral flow. - Chronic right MCA territorial infarction. Remote infarct in the right cerebellar hemisphere. A focal acute ischemic process cannot be ruled out. 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 - Moderate calcific disease and stenosis at the origin of the innominate artery, not well assessed with motion artifacts. - Significant emphysema visualized lungs. CT Head 04/02/18 IMPRESSION: Chronic right MCA territorial infarction with volume loss. A focal superimposed acute ischemic process cannot be ruled out on the basis of this study. Disposition Summary Disposition Principal Diagnosis: TIA Additional Diagnosis: None Discharge Disposition: home or self care Discharge Instructions General Discharge Information Code Status: Full Code Patient's Diet: Regular Patient's Activity: As tolerated Follow-Up Instructions/Appts: Please follow-up with your PCP, gear room keeper and neurologist within a week after discharge. If magnesium level above 1.6, decrease Mag oxide to 400 mg once daily for home ( please follow up with PCP for this). You will need an outpatient EEG which can be arranged by her neurologist. Neurosurgery recommended follow up outpatient regarding CTA Head and Neck findings. You have an appointement with Dr. Dwight Reid on Monday at 10:45 AM at the [facility] on [address], [place], please follow up. Medications at Discharge Discharge Medications: Stop taking the following medications: Apixaban (Eliquis) 2.5 MG TABLET ORAL TWICE DAILY Qty = 180 Aspirin (Aspirin*) 81 MG TAB.CHEW ORAL DAILY Qty = 30 Continue taking these medications: Metformin HCl (Metformin HCl) 1,000 MG TABLET 1 Tablet ORAL TWICE DAILY Comments: NOT GIVEN Atorvastatin Calcium (Atorvastatin Calcium) 40 MG TABLET 1 Tablet ORAL DAILY Days = 90 Comments: Last Taken: 04/04/18 Time: 0751 Acetaminophen With Codeine (Acetaminophen-Cod #3 Tablet) 300 MG-30 MG TABLET 1 Tablet ORAL DAILY as needed for PAIN Qty = 30 Comments: NOT GIVEN Tramadol HCl (Tramadol HCl) 50 MG TABLET 1 Tablet ORAL TWICE DAILY as needed for PAIN Qty = 30 Comments: NOT GIVEN Pantoprazole Sodium (Pantoprazole Sodium) 40 MG TABLET.DR 1 Tablet ORAL DAILY Comments: OMEPRAZOLE GIVEN DURING THIS STAY INSTEAD Last Taken: 04/04/18 Time: 0520 Albuterol Sulfate (Albuterol Sulfate) 2.5 MG/3 ML (0.083 %) VIAL.NEB 1 Vial Inhale Solution As Directed as needed for RESP. Days = 15 Comments: NOT GIVEN Nitroglycerin (Nitroglycerin) 0.4 MG TAB.SUBL 1 Tablet SUBLINGUAL As Directed as needed for CHEST PAIN Days = 10 Instructions: 1st sign of attack; may repeat every 5 minutes until relief; if pain persists after 3 tablets in 15 minutes, prompt medical att Comments: NOT GIVEN Dextran 70/Hypromellose (Artificial Tears) 1 EACH DROPERETTE 1 DROP Both Eyes As Directed as needed for BOTH EYES Comments: NOT GIVEN Cyclobenzaprine HCl (Cyclobenzaprine HCl) 5 MG TABLET 0.5 Tablet ORAL As Directed as needed for MUSCLE SPASMS Comments: NOT GIVEN IN HOSPITAL Tiotropium [place] (Spiriva) 18 MCG CAP.W.DEV 1 Capsule Inhale through mouth DAILY Days = 30 Comments: Last Taken: 04/04/18 Time: 750 Start taking the following new medications: Apixaban (Eliquis) 5 MG TABLET 1 Tablet ORAL TWICE DAILY Qty = 60 No Refills Comments: Last Taken:04/04/18 Time:750
== END 2018-04-04 14:58 ==
LOC: ERH 16:40 → 1NO 18:48 → ERHI 18:48 → ENRESERV 04-03 11:57 → CANRESERV 04-03 11:57 → ENRESERV 04-03 12:01 → ENTRNSPT 04-03 13:00 → EDTRNSPTSTS 04-03 13:02 → EDTRNSPT 04-03 13:02 → 1NO 04-03 13:16 → CMPTRNSPT 04-03 13:45 → ENPENDDIS 04-04 14:19 → ENTRNSPT 04-04 14:35 → EDTRNSPTSTS 04-04 14:38 → EDTRNSPT 04-04 14:38 → 1NO 04-04 14:58 → CMPTRNSPT 04-04 15:27
PROVIDERS: Emergency Medicine; Internal Medicine; Preventive Medicine Public Health & General Preventive Medicine
DX: G45.9 Transient cerebral ischemic attack, unspecified (principal); I65.21 Occlusion and stenosis of right carotid artery; Z79.82 Long term (current) use of aspirin; E11.9 Type 2 diabetes mellitus without complications; Z79.84 Long term (current) use of oral hypoglycemic drugs; I69.392 Facial weakness following cerebral infarction; I69.354 Hemiplegia and hemiparesis following cerebral infarction affecting left non-dominant side; I10 Essential (primary) hypertension; E78.5 Hyperlipidemia, unspecified; J44.9 Chronic obstructive pulmonary disease, unspecified; M19.90 Unspecified osteoarthritis, unspecified site; M54.9 Dorsalgia, unspecified; Z96.659 Presence of unspecified artificial knee joint; I67.1 Cerebral aneurysm, nonruptured; Z79.01 Long term (current) use of anticoagulants
CPT/HCPCS: 1328; 1530; 1748; 36592; 82436; 92523-GN; 93005; 93010; 96374; 96376; 97116-GP; 97161-GP; 99291; G0378; G8978-GP; G8979-GP; G8980-GP; G9174-GN; G9175-GN; J2405; J3490; J7040

== ENCOUNTER 2018-04-09 11:14 | Inpatient (IN) | payer OTHER ==
[~2018-04-09] VITALS: Ht 166.4 cm; Wt 71.2 kg
[~2018-04-09 11:14] MED LIST changes: +ELIQUIS5 M1 PO
--- NOTE | 2018-04-09 12:15 | ED GENERAL ADULT ---
History of Present Illness General Chief Complaint: Nausea, Vomiting, Diarrhea Stated Complaint: SKELTON, +N,+D Source: patient, family, old records Exam Limitations: no limitations Vital Signs & Intake/Output Vital Signs & Intake/Output Vital Signs Date Time Temp Pulse Resp B/P B/P Pulse O2 O2 Flow FiO2 Mean Ox Delivery Rate 04/09 1532 98.1 89 16 114/80 98 2.0L 04/09 1455 96 Nasal 2.0L Cannula 04/09 1227 92 17 130/90 93 Room Air 04/09 1117 98.5 100 16 175/98 96 Room Air Allergies Coded Allergies: No Known Allergies (10/18/17) Reconcile Medications Acetaminophen With Codeine (Acetaminophen-Cod #3 Tablet) 300 MG-30 MG TABLET 1 TAB PO DAILY PRN PAIN (Reported) Albuterol Sulfate 2.5 MG/3 ML (0.083 %) VIAL.NEB 1 Vial INH/SHANKAR AD PRN RESP. (Reported) Apixaban (Eliquis) 5 MG TABLET 1 TAB PO BID PFO Atorvastatin Calcium 40 MG TABLET 1 TAB PO DAILY CHOLESTEROL (Reported) Cyclobenzaprine HCl 5 MG TABLET 0.5 TAB PO AD PRN MUSCLE SPASMS (Reported) Dextran 70/Hypromellose (Artificial Tears) 1 EACH DROPERETTE 1 DROP OU AD PRN BOTH EYES (Reported) Metformin HCl 1,000 MG TABLET 1 TAB PO BID DIABETES (Reported) Nitroglycerin 0.4 MG TAB.SUBL 1 TAB SL AD PRN CHEST PAIN (Reported) 1st sign of attack; may repeat every 5 minutes until relief; if pain persists after 3 tablets in 15 minutes, prompt medical att Pantoprazole Sodium 40 MG TABLET.DR 1 TAB PO DAILY GI (Reported) Tiotropium [place] (Spiriva) 18 MCG CAP.W.DEV 1 CAP INH DAILY COPD (Reported) Tramadol HCl 50 MG TABLET 1 TAB PO BID PRN PAIN (Reported) Triage Note: PT TO TRIAGE WITH HER DAUGHTER WITH COMPLAINTS OF R SIDE YARSANISM HEADACHE THAT STARTED LAST PM AND HAS INCREASED IN INTENSITY ALSO HAS NAUSEA . PT HAS HISTORY OF STROKE AND HAS L SIDE DEFICIT FROM IT. SPEECH CLEAR. DENIES VISUAL CHANGES. Triage Nurses Notes Reviewed? yes Onset: Abrupt Duration: day(s): (5), constant, continues in ED, getting worse Timing: recent history Injury Environment: home Severity: mild, moderate Severity Numbers: 6 No Modifying Factors: none LMP (ages 10-50): post menopausal, unknown : No Patient currently breastfeeds: No HPI: 73-year-old female past medical history of atrial fibrillation, CVA/TIA, COPD present evaluation of shortness of breath hypoxia cough nausea and headache. Patient reports symptoms started after she was discharged from the hospital on Monday of last week. Daughter reports that patient has had shortness of breath on exertion while at home and has had oxygen saturations of 88% on room air while sleeping. Patient usually does not require oxygen at home. She's been using her home nebulizer without any improvement. No fever no hemoptysis. She has a cough productive of clear sputum. She quit smoking many years ago. She does report associated intermittent headaches. The pain is located mostly in the right temporal and right posterior areas and does not radiate. She describes it as a pressure no head trauma fever changes in vision slurred speech. She does have a previous and deficit from a stroke on the left side. Patient also reports she developed some epigastric abdominal pain today upon arrival to the emergency department. Currently this pain has gone away and is been intermittent. She's never had this pain before. (Dmitri Givens) Past History Travel History Traveled to [place] past 21 day No Medical History Any Pertinent Medical History? 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 No (Dmitri Givens) Review of Systems Review of Systems Constitutional: Reports: no symptoms. EENTM: Reports: no symptoms. Respiratory: Reports: see HPI, cough, short of breath, sputum production. Cardiovascular: Reports: no symptoms. GI: Reports: see HPI, abdominal pain. Genitourinary: Reports: no symptoms. Musculoskeletal: Reports: no symptoms. Skin: Reports: no symptoms. Neurological/Psychological: Reports: no symptoms. Hematologic/Endocrine: Reports: no symptoms. Immunologic/Allergic: Reports: no symptoms. All Other Systems: Reviewed and Negative (Dmitri Givens) Physical Exam Physical Exam General Appearance: well developed/nourished, no apparent distress, alert, awake Head: atraumatic, normal appearance Eyes: Bilateral: normal appearance, PERRL, EOMI. Ears, Nose, Throat: normal pharynx, normal ENT inspection, hearing grossly normal Neck: normal inspection, supple, full range of motion, no meningismus Respiratory: chest non-tender, no respiratory distress, quiet respiration, decreased breath sounds, rhonchi Cardiovascular: regular rate/rhythm, normal peripheral pulses Peripheral Pulses: 2+ radial (R), 2+ radial (L) Gastrointestinal: normal bowel sounds, soft, no organomegaly, tenderness ( EPIGASTRIC ) Back: normal inspection, normal range of motion, no vertebral tenderness Extremities: normal inspection, normal range of motion, no edema Neurologic/Psych: no motor/sensory deficits, awake, alert, oriented x 3 Skin: intact, warm/dry, pallor Lymphatic: no anterior cervical raji Core Measures ACS in differential dx? No CVA/TIA Diagnosis: No Sepsis Present: No Sepsis Focused Exam Completed? No (Dmitri Givens) Progress Differential Diagnoses I considered the following diagnoses in my evaluation of the patient: [COPD exacerbation, pneumonia, PE, temporal arteritis, intracranial hemorrhage, intracranial mass, acute coronary syndrome, CHF exacerbation, pancreatitis, cholecystitis] Plan of Care: Orders Procedure Date/time Status Consistent Carbohydrate 2 04/10 B Active Consistent Carbohydrate 1 04/10 B Active CBC WITHOUT DIFFERENTIAL 04/10 0600 Active BASIC ELECTROLYTES PLUS BUN&CR 04/10 0600 Active Misc Message 04/09 1625 Active ED Holding Orders 04/09 1625 Active Admit to inpatient 04/09 1625 Active Code Status 04/09 1625 Active Pathway - chart 04/09 1619 Active House Staff 04/09 1619 Active Patient Data 04/09 1556 Active Add-on Test (ER Only) 04/09 1403 Active Add-on Test (ER Only) 04/09 1237 Active Add-on Test (ER Only) 04/09 1217 Active WESTERGREN SED RATE 04/09 1217 Complete D-DIMER 04/09 1141 Complete C-REACTIVE PROTEIN 04/09 1141 Complete B-TYPE NATRIURETIC PEP (BNP) 04/09 1141 Complete URINALYSIS 04/09 1122 Active TROPONIN LEVEL 04/09 1122 Complete PARTIAL THROMBOPLASTIN TIME 04/09 1122 Complete PROTHROMBIN TIME 04/09 1122 Complete LIPASE 04/09 112 Complete COMPREHENSIVE METABOLIC PANEL 04/09 112 Complete CBC WITHOUT DIFFERENTIAL 04/09 112 Complete EKG 04/09 112 Active VTE Mechanical Prophylaxis 04/09 UNK Active FingerStick- Glucose 04/09 UNK Active Current Medications Sig/Harish Start time Last Medication Dose Stop Time Status Admin Atorvastatin Calcium 40 MG DAILY 04/10 900 UNVr (Lipitor) Azithromycin 250 MG DAILY 04/10 09 UNVr (Zithromax) Apixaban 5 MG BID 04/09 2100 UNVr (Eliquis) Insulin Aspart 0 TIDAC 04/09 1700 UNVr (NovoLOG) Laboratory Tests 04/09/18 1419: ESR Westergren 11 04/09/18 1141: Anion Gap 7, Estimated GFR > 60, BUN/Creatinine Ratio 14.4, Glucose 148 H, Calcium 9.7, Total Bilirubin 0.7, AST 12 L, ALT 23, Alkaline Phosphatase 90, Troponin I < 0.01, C-Reactive Prot, Quant < 0.5, Cji-J-Zlkrhbxctol Pept 320 H, Total Protein 6.5, Albumin 3.8, Globulin 2.7, Albumin/Globulin Ratio 1.4, Lipase 221, PT 13.9 H, INR 1.27 H, APTT 34, D-Dimer High Sensitivty < 200, CBC w Diff NO MAN DIFF REQ, RBC 4.32, MCV 87.3, MCH 29.7, MCHC 34.1, RDW 15.6 H, MPV 7.9, Gran % 71.8, Lymphocytes % 22.3, Monocytes % 4.8, Eosinophils % 0.8, Basophils % 0.3, Absolute Granulocytes 5.2, Absolute Lymphocytes 1.6, Absolute Monocytes 0.3 , Absolute Eosinophils 0.1, Absolute Basophils 0 Patient is here for evaluation of multiple plates including shortness of breath cough headache and epigastric pain. Currently patient is an infection saturation of 93% on room air however when she falls asleep with his any type of movement she desaturates to 88%. She was placed on 2 L nasal cannula. Labs EKG chest x-ray ordered. CT scans of the head and an abdominal pelvis was ordered. She was medicated with DuoNeb Solu-Medrol and IV Zithromax for possible COPD exacerbation. Blood work is remarkable for a negative d-dimer negative troponin BNP of 320 no white count. Chest x-ray shows evidence of COPD. CT scan of the abdomen and pelvis is negative for acute findings head CT is negative. Patient was satting in the mid 90s on 2 L however this is removed and she falls asleep or does any type of movement will desaturate to 88. Patient will require admission for COPD exacerbation. She will require serial labs pulmonology consult, oxygen setup, IV antibiotics, IV steroids, DuoNeb. Case discussed with Dr. Cavazos he agrees. Diagnostic Imaging: Viewed by Me: Radiology Read, CT Scan. Discussed w/RAD: Radiology Read, CT Scan. Radiology Impression: PATIENT: VINCENT CLAYTON PRESENT AGE: 73 PATIENT ACCOUNT NO: [id number] : 44 LOCATION: [facility] ORDERING PHYSICIAN: Dmitri MARSHALL SERVICE DATE: 04/09/18 EXAM TYPE: CAT - CT HEAD WO IV CONTRAST CT HEAD WITHOUT CONTRAST CLINICAL INFORMATION: Headache on Eliquis. COMPARISON: Head CT 04/02/[address] from the same day. TECHNIQUE : Contiguous axial imaging was performed from the skull base to vertex without intravenous administration of contrast. FINDINGS: A chronic right MCA territory infarct with a now more subacute component in the right perirolandic region first identified on the 03/26/2018 brain MRI is similar in appearance to the last several exams. No definite superimposed new acute infarcts though assessment is limited given the degree of chronic ischemic change. There is associated ex vacuo dilatation of the right lateral ventricle adjacent to the chronic infarct. There is no intracranial hemorrhage, hydrocephalus, extra-axial surface collection, midline shift, or other herniation pattern. Cardoso to white matter differentiation is diffusely maintained without evidence of an evolved acute territorial infarct. The basilar cisterns are preserved. No significant soft tissue abnormality. No acute osseous abnormality. There are degenerative changes involving the TMJs bilaterally. Mild mucosal thickening within the partially imaged left maxillary sinus. The remaining imaged paranasal sinuses and the mastoid air cells are clear. IMPRESSION: No acute intracranial findings. A chronic right MCA territory infarct with a now more subacute component in the right perirolandic region first identified on the 03/26/2018 brain MRI is similar in appearance to the last several exams. No definite superimposed new acute infarcts though assessment is limited given the degree of chronic ischemic change. DICTATED BY: Fortino Doe MD DATE/TIME DICTATED:04/09/181413 SEO MARKETING SPECIALIST:TOÑO DATE/TIME TRANSCRIBED:04/09/181413, PATIENT: VINCENT CLAYTON PRESENT AGE: 73 PATIENT ACCOUNT NO: [id number] : 44 LOCATION: [facility] ORDERING PHYSICIAN: Dmitri MARSHALL SERVICE DATE: 04/09/18 EXAM TYPE: CAT - CT ABD & PELVIS W/O IV CONTRAS EXAMINATION: CT ABDOMEN AND PELVIS WITHOUT CONTRAST CLINICAL INFORMATION: Abdominal aortic aneurysm, small bowel obstruction, kidney stones. COMPARISON: 01/12/2014 TECHNIQUE: Multidetector volumetric imaging was performed from the superior aspect of the liver through the pubic symphysis. Sagittal and coronal reformatted images were obtained on the technologist's workstation. DLP: 611 mGy -cm FINDINGS: LUNG BASES: Respiratory motion limits evaluation. Marked dependent changes. Coronary artery calcifications. LIVER, GALLBLADDER, AND BILIARY TREE: The liver is normal in size, shape, and attenuation. No focal hepatic lesion or biliary ductal dilatation is present. The gallbladder is unremarkable with no evidence of radiopaque gallstones, gallbladder wall thickening, or obvious pericholecystic inflammatory changes. PANCREAS: Unremarkable. SPLEEN: Unremarkable. ADRENAL GLANDS: Unremarkable. KIDNEYS AND URETERS: The kidneys are normal in size, shape, and attenuation. No hydronephrosis, hydroureter, or calculi are seen. No perinephric stranding. 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 The distal ureter is not well seen and whether this is partial or complete duplication is unknown. BLADDER: Unremarkable. GASTROINTESTINAL TRACT: Diverticulosis without CT evidence of diverticulitis. No evidence of bowel obstruction. The appendix is not seen. There are no inflammatory changes about the cecum to suggest acute appendicitis. ABDOMINAL WALL: Small, fat-containing umbilical hernia. LYMPH NODES: No lymphadenopathy within the abdomen or pelvis by CT criteria. VASCULAR: Atherosclerosis abdominal aorta without evidence of aneurysm. PELVIC VISCERA: Hysterectomy. OSSEOUS STRUCTURES: Old, healed rib fractures. Degenerative changes of the spine. Bilateral pars defects at L5. IMPRESSION: 1. No evidence of acute abnormality within the abdomen or pelvis. 2. Diverticulosis without CT evidence of diverticulitis. DICTATED BY: Yoanna Ag MD DATE/TIME DICTATED:1420 SEO MARKETING SPECIALIST:TOÑO DATE/TIME TRANSCRIBED:04/09/181420 CONFIDENTIAL, DO NOT COPY WITHOUT APPROPRIATE AUTHORIZATION. CXR Impression: PATIENT: VINCENT CLAYTON PRESENT AGE: 73 PATIENT ACCOUNT NO: [id number] : 44 LOCATION: [facility] ORDERING PHYSICIAN: Dmitri MARSHALL SERVICE DATE: 04/09/18 EXAM TYPE: RAD - XRY-PORTABLE CHEST XRAY EXAMINATION: XR PORTABLE CHEST CLINICAL INFORMATION: Shortness of breath. Chest pain. COMPARISON: 03/26/2018 TECHNIQUE: Portable frontal view of the chest was obtained. FINDINGS: Lungs are symmetrically expanded. Chronic emphysematous lung disease. No acute pulmonary edema, consolidation or pleural effusion. Cardiac silhouette is normal in size. Atherosclerotic calcification of the aorta. Chronic osteoarthritis of bilateral glenohumeral joints (with osteochondral bodies of the degenerated right glenohumeral joint). IMPRESSION: - Pulmonary emphysema. - No acute cardiopulmonary findings compared to 03/26/2018. DICTATED BY: Ministerio Taveras MD DATE/TIME DICTATED:04/09/181301 SEO MARKETING SPECIALIST:TOÑO DATE/TIME TRANSCRIBED:04/09/181301 CONFIDENTIAL, DO NOT COPY WITHOUT APPROPRIATE AUTHORIZATION. <Electronically signed in Other Vendor System> SIGNED BY: Ministerio Taveras MD 04/09/181308 Initial ED EKG: normal sinus rhythm, LEFT ATRIAL ABN, LVH, AGE INDETERMINANT ANT INFARCT (Dmitri Givens) Departure Departure Disposition: STILL A PATIENT Condition: Stable Clinical Impression Primary Impression: COPD exacerbation Referrals: Christel GRADY,Kevin Ngo (PCP/Family) Departure Forms: Customer Survey General Discharge Information Admission Note Spoke With: Wil Palma MD Documentation of Exam: Documentation of any treatments & extenuating circumstances including Concerns Regarding Discharge (functional status, medication knowledge or non-compliance, living conditions, etc.) that warrant an admission rather than observation: [ Patient his hypoxic on room air just laying in the bed and when sleeping to 88- 89%. IV steroids DuoNeb's IV antibiotics serial labs pulmonology consult oxygen setup] (Dmitri Givens) PA/SAW FILER Co-Sign Statement Statement: ED Attending supervision documentation- [X] I saw and evaluated the patient. I have also reviewed all the pertinent lab results and diagnostic results. I agree with the findings and the plan of care as documented in the PA's/SAW FILER's documentation. Patient presents for evaluation of shortness of breath. Physical examination reveals a comfortable appearing woman with diminished breath sounds bilaterally [] I have reviewed the ED Record and agree with the PA's/SAW FILER's documentation. [] Additions or exceptions (if any) to the PAs/SAW FILER's note and plan are summarized below: [] (Macy GRADY,Fortino Humphrey) Critical Care Note Critical Care Note Critical Care Time: 30-74 min (Dmitri Givens)
[2018-04-09 12:18] LABS: ABSOLUTE BASOPHIL COUNT 0 /CUMM (0.0-0.2); ABSOLUTE EOSINOPHIL COUNT 0.1 /CUMM (0.0-0.7); ABSOLUTE GRANULOCYTE CT 5.2 /CUMM (1.4-6.5); ABSOLUTE LYMPH COUNT 1.6 /CUMM (1.2-3.4); ABSOLUTE MONOCYTE COUNT 0.3 /CUMM (0.10-0.60); BASOPHIL % 0.3 % (0.0-2.0); EOSINOPHIL % 0.8 % (0-5); GRANULOCYTE % 71.8 % (42.2-75.2); HEMATOCRIT 37.7 % (37-47); MEAN CORPUSCULAR HGB 29.7 PG (27.0-31.0); MEAN CORPUSCULAR HGB CONC 34.1 G/DL (33.0-37.0); MEAN CORPUSCULAR VOLUME 87.3 FL (81.0-99.0); MEAN PLATELET VOLUME 7.9 FL (7.4-10.4); PLATELET COUNT 324 /CUMM (130-400); RBC DISTRIBUTION WIDTH 15.6 % (11.5-14.5); RED BLOOD CELL CT 4.32 /CUMM (4.20-5.40); WHITE BLOOD CELL COUNT 7.2 /CUMM (4.8-10.8)
[2018-04-09 12:22] LABS: PT 13.9 SEC (9.4-12.5); PTT 34 SEC (25-37)
--- NOTE | 2018-04-09 13:09 | RADIOLOGY REPORT ---
EXAMINATION: XR PORTABLE CHEST CLINICAL INFORMATION: Shortness of breath. Chest pain. COMPARISON: 03/26/2018 TECHNIQUE: Portable frontal view of the chest was obtained. FINDINGS: Lungs are symmetrically expanded. Chronic emphysematous lung disease. No acute pulmonary edema, consolidation or pleural effusion. Cardiac silhouette is normal in size. Atherosclerotic calcification of the aorta. Chronic osteoarthritis of bilateral glenohumeral joints (with osteochondral bodies of the degenerated right glenohumeral joint). IMPRESSION: - Pulmonary emphysema. - No acute cardiopulmonary findings compared to 03/26/2018.
--- NOTE | 2018-04-09 14:26 | CT SCAN REPORT ---
CT HEAD WITHOUT CONTRAST CLINICAL INFORMATION: Headache on Eliquis. COMPARISON: Head CT 04/02/[address] from the same day. TECHNIQUE: Contiguous axial imaging was performed from the skull base to vertex without intravenous administration of contrast. FINDINGS: A chronic right MCA territory infarct with a now more subacute component in the right perirolandic region first identified on the 03/26/2018 brain MRI is similar in appearance to the last several exams. No definite superimposed new acute infarcts though assessment is limited given the degree of chronic ischemic change. There is associated ex vacuo dilatation of the right lateral ventricle adjacent to the chronic infarct. There is no intracranial hemorrhage, hydrocephalus, extra-axial surface collection, midline shift, or other herniation pattern. Cardoso to white matter differentiation is diffusely maintained without evidence of an evolved acute territorial infarct. The basilar cisterns are preserved. No significant soft tissue abnormality. No acute osseous abnormality. There are degenerative changes involving the TMJs bilaterally. Mild mucosal thickening within the partially imaged left maxillary sinus. The remaining imaged paranasal sinuses and the mastoid air cells are clear. IMPRESSION: No acute intracranial findings. A chronic right MCA territory infarct with a now more subacute component in the right perirolandic region first identified on the 03/26/2018 brain MRI is similar in appearance to the last several exams. No definite superimposed new acute infarcts though assessment is limited given the degree of chronic ischemic change.
--- NOTE | 2018-04-09 14:57 | CT SCAN REPORT ---
EXAMINATION: CT ABDOMEN AND PELVIS WITHOUT CONTRAST CLINICAL INFORMATION: Abdominal aortic aneurysm, small bowel obstruction, kidney stones. COMPARISON: 01/12/2014 TECHNIQUE: Multidetector volumetric imaging was performed from the superior aspect of the liver through the pubic symphysis. Sagittal and coronal reformatted images were obtained on the technologist's workstation. DLP: 611 mGy-cm FINDINGS: LUNG BASES: Respiratory motion limits evaluation. Marked dependent changes. Coronary artery calcifications. LIVER, GALLBLADDER, AND BILIARY TREE: The liver is normal in size, shape, and attenuation. No focal hepatic lesion or biliary ductal dilatation is present. The gallbladder is unremarkable with no evidence of radiopaque gallstones, gallbladder wall thickening, or obvious pericholecystic inflammatory changes. PANCREAS: Unremarkable. SPLEEN: Unremarkable. ADRENAL GLANDS: Unremarkable. KIDNEYS AND URETERS: The kidneys are normal in size, shape, and attenuation. No hydronephrosis, hydroureter, or calculi are seen. No perinephric stranding. 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 The distal ureter is not well seen and whether this is partial or complete duplication is unknown. BLADDER: Unremarkable. GASTROINTESTINAL TRACT: Diverticulosis without CT evidence of diverticulitis. No evidence of bowel obstruction. The appendix is not seen. There are no inflammatory changes about the cecum to suggest acute appendicitis. ABDOMINAL WALL: Small, fat-containing umbilical hernia. LYMPH NODES: No lymphadenopathy within the abdomen or pelvis by CT criteria. VASCULAR: Atherosclerosis abdominal aorta without evidence of aneurysm. PELVIC VISCERA: Hysterectomy. OSSEOUS STRUCTURES: Old, healed rib fractures. Degenerative changes of the spine. Bilateral pars defects at L5. IMPRESSION: 1. No evidence of acute abnormality within the abdomen or pelvis. 2. Diverticulosis without CT evidence of diverticulitis.
--- NOTE | 2018-04-09 16:06 | History & Physical ---
Marlyn Lezamai 04/09/18 1606: General Information and HPI MD Statement: I have seen and personally examined VINCENT CLAYTON and documented this H&P. The patient is a 73 year old F who presented with a patient stated chief complaint of []. Source of Information: patient, family History of Present Illness: 73-year-old female with past history of COPD, diabetes mellitus, chronic back pain, CVA presented to the ED with chief complaints of nausea, vomiting, severe right-sided headache. According to the patient, she has been getting increasingly short of breath since she was discharged from about a week ago. She reports that she is "bringing too much mucus". The family reports that she has been making a "gurgling noise in from her throat" from too much mucus. The daughter states that her oxygen saturations have been dropping to the 80s while at rest since her discharge from the hospital about a week ago. The patient also endorses chest pain on walking getting better at rest, palpitations she she denies fever, chills, recent infection, sick contacts, recent travel history. Notably the patient was recently admitted to the hospital for TIA, with no residual deficits. She does have left-sided residual weakness from stroke that she had in October of this year. She had an acute hypercarbic respiratory failure requiring intubation and mechanical ventilation during that stay. Allergies/Medications Allergies: Coded Allergies: No Known Allergies (10/18/17) Home Med list Acetaminophen With Codeine (Acetaminophen-Cod #3 Tablet) 300 MG-30 MG TABLET 1 TAB PO DAILY PRN PAIN (Reported) Albuterol Sulfate 2.5 MG/3 ML (0.083 %) VIAL.NEB 1 Vial INH/SHANKAR AD PRN RESP. (Reported) Apixaban (Eliquis) 5 MG TABLET 1 TAB PO BID PFO Atorvastatin Calcium 40 MG TABLET 1 TAB PO DAILY CHOLESTEROL (Reported) Cyclobenzaprine HCl 5 MG TABLET 0.5 TAB PO AD PRN MUSCLE SPASMS (Reported) Dextran 70/Hypromellose (Artificial Tears) 1 EACH DROPERETTE 1 DROP OU AD PRN BOTH EYES (Reported) Metformin HCl 1,000 MG TABLET 1 TAB PO BID DIABETES (Reported) Nitroglycerin 0.4 MG TAB.SUBL 1 TAB SL AD PRN CHEST PAIN (Reported) 1st sign of attack; may repeat every 5 minutes until relief; if pain persists after 3 tablets in 15 minutes, prompt medical att Pantoprazole Sodium 40 MG TABLET.DR 1 TAB PO DAILY GI (Reported) Tiotropium [place] (Spiriva) 18 MCG CAP.W.DEV 1 CAP INH DAILY COPD (Reported) Tramadol HCl 50 MG TABLET 1 TAB PO BID PRN PAIN (Reported) Past History Travel History Traveled to [place] past 21 day No Medical History Neurological: CVA, TIA EENT: epistaxis Cardiovascular: AFIB Respiratory: COPD Gastrointestinal: GERD Hepatic: NONE Renal: NONE Musculoskeletal: chronic back pain Psychiatric: NONE Endocrine: diabetes Blood Disorders: NONE Cancer(s): NONE CLIENT SERVICE ADMINISTRATOR/Reproductive: NONE History of MRSA: No History of VRE: No History of CDIFF: No Surgical History Surgical History: non-contributory Past Family/Social History Family History Relations & Conditions if any FATHER FH: cancer FH: heart disease Psychosocial History Who Do You Live With? child Services at Home: Home Health Aide, Occupational Therapy, Physical Therapy Primary Language: Vincentian ETOH Use: denies use Illicit Drug Use: denies illicit drug use Functional Ability Ambulation: cane Review of Systems Review of Systems Constitutional: Denies: chills, diaphoresis, fever, malaise, weakness, unexplained weight loss. Cardiovascular: Reports: chest pain, palpitations. Denies: edema, orthopena, peripheral edema. Respiratory: Reports: cough, short of breath, sputum production, wheezing. Denies: hemoptysis, orthopnea, stridor. GI: Denies: abdominal pain, bloating, constipation, diarrhea, distention, bowel incontinence, nausea, vomiting. Musculoskeletal: Denies: joint pain, joint swelling, muscle pain. Neurological/Psychological: Reports: anxiety, headache. Denies: depressed, dementia, emotional problems, numbness, paresthesia. Hematologic/Endocrine: Denies: bruising, bleeding, polyuria, polydipsia. Exam & Diagnostic Data Last 24 Hrs of Vital Signs/I&O Vital Signs Date Time Temp Pulse Resp B/P B/P Pulse O2 O2 Flow FiO2 Mean Ox Delivery Rate 04/091 98.0 94 20 133/59 94 Nasal 2.0L Cannula 04/09 1924 97.8 100 20 123/58 94 Nasal 2.0L Cannula 04/09 1707 98.0 89 18 136/72 96 Nasal 2.0L Cannula 04/09 1532 98.1 89 16 114/80 98 2.0L 04/09 1455 96 Nasal 2.0L Cannula 04/09 1227 92 17 130/90 93 Room Air 04/09 1117 98.5 100 16 175/98 96 Room Air Intake & Output 04/09 1600 04/09 0800 04/09 0000 Intake Total 1000 Output Total Balance 1000 Intake, IV 1000 Patient 149 lb Weight Physical Exam General Appearance Alert, Oriented X3, Cooperative, No Acute Distress Skin No Rashes, No Breakdown Neck Supple Cardiovascular Regular Rate, Normal S1, Normal S2 Lungs bilateral scattered wheeze Abdomen Normal Bowel Sounds, Soft, No Tenderness, No Hepatospenomegaly Neurological left sided residual weakness from a previous CVA Extremities No Edema, Normal Pulses Assessment/Plan Assessment: This is a 73-year-old female with past history of COPD, diabetes mellitus, chronic back pain, CVA presents to the ED with worsening shortness of breath for 1 week. She had been desaturating to the 80s during her sleep at home during the past week. She is able to only minimally ambulate because of her shortness of breath but does not use home oxygen at baseline. She was afebrile in the ED and saturating to 98% on 2 L of oxygen. Labs: Hgb: 12.8, WBC:7.2, Na:132, K:3.9,, ProBNP: 1320, INR:1.27 Problems: 1. Acute hypoxic respiratory failure requiring O2 2. COPD exacerbation 3. Diabetes Mellitus 4. PFO 5. HIstory of CVA We will admit the patient to the Gen Med service. 1. COPD exacerbation with Acute hypoxic respiratory failure -The patient does not need Oxygen at baseline bit has been desaturating to the 80s at home. She is requiring Oxygen suupplementation whilst in the hospital. _TRC and duonebs as needed -Oxygen suuplementation to maintain saturation above 92% - Azithrmycin for 5 days -Pulmonary consult in the AM 2. History of Diabetes Mellitus -ISS -Accuchecks q4 hours -COnsistent carbohydrate diet 3. PFO -PFO was incidentally discovered during the last hospital stay -We would ocntinue her on Eliquis 2. History of CVA -We would keep the patient on anti-coagulation -Physical therapy evaluation in the AM DVT prophylaxis: Heparin and ALPS Code status: Full code As Ranked By This Provider Problem List: 1. COPD exacerbation 2. History of hypertension 3. History of CVA (cerebrovascular accident) 4. Patent foramen ovale 5. Diabetes mellitus Core Measures/Misc (04/30) Acute Coronary Syndrome ACS Diagnosis: No Congestive Heart Failure Congestive Heart Failure Diagnosis No Cerebrovascular Accident CVA/TIA Diagnosis: No VTE (View Protocol) VTE Risk Factors Age>40 No Mechanical VTE Prophylaxis d/t N/A MechProphylax Ordered No VTE Pharm Prophylaxis d/t NA PharmProphylax ordered Sepsis (View protocol) Sepsis Present: No If YES complete Sepsis Event Note If YES complete Sepsis Event Note Willem Palmakenny 04/09/18 1636: Core Measures/Misc (04/30) Sepsis (View protocol) If YES complete Sepsis Event Note If YES complete Sepsis Event Note Attending MD Review Statement Attending Statement Attending MD Statement: examined this patient, discuss w/resident/PA/MULTIMEDIA ENGINEER, agreed w/resident/PA/MULTIMEDIA ENGINEER, discussed with family, reviewed EMR data (avail), discussed with case mgmt Attending Assessment/Plan: 73 yr old female with pmf of copd not on home oxygen, TIA times 2 in the last few weeks, CVA with left hemiparesis , PFO on eliquis, HTN, HLD, COPD, DM who was dced recently last week and since her discharge pt has been having sob and cough. According to pts daughter pt has been having wheezing at night and sob leading to cough. She checked her pulse oxymetry at home and was in 87-88% on room air. Acute copd exacerbation - pt was given nebs and iv steroids in ER and is feeling much better. Pt will be started on iv steroids at 40 q12h and zithromax 250mg qd for 3 days. will put her prn nebs . will get ambulatory oxygen eval prior to dc d/w pt and pts daughter at bedside the care plan. 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 Denies fever/chills, recent URI, sick contacts or recent travel. She is afebrile and her laboratory workup is negative for any infection, and chest x-rays unremarkable. CXR is also unremarkable. Impression * Acute COPD exacerbation as evident by increased shortness of breath, increased cough and sputum production. * Acute hypoxic respiratory failure as evident by patient reporting her home O2 pulse ox was in the mid 80s and also by the fact that while at the ED she required O2 supplementation to keep sats above 88% which is not her baseline since she does not use any home oxygen. * History of chronic diseases; CVA, PA fall, hypertension, hyperlipidemia, COPD, diabetes Plan Admit to general medicine floor O2 supplementation to keep sats above 90% Status post a Medrol 120 mg we'll continue with 40 every 12 TRC nebs Azithromycin status post 500 mg, will continue to 250 mg for 3 more days Carbohydrate diet Accu-Chek 3 times a day and bedtime NovoLog sliding scale Continue home meds other than the nebulizers DVT prophylaxis; address by Katt Couch status; full
--- NOTE | 2018-04-09 16:30 | Admission Certification ---
Admission Certification Certification Statement - As attending physician, I certify that at the time of - admission, based on clinical presentation, severity of - symptoms, need for further diagnostic testing and - therapeutic interventions, and risk of adverse outcomes - without in-hospital treatment, in my clinical assessment, - this patient requires an acute hospital stay for a minimum - of two nights or longer. I have also considered psychsocial - factors such as support system, advanced age, financial - issues, cognitive issues, and failed out-patient treatments, - past re-admission history, safety of patient, and lack of - compliance as applicable. Specific rationale supporting this admission is: acute copd exacerbation
[2018-04-10 05:54] LABS: ABSOLUTE BASOPHIL COUNT 0 /CUMM (0.0-0.2); ABSOLUTE EOSINOPHIL COUNT 0 /CUMM (0.0-0.7); ABSOLUTE GRANULOCYTE CT 5.1 /CUMM (1.4-6.5); ABSOLUTE LYMPH COUNT 0.9 /CUMM (1.2-3.4); ABSOLUTE MONOCYTE COUNT 0.1 /CUMM (0.10-0.60); BASOPHIL % 0.4 % (0.0-2.0); EOSINOPHIL % 0 % (0-5); GRANULOCYTE % 83.8 % (42.2-75.2); HEMATOCRIT 37.6 % (37-47); MEAN CORPUSCULAR HGB 29.5 PG (27.0-31.0); MEAN CORPUSCULAR HGB CONC 33.3 G/DL (33.0-37.0); MEAN CORPUSCULAR VOLUME 88.8 FL (81.0-99.0); MEAN PLATELET VOLUME 7.9 FL (7.4-10.4); PLATELET COUNT 305 /CUMM (130-400); RBC DISTRIBUTION WIDTH 15.3 % (11.5-14.5); RED BLOOD CELL CT 4.23 /CUMM (4.20-5.40); WHITE BLOOD CELL COUNT 6.1 /CUMM (4.8-10.8)
[2018-04-10 06:30] VITALS: BP 104/65
[2018-04-10 08:18] VITALS: BP 108/61
--- NOTE | 2018-04-10 08:41 | PN- Housestaff ---
Sunita Lezama 04/10/18 0841: Subjective Follow-up For: COPD exacerbation Subjective: Patient was seen and examined at bedside. She states she is doing a lot better. The daughter states that the patient slept "like a baby" yesterday. She says she can move about in the bed without being short of breath. She denies fever, chills, nausea, vomiting. The patent has ongoing severe anxiety and would need something for it, She was assured that her concerns would be adressed at the time of her discharge. Review of Systems Constitutional: Reports: see HPI. Objective Last 24 Hrs of Vital Signs/I&O Vital Signs Date Time Temp Pulse Resp B/P B/P Pulse O2 O2 Flow FiO2 Mean Ox Delivery Rate 04/10 1050 95 Nasal 2.0L Cannula 04/10 0819 97.9 90 18 108/61 93 Nasal 2.0L Cannula 04/10 0818 97.9 90 18 108/61 93 Nasal 2.0L Cannula 04/10 0630 97.7 65 16 104/65 92 04/10 0000 Nasal 2.0L Cannula 04/09 2224 94 Nasal 2.0L Cannula 04/09 2131 98.0 94 20 133/59 94 Nasal 2.0L Cannula 04/09 1924 97.8 100 20 123/58 94 Nasal 2.0L Cannula 04/09 1707 98.0 89 18 136/72 96 Nasal 2.0L Cannula 04/09 1532 98.1 89 16 114/80 98 2.0L Intake & Output 04/10 1600 04/10 0800 04/10 0000 Intake Total 360 0 Output Total 420 Balance -60 0 Intake, Oral 360 0 Output, Urine 420 Patient 155 lb 149 lb Weight Weight Reported by Patient Measurement Method Physical Exam General Appearance: Alert, Oriented X3, Cooperative, No Acute Distress Neck: Supple Cardiovascular: Regular Rate, Normal S1, Normal S2, No Murmurs Lungs: bilateral scattered wheezes Extremities: No Edema, Normal Pulses Assessment/Plan Assessment: This is a 73-year-old female with past history of COPD, diabetes mellitus, chronic back pain, CVA presents to the ED with worsening shortness of breath for 1 week. She had been desaturating to the 80s during her sleep at home during the past week. She is currently not on home Oxygen but would reassess the need for oxygen at the time of discharge. Problems: 1. Acute hypoxic respiratory failure requiring O2 2. COPD exacerbation 3. Diabetes Mellitus 4. PFO 5. HIstory of CVA We will admit the patient to the [facility] service. 1. COPD exacerbation with Acute hypoxic respiratory failure -The patient does not need Oxygen at baseline bit has been desaturating to the 80s at home. She is requiring Oxygen suupplementation whilst in the hospital. She would be needed assessment at discharge. -She was given a dose of Soumedrol 120mg once in the ED. She is on Solumedrol 40mg q12. _TRC and duonebs as needed -Oxygen suuplementation to maintain saturation above 92% - Azithrmycin 250mg Day 2. Would complete 5 day course -Pulmonary consult appreciated. Will follow up on the recommendations. 2. History of Diabetes Mellitus -ISS -Accuchecks q4 hours -Consistent carbohydrate diet 3. PFO -PFO was incidentally discovered during the last hospital stay -We would continue her on Eliquis 4. History of CVA -We would keep the patient on anti-coagulation -Physical therapy evaluation in the AM DVT prophylaxis: Heparin and ALPS Code status: Full code Problem List: 1. Diabetes mellitus 2. Patent foramen ovale 3. History of CVA (cerebrovascular accident) 4. COPD exacerbation Pain Ratin Pain Location: none Pain Goal: Remain pain free Pain Plan: none Tomorrow's Labs & Rationales: cbc and bep Mariella Morrison 04/10/18 1205: Attending MD Review Statement Attending Statement Attending MD Statement: examined this patient, discuss w/resident/PA/CLIENT REPORTING ASSOCIATE, agreed w/resident/PA/CLIENT REPORTING ASSOCIATE, discussed with family, reviewed EMR data (avail), discussed with nursing, discussed with case mgmt, reviewed images, amended to note Attending Assessment/Plan: Acute copd exacerbation with improvement. No use ofaccessory muscles. Spo2 96% on 2l nasal cannula. C/w iv steroids at 40 q12h and zithromax. will put her prn nebs. Pulmonary consult Dr Patterson. d/w pt and pts daughter at bedside the care plan. Anticipate dc in next 24-48 hrs as clinical condition improves
--- NOTE | 2018-04-10 12:56 | Cons- Pulmonary ---
General Information and HPI Consulting Request Date of Consult: 04/10/18 Requested By: Medical team/Dr. Morrison/Family/Patient Reason for Consult: COPD exacerbation Source of Information: patient Exam Limitations: no limitations History of Present Illness: 73 year old woman. Consultation is requested by Dr. Morrison at the request of the family/patient. The patient historically has seen Dr. Underwood and are requesting for an evaluation by me. I have seen the patient historically in the ICU setting earlier this year. She has a history of COPD, DM, chronic back pain, history of CVA. Recent TIA without any sequelae. She has been on spiriva recently and has seen Dr. Kearney. In October the patient experienced hypercarbic respiratory failure including intubation. She has been c/o chest tightness, wheezing and dyspnea. She does feel better than admission. 04/09 - CXR reveal hyperinflation/emphysematuos changes She has also received zithromax and solumedrol 40mg iv q12h with TRC/Nebulizer therapy. She is also on Eliquis for a PFO and is followed by Dr. Butcher. Allergies/Medications Allergies: Coded Allergies: No Known Allergies (10/18/17) Home Med List: Acetaminophen With Codeine (Acetaminophen-Cod #3 Tablet) 300 MG-30 MG TABLET 1 TAB PO DAILY PRN PAIN (Reported) Albuterol Sulfate 2.5 MG/3 ML (0.083 %) VIAL.NEB 1 Vial INH/SHANKAR AD PRN RESP. (Reported) Apixaban (Eliquis) 5 MG TABLET 1 TAB PO BID PFO Atorvastatin Calcium 40 MG TABLET 1 TAB PO DAILY CHOLESTEROL (Reported) Cyclobenzaprine HCl 5 MG TABLET 0.5 TAB PO AD PRN MUSCLE SPASMS (Reported) Dextran 70/Hypromellose (Artificial Tears) 1 EACH DROPERETTE 1 DROP OU AD PRN BOTH EYES (Reported) Metformin HCl 1,000 MG TABLET 1 TAB PO BID DIABETES (Reported) Nitroglycerin 0.4 MG TAB.SUBL 1 TAB SL AD PRN CHEST PAIN (Reported) 1st sign of attack; may repeat every 5 minutes until relief; if pain persists after 3 tablets in 15 minutes, prompt medical att Pantoprazole Sodium 40 MG TABLET.DR 1 TAB PO DAILY GI (Reported) Tiotropium Brent (Spiriva) 18 MCG CAP.W.DEV 1 CAP INH DAILY COPD (Reported) Tramadol HCl 50 MG TABLET 1 TAB PO BID PRN PAIN (Reported) Current Medications: Current Medications Sig/Harish Start time Last Medication Dose Route Stop Time Status Admin Acetaminophen 650 MG Q6P PRN 04/09 224 AC PO Acetaminophen 1,000 MG Q6P PRN 04/09 2245 AC IV Acetaminophen 0 .STK-MED ONE 04/09 1326 DC IV Acetaminophen 1,000 MG ONCE ONE 04/09 1315 DC 04/09 N/A 1 UNIT IV 04/09 1329 1326 Albuterol Sulfate 3 ML ONCE ONE 04/09 1445 DC 04/09 INH 04/09 1446 1454 Alprazolam 0.25 MG ONCE ONE 04/09 1315 DC 04/09 PO 04/09 1316 1316 Alprazolam 0 .STK-MED ONE 04/09 1312 DC PO Apixaban 5 MG BID 04/09 2100 AC 04/10 PO 0923 Atorvastatin Calcium 40 MG DAILY 04/10 0900 AC 04/10 PO 0923 Azithromycin 250 MG DAILY 04/10 0900 AC 04/10 PO 0923 Azithromycin 500 MG ONCE ONE 04/09 1445 DC 04/09 Sodium Chloride 250 ML IV 04/09 1544 1532 Insulin Aspart 0 TIDAC/HS 04/10 0800 AC 04/10 SC 1216 Insulin Aspart 0 TIDAC 04/09 1700 DC 04/09 SC 1822 Ipratropium Brent 2.5 ML ONCE ONE 04/09 1445 DC 04/09 INH 04/09 1446 1454 Methylprednisolone 0 .STK-MED ONE 04/09 2120 DC .ROUTE Methylprednisolone 40 MG Q12 04/09 2100 AC 04/10 IV 0923 Methylprednisolone 0 .STK-MED ONE 04/09 1450 DC .ROUTE Methylprednisolone 125 MG ONCE ONE 04/09 1445 DC 04/09 IV 04/09 1446 1454 Ondansetron HCl 0 .STK-MED ONE 04/09 1312 DC .ROUTE Ondansetron HCl 4 MG ONCE ONE 04/09 1245 DC 04/09 IV 04/09 1246 1315 Review of Systems Comments 18 pt ros reviewed pertinent positives and negatives in HPI otherwise negative Past History Travel History Traveled to [place] past 21 day No Medical History Neurological: CVA, TIA EENT: epistaxis Cardiovascular: AFIB Respiratory: COPD Gastrointestinal: GERD Hepatic: NONE Renal: NONE Musculoskeletal: chronic back pain Psychiatric: NONE Endocrine: diabetes Blood Disorders: NONE Cancer(s): NONE FINISHER OPERATOR/Reproductive: NONE Surgical History Surgical History: knee replacement Family History Relations & Conditions If Any: FATHER FH: cancer FH: heart disease Psychosocial History Where Do You Live? Home Who Do You Live With? child Services at Home: Home Health Aide, Occupational Therapy, Physical Therapy Primary Language: Albanian Smoking Status: Former Smoker ETOH Use: denies use Illicit Drug Use: denies illicit drug use Functional Ability Ambulation: cane Exam & Diagnostic Data Last 24 Hrs of Vital Signs/I&O Vital Signs Date Time Temp Pulse Resp B/P B/P Pulse O2 O2 Flow FiO2 Mean Ox Delivery Rate 04/10 1050 95 Nasal 2.0L Cannula 04/10 0819 97.9 90 18 108/61 93 Nasal 2.0L Cannula 04/10 0818 97.9 90 18 108/61 93 Nasal 2.0L Cannula 04/10 0630 97.7 65 16 104/65 92 04/10 0000 Nasal 2.0L Cannula 04/09 2224 94 Nasal 2.0L Cannula 04/09 2131 98.0 94 20 133/59 94 Nasal 2.0L Cannula 04/09 1924 97.8 100 20 123/58 94 Nasal 2.0L Cannula 04/09 1707 98.0 89 18 136/72 96 Nasal 2.0L Cannula 04/09 1532 98.1 89 16 114/80 98 2.0L 04/09 1455 96 Nasal 2.0L Cannula Intake & Output 04/10 1600 04/10 0800 04/10 0000 Intake Total 0 Output Total Balance 0 Intake, Oral 0 Patient 155 lb 149 lb Weight Weight Reported by Patient Measurement Method Physical Exam Other Physical Findings: gen-aaox3 heent-nasal cannula cvs-s1,s2 lungs-rare bibasilar rhonchi abd-soft,bs+ ext-without edema Last 48 Hrs of Labs/Ricci: Laboratory Tests 04/10/18 0542: Anion Gap 10, Estimated GFR > 60, BUN/Creatinine Ratio 22.2, CBC w Diff MAN DIFF ORDERED, RBC 4.23, MCV 88.8, MCH 29.5, MCHC 33.3, RDW 15.3 H, MPV 7.9, Gran % 83.8 H, Lymphocytes % 14.7 L, Monocytes % 1.1 L, Eosinophils % 0, Basophils % 0.4, Absolute Granulocytes 5.1, Segmented Neutrophils 84 H, Absolute Lymphocytes 0.9 L, Lymphocytes 14 L, Monocytes 1 L, Absolute Monocytes 0.1, Eosinophils 1, Absolute Eosinophils 0, Absolute Basophils 0, Platelet Estimate ADEQUATE, Polychromasia 1+, Poikilocytosis 1+, Ovalocytes 1+, Fld Total RBCs Counted 100 04/09/18 1834: Urine Color YEL, Urine Clarity CLEAR, Urine pH 6.0, Ur Specific [place] 1.020, Urine Protein NEG, Urine Ketones TRACE H, Urine Nitrite NEG, Urine Bilirubin NEG, Urine Urobilinogen 0.2, Ur Leukocyte Esterase NEG, Ur Microscopic EXAM NOT REQUIRED, Urine Hemoglobin NEG, Urine Glucose NEG 04/09/18 1419: ESR Westergren 11 04/09/18 1141: Anion Gap 7, Estimated GFR > 60, BUN/Creatinine Ratio 14.4, Glucose 148 H, Calcium 9.7, Total Bilirubin 0.7, AST 12 L, ALT 23, Alkaline Phosphatase 90, Troponin I < 0.01, C-Reactive Prot, Quant < 0.5, Jdw-T-Picvcbtkpyj Pept 320 H, Total Protein 6.5, Albumin 3.8, Globulin 2.7, Albumin/Globulin Ratio 1.4, Lipase 221, PT 13.9 H, INR 1.27 H, APTT 34, D-Dimer High Sensitivty < 200, CBC w Diff NO MAN DIFF REQ, RBC 4.32, MCV 87.3, MCH 29.7, MCHC 34.1, RDW 15.6 H, MPV 7.9, Gran % 71.8, Lymphocytes % 22.3, Monocytes % 4.8, Eosinophils % 0.8, Basophils % 0.3, Absolute Granulocytes 5.2, Absolute Lymphocytes 1.6, Absolute Monocytes 0.3 , Absolute Eosinophils 0.1, Absolute Basophils 0 Assessment/Plan Impression/Plan: Impression 73 year old woman * acute exacerbation of COPD - can be related to weather/bronchitis * hx of PFO on Eliquis * hx of CVA and recent TIAs Plan -fio2 to goal of spo2 >92% -continue Eliquis (followed by Dr. Butcher) -solumedrol 40mg iv q12h for today, will taper with you -monitor finger sticks closely -zithromax course (5 days) -TRC/Nebs -will need spirometry/PFTs on an outpatient basis -assess oxygen needs once closer to discharge -will evaluate appropirate inhalers upon discharge DVT prophylaxis at all times Consult Acknowledgment - Thank you for your consult request.
[2018-04-10 17:28] VITALS: BP 96/66
[2018-04-10 21:39] VITALS: BP 120/80
[2018-04-11 05:40] VITALS: BP 128/74
[2018-04-11] MEDS ORDERED: AZITHROMYCIN250 M1 PO (06:59)
[2018-04-11] MEDS ORDERED: XANAX0.25 M1 PO (06:59)
--- NOTE | 2018-04-11 07:02 | Patient Discharge Instructions ---
Discharge Instructions General Discharge Information You were seen/treated for: COPD exacerbation Special Instructions: 1. Please schedule an appointment with your PCP within a week of your discharge. 2. Please schedule an appointment with on 04/24/2018in his office. Diet Continue normal diet: Yes Activity Full Activity/No Limits: Yes Acute Coronary Syndrome Inclusion Criteria At DC or during hospital stay patient has or had the following: ACS DIAGNOSIS No Discharge Core Measures Meds if any: Prescribed or Continued at Discharge Meds if any: NOT Prescribed or Continued at Discharge Congestive Heart Failure Inclusion Criteria At DC or during hospital stay patient has or had the following: CHF DIAGNOSIS No Discharge Core Measures Meds if any: Prescribed or Continued at Discharge Meds if any: NOT Prescribed or Continued at Discharge Cerebrovascular accident Inclusion Criteria At DC or during hospital stay patient has or had the following: CVA/TIA Diagnosis No Discharge Core Measures Meds if any: Prescribed or Continued at Discharge Meds if any: NOT Prescribed or Continued at Discharge Venous thromboembolism Inclusion Criteria VTE Diagnosis No VTE Type NONE VTE Confirmed by (Test) NONE Discharge Core Measures - Per Current guidelines, there needs to be overlap - treatment for the first 5 days of Warfarin therapy. - If discharged on Warfarin prior to 5 days of - overlap therapy, the patient will need to be - assessed for post discharge needs including - *Post discharge parental anticoagulation - *Warfarin and/or parental anticoagulation education - *Follow up date to check INR post discharge At least 5 days overlap therapy as Inpatient No Meds if any: Prescribed or Continued at Discharge Note: Overlap Therapy is Warfarin and Anticoagulant Meds if any: NOT Prescribed or Continued at Discharge
--- NOTE | 2018-04-11 07:15 | PN- Housestaff ---
Faizan Lopez 04/11/18 0715: Subjective Follow-up For: Shortness of breath COPD exacerbation Complaints: no complaints Subjective: Patient was examined bedside while she was lying down with 1 L nasal cannula oxygen. The patient was coughing. The daughter who was by her side answered most of the questions and said that she was doing significantly better. She requested for a physical therapy and wanted to see if her mother tolerated before going home. Review of Systems Constitutional: Denies: chills, diaphoresis, fever, malaise, weakness, unexplained weight loss. Cardiovascular: Denies: chest pain, edema, orthopena, palpitations, peripheral edema, syncope. Respiratory: Reports: cough, short of breath, sputum production. Denies: hemoptysis, orthopnea, stridor, wheezing. Gastrointestinal: Denies: abdominal pain, constipation, diarrhea, bloody stool, vomiting. Objective Last 24 Hrs of Vital Signs/I&O Vital Signs Date Time Temp Pulse Resp B/P B/P Pulse O2 O2 Flow FiO2 Mean Ox Delivery Rate 04/11 1505 97.7 83 18 108/62 92 04/11 1217 Room Air 04/11 0540 98.1 90 20 128/74 94 Nasal 1.5L Cannula 04/11 0000 95 Nasal 1.0L Cannula 04/10 2139 98.2 70 20 120/80 95 04/10 1728 95 Nasal Cannula 04/10 1728 98.2 86 18 96/66 94 Room Air Intake & Output 04/11 1600 04/11 0800 04/11 0000 Intake Total 360 240 Output Total 650 Balance -290 240 Intake, Oral 360 240 Output, Urine 650 Patient 157 lb Weight Physical Exam General Appearance: Alert, Oriented X3, Cooperative, No Acute Distress Cardiovascular: Normal S1, Normal S2, No Murmurs Lungs: CRACLKLES HEARD IN THE LUNG BASES Abdomen: Soft, No Tenderness Neurological: Normal Speech, Strength at 5/5 X4 Ext, Normal Tone, Sensation Intact Extremities: No Edema Assessment/Plan Assessment: This is a 73-year-old female with past history of COPD, diabetes mellitus, chronic back pain, CVA presents to the ED with worsening shortness of breath for 1 week. She had been desaturating to the 80s during her sleep at home during the past week. She is currently not on home Oxygen but would reassess the need for oxygen at the time of discharge. Problems: 1. Acute hypoxic respiratory failure requiring O2 2. COPD exacerbation 3. Diabetes Mellitus 4. PFO 5. HIstory of CVA 1. COPD exacerbation with Acute hypoxic respiratory failure -Patient is on 1 L of nasal oxygen, continue oxygen supplementation to maintain saturation above 92% -PT evaluation was done, follow-up PT assessment notes -Follow-up oxygen saturation while ambulation -Prednisone taper started as per per Dr. Patterson's recommendation. _TRC and duonebs as needed - Azithrmycin 250mg Day 2. Would complete 5 day course 2. History of Diabetes Mellitus -ISS -Accuchecks q4 hours -Consistent carbohydrate diet 3. PFO -PFO was incidentally discovered during the last hospital stay -We would continue her on Eliquis 4. History of CVA -We would keep the patient on anti-coagulation -Physical therapy evaluation in the AM DVT prophylaxis: Heparin and ALPS Code status: Full code Problem List: 1. COPD (chronic obstructive pulmonary disease) 2. COPD exacerbation Pain Ratin Pain Location: NONE Pain Goal: Remain pain free Pain Plan: NONE Tomorrow's Labs & Rationales: NONE Mariella Morrison 04/11/18 1130: Attending MD Review Statement Attending Statement Attending MD Statement: examined this patient, discuss w/resident/PA/PRE BILLING SPECIALIST, agreed w/resident/PA/PRE BILLING SPECIALIST, discussed with family, reviewed EMR data (avail), discussed with nursing, discussed with case mgmt, reviewed images, amended to note Attending Assessment/Plan: Acute copd exacerbation with improvement. On 2l nasal cannula with minimal use of accessory msucles. Taper iv steroids as per pulmonary and zithromax, prn nebs Pulmonary consulted Dr Patterson. Appreicate recommendations. PT consult and dc planning. Check walking pulse oximetry on room air and ambulation today d/w pt and pts daughter at bedside the care plan. Anticipate dc in next 24-48 hrs as clinical condition improves
--- NOTE | 2018-04-11 13:22 | PN- Pulmonary ---
Subjective HPI/Critical Care Issues: pt seen and examined discussed plan of care with daughter overall she is feeling much better no significant wheezing minimal cough has not ambualted no n/v/d/c no rosales, no cp Objective Current Medications: Current Medications Sig/Harish Start time Last Medication Dose Route Stop Time Status Admin Acetaminophen 650 MG Q6P PRN 04/09 2245 AC PO Acetaminophen 1,000 MG Q6P PRN 04/09 2245 AC IV Albuterol Sulfate 3 ML Q4P PRN 04/11 1230 AC INH Alprazolam 0.25 MG ONCE ONE 04/10 2215 DC 04/10 PO 04/10 221 224 Apixaban 5 MG BID 04/09 2100 AC 04/11 PO 0809 Atorvastatin Calcium 40 MG DAILY 04/10 0900 AC 04/11 PO 0809 Azithromycin 250 MG DAILY 04/10 0900 AC 04/11 PO 04/13 0901 0808 Insulin Aspart 0 TIDAC/HS 04/10 0800 AC 04/11 SC 1221 Methylprednisolone 40 MG DAILY 04/11 09 CAN IV Methylprednisolone 40 MG Q12 04/09 2100 DC 04/11 IV 0809 Prednisone 40 MG DAILY 04/11 0900 CAN PO Vital Signs & I&O Last 24 Hrs of Vitals and I&O: Vital Signs Date Time Temp Pulse Resp B/P B/P Pulse O2 O2 Flow FiO2 Mean Ox Delivery Rate 04/11 1217 Room Air 04/11 0540 98.1 90 20 128/74 94 Nasal 1.5L Cannula 04/11 0000 95 Nasal 1.0L Cannula 04/10 2139 98.2 70 20 120/80 95 04/10 1728 95 Nasal Cannula 04/10 1728 98.2 86 18 96/66 94 Room Air 04/10 1616 98.2 86 18 96/66 94 Nasal 1.5L Cannula Intake & Output 04/11 1600 04/11 0800 04/11 0000 Intake Total 360 240 Output Total 650 Balance -290 240 Intake, Oral 360 240 Output, Urine 650 Patient 157 lb Weight Exam Other Physical Findings: gen-aaox3 heent-nasal cannula cvs-s1,s2 lungs-rare bibasilar rhonchi abd-soft,bs+ ext-without edema Impression/Plan Impression/Plan Impression/Plan: Impression 73 year old woman * acute exacerbation of COPD - can be related to weather/bronchitis * hx of PFO on Eliquis * hx of CVA and recent TIAs Plan -fio2 to goal of spo2 >92% -continue Eliquis (followed by Dr. Butcher) -dc solumedrol - begin 40mg po prednisone for 3 days, then 30mg x 3 days, then 20mg x 3 days, then 10mg x 3 days -monitor finger sticks closely -zithromax course (5 days) -TRC/Nebs -will need spirometry/PFTs on an outpatient basis -assess oxygen needs once closer to discharge -will evaluate appropirate inhalers upon discharge -PT/OOB as tolerated -assess oxygen needs with on room air and ambulation prior to discharge DVT prophylaxis at all times
[2018-04-11 15:05] VITALS: BP 108/62
[2018-04-11 22:37] VITALS: BP 130/86
[2018-04-12 06:28] VITALS: BP 106/62
--- NOTE | 2018-04-12 07:27 | PN- Housestaff ---
Faizan Lopez 04/12/18 0727: Subjective Follow-up For: COPD exacerbation Desaturation on ambulation Complaints: no complaints Subjective: Patient was examined bedside lying down, on nasal cannula 1L oxygen, she says that she is doing better. I also spoke to the daughter who explained to be about the mother's ambulation and her getting short of breath towards the end of ambulation yesterday. She was told that the patient would receive physical therapy stairs trial today. He is very specific that she wanted page to do the physical therapy. And that she wanted her mother to be able to walk in [facility] without running out of breath Review of Systems Constitutional: Denies: chills, diaphoresis, fever, malaise, weakness, unexplained weight loss. EENTM: Reports: no symptoms. Cardiovascular: Denies: chest pain, edema, orthopena, palpitations, peripheral edema, syncope. Respiratory: Reports: short of breath. Denies: cough, hemoptysis, orthopnea, sputum production, wheezing. Gastrointestinal: Denies: abdominal pain, diarrhea, vomiting. Genitourinary: Reports: no symptoms. Objective Last 24 Hrs of Vital Signs/I&O Vital Signs Date Time Temp Pulse Resp B/P B/P Pulse O2 O2 Flow FiO2 Mean Ox Delivery Rate 04/12 0839 97 Room Air 04/12 0800 Nasal 1.0L Cannula 04/12 0628 98.2 81 20 106/62 94 04/12 0000 Nasal 1.0L Cannula 04/11 2237 98.5 79 18 130/86 94 Nasal 1.0L Cannula 04/11 1915 94 Nasal 1.0L Cannula 04/11 1600 Nasal 1.0L Cannula 04/11 1505 97.7 83 18 108/62 92 04/11 1217 Room Air Intake & Output 04/12 1600 04/12 0800 04/12 0000 Intake Total 200 150 Output Total 400 350 Balance -200 -200 Intake, Oral 200 150 Output, Urine 400 350 Physical Exam General Appearance: Alert, Oriented X3, Cooperative, No Acute Distress Cardiovascular: Regular Rate, No Murmurs Lungs: Diffuse rhonchi heard b/l Abdomen: Normal Bowel Sounds, Soft, No Tenderness, No Hepatospenomegaly, No Masses Neurological: Normal Speech, Strength at 5/5 X4 Ext, Normal Tone, Sensation Intact Extremities: No Clubbing, No Cyanosis, No Edema, Normal Pulses, No Tenderness/ Swelling Current Medications: Current Medications Sig/Harish Start time Last Medication Dose Route Stop Time Status Admin Acetaminophen 650 MG Q6P PRN 04/09 2245 AC PO Acetaminophen 1,000 MG Q6P PRN 04/09 2245 AC IV Albuterol Sulfate 3 ML Q4P PRN 04/11 1230 AC INH Alprazolam 0.25 MG ONCE PRN 04/11 191 AC 04/11 PO 04/18 1914 192 Apixaban 5 MG BID 04/09 2100 AC 04/12 PO 805 Atorvastatin Calcium 40 MG DAILY 04/10 09 AC 04/12 PO 08 Azithromycin 250 MG DAILY 04/10 09 AC 04/12 PO 04/13 901 08 Insulin Aspart 0 TIDAC/HS 04/10 800 AC 04/12 SC 08 Prednisone 10 MG DAILY 04/21 900 AC PO 04/23 901 Prednisone 20 MG DAILY 04/18 900 AC PO 04/20 901 Prednisone 30 MG DAILY 04/15 900 AC PO 04/17 901 Prednisone 40 MG DAILY 04/12 09 AC 04/12 PO 04/14 0901 0806 Assessment/Plan Assessment: This is a 73-year-old female with past history of COPD, diabetes mellitus, chronic back pain, CVA presents to the ED with worsening shortness of breath for 1 week. She had been desaturating to the 80s during her sleep at home during the past week. She is currently not on home Oxygen but would reassess the need for oxygen at the time of discharge. Problems: 1. Acute hypoxemic respiratory failure requiring O2 2. COPD exacerbation 3. Diabetes Mellitus 4. PFO 5. HIstory of CVA 1. COPD exacerbation with Acute hypoxemic respiratory failure -Patient is on 1 L of nasal oxygen, continue oxygen supplementation to maintain saturation above 92% -ptient ambulating with assesment, will check for O2 sats on ambulation. -Prednisone taper started today _TRC and duonebs as needed - Azithrmycin 250mg Day 3. Would complete 5 day course If patient is able to ambulate without requiring oxygen or getting short of breath she may be ready to go home today. Will confirm with Dr. Patterson about the discharge. 2. History of Diabetes Mellitus -ISS -Accuchecks q4 hours > 200, possibly due to the steroids -Consistent carbohydrate diet 3. PFO -PFO was incidentally discovered during the last hospital stay -We would continue her on Eliquis 4. History of CVA -We would keep the patient on anti-coagulation -Physical therapy evaluation in the AM DVT prophylaxis: Heparin and ALPS Code status: Full code Problem List: 1. Diabetes mellitus 2. COPD exacerbation Pain Ratin Pain Location: none Pain Goal: Remain pain free Pain Plan: none Tomorrow's Labs & Rationales: none Mariella Morrison 04/12/18 1253: Attending MD Review Statement Attending Statement Attending MD Statement: examined this patient, discuss w/resident/PA/GALLERY OR MUSEUM CURATOR, agreed w/resident/PA/GALLERY OR MUSEUM CURATOR, discussed with family, reviewed EMR data (avail), discussed with nursing, discussed with case mgmt, reviewed images, amended to note Attending Assessment/Plan: Patient seen/examined bedside. Patient denies any new complaints. Patient is on 1l oxygen supplementation and minimal use of accessory muscles. Continue with steroid taper, titrate off oxygen supplementation. Awaiting walking puse oximetry before discharge. Arrange home oxygen supplementation if required.
[2018-04-12] MEDS ORDERED: PREDNISONE10 M2 PO ×3 (07:45→17:05)
--- NOTE | 2018-04-12 13:59 | Discharge Summary ---
Visit Information Visit Dates Admission Date: 04/09/18 Discharge Date: 04/13/2018 Hospital Course Course Attending Physician: Mariella Morrison MD Primary Care Physician: Kevin Kearney MD Hospital Course: 73-year-old female with past history of COPD not on Home Oxygen , diabetes mellitus, chronic back pain, CVA presented to the ED with chief complaints of nausea, vomiting, severe right-sided headache. According to the patient, she has been getting increasingly short of breath since she was discharged from about a week ago. She reports that she is "bringing too much mucus". The family reports that she has been making a "gurgling noise in from her throat" from too much mucus. The daughter states that her oxygen saturations have been dropping to the 80s while at rest since her discharge from the hospital about a week ago. The patient also endorses chest pain on walking getting better at rest, palpitations she she denies fever, chills, recent infection, sick contacts , recent travel history. Notably the patient was recently admitted to the hospital for TIA, with no residual deficits. She does have left-sided residual weakness from stroke that she had in October of this year. She had an acute hypercarbic respiratory failure requiring intubation and mechanical ventilation during that stay. At the Hospital, Problems: 1. Acute hypoxemic respiratory failure requiring O2 2. Acuite exacerbation of COPD exacerbation 3. Diabetes Mellitus 4. PFO 5. HIstory of CVA 1. Acute exacerbation of COPD with Acute hypoxemic respiratory failure -Patient is on 1 L of nasal oxygen, Patients SpO2 at rest on Oxygen > 92%, on Ambulation 92% , on Room air Patiernts Spo2 goes down to 87% at rest. Hence ambulation could not be attempted on roomair. -Prednisone taper started as per per Dr. Patterson's recommendation. _TRC and duonebs as needed - Azithrmycin 250mg Day 2. Would complete 5 day course 2. History of Diabetes Mellitus -ISS -Accuchecks q4 hours -Consistent carbohydrate diet 3. PFO -PFO was incidentally discovered during the last hospital stay -We would continue her on Eliquis DVT prophylaxis: Heparin and ALPS Code status: Full code Allergies: Coded Allergies: No Known Allergies (10/18/17) Significant Procedures: ATTEMPTED AMBULATION ON RA, PATIENT STANDING O2 @ 87%, 1L NC BACK IN PLACE AMBULATED PATIENT LENGTH OF UNIT O2 @ 92% ON 1LNC. Disposition Summary Disposition Principal Diagnosis: Acute exacerbation of COPD with Hypoxemic Respiratory Failure Additional Diagnosis: DM Discharge Disposition: home or self care Discharge Instructions General Discharge Information Code Status: Full Code Patient's Diet: rgeular Patient's Activity: as tolerated Follow-Up Instructions/Appts: Please follow up with PCP within 1 week of discharge Please follow up with Outpatient Clerk, Dr. Patterson within 1 week of discharge WIll require home oxygen Medications at Discharge Discharge Medications: Continue taking these medications: Metformin HCl (Metformin HCl) 1,000 MG TABLET 1 Tablet ORAL TWICE DAILY Comments: NOT GIVEN Atorvastatin Calcium (Atorvastatin Calcium) 40 MG TABLET 1 Tablet ORAL DAILY Days = 90 Comments: Last Taken: 04/04/18 Time: 075 Acetaminophen With Codeine (Acetaminophen-Cod #3 Tablet) 300 MG-30 MG TABLET 1 Tablet ORAL DAILY as needed for PAIN Qty = 30 Comments: NOT GIVEN Tramadol HCl (Tramadol HCl) 50 MG TABLET 1 Tablet ORAL TWICE DAILY as needed for PAIN Qty = 30 Comments: NOT GIVEN Pantoprazole Sodium (Pantoprazole Sodium) 40 MG TABLET.DR 1 Tablet ORAL DAILY Comments: OMEPRAZOLE GIVEN DURING THIS STAY INSTEAD Last Taken: 04/04/18 Time: 0520 Albuterol Sulfate (Albuterol Sulfate) 2.5 MG/3 ML (0.083 %) VIAL.NEB 1 Vial Inhale Solution As Directed as needed for RESP. Days = 15 Comments: NOT GIVEN Nitroglycerin (Nitroglycerin) 0.4 MG TAB.SUBL 1 Tablet SUBLINGUAL As Directed as needed for CHEST PAIN Days = 10 Instructions: 1st sign of attack; may repeat every 5 minutes until relief; if pain persists after 3 tablets in 15 minutes, prompt medical att Comments: NOT GIVEN Dextran 70/Hypromellose (Artificial Tears) 1 EACH DROPERETTE 1 DROP Both Eyes As Directed as needed for BOTH EYES Comments: NOT GIVEN Cyclobenzaprine HCl (Cyclobenzaprine HCl) 5 MG TABLET 0.5 Tablet ORAL As Directed as needed for MUSCLE SPASMS Comments: NOT GIVEN IN HOSPITAL Tiotropium [place] (Spiriva) 18 MCG CAP.W.DEV 1 Capsule Inhale through mouth DAILY Days = 30 Comments: Last Taken: 04/04/18 Time: 0751 Apixaban (Eliquis) 5 MG TABLET 1 Tablet ORAL TWICE DAILY Qty = 60 Comments: Last Taken:8/22/18 Time:0751 Start taking the following new medications: Prednisone (Prednisone) 10 MG TABLET 1 Tablet ORAL DAILY Qty = 26 No Refills Instructions: take 4 tablets for the next 2 days take 3 tablets on 04/15, 04/16, 04/17 take 2 tablets on 04/18, 04/19, 04/20 take 1 tablet on 04/21, 04/22, 04/23 Comments: take 4 tablets on 04/13, 04/14 take 3 tablets on 04/15, 04/16, 04/17 take 2 ablets on 04/18, 04/19 , 04/20 take 1 tablet on 04/21, 04/22, 04/23 Azithromycin (Azithromycin) 250 MG TABLET 250 Milligram ORAL DAILY Qty = 2 No Refills Alprazolam (Xanax) 0.25 MG TABLET 1 Tablet ORAL AT BEDTIME Qty = 10 No Refills Copies To: Christel GRADY,Kevin Ngo; Yesenia GRADY,Sathya
[2018-04-12 14:50] VITALS: BP 130/60; BP 130/80
--- NOTE | 2018-04-12 15:33 | Event Note ---
Event Note Event Note: Patient has an acute exacerbation of COPD with hypoxemic Respiratory failure . The patient had physical therapy today. During ambulation, the patient was initially ambulated on 1L oxygen and she had SPO2 of = 92% . However on room air, The patient desaturated to 87% at REST and 82% at ambulation
[2018-04-12] MEDS ORDERED: AZITHROMYCIN250 M1 PO (17:05)
[2018-04-12] MEDS ORDERED: XANAX0.25 M1 PO (17:05)
--- NOTE | 2018-04-12 17:15 | PN- Pulmonary ---
Subjective HPI/Critical Care Issues: pt seen and examined feeling better awaiting to check ambulatory o2 saturations no n/v/d/c no rosales, no cp Objective Current Medications: Current Medications Sig/Harish Start time Last Medication Dose Route Stop Time Status Admin Acetaminophen 650 MG Q6P PRN 04/09 2245 AC 04/12 PO 1441 Acetaminophen 1,000 MG Q6P PRN 04/09 2245 AC IV Albuterol Sulfate 3 ML Q4P PRN 04/11 1230 AC INH Alprazolam 0.25 MG ONCE PRN 04/11 1915 AC 04/11 PO 04/18 191 1925 Apixaban 5 MG BID 04/09 2100 AC 04/12 PO 08 Atorvastatin Calcium 40 MG DAILY 04/10 09 AC 04/12 PO 08 Azithromycin 250 MG DAILY 04/10 09 AC 04/12 PO 04/13 0901 0806 Insulin Aspart 0 TIDAC/HS 04/10 08 AC 04/12 SC 1635 Patient Medication 1 ED ONE ONE 04/12 1530 DC 04/12 Teaching ED 04/12 1531 1636 Prednisone 10 MG DAILY 04/21 09 AC PO 04/23 09 Prednisone 20 MG DAILY 04/18 09 AC PO 04/20 0901 Prednisone 30 MG DAILY 04/15 09 AC PO 04/17 0901 Prednisone 40 MG DAILY 04/12 09 AC 04/12 PO 04/14 0901 0806 Vital Signs & I&O Last 24 Hrs of Vitals and I&O: Vital Signs Date Time Temp Pulse Resp B/P B/P Pulse O2 O2 Flow FiO2 Mean Ox Delivery Rate 04/12 1450 98.4 70 20 130/80 95 Nasal 2.0L Cannula 04/12 08 97 Room Air 04/12 08 Nasal 1.0L Cannula 04/12 628 98.2 81 20 106/62 94 04/12 0000 Nasal 1.0L Cannula 04/11 2237 98.5 79 18 130/86 94 Nasal 1.0L Cannula 04/11 1915 94 Nasal 1.0L Cannula Intake & Output 04/12 1600 04/12 0800 04/12 0000 Intake Total 360 200 150 Output Total 1600 400 350 Balance -1240 -200 -200 Intake, Oral 360 200 150 Output, Urine 1600 400 350 Exam Other Physical Findings: gen-aaox3 heent-nasal cannula cvs-s1,s2 lungs-rare bibasilar rhonchi abd-soft,bs+ ext-without edema Impression/Plan Impression/Plan Impression/Plan: Impression 73 year old woman * acute exacerbation of COPD - can be related to weather/bronchitis * hx of PFO on Eliquis * hx of CVA and recent TIAs Plan -fio2 to goal of spo2 >92% -continue Eliquis (followed by Dr. Butcher) -40mg po prednisone for 3 days, then 30mg x 3 days, then 20mg x 3 days, then 10mg x 3 days -monitor finger sticks closely -zithromax course (5 days) -TRC/Nebs -will need spirometry/PFTs on an outpatient basis -assess oxygen needs prior to dc -will evaluate appropirate inhalers upon discharge -PT/OOB as tolerated -assess oxygen needs with on room air and ambulation prior to discharge DVT prophylaxis at all times apt next week with myself
== END 2018-04-12 17:15 | disposition home health service (06) | DRG 191 ==
LOC: ERH 11:14 → 2NA 16:25 → ERHI 16:25 → ENRESERV 04-10 18:59 → ENTRNSPT 04-10 19:45 → 2NA 04-10 20:08 → CMPTRNSPT 04-10 20:37 → ENTRNSPT 04-12 17:11 → 2NA 04-12 17:15 → EDTRNSPTSTS 04-12 17:16 → EDTRNSPT 04-12 17:16 → CMPTRNSPT 04-12 17:30
PROVIDERS: Physician Assistant Medical; Student in an Organized Health Care Education/Training Program
DX: J44.1 Chronic obstructive pulmonary disease with (acute) exacerbation (principal); I69.954 Hemiplegia and hemiparesis following unspecified cerebrovascular disease affecting left non-dominant side; Q21.1 Atrial septal defect; R09.02 Hypoxemia; Z99.81 Dependence on supplemental oxygen; E11.9 Type 2 diabetes mellitus without complications; I10 Essential (primary) hypertension; G89.29 Other chronic pain; M54.9 Dorsalgia, unspecified; Z79.84 Long term (current) use of oral hypoglycemic drugs; K21.9 Gastro-esophageal reflux disease without esophagitis; E78.5 Hyperlipidemia, unspecified; Z79.01 Long term (current) use of anticoagulants
CPT/HCPCS: 2NASP; ERO; 71045; 74176; 81003; 82436; 93005; 93010; 97116-GO; 97161-GP; 97530-GO; J0131; J0456; J1030; J2405; J2920; J2930